=== PATIENT | male | born 1970 ===

== ENCOUNTER 2024-05-03 20:51 | Inpatient (IN) | payer SELFPAY ==
[2024-05-03] VITALS (15 sets, daily range): BP systolic 55–131; BP diastolic 41–73; PULSE 87–141; RESP 10–19; TEMP 34.3–35.3; O2SAT 94–100; BMI 25.4
--- NOTE | 2024-05-03 20:52 | XRR_ITS ---
PROCEDURE INFORMATION: Exam: XR Right Foot Exam date and time: 05/03/2024 9:06 PM Age: 53 years old Clinical indication: Other: Necrotic; Additional info: Wound TECHNIQUE: Imaging protocol: Radiologic exam of the right foot. Views: 3 or more views. COMPARISON: No relevant prior studies available. FINDINGS: Bones/joints: Mild metatarsus adductus. The 5th and 4th toe phalanges appear to be eroded, only the proximal part of the 5th proximal phalanx remains, a small portion of the 4th distal phalanx is visualized, otherwise presumed eroded appearance of the remainder of the 4th middle and distal phalanges. Soft tissues: Extensive soft tissue gas in the plantar and to a lesser extent dorsal aspect of the mid to distal foot and 2nd-5th toes. Diffuse soft swelling. Presumed dressing material overlying the lateral aspect of the 5th toe. Flecks of high density material overlying the 3rd distal phalanx and the webspace between the 2nd and 3rd toes likely due to or other external objects or debris, versus dermal calcifications. XR/XR foot RT min 3V* [id number] IMPRESSION: 1. Soft tissue swelling and extensive soft tissue gas in the forefoot and toes highly suspicious for severe gas producing soft tissue infection. 2. Eroded appearance of the 5th more than 4th toe phalanges as detailed above, consistent with osteomyelitis assuming no prior surgical resection.
--- NOTE | 2024-05-03 20:53 | XRR_ITS ---
PROCEDURE INFORMATION: Exam: XR Chest Exam date and time: 05/03/2024 9:09 PM Age: 53 years old Clinical indication: Other: Sepsis; Additional info: Possible sepsis TECHNIQUE: Imaging protocol: Radiologic exam of the chest. Views: 1 view. COMPARISON: No relevant prior studies available. FINDINGS: Lungs: Mild bandlike retrocardiac opacities likely nonspecific or due to atelectatic change. Otherwise no focal consolidation identified. Pleural spaces: Unremarkable. No pleural effusion. No pneumothorax. Heart/Mediastinum: Unremarkable. No cardiomegaly. Bones/joints: Unremarkable. XR/XR chest 1V portable [id number] IMPRESSION: No clear-cut focal consolidation at this time. Mild peribronchial thickening/atelectatic change in the retrocardiac left lung base.
--- NOTE | 2024-05-03 21:00 | ECG_ITS ---
[facility] Test Date: 2024-05-03 Pat Name: Tereza Keenan Department: Room: Gender: Male Nurse School: : 1970 Requested By: Emerita Crandall Order Number: [id number] Rm MD: Sb Meneses M.D. Measurements Intervals [place] Rate: 148 P: 0 MI: 0 QRS: -50 QRSD: 156 T: 141 QT: 327 QTc: 515 Interpretive Statements ATRIAL FIBRILLATION WITH RAPID VENTRICULAR RESPONSE Intermittent aberrantly conducted beats LEFT AXIS DEVIATION [QRS AXIS < -30] LEFT BUNDLE BRANCH BLOCK [120+ ms QRS DURATION, 80+ ms Q/S IN V1/V2, 85+ ms R IN I/aVL/V5/V6] No previous ECG available for comparison Electronically Signed On 05-04-2024 21:10:47 CDT by Sb Meneses M.D. [id number]
--- NOTE | 2024-05-03 21:12 | XRR_ITS ---
PROCEDURE INFORMATION: Exam: XR Left Tibia and Fibula Exam date and time: 05/03/2024 9:13 PM Age: 53 years old Clinical indication: Patient HX: Circular open wound to medial side of mid left tib/fib. ; Additional info: Injury TECHNIQUE: Imaging protocol: Radiologic exam of the left tibia and fibula. Views: 2 views. COMPARISON: No relevant prior studies available. FINDINGS: Bones/joints: No acute fracture or dislocation. No destructive osseous change. Soft tissues: Superficial soft tissue irregularity along the medial calf. XR/XR tibia fibula LT 2V [id number] IMPRESSION: 1. Superficial soft tissue irregularity along the medial calf, presumably corresponding to reported wound. 2. No acute osseous abnormality.
[2024-05-03] MEDS: norepinephrine 4 MG/250 ML BAG 30 MG IV (21:15)
[2024-05-03 21:24] LABS: Basophils # 0.1 10^3/uL (0.0-0.1); Basophils % 0.4 %; Hematocrit 27.9 % (37-53); Lymphocytes # 0.5 10^3/uL (0.8-4.8); Lymphocytes % 1.5 %; Mean Corpuscular HGB Conc 28.3 g/dL (30-55); Mean Corpuscular Hemoglobin 29.8 pg (27-33); Mean Corpuscular Volume 105.3 fl (82-101); Mean Platelet Volume 10.6 fL (7.4-10.4); Monocytes # 1.2 10^3/uL (0.2-0.9); Monocytes % 4.1 %; Neutrophils # 26.37 10^3/uL (1.8-7.7); Neutrophils % 88.7 %; Nucleated Red Blood Cells % 0 %; Platelet Count 410 10^3/cmm (157-399); Red Blood Count 2.65 10^6/uL (3.85-5.65); White Blood Count 29.77 10^3/uL (3.29-11.43)
[2024-05-03] MEDS: ketamine 100 mg/mL Inj 5 mL IVP (21:29)
[2024-05-03 21:32] LABS: Ketone (Acetest) Serum Positive (Negative)
--- NOTE | 2024-05-03 21:39 | XRR_ITS ---
PROCEDURE INFORMATION: Exam: XR Chest Exam date and time: 05/03/2024 9:54 PM Age: 53 years old Clinical indication: Device placement; Other: Central line; Additional info: Post central line TECHNIQUE: Imaging protocol: Radiologic exam of the chest. Views: 1 view. COMPARISON: CR (CHEST, ) 05/03/2024 9:09 PM FINDINGS: Tubes, catheters and devices: A right-sided IJ line has been placed, the tip projecting over the cavoatrial junction. Lungs: Previous increased retrocardiac left lung base density is less pronounced compared to the study obtained earlier the same day. No focal opacity. Pleural spaces: Unremarkable. No pleural effusion. No pneumothorax. Heart/Mediastinum: Unremarkable. No cardiomegaly. Diaphragm: Mild elevation of the left hemidiaphragm. Bones/joints: Unremarkable. XR/XR chest 1V portable [id number] IMPRESSION: Interval placement of right-sided IJ line.
[2024-05-03 21:40] LABS: Alanine Aminotransferase < 5 U/L (0-41); Albumin Level 2.4 g/dL (3.5-5.2); Alkaline Phosphatase 104 U/L (40-130); Anion Gap 41.5 (5-19); Aspartate Amino Transferase 6 U/L (0-40); Blood Urea Nitrogen 53 mg/dL (6-20); Calcium 8.8 mg/dL (8.5-10.5); Chloride 90 mmol/L (98-107); Globulin 3.6 g/dL (1.3-4.6); Glomerular Filtration Rate 21.8 mL/min (90-130); Magnesium 2.6 mg/dL (1.7-2.3); Potassium 5.5 mmol/L (3.5-5.1); Sodium 129 mmol/L (136-145); Total Bilirubin 0.2 mg/dL (0.15-1.2)
[2024-05-03 21:41] LABS: Lactic Sepsis W/Reflex 3.6 mmol/L (0.5-2.2)
[2024-05-03 21:49] LABS: Osmolality Calculated 331 mOsm/kg (285-295)
[2024-05-03 21:51] LABS: Carbon Dioxide 3 mmol/L (22-29); Glucose 974 mg/dL (65-115); Phosphorus 8.5 mg/dL (2.5-4.5)
[2024-05-03] MEDS: vancomycin 1,000 MG in sodium chloride 0.9% 250 ML 250 MG IV (21:53)
[2024-05-03] MEDS: piperacillin-tazobactam 3.375 GM in sodium chloride 0.9% (plus) 50 ML IV (21:53)
--- NOTE | 2024-05-03 21:57 | ED_ITS ---
HPI - Neuro Symptoms/Deficit 2 General: Chief Complaint: Neuro Symptoms/Deficit Stated Complaint: HIGH BLOOD SUGAR Time Seen by Provider: 05/03/24 20:52 Source: EMS Mode of arrival: EMS Limitations: altered mental status History of Present Illness: 53-year-old male with a history of diabe kathya he had a burn to his right foot last week EMS was called for patient being unresponsive. They state when they arrived he was unresponsive patient's blood pressure was in the 40s I did give him a dose of epinephrine his pressures still in the 60s here patient's unresponsive with cues mild breathing they state that his blood sugar read high patient's unresponsive no history is available from him. Review of Systems 2 General: Reports: ROS unobtainable due to mental status Physical Exam 2 Const: COMMON NORMALS: negative for patient oriented x3 GENERAL APPEARANCE: in distress and ill appearing HENMT: COMMON NORMALS: normocephalic and atraumatic HEAD & SCALP: n ormocephalic and atraumatic Eye: COMMON NORMALS: Equal, round and reactive pupils present and EOMs intact bilaterally PUPIL: Yes Equal, round and reactive pupils present Neck/C-Spine: COMMON NORMALS: full ROM and supple Chest: COMMONS NORMALS: normal inspection of the chest and normal palpation of entire chest wall Resp: COMMON NORMALS: No use of accessory muscles EFFORT & INSPECTION: Yes tachypneic Cardio: COMMON NORMALS: No murmurs present (Cardio) RATE: tachycardic GI: COMMON NORMALS: Normal to inspection, nondistended, normoactive bowel sounds present, Soft to palpation, non-tender and no masses PALPATION: Yes Soft to palpation Extremity: NARRATIVE EXTREMITY EXAM: Necrotic wound noted to right foot with foul-smelling erythema around the foot as well Neuro: COMMON NORMALS: negative for patient oriented x3 Skin: NARRATIVE SKIN EXAM: Necrotic wound noted to right foot Procedures Central Line Placement Right IJ: Time Out Performed: Yes Patient Placed on Monitor/Pulse Ox: Yes MD Prep: mask, gown and gloves Central Line Prep: Chlorhexidine scrub Local Anesthetic: lidocaine 1% Amount of anesthesia used (mL): 3 Ultrasound Used for Placement: Yes Central Line Lumen Inserted: triple Post Procedure: sutured in place, good blood return and all ports aspirated, flushed, capped Post Procedure X-Ray: tip of catheter in good position and no pneumothorax seen Patient Tolerated Procedure: well Complications: none Procedural Sedation Presedation Evaluation: central line ASA Class: III Preparation: chemical plant operator supervisor applied and pulse oximeter Ketamine: IV Ketamine dose (mg): 100 Complications: none Interventions: oxygen applied Course 2 Vital Signs: Vital signs: Vital Signs Temperature 93.7 F L 05/03/24 21:00 Pulse Rate 87 05/03/24 22:00 Respiratory Rate 11 L 05/03/24 22:00 Blood Pressure 131/73 05/03/24 22:00 Pulse Oximetry 100 05/03/24 22:00 Oxygen Delivery Me thod Nasal Cannula 05/03/24 22:00 Oxygen Flow Rate 6 05/03/24 22:00 MDM - Neuro Symptoms/Deficit Medical Decision Making Patient presented here with severe septic shock along with likely DKA as well. He has what appears to be gas gangrene of his right foot did fluid resuscitate him given antibiotics start him on Levophed and placed a central line. Patient had to be sedated for central line placement. Dr. Huerta has been consulted he has seen the patient in the ER is going to take to the operating room for emergent surgery on his right foot patient started on insulin drip and given bicarb as well hospitalist was seen patient in the ER as well. Medical Records I reviewed the patient's medical records. Lab Data I reviewed the patient's lab results. 05/03/24 21:14 05/03/24 21:14 Laboratory Results WBC 29.77 10^3/uL (3.29-11.43) H 05/03/24 21:14 RBC 2.65 10^6/uL (3.85-5.65) L 05/03/24 21:14 Hgb 7.90 g/dL (11.27-16.99) L 05/03/24 21:14 Hct 27.9 % (37-53) L 05/03/24 21:14 MCV 105.3 fl (82-101) H 05/03/24 21:14 MCH 29.8 pg (27-33) 05/03/24 21:14 MCHC 28.3 g/dL (30-55) L 05/03/24 21:14 RDW 13.0 % (12.1-15.1) 05/03/24 21:14 Plt Count 410 10^3/cmm (157-399) H 05/03/24 21:14 MPV 10.6 fL (7.4-10.4) H 05/03/24 21:14 Neut % (Auto) 88.7 % 05/03/24 21:14 Lymph % (Auto) 1.5 % 05/03/24 21:14 Harmon % (Auto) 4.1 % 05/03/24 21:14 Eos % (Auto) 0.0 % 05/03/24 21:14 Baso % (Auto) 0.4 % 05/03/24 21:14 Neut # (Auto) 26.37 10^3/uL (1.8-7.7) H 05/03/24 21:14 Lymph # (Auto) 0.5 10^3/uL (0.8-4.8) L 05/03/24 21:14 Harmon # (Auto) 1.2 10^3/uL (0.2-0.9) H 05/03/24 21:14 Eos # (Auto) 0.0 10^3/uL (0.0-0.8) 05/03/24 21:14 Baso # (Auto) 0.1 10^3/uL (0.0-0.1) 05/03/24 21:14 Nucleated RBC % (auto) 0 % 05/03/24 21:14 Nucleated RBCs # 0.0 /100WBC 05/03/24 21:14 PT 20.60 SECONDS (12.1-14.9) H 05/03/24 21:14 INR 1.70 (0.8-1.2) H 05/03/24 21:14 Sodium 129 mmol/L (136-145) L 05/03/24 21:14 Potassium 5.5 mmol/L (3.5-5.1) H 05/03/24 21:14 Chloride 90 mmol/L (98-107) L 05/03/24 21:14 Carbon Dioxide 3 mmol/L (22-29) L* 05/03/24 21:14 Anion Gap 41.5 (5-19) H 05/03/24 21:14 BUN 53 mg/dL (6-20) H 05/03/24 21:14 Creatinine 3.0 mg/dL (0.7-1.2) H 05/03/24 21:14 GFR Calculation 21.8 mL/min (90-130) L 05/03/24 21:14 Glucose 974 mg/dL (65-115) H* 05/03/24 21:14 Calculated Osmolality 331 mOsm/kg (285-295) H 05/03/24 21:14 Lactic Acid 3.6 mmol/L (0.5-2.2) H 05/03/24 21:14 Calcium 8.8 mg/dL (8.5-10.5) 05/03/24 21:14 Phosphorus 8.5 mg/dL (2.5-4.5) H* 05/03/24 21:14 Magnesium 2.6 mg/dL (1.7-2.3) H 05/03/24 21:14 Total Bilirubin 0.2 mg/dL (0.15-1.2) 05/03/24 21:14 AST 6 U/L (0-40) 05/03/24 21:14 ALT < 5 U/L (0-41) 05/03/24 21:14 Alkaline Phosphatase 104 U/L (40-130) 05/03/24 21:14 Total Protein 6.0 g/dL (6.6-8.7) L 05/03/24 21:14 Albumin 2.4 g/dL (3.5-5.2) L 05/03/24 21:14 Globulin 3.6 g/dL (1.3-4.6) 05/03/24 21:14 Serum Ketones Positive (Negative) H 05/03/24 21:14 All radiology interpretation(s) finalized by discharge Critical Care Time 2 Critical Care Time: Critical Care Time: Yes Total Critical Care Time: 55 Attestation: The high probability of a clinically significant, sudden or life threatening deterioration of the patient's cva system(s) required my full and direct attention, intervention and personal management. The critical care time is as shown. This time is in addition to time spent performing any reported procedures but includes the following: [x] Data and vital sign review and interpretation [x] Patient assessment, examination and intervention [x] Documentation [x] Medication orders and management Discharge Plan Discharge Patient Disposition: Admitted As Inpatient Clinical Impression: Ulcer of foot with necrosis of muscle, Severe sepsis DKA (diabetic ketoacidosis) Qualifiers: Diabetes mellitus type: type 2 Condition: Stable Coding Level of Care Code ED Cable Engineer for Peng Ramsey
--- NOTE | 2024-05-03 21:58 | P.CONIM_ITS ---
Providers/Reason For Consult 2 Consulting Physician/Specialty*: Don Huerta D.P.M., podiatry Reason for Consult*: Necrotizing fasciitis, right History of Present Illness History of Present Illness 53-year-old insulin-dependent diabetic male presents to ED via ambulance with complaints of right foot infection that has worsened with symptoms of malaise, lethargic, decreased appetite, fevers and chills. Medical history obtained by his with in-house clerk stenographer and his son Grey. Patient moved here from [place] 4 years ago, states that he was following with a primary care physician while in [place]. He has not followed with a primary care physician since he has been in [place] for the past 4 years, he requires insulin and is self treating his diabetes. Family denies any known allergies for the patient, denies nicotine use. Review of Systems 2 General: Reports: 10 or more systems reviewed and unremarkable except in HPI and below Const: Denies: fever(s) or chills Eyes: Denies: change in vision Card: Denies: chest pain or palpitations Resp: Denies: dyspnea or productive cough GI: Denies: abdominal pain, nausea or vomiting : Denies: flank pain Musc: Reports: extremity swelling, joint stiffness and deformity Skin/Breast: Reports: erythema, sores, changes in skin color, dry skin, nail changes and change in hair Neuro: Reports: numbness in extremities, sensory changes and difficulty walking Psych: Denies: suicidal ideation Endo: Denies: change in body appearance Huan/Lymph: Denies: tender lymph nodes Medications/Allergies Allergies Allergy/AdvReac Type Severity Reaction Status Date / Time No Known Allergies Allergy Verified 05/03/24 22:13 Current Medications Generic Name Dose Route Start Last Admin Trade Name Freq PRN Reason Stop Dose Admin Norepinephrine Bitartrate 4 mg in 250 mls @ 0 mls/hr 05/03/24 21:00 05/03/24 21:24 Levophed IV 15 mcg/min .Q0M LAITH 56.25 mls/hr Titration Protocol Per Protocol Vitals/I&O/Wt Last Vital Signs Temp 93.7 F L 05/03/24 21:00 Pulse 141 H 05/03/24 20:54 Resp 14 05/03/24 20:54 BP 55/41 05/03/24 20:54 Pulse Ox 94 05/03/24 20:54 O2 Del Method Nasal Cannula 05/03/24 20:54 O2 Flow Rate 2 05/03/24 20:54 05/03/24 05/03/24 05/03/24 06:59 14:59 22:59 Intake Total 2345.75 / 2345.75 Balance 2345.75 / 2345.75 Weight last 48 hrs Weight 170 lb Physical Exam 2 Narrative: Patient is unresponsive. The following is a focused bilateral lower extremity exam. VASCULAR: Dorsalis pedis diminished bilaterally. Posterior tibial arteries diminished. Delayed capillary refill to right great toe, cap refill less than 5 seconds to the left great toe. Pedal hair growth is diminished, there is mild hair growth at the tuft of the great toe bilaterally. NEUROLOGICAL: Protective sensation absent to light touch bilaterally. DERMATOLOGICAL: Full-thickness wound with exposed tendon and bone at the right forefoot more significant dorsally with soft tissue crepitus to palpation to the right forefoot. Erythema streaking to the level of the right midfoot appreciated dorsally. Wound exposed to myofascial layer left mid leg measures 2.8 cm x 2.1 cm x 0.3 cm. MUSCULOSKELETAL: Crepitus with palpation of soft tissue right dorsal forefoot. Data 05/03/24 21:14 05/03/24 21:14 Micro: Microbiology 05/03/24 21:14 Blood Culture - Preliminary Blood SPECIMEN COLLECTED 05/03/24 21:14 Blood Culture - Preliminary Blood SPECIMEN COLLECTED A&P Assessment and plan (1) Severe sepsis: (2) DKA (diabetic ketoacidosis): Qualifiers: Diabetes mellitus type: type 2 (3) Diabetic peripheral neuropathy associated with type 2 diabetes mellitus: (4) Necrotizing fasciitis: (5) Gas gangrene: Plan 53-year-old uncontrolled diabetic male presents with unresponsiveness, DKA, sepsis and necrotizing fasciitis to the right foot. Patient is septic, tachycardic, DKA and hypotensive, likely secondary to necrotizing fasciitis of right foot On-call team notified for amputation right midfoot for infection source control, patient is critical require central line and intubation, planning on remaining intubated after surgery and transfer to ICU. Informed patient's and son that patient is at risk for loss of limb and loss of life, his condition is critical, he is a high risk surgical candidate. His and son express understanding that despite the high risk, the surgical intervention is deemed necessary for controlling the source of infection and improving the patient?s prognosis. The benefits of proceeding with the surgery outweigh the risks associated with the patient?s current health status. Coding Level of Care Code Acute Code for Chg Fwd Diagnoses Severe sepsis A41.9; R65.20 DKA (diabetic ketoacidosis) E11.10 Diabetes mellitus type: type 2 Diabetic peripheral neuropathy associated with type 2 diabetes mellitus E11.42 Necrotizing fasciitis M72.6 Gas gangrene A48.0
--- NOTE | 2024-05-03 22:23 | ECG_ITS ---
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 Measurements Intervals [place] Rate: 110 P: 55 OK: 171 QRS: 45 QRSD: 95 T: 205 QT: 341 QTc: 463 Interpretive Statements SINUS TACHYCARDIA MODERATE T-WAVE ABNORMALITY, CONSIDER LATERAL ISCHEMIA [-0.1+ mV T-WAVE IN I/aVL/V5/V6] Compared to ECG 05/03/2024 21:05:48 T-wave abnormality now present Possible ischemia now present Atrial fibrillation no longer present Left-axis deviation no longer present Left bundle-branch block no longer present Electronically Signed On 05-04-2024 21:00:53 CDT by Sb Meneses M.D. [id number]
[2024-05-03 22:24] LABS: Protein Urine Trace (Negative); Urine Appearance Clear (CLEAR); Urine Color Yellow (Yellow); pH Urine 5 (5-7)
[2024-05-03] MEDS: INSULIN REGULAR IN 0.9 % NACL 100 UNIT/100 ML BAG 7 UNIT IV (22:24)
--- NOTE | 2024-05-03 22:24 | W.SEPSIS ---
Sepsis Event Note Inpt Quick SOFA Score Sepsis Screen No Definite Risk 05/03/24 22:00 Respiratory Rate 11 breaths/min L (12 - 18) 05/03/24 22:00 Blood Pressure 131/73 mmHg 05/03/24 22:00 Michele Coma Scale Score 7 05/03/24 22:00 Quick SOFA Score 0 05/03/24 22:00 Respiratory Rate: 11 Blood Pressure: 55/41 Michele Coma Scale: 7 qSOFA Score: 2 If qSOFA score 2 or greater, continue SOFA Score: Michele Coma Scale Score 7 05/03/24 22:00 Blood Pressure Mean 92 mmHg 05/03/24 22:00 Total Bilirubin 0.2 mg/dL (0.15-1.2) 05/03/24 21:14 Platelet Count 410 10^3/cmm (157-399) H 05/03/24 21:14 Creatinine 3.0 mg/dL (0.7-1.2) H 05/03/24 21:14 Blood Pressure Mean: 92 Norepinephrine Current Rate (?g/kg/min): 15 Bilirubin (mg/dl): 0.2 Platelets (x10?/ml): 410 Creatinine (mg/dl): 3.0 Evaluation Current stage of sepsis: septic shock Initial hypotension: SBP < 90 mmHg and MAP < 65 mmHg Persistent hypotension: SBP < 90 mmHg and MAP < 65 mmHg Sepsis stage criteria used: CMS Sep-1 and Sepsis-3 Crystalloid fluids: 30 mL/kg crystalloid fluids ordered and initiated within 3 hours Blood cultures ordered: Yes Possible source: skin/soft tissue Focused Exam Vital signs: Temp Pulse Resp BP Pulse Ox O2 Del Method O2 Flow Rate 05/03/24 22:00 87 11 L 131/73 100 Nasal Cannula 6 05/03/24 21:00 93.7 F L 05/03/24 20:54 141 H 14 55/41 94 Nasal Cannula 2 Respiratory exam: crackles present Cardiovascular exam: tachycardia and abnormal rhythm (LBBB) Capillary refill: < 3 Seconds Peripheral pulse strength: 1+ Faint Peripheral pulse location: Radial and Pedal Skin exam: other (dehydrated, dry parched skin ) Date exam was performed: 05/03/24 Time exam was performed: 22:27 Problem List (1) Severe sepsis: (2) DKA (diabetic ketoacidosis): (3) Diabetic peripheral neuropathy associated with type 2 diabetes mellitus: (4) Necrotizing fasciitis: (5) Gas gangrene: (6) Septic shock:
[2024-05-03 22:25] LABS: Add Urine Microscopic? YES; Amorphous Sediment Urine 1+ /hpf; Bacteria Urine 2+ /hpf; Bilirubin Urine Neg (Negative); Blood Urine Neg (Negative); Coarse Granular Casts Urine 0-4 /lpf; Glucose Urine UA 4+ (Normal); Hyaline Casts Urine 0-4 /lpf; Ketones Urine 2+ (Negative); Leukocyte Esterase Urine Negative (Negative); Mucus Urine 1+ /hpf; Nitrate Urine Negative (Negative); RBC Urine 0-4 /hpf (0-2); Squamous Epithelial Cell Urine 0-4 /hpf (0-5); Urobilinogen Urine Neg (Negative); WBC Urine 0-4 /hpf (0-5)
[2024-05-03] MEDS: insulin regular-human 100 units/1 mL 20 UNIT IVP (22:25)
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
[2024-05-03] MEDS: sodium bicarbonate 8.4% 1 mEq/mL 50mL Syr 100 MEQ IVP (22:34)
[2024-05-03] MEDS: sodium chloride 0.9% 1,000 ML 125 ML IV (22:39)
[2024-05-03] MEDS: sodium bicarbonate 150 MEQ in dextrose 5% 1,000 ML 100 MEQ IV (22:47)
[2024-05-03 23:07] LABS: Reflex Lactate Order REFLEX LACTIC ORDERD
--- NOTE | 2024-05-03 23:20 | PM.OP ---
Operative Report Date of procedure: May 03, 2024 Pre-op diagnosis: Necrotizing fasciitis right foot Gas gangrene right foot Acute osteomyelitis right forefoot Post-op diagnosis: Necrotizing fasciitis right foot Gas gangrene right foot Acute osteomyelitis right forefoot Post-op findings: Necrotizing fasciitis with tracking plantarly to level the anterior calcaneus Procedure done: Right transmetatarsal amputation. CPT code 33043 Implants: No implants Specimens removed/disposition: Deep soft tissue cultures taken intraoperatively to microbiology for Gram stain, culture and sensitivity both aerobic and anaerobic right foot Pathology: Right forefoot sent to pathology for permanent Surgeon: Don Huerta DPM Stiff Leg Operator: Dave Estimated blood loss: 25 mL 6 minutes IV fluids: See intraoperative documentation Urine output: See intraoperative documentation Complications: No complications Brief History: 53-year-old insulin-dependent diabetic male presents to ED via ambulance with complaints of right foot infection that has worsened with symptoms of malaise, lethargic, decreased appetite, fevers and chills. 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 Patient moved here from [place] 4 years ago, states that he was following with a primary care physician while in [place]. He has not followed with a primary care physician since he has been in [place] for the past 4 years, he requires insulin and is self treating his diabetes. Family denies any known allergies for the patient, denies nicotine use. Patient is septic, tachycardic, DKA and hypotensive, likely secondary to necrotizing fasciitis of right foot On-call team notified for amputation right midfoot for infection source control, patient is critical require central line and intubation, planning on remaining intubated after surgery and transfer to ICU. Informed patient's and son that patient is at risk for loss of limb and loss of life, his condition is critical, he is a high risk surgical candidate. His and son express understanding that despite the high risk, the surgical intervention is deemed necessary for controlling the source of infection and improving the patient?s prognosis. The benefits of proceeding with the surgery outweigh the risks associated with the patient?s current health status. Procedure: Under mild sedation patient was brought to the operating room and remained on the gurney in supine position. A timeout was performed. Anesthesia was then administered by the anesthesia service. Well-padded pneumatic tourniquet applied to the right ankle. Right lower extremity was scrubbed, prepped and draped utilizing normal aseptic technique. Right ankle tourniquet was then inflated to 250 mmHg. Right lower extremity was not exanguinated due to underlying infection. Attention was directed to the right tarsometatarsal joint where a full-thickness guillotine style incision was performed down to bone and sharply disarticulated metatarsals 1, 2, 3, 4, 5 of the right forefoot. The right forefoot was then passed from the operative field and sent to pathology for gross anatomical review. Dorsally soft tissue and deep tissues appeared viable, all bleeders were ligated and cauterized as necessary. Plantarly there was a abscess and flexor tendon tracking of purulence to the level of the anterior calcaneus this was sharply excisionally debrided of all devitalized tissue, did not appreciate any further ascending tracking. The amputation site was irrigated with copious amounts of sterile skin solution and dressed with Surgicel, sterile 4 x 4's, ABD pad, Kerlix and Coban. Tourniquet was deflated. No pulsatile bleeders were appreciated. Patient tolerated procedure well and was transferred to the ICU for continued care will remain intubated, NG tube was placed. Will monitor his response to treatment, he is at risk for higher level of amputation.
[2024-05-03 23:21] LABS: Glucose Point of Care > 600 mg/dL (70-110)
[2024-05-03] MEDS: propofol 1,000 MG/100 ML INJ 2.31 MG IV (23:35)
[2024-05-03] MEDS: fentaNYL 1,000 MCG/100 ML BAG 2.5 MCG IV (23:35)
--- NOTE | 2024-05-03 23:35 | PC.NURSE ---
Insulin drip increased to 15 units/hr per doctor kendra's orders after blood glucose reader said grater than 600.
--- NOTE | 2024-05-03 23:40 | XRR_ITS ---
PROCEDURE INFORMATION: Exam: XR Chest Exam date and time: 05/03/2024 11:28 PM Age: 53 years old Clinical indication: Device placement; Ett placement (vent status); Patient HX: Check S/P et placement; Additional info: Post intubation TECHNIQUE: Imaging protocol: Radiologic exam of the chest. Views: 1 view. COMPARISON: CR (CHEST, ) 05/03/2024 9:54 PM FINDINGS: Tubes, catheters and devices: Endotracheal tube has been placed, the tip proximally 4.5 cm above the chasity. Right-sided IJ line is in stable position. Lungs: No new or significant airspace opacity. Low lung volumes. Pleural spaces: Unremarkable. No pleural effusion. No pneumothorax. Heart/Mediastinum: Unremarkable. No cardiomegaly. Diaphragm: Mild elevation of the left hemidiaphragm. Bones/joints: Unremarkable. XR/XR chest 1V portable [id number] IMPRESSION: Interval endotracheal intubation. No significant interval change otherwise from the study obtained at 9:59 p.m. today.
--- NOTE | 2024-05-03 23:55 | ANE.PACU2 ---
Inpatient post-anesthesia follow up: Airway intact: No Vital signs: Temperature 96.5 F Pulse Rate 110 Respiratory Rate 21 Blood Pressure 84/59 Pulse Oximetry 98 Oxygen Delivery Me thod Mechanical Ventila tion Oxygen Flow Rate 40 Fraction of Inspir ed Oxygen 40 Hydration adequate: No Nausea and vomiting: No Pain level: 1 Mental status: Baseline Additional Comments: intubated and sedated
[2024-05-04] VITALS (99 sets, daily range): BP systolic 73–143; BP diastolic 48–68; PULSE 92–151; RESP 11–36; TEMP 35.4–38; O2SAT 97–100; BMI 25.4
[2024-05-04 00:09] LABS: Troponin(5th) Baseline 27 ng/L (0-15)
[2024-05-04] MEDS: amiodarone 150 MG/100 ML PREMIX 400 MG IV (00:10)
[2024-05-04 00:13] LABS: Lactic Acid level (Lactate) 3.3 mmol/L (0.5-2.2)
[2024-05-04] MEDS: heparin 5,000 unit/mL INJ 1 mL 5000 UNIT SUBCUT ×2 (00:14→14:06)
[2024-05-04 00:20] LABS: Glucose Point of Care > 600 mg/dL (70-110)
[2024-05-04 00:24] LABS: Estmated Average Glucose 476; Hemoglobin A1C 18.2 % (4.0-6.0)
[2024-05-04 00:27] LABS: Alanine Aminotransferase 13 U/L (0-41); Albumin Level 2.4 g/dL (3.5-5.2); Alkaline Phosphatase 156 U/L (40-130); Anion Gap 39.1 (5-19); Aspartate Amino Transferase 45 U/L (0-40); Blood Urea Nitrogen 50 mg/dL (6-20); Calcium 8.6 mg/dL (8.5-10.5); Chloride 97 mmol/L (98-107); Globulin 3.9 g/dL (1.3-4.6); Glomerular Filtration Rate 23.6 mL/min (90-130); Potassium 4.1 mmol/L (3.5-5.1); Sodium 138 mmol/L (136-145); Total Bilirubin 0.2 mg/dL (0.15-1.2); Total Protein 6.3 g/dL (6.6-8.7)
[2024-05-04 00:35] LABS: Osmolality Calculated 343 mOsm/kg (285-295)
[2024-05-04 00:37] LABS: Carbon Dioxide 6 mmol/L (22-29)
[2024-05-04 00:38] LABS: Glucose 885 mg/dL (65-115)
--- NOTE | 2024-05-04 00:47 | PC.NURSE ---
Patients Blood sugar came back at 885. Dr. Lopez was contacted and she ordered for the insulin drip to be increased per protocol. Insulin drip increased by 9 units/hr per protocol. Insulin drip running at 24 units/hr. Additional order received to administer 10 units insulin IVP bolus once.
[2024-05-04] MEDS: insulin regular-human 10 UNIT in SYRINGE 1 EACH IVP (00:58)
--- NOTE | 2024-05-04 00:59 | PC.NURSE ---
Vasopressin While communicating with Dr. Lopez regarding blood sugar and insulin changes (see previous note), blood pressure and high levophed requirements relayed. Order received for titratable vasopressin IV.
[2024-05-04] MEDS: norepinephrine 4 MG/250 ML BAG 67.5 MG IV ×2 (01:19→17:26)
[2024-05-04 01:20] LABS: Glucose Point of Care > 600 mg/dL (70-110)
[2024-05-04 01:38] LABS: Troponin 5 2HR 40.26 ng/L (0-15)
[2024-05-04 01:40] LABS: Alanine Aminotransferase 13 U/L (0-41); Albumin Level 2.5 g/dL (3.5-5.2); Alkaline Phosphatase 166 U/L (40-130); Anion Gap 38.5 (5-19); Aspartate Amino Transferase 40 U/L (0-40); Blood Urea Nitrogen 49 mg/dL (6-20); Calcium 8.4 mg/dL (8.5-10.5); Chloride 95 mmol/L (98-107); Creatinine Clr Calc Pharmacy 27.2072; Globulin 3.7 g/dL (1.3-4.6); Glomerular Filtration Rate 22.7 mL/min (90-130); Potassium 3.5 mmol/L (3.5-5.1); Sodium 136 mmol/L (136-145); Total Bilirubin 0.2 mg/dL (0.15-1.2); Total Protein 6.2 g/dL (6.6-8.7)
[2024-05-04 01:47] LABS: Troponin 5 2HR Delta 13.26 ABS# (0-10)
[2024-05-04 01:48] LABS: Carbon Dioxide 6 mmol/L (22-29)
[2024-05-04 01:49] LABS: Osmolality Calculated 340 mOsm/kg (285-295)
[2024-05-04 01:50] LABS: Glucose 902 mg/dL (65-115)
[2024-05-04] MEDS: insulin regular-human 15 UNIT in SYRINGE 1 EACH IVP (02:08)
--- NOTE | 2024-05-04 02:43 | XRR_ITS ---
PROCEDURE INFORMATION: Exam: XR Chest Exam date and time: 05/04/2024 2:52 AM Age: 53 years old Clinical indication: Device placement; Ng tube; Patient HX: Check S/P ng placement; Additional info: Ng tube placement TECHNIQUE: Imaging protocol: Radiologic exam of the chest. Views: 1 view. COMPARISON: CR (CHEST, ) 05/03/2024 11:28 PM FINDINGS: Tubes, catheters and devices: Nasogastric tube with side hole and tip in the stomach. Endotracheal tube in satisfactory position, unchanged. Right IJ CVC with tip near the superior cavoatrial junction, unchanged. Lungs: No consolidation. Pleural spaces: No large pleural effusion. No pneumothorax. Heart/Mediastinum: No cardiomegaly. Bones/joints: No acute abnormality. XR/XR chest 1V portable [id number] IMPRESSION: Nasogastric tube in satisfactory position.
[2024-05-04] MEDS: INSULIN REGULAR IN 0.9 % NACL 100 UNIT/100 ML BAG 26 UNIT IV (03:10)
[2024-05-04 03:11] LABS: Glucose Point of Care > 600 mg/dL (70-110)
[2024-05-04 03:16] LABS: Basophils % 0.1 %; Eosinophils % 0.1 %; Hematocrit 33.8 % (37-53); Lymphocytes # 0.7 10^3/uL (0.8-4.8); Lymphocytes % 1.8 %; Mean Corpuscular Hemoglobin 29.4 pg (27-33); Mean Corpuscular Volume 101.5 fl (82-101); Mean Platelet Volume 10.1 fL (7.4-10.4); Monocytes # 0.7 10^3/uL (0.2-0.9); Neutrophils # 32.31 10^3/uL (1.8-7.7); Neutrophils % 90.5 %; Nucleated Red Blood Cells % 0 %; Platelet Count 434 10^3/cmm (157-399); Red Blood Count 3.33 10^6/uL (3.85-5.65); Red Cell Distribution Width 12.7 % (12.1-15.1)
[2024-05-04] MEDS: vasopressin 40 UNIT/100 ML PREMIX IV (03:19)
[2024-05-04 03:33] LABS: Alanine Aminotransferase 12 U/L (0-41); Albumin Level 2.5 g/dL (3.5-5.2); Alkaline Phosphatase 162 U/L (40-130); Anion Gap 36.2 (5-19); Aspartate Amino Transferase 31 U/L (0-40); Blood Urea Nitrogen 48 mg/dL (6-20); Calcium 8.4 mg/dL (8.5-10.5); Chloride 97 mmol/L (98-107); Creatinine Clr Calc Pharmacy 28.1788; Globulin 3.6 g/dL (1.3-4.6); Glomerular Filtration Rate 23.6 mL/min (90-130); Potassium 3.2 mmol/L (3.5-5.1); Sodium 138 mmol/L (136-145); Total Bilirubin 0.2 mg/dL (0.15-1.2); Total Protein 6.1 g/dL (6.6-8.7)
[2024-05-04 03:43] LABS: Osmolality Calculated 343 mOsm/kg (285-295)
[2024-05-04 03:46] LABS: Carbon Dioxide 8 mmol/L (22-29); Glucose 900 mg/dL (65-115); Slide Review Slide Review Perform
[2024-05-04] MEDS: lidocaine 1% 5 ML in potassium chloride premix 100 ML 26.25 ML IV ×3 (04:06→22:14)
--- NOTE | 2024-05-04 04:22 | ECG_ITS ---
[facility] Test Date: 2024-05-04 Pat Name: Tereza Keenan Department: Room: ICU10 Gender: Male [employer]: : [id number] Requested By: Coraozn Lopez Order Number: [id number] Reading MD: Sb Meneses M.D. Measurements Intervals [place] Rate: 104 P: 63 MD: 173 QRS: 66 QRSD: 102 T: 31 QT: 384 QTc: 507 Interpretive Statements SINUS TACHYCARDIA NONSPECIFIC ST & T-WAVE ABNORMALITY ABNORMAL RHYTHM ECG Compared to ECG 05/04/2024 00:03:00 Atrial flutter no longer present Possible ischemia no longer present T-wave abnormality still present Electronically Signed On 05-04-2024 21:10:59 CDT by Sb Meneses M.D. [id number]
[2024-05-04] MEDS: insulin regular-human 20 UNIT in SYRINGE 1 EACH IVP ×2 (04:24→06:21)
[2024-05-04] MEDS: insulin regular-human 100 units/1 mL 20 UNIT IVP (04:28)
[2024-05-04] MEDS: sodium bicarbonate 8.4% 1 mEq/mL 50mL Syr 100 MEQ IVP (04:30)
[2024-05-04 04:38] LABS: Glucose Point of Care > 600 mg/dL (70-110)
[2024-05-04] MEDS: norepinephrine 4 MG/250 ML BAG 75 MG IV ×4 (04:41→14:13)
[2024-05-04] MEDS: sodium chloride 0.9% 1,000 ML 125 ML IV ×2 (04:47→12:15)
[2024-05-04] MEDS: piperacillin-tazobactam 3.375 GM in sodium chloride 0.9% (plus) 50 ML IV ×3 (05:14→21:54)
[2024-05-04 05:58] LABS: Glucose Point of Care > 600 mg/dL (70-110)
[2024-05-04 05:58] LABS: Glucose Point of Care > 600 mg/dL (70-110)
[2024-05-04 06:00] LABS: Troponin 5 6HR 59.99 ng/L (0-15)
--- NOTE | 2024-05-04 06:00 | USR_ITS ---
PROCEDURE INFORMATION: Exam: US Duplex Left Lower Extremity Arteries Or Arterial Bypass Grafts Exam date and time: 05/04/2024 7:09 AM Age: 53 years old Clinical indication: Other: Wound lt calf; Additional info: Assess for critical limb ischemia, can be done post or TECHNIQUE: Imaging protocol: Left Real-time duplex scan of the arteries or arterial bypass grafts of the left lower extremity with 2-D fonseca scale, color Doppler flow and spectral waveform analysis. Images documented and saved. COMPARISON: CR XR tibia fibula LT 2V [id number] 05/03/2024 9:13 PM FINDINGS: Left common femoral artery: No occlusion or significant stenosis. Normal waveform. Left superficial femoral artery: No occlusion or significant stenosis. Normal waveform. Left popliteal artery: No occlusion or significant stenosis. Normal waveform. Left calf/foot arteries: No occlusion or significant stenosis in the visualized arteries. Normal waveforms. Dorsalis pedis artery is patent. Other findings: DELORES: 0.7. US/[place] [id number] IMPRESSION: No stenosis or occlusion.
[2024-05-04 06:04] LABS: Troponin 5 6HR Delta 32.99 ng/L (0-12)
--- NOTE | 2024-05-04 06:07 | PC.NURSE ---
Patient's blood sugar was greater than 600. Dr. Lopez was notified and she ordered to increase the insulin drip to 40 units/hr and give a 20 unit bolus of regular insulin.
[2024-05-04] MEDS: INSULIN REGULAR IN 0.9 % NACL 100 UNIT/100 ML BAG 40 UNIT IV ×2 (06:25→07:02)
[2024-05-04 06:56] LABS: Glucose Point of Care > 600 mg/dL (70-110)
--- NOTE | 2024-05-04 07:03 | PC.NURSE ---
Pharmacy, [facility], brought new premix of insulin drip, patient BG not responsive, trying a separate lot from company.
[2024-05-04 07:11] LABS: Alanine Aminotransferase 11 U/L (0-41); Albumin Level 2.4 g/dL (3.5-5.2); Alkaline Phosphatase 218 U/L (40-130); Anion Gap 35.2 (5-19); Aspartate Amino Transferase 26 U/L (0-40); Blood Urea Nitrogen 48 mg/dL (6-20); Calcium 8.1 mg/dL (8.5-10.5); Chloride 95 mmol/L (98-107); Globulin 3.8 g/dL (1.3-4.6); Glomerular Filtration Rate 22.7 mL/min (90-130); Potassium 3.2 mmol/L (3.5-5.1); Sodium 136 mmol/L (136-145); Total Bilirubin 0.2 mg/dL (0.15-1.2); Total Protein 6.2 g/dL (6.6-8.7)
--- NOTE | 2024-05-04 07:20 | PC.NURSE ---
Dr. Lopez ordered to wait until the patient's blood sugar stabilizes before trying to get a head CT.
[2024-05-04 07:22] LABS: Creatinine Clr Calc Pharmacy 27.2072; Osmolality Calculated 336 mOsm/kg (285-295)
--- NOTE | 2024-05-04 07:22 | PC.NURSE ---
Versed: Dr. Lopez ordered to start Versed drip if Propofol drip affects the patient's blood pressure too much.
[2024-05-04 07:24] LABS: Carbon Dioxide 9 mmol/L (22-29); Glucose 847 mg/dL (65-115)
--- NOTE | 2024-05-04 08:00 | P.ANESASSM_ITS ---
Pre-Anesthetic Assessment Height/Weight: Height 1.68 m Weight 71.384 kg Temp Pulse Resp BP Pulse Ox O2 Del Method O2 Flow Rate 96.5 F L 110 H 21 H 84/59 98 Mechanical Ventilation 40 05/04/24 06:15 05/04/24 06:15 05/04/24 07:37 05/04/24 06:15 05/04/24 07:37 05/04/24 06:15 05/03/24 23:10 FiO2 40 05/04/24 07:37 Operation Date: 05/03/24 22:50 Proposed Procedures p Amputation Transmetatarsal(Right) - Don Huerta DPM Familial anesthetic complications: nnone Was Beta Renetta taken within 24 hours: N/A Was Clonidine taken within 24 hours: N/A Last intake: > 8hrs Exam clear to auscultation bilaterally Metabolic Diabetes Mellitus (DKA) sepsis Neuropsych AMS Anesthetic Plan ASA status: 5E Anesthesia: General Risk of > 500 ml blood loss (7ml/kg in children): No Other Pertinent Information Intubated per hospitalist request Medications/Allergies Allergies Allergy/AdvReac Type Severity Reaction Status Date / Time No Known Allergies Allergy Verified 05/03/24 22:13 Current Medications Generic Name Dose Route Start Last Admin Trade Name Freq PRN Reason Stop Dose Admin Heparin Sodium (Porcine) 5,000 unit 05/04/24 01:00 05/04/24 00:14 Heparin 5,000 Unit/Ml Inj 1 Ml SUBCUT 5,000 unit Q12H LAITH Administration Norepinephrine Bitartrate 4 mg in 250 mls @ 0 mls/hr 05/03/24 21:00 05/04/24 07:57 Levophed IV 20 mcg/min .Q0M LAITH 75 mls/hr Administration Protocol Per Protocol Fentanyl 1,000 mcg in 100 mls @ 0 mls/hr 05/03/24 21:30 05/04/24 07:04 Sublimaze IV 75 mcg/hr .Q0M LAITH 7.5 mls/hr Titration Protocol Per Protocol Insulin Human Regular 100 unit in 100 mls @ 0 mls/hr 05/03/24 22:00 05/04/24 07:02 Myxredlin 100 Unit/100 Ml Bag IV 40 unit/hr PROTOCOL LAITH 40 mls/hr Administration Protocol Per Protocol Lidocaine HCl 5 ml/ Potassium 105 mls @ 26.25 mls/hr 05/03/24 21:52 05/04/24 04:06 Chloride IV 26.25 mls/hr PRN PRN Administration hypokalemia Sodium Bicarbonate 150 meq/ 1,150 mls @ 100 mls/hr 05/03/24 22:31 05/04/24 04:39 Dextrose IV 0 mls/hr .[id number] LAITH Infusion Sodium Chloride 1,000 mls @ 100 mls/hr 05/03/24 22:36 05/04/24 04:47 Sodium Chloride 0.9% IV 125 mls/hr .Q10H LAITH Administration Propofol 1,000 mg in 100 mls @ 0 mls/hr 05/03/24 23:30 05/03/24 23:46 Diprivan IV 0 mcg/kg/min .Q0M LAITH 0 mls/hr Titration Protocol Per Protocol Piperacillin Sod/Tazobactam 50 mls @ 12.5 mls/hr 05/04/24 06:00 05/04/24 05:14 Sod 3.375 gm/ Sodium Chloride IV 12.5 mls/hr Q8H LAITH Administration Amiodarone HCl/Dextrose 360 mg in 200 mls @ 0 mls/hr 05/04/24 00:06 05/04/24 06:26 Nexterone IV 0.5 mg/min .Q0M LAITH 16.67 mls/hr Administration Protocol Per Protocol Vasopressin 40 unit in 100 mls @ 0 mls/hr 05/04/24 00:45 05/04/24 07:17 Vasostrict IV 0.05 unit/min .Q0M LAITH 7.5 mls/hr Titration Protocol Per Protocol Sodium Bicarbonate 100 meq/ 1,100 mls @ 100 mls/hr 05/04/24 04:00 05/04/24 04:29 Sodium Chloride IV 100 mls/hr .Q11H LAITH Administration Data Anesthesia 05/04/24 03:08 05/04/24 06:13 Short CBC 05/03/24 05/04/24 Range/Units 21:14 03:08 WBC 29.77 H 35.70 H* (3.29-11.43) 10^3/uL Hgb 7.90 L 9.80 L (11.27-16.99) g/dL Hct 27.9 L 33.8 L (37-53) % MCV 105.3 H 101.5 H (82-101) fl Plt Count 410 H 434 H (157-399) 10^3/cmm Neut % (Auto) 88.7 90.5 % Neut # (Auto) 26.37 H 32.31 H (1.8-7.7) 10^3/uL BMP 05/03/24 05/04/24 05/04/24 21:14 00:00 01:08 Sodium 129 L 138 136 Potassium 5.5 H 4.1 3.5 Chloride 90 L 97 L 95 L Carbon Dioxide 3 L* 6 L* 6 L* BUN 53 H 50 H 49 H Creatinine 3.0 H 2.8 H 2.9 H Glucose 974 H* 885 H* 902 H* Calcium 8.8 8.6 8.4 L 05/04/24 05/04/24 03:08 06:13 Sodium 138 136 Potassium 3.2 L 3.2 L Chloride 97 L 95 L Carbon Dioxide 8 L* 9 L BUN 48 H 48 H Creatinine 2.8 H 2.9 H Glucose 900 H* 847 H* Calcium 8.4 L 8.1 L Cardiac Enzymes 05/03/24 05/04/24 05/04/24 Range/Units 23:35 01:08 05:32 Troponin T Baseline 27 H (0-15) ng/L Troponin T 120 Minute 40.26 H (0-15) ng/L Delta Troponin T 13.26 H* (0-10) ABS# Troponin T Hi Sens 6Hr 59.99 H (0-15) ng/L Troponin T Hi Sens 6Hr Delta 32.99 H* (0-12) ng/L Liver Function 05/03/24 05/04/24 05/04/24 Range/Units 21:14 00:00 01:08 Total Bilirubin 0.2 0.2 0.2 (0.15-1.2) mg/dL AST 6 45 H 40 (0-40) U/L ALT < 5 13 13 (0-41) U/L Alkaline Phosphatase 104 156 H 166 H (40-130) U/L Albumin 2.4 L 2.4 L 2.5 L (3.5-5.2) g/dL 05/04/24 05/04/24 Range/Units 03:08 06:13 Total Bilirubin 0.2 0.2 (0.15-1.2) mg/dL AST 31 26 (0-40) U/L ALT 12 11 (0-41) U/L Alkaline Phosphatase 162 H 218 H (40-130) U/L Albumin 2.5 L 2.4 L (3.5-5.2) g/dL Urine 05/03/24 Range/Units 22:02 Urine Color Yellow (Yellow) Urine Appearance Clear (CLEAR) Urine pH 5 (5-7) Ur Specific [place] 1.010 (1.005-1.030) Urine Protein Trace (Negative) Urine Glucose (UA) 4+ H (Normal) Urine Ketones 2+ H (Negative) Urine Nitrate Negative (Negative) Urine Bilirubin Neg (Negative) Ur Leukocyte Esterase Negative (Negative) Urine RBC 0-4 H (0-2) /hpf Urine WBC 0-4 H (0-5) /hpf Blood Bank 05/03/24 02:28 Blood Type O Positive Rho(D) Type Rh positive Antibody Screen Negative Coags 05/03/24 21:14 PT 20.60 H INR 1.70 H ABG 05/03/24 21:14 Specimen Type Cancelled Sample Site Cancelled O2 Sat Pulse Oximetry Cancelled ABG pH Cancelled ABG pCO2 Cancelled ABG pO2 Cancelled ABG PO2/FiO2 Ratio Cancelled ABG HCO3 Cancelled ABG Base Excess Cancelled O2 Delivery Device Cancelled O2 Liters/Min Cancelled Vent Mode Cancelled Mechanical Rate Cancelled Spontaneous Rate Cancelled FiO2 Cancelled Tidal Volume Cancelled PEEP Cancelled Pressure Support Cancelled Pressure Control Cancelled CPAP Cancelled Mode BiPAP Cancelled Microbiology 05/03/24 21:14 Blood Culture - Preliminary Blood SPECIMEN COLLECTED 05/03/24 21:14 Blood Culture - Preliminary Blood SPECIMEN COLLECTED Cardiac Studies: 2 No Data to Display
[2024-05-04] MEDS: clindamycin 900 MG/50 ML PREMIX 100 MG IV ×3 (08:05→23:28)
--- NOTE | 2024-05-04 08:37 | P.PN_ITS ---
Subjective 2 Subjective: Patient seen bedside this morning, 1 day status post right transmetatarsal amputation secondary to nectars and fasciitis, was guillotine style amputation left open. He also has a wound to the left mid leg more stable appearing. His is bedside. Patient remains intubated. Surgical dressing right foot is clean and dry without strikethrough. Vitals/I&O/Wt Last Vital Signs Temp 96.5 F L 05/04/24 06:15 Pulse 110 H 05/04/24 06:15 Resp 21 H 05/04/24 07:37 BP 84/59 05/04/24 06:15 Pulse Ox 98 05/04/24 07:37 O2 Del Method Mechanical Ventilation 05/04/24 06:15 O2 Flow Rate 40 05/03/24 23:10 FiO2 40 05/04/24 07:37 05/03/24 05/04/24 05/04/24 22:59 06:59 14:59 Intake Total 2395.75 / 2395.75 2848.861 / 5244.611 299.750 / 299.750 Output Total 1125 / 1125 Balance 2395.75 / 2395.75 1723.861 / 4119.611 299.750 / 299.750 Weight last 48 hrs Weight 157 lb 6 oz Weight 157 lb 6 oz Weight 157 lb 6 oz Weight 170 lb Physical Exam 2 Narrative: Patient is unresponsive. The following is a focused bilateral lower extremity exam. VASCULAR: Dorsalis pedis diminished bilaterally. Posterior tibial arteries diminished. Delayed capillary refill to right great toe, cap refill less than 5 seconds to the left great toe. Pedal hair growth is diminished, there is mild hair growth at the tuft of the great toe bilaterally. NEUROLOGICAL: Protective sensation absent to light touch bilaterally. DERMATOLOGICAL: Surgical dressings right foot are clean, dry and intact without strikethrough, no bleeding, no proximal pagetic streaking or cellulitis at the level of the dressing, right lower extremity. Wound exposed to myofascial layer left mid leg measures 2.8 cm x 2.1 cm x 0.3 cm. MUSCULOSKELETAL: Status post right transmetatarsal amputation. Urinary Catheter Management: Holbrook: Cath Placed During This Visit: yes Reason for Continuing Indwelling Catheter: Accurate Measurement of Urinary Output in Critically Ill Patients Urinary Catheter Date of Insertion: 06/29/24 Urinary Catheter Time of Insertion: 21:50 Data 05/04/24 03:08 05/04/24 07:46 Micro: Microbiology 05/03/24 21:14 Blood Culture - Preliminary Blood SPECIMEN COLLECTED 05/03/24 21:14 Blood Culture - Preliminary Blood SPECIMEN COLLECTED A&P Assessment and plan (1) Severe sepsis: (2) DKA (diabetic ketoacidosis): Qualifiers: Diabetes mellitus type: type 2 (3) Diabetic peripheral neuropathy associated with type 2 diabetes mellitus: (4) Necrotizing fasciitis: (5) Gas gangrene: Plan 53-year-old uncontrolled diabetic male presents with unresponsiveness, DKA, sepsis and necrotizing fasciitis to the right foot. Right transmetatarsal amputation performed 05/03/2024, guillotine amputation will require staged surgical approach once patient is more stable for grafting at amputation site versus higher level of amputation. Surgical dressings are left clean, dry and intact, there is no strikethrough, no purulence and no proximal pagetic streaking at the level of the right ankle. Dressing applied to left leg consisting of silver alginate and silicone bordered foam. Podiatry will continue to round daily for wound evaluation. Attestations 2 Medical Necessity Statement*: Necrotizing fasciitis status post right transmetatarsal potation patient remains septic and in critical condition will require continued treatment in ICU, continued empiric antibiotics. Coding Level of Care Code Acute Code for [facility] Fwd Diagnoses Severe sepsis A41.9; R65.20 DKA (diabetic ketoacidosis) E11.10 Diabetes mellitus type: type 2 Diabetic peripheral neuropathy associated with type 2 diabetes mellitus E11.42 Necrotizing fasciitis M72.6 Gas gangrene A48.0
[2024-05-04 08:46] LABS: ABG PCO2 20.4 mmHg (35-45); Alveolar-Arterial Oxygen Gradi 14.5 mmHg (5-10); Arterial Blood Gas Hematocrit 30.3 % (42-52); Base Excess ABG -22.7 mmol/L (-2.0-2.0); Blood Gas Allen Test Pos; Blood Gas Operator Identificat MONRO; Blood Gas Sample Site Radial, left; Blood Gas Sample Type Arterial; Blood Gas Tidal Volume 0.45; Carboxyhemoglobin 1.1 %THgb (0.4-20.1); HCO3 ABG 5.8 mmol/L (22-26); HGB O2 Sat 97.5 % (95-100); Ionized Calcium Level - ABG 1.2 mmol/L (1.1-1.4); Methemoglobin 0.8 % (0.4-1.5); Oxygen Device VENT; Oxygen Saturation ABG 99.4; PO2 FiO2 Ratio Arterial Blood 365; Potassium Level - ABG 3.2 mmol/L (3.5-5.0); Total Hemoglobin 9.9 g/dL (14-18)
[2024-05-04 08:47] LABS: ABG PH Result 7.06 (7.35-7.45)
[2024-05-04 08:52] LABS: Glucose 800 mg/dL (65-115)
[2024-05-04] MEDS: INSULIN REGULAR IN 0.9 % NACL 100 UNIT/100 ML BAG 49 UNIT IV (08:56)
--- NOTE | 2024-05-04 09:29 | PC.NURSE ---
Pharmacy contacted, Blood Glucose 800,per protocol, Insulin bolus given, 3.55 units,from insulin drip pump.
[2024-05-04] MEDS: pantoprazole 40 mg SDV IVP (09:37)
[2024-05-04 10:03] LABS: Glucose Point of Care > 600 mg/dL (70-110)
[2024-05-04 10:06] LABS: Glucose 760 mg/dL (65-115)
--- NOTE | 2024-05-04 10:15 | PC.NURSE ---
Blood glucose 760, See MAR titration and per protocol 3.55 unit bolus given from pump, MILAGRO Lombardo as witness.
[2024-05-04 10:34] LABS: Alanine Aminotransferase 10 U/L (0-41); Albumin Level 2.2 g/dL (3.5-5.2); Alkaline Phosphatase 135 U/L (40-130); Anion Gap 37.1 (5-19); Aspartate Amino Transferase 16 U/L (0-40); Blood Urea Nitrogen 48 mg/dL (6-20); Calcium 8.2 mg/dL (8.5-10.5); Chloride 96 mmol/L (98-107); Globulin 3.5 g/dL (1.3-4.6); Glomerular Filtration Rate 23.6 mL/min (90-130); Osmolality Calculated 330 mOsm/kg (285-295); Potassium 3.1 mmol/L (3.5-5.1); Sodium 136 mmol/L (136-145); Total Bilirubin 0.2 mg/dL (0.15-1.2); Total Protein 5.7 g/dL (6.6-8.7)
[2024-05-04 10:46] LABS: Creatinine Clr Calc Pharmacy 28.1788
[2024-05-04 10:48] LABS: Carbon Dioxide 6 mmol/L (22-29); Glucose 735 mg/dL (65-115)
[2024-05-04] MEDS: INSULIN REGULAR IN 0.9 % NACL 100 UNIT/100 ML BAG 67 UNIT IV ×4 (10:58→15:02)
--- NOTE | 2024-05-04 11:00 | PC.NURSE ---
Blood glucose 736, per protocol increase see MAR, Bolus 3.55 units. Bob Patino as witness.
[2024-05-04 11:31] LABS: Glucose Point of Care > 600 mg/dL (70-110)
[2024-05-04 11:33] LABS: Lactate (Lactic Acid level) 2.4 mmol/L (0.5-2.2)
[2024-05-04] MEDS: dexmedeTOMIDine 0.9 % NaCL 400 MCG/100 ML PREMIX IV (11:35)
[2024-05-04] MEDS: lidocaine 1% 5 ML in potassium chloride premix 100 ML 52.5 ML IV (12:02)
[2024-05-04] MEDS: potassium chloride oral liq 20 mEq/15 mL UDC 40 MEQ OG-TUBE ×3 (12:05→20:36)
[2024-05-04 12:17] LABS: Glucose Point of Care > 600 mg/dL (70-110)
[2024-05-04] MEDS: lactated ringers 1,000 ML 999 ML IV ×2 (13:14→16:36)
[2024-05-04] MEDS: fentaNYL 1,000 MCG/100 ML BAG 10 MCG IV ×2 (13:16→23:12)
[2024-05-04 13:46] LABS: Glucose Point of Care 575 mg/dL (70-110)
[2024-05-04 13:46] LABS: Glucose Point of Care > 600 mg/dL (70-110)
[2024-05-04 13:51] LABS: Alanine Aminotransferase 8 U/L (0-41); Albumin Level 2.2 g/dL (3.5-5.2); Alkaline Phosphatase 130 U/L (40-130); Anion Gap 34.1 (5-19); Aspartate Amino Transferase 13 U/L (0-40); Blood Urea Nitrogen 46 mg/dL (6-20); Calcium 7.8 mg/dL (8.5-10.5); Chloride 99 mmol/L (98-107); Creatinine Clr Calc Pharmacy 27.2072; Globulin 3.3 g/dL (1.3-4.6); Glomerular Filtration Rate 22.7 mL/min (90-130); Osmolality Calculated 327 mOsm/kg (285-295); Potassium 3.1 mmol/L (3.5-5.1); Sodium 138 mmol/L (136-145); Total Bilirubin 0.2 mg/dL (0.15-1.2); Total Protein 5.5 g/dL (6.6-8.7)
[2024-05-04 13:53] LABS: Carbon Dioxide 8 mmol/L (22-29); Glucose 629 mg/dL (65-115)
[2024-05-04] MEDS: sodium chlor 0.9% + KCl 20 mEq 20 MEQ/1,000 ML BAG 200 MEQ IV ×2 (14:15→20:50)
[2024-05-04] MEDS: propofol 1,000 MG/100 ML INJ 18.51 MG IV (14:40)
[2024-05-04 15:05] LABS: Glucose 581 mg/dL (65-115)
[2024-05-04 15:12] LABS: Glucose Point of Care 563 mg/dL (70-110)
[2024-05-04 16:00] LABS: Glucose Point of Care 579 mg/dL (70-110)
[2024-05-04] MEDS: lanolin oint 7 gm 1 APPLIC TOPICAL (16:08)
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
[2024-05-04] MEDS: INSULIN REGULAR IN 0.9 % NACL 100 UNIT/100 ML BAG 74 UNIT IV ×2 (16:25→17:27)
[2024-05-04] MEDS: aspirin 325 mg Tablet PO (17:03)
[2024-05-04 17:06] LABS: Glucose Point of Care 492 mg/dL (70-110)
--- NOTE | 2024-05-04 17:13 | PC.NURSE ---
Blood glucose at 492 per finger stick, Dr. Lipscomb verbal order to hold on increasing titration till next check.
[2024-05-04 17:37] LABS: Alanine Aminotransferase 8 U/L (0-41); Albumin Level 1.8 g/dL (3.5-5.2); Alkaline Phosphatase 105 U/L (40-130); Anion Gap 26.2 (5-19); Aspartate Amino Transferase 10 U/L (0-40); Blood Urea Nitrogen 42 mg/dL (6-20); Calcium 7.5 mg/dL (8.5-10.5); Carbon Dioxide 10 mmol/L (22-29); Chloride 103 mmol/L (98-107); Globulin 3.2 g/dL (1.3-4.6); Glomerular Filtration Rate 23.6 mL/min (90-130); Osmolality Calculated 317 mOsm/kg (285-295); Potassium 3.2 mmol/L (3.5-5.1); Sodium 136 mmol/L (136-145); Total Bilirubin 0.2 mg/dL (0.15-1.2)
[2024-05-04 17:39] LABS: Creatinine Clr Calc Pharmacy 28.1788
[2024-05-04 17:40] LABS: Glucose 537 mg/dL (65-115)
[2024-05-04 18:03] LABS: Glucose Point of Care 472 mg/dL (70-110)
[2024-05-04] MEDS: INSULIN REGULAR IN 0.9 % NACL 100 UNIT/100 ML BAG 76.5 UNIT IV (18:26)
--- NOTE | 2024-05-04 19:01 | PC.NURSE ---
Shift summary: [address] Mercado for status update, report critical labs. Order to titrate levo max of 50 and to leave vaso at 0.05, not to titrate up on vasopressin. 0830 ABG obtained from respiratory and Dr. Mercado notified of results. Lab requested a new CMP order at 1122 and okay given to cancel Glucose since it is included in CMP. Delay in insulin titration due to delay in lab results for blood glucose. Frequent calls to lab. Patient remains critical, see MAR for multiple drip titrations. at bedside through entirety of shift, updated throughout.
[2024-05-04 19:10] LABS: Glucose Point of Care 455 mg/dL (70-110)
[2024-05-04] MEDS: INSULIN REGULAR IN 0.9 % NACL 100 UNIT/100 ML BAG 79 UNIT IV (19:49)
--- NOTE | 2024-05-04 20:10 | PC.NURSE ---
Insulin Insulin drip administering at 79 units/hr, current POC glucose 419; per insulin protocol, drip to be increased to 81 units/hr. Dr. Vaughan contacted and verification received to follow protocol and increase insulin drip to 81 units/hr.
[2024-05-04 20:12] LABS: Glucose Point of Care 419 mg/dL (70-110)
--- NOTE | 2024-05-04 20:20 | PC.NURSE ---
Heparin Drip Telephone order received from Dr. Mercado to not administer initial heparin drip loading bolus.
[2024-05-04] MEDS: lactated ringers 500 ML 999 ML IV (20:40)
--- NOTE | 2024-05-04 21:20 | PC.NURSE ---
Insulin Insulin drip to be increased to 83 units/hr per protocol. Dr. Lopez contacted and verification received to increase drip per protocol. Additional order received to contact physician for further orders when blood glucose <250.
[2024-05-04] MEDS: INSULIN REGULAR IN 0.9 % NACL 100 UNIT/100 ML BAG 83 UNIT IV (21:21)
[2024-05-04] MEDS: norepinephrine 4 MG/250 ML BAG 60 MG IV (21:21)
[2024-05-04] MEDS: propofol 1,000 MG/100 ML INJ 16.19 MG IV (21:29)
[2024-05-04 21:39] LABS: Platelet Count 241 10^3/cmm (157-399)
[2024-05-04] MEDS: heparin drip 25,000 UNIT/500 ML PREMIX 19.99 UNIT IV (21:43)
[2024-05-04 21:51] LABS: Glucose Point of Care 413 mg/dL (70-110)
[2024-05-04 21:55] LABS: Alanine Aminotransferase 7 U/L (0-41); Albumin Level 1.8 g/dL (3.5-5.2); Alkaline Phosphatase 96 U/L (40-130); Blood Urea Nitrogen 41 mg/dL (6-20); Calcium 7.6 mg/dL (8.5-10.5); Carbon Dioxide 14 mmol/L (22-29); Chloride 105 mmol/L (98-107); Creatinine Clr Calc Pharmacy 26.3003; Glomerular Filtration Rate 21.8 mL/min (90-130); Glucose 422 mg/dL (65-115); Magnesium 1.3 mg/dL (1.7-2.3); Osmolality Calculated 310 mOsm/kg (285-295); Sodium 136 mmol/L (136-145); Total Bilirubin 0.2 mg/dL (0.15-1.2); Total Protein 4.8 g/dL (6.6-8.7)
[2024-05-04 21:58] LABS: Anion Gap 21.4 (5-19); Aspartate Amino Transferase 11 U/L (0-40); Potassium 4.4 mmol/L (3.5-5.1)
[2024-05-04 21:59] LABS: Phosphorus 0.6 mg/dL (2.5-4.5)
--- NOTE | 2024-05-04 22:10 | PC.NURSE ---
Phosphorous, potassium level Patient's phosphorous level resulted critical at 0.6 while patient's potassium level 4.4. Dr. Lopez notified; verification received to administer 40 meq KCL IV previously ordered. No additional orders.
[2024-05-04] MEDS: INSULIN REGULAR IN 0.9 % NACL 100 UNIT/100 ML BAG 84.5 UNIT IV (22:13)
[2024-05-04] MEDS: INSULIN REGULAR IN 0.9 % NACL 100 UNIT/100 ML BAG 86 UNIT IV (23:14)
[2024-05-04 23:28] LABS: Glucose Point of Care 359 mg/dL (70-110)
[2024-05-04 23:28] LABS: Glucose Point of Care 384 mg/dL (70-110)
[2024-05-05] VITALS (99 sets, daily range): BP systolic 72–130; BP diastolic 46–65; PULSE 101–126; RESP 17–19; TEMP 37.2–38.1; O2SAT 92–99; BMI 29.2
[2024-05-05 00:12] LABS: Glucose Point of Care 378 mg/dL (70-110)
[2024-05-05] MEDS: INSULIN REGULAR IN 0.9 % NACL 100 UNIT/100 ML BAG 89 UNIT IV (00:25)
[2024-05-05] MEDS: dexmedeTOMIDine 0.9 % NaCL 400 MCG/100 ML PREMIX 12.49 MCG IV ×2 (00:35→16:30)
[2024-05-05 01:15] LABS: Glucose Point of Care 321 mg/dL (70-110)
[2024-05-05] MEDS: INSULIN REGULAR IN 0.9 % NACL 100 UNIT/100 ML BAG 90 UNIT IV (01:25)
[2024-05-05] MEDS: norepinephrine 4 MG/250 ML BAG 60 MG IV (01:40)
[2024-05-05] MEDS: sodium chlor 0.9% + KCl 20 mEq 20 MEQ/1,000 ML BAG 200 MEQ IV (02:19)
[2024-05-05] MEDS: chlorhexidine gluconate 4% Btl 118 mL 1 APPLIC TOPICAL ×2 (02:20→23:47)
[2024-05-05] MEDS: lanolin oint 7 gm 1 APPLIC TOPICAL ×3 (02:20→23:47)
[2024-05-05 02:28] LABS: Glucose Point of Care 313 mg/dL (70-110)
[2024-05-05] MEDS: INSULIN REGULAR IN 0.9 % NACL 100 UNIT/100 ML BAG 91 UNIT IV (02:31)
[2024-05-05 03:21] LABS: Glucose Point of Care 285 mg/dL (70-110)
[2024-05-05] MEDS: INSULIN REGULAR IN 0.9 % NACL 100 UNIT/100 ML BAG 91.5 UNIT IV ×2 (03:38→04:43)
[2024-05-05 04:59] LABS: Basophils % 0.2 %; Eosinophils % 0.2 %; Hematocrit 23.6 % (37-53); Lymphocytes # 0.5 10^3/uL (0.8-4.8); Lymphocytes % 2.7 %; Mean Corpuscular HGB Conc 33.1 g/dL (30-55); Mean Corpuscular Hemoglobin 29.8 pg (27-33); Mean Corpuscular Volume 90.1 fl (82-101); Mean Platelet Volume 10.3 fL (7.4-10.4); Monocytes # 1.3 10^3/uL (0.2-0.9); Monocytes % 6.7 %; Neutrophils % 87.1 %; Nucleated Red Blood Cells % 0.1 %; Platelet Count 203 10^3/cmm (157-399); Red Blood Count 2.62 10^6/uL (3.85-5.65); Red Cell Distribution Width 12.4 % (12.1-15.1); White Blood Count 18.82 10^3/uL (3.29-11.43)
[2024-05-05 05:20] LABS: Alanine Aminotransferase 7 U/L (0-41); Alkaline Phosphatase 99 U/L (40-130); Anion Gap 17.1 (5-19); Aspartate Amino Transferase 10 U/L (0-40); Blood Urea Nitrogen 40 mg/dL (6-20); Calcium 7.3 mg/dL (8.5-10.5); Carbon Dioxide 16 mmol/L (22-29); Chloride 110 mmol/L (98-107); Creatinine Clr Calc Pharmacy 26.3003; Globulin 2.2 g/dL (1.3-4.6); Glomerular Filtration Rate 21.8 mL/min (90-130); Glucose 318 mg/dL (65-115); Magnesium 1.4 mg/dL (1.7-2.3); Osmolality Calculated 308 mOsm/kg (285-295); Potassium 5.1 mmol/L (3.5-5.1); Sodium 138 mmol/L (136-145); Total Bilirubin 0.2 mg/dL (0.15-1.2); Total Protein 4.2 g/dL (6.6-8.7)
[2024-05-05 05:22] LABS: Partial Thromboplastin Time 93.3 SECONDS (23.9-36.7)
[2024-05-05] MEDS: piperacillin-tazobactam 3.375 GM in sodium chloride 0.9% (plus) 50 ML IV ×3 (05:23→22:43)
[2024-05-05 05:30] LABS: Phosphorus 0.3 mg/dL (2.5-4.5)
[2024-05-05 05:42] LABS: Glucose Point of Care 269 mg/dL (70-110)
[2024-05-05] MEDS: INSULIN REGULAR IN 0.9 % NACL 100 UNIT/100 ML BAG 94 UNIT IV (05:49)
[2024-05-05] MEDS: propofol 1,000 MG/100 ML INJ 6.94 MG IV ×2 (05:50→22:41)
--- NOTE | 2024-05-05 05:59 | PC.NURSE ---
Physician Communication Dr. Lopez contacted unit; blood sugar, bicarb, potassium level and phosphorous level discussed. Physician to place orders.
[2024-05-05 06:00] LABS: Glucose Point of Care 312 mg/dL (70-110)
[2024-05-05] MEDS: clindamycin 900 MG/50 ML PREMIX 100 MG IV ×2 (06:18→15:38)
[2024-05-05] MEDS: norepinephrine 4 MG/250 ML BAG 45 MG IV ×2 (06:35→12:13)
[2024-05-05 06:36] LABS: Glucose Point of Care 281 mg/dL (70-110)
[2024-05-05] MEDS: INSULIN REGULAR IN 0.9 % NACL 100 UNIT/100 ML BAG 95 UNIT IV ×2 (06:57→08:08)
[2024-05-05] MEDS: magnesium sulfate premix 1 GM/100 ML PIGGYBACK IV (06:58)
[2024-05-05] MEDS: dextrose 5%-sod chloride 0.9% 1,000 ML 125 ML IV ×3 (07:14→22:32)
[2024-05-05] MEDS: SODIUM PHOSPHATE IV ×2 (07:27→13:34)
[2024-05-05] MEDS: SODIUM CHLORIDE 0.9% IV ×2 (07:27→13:34)
[2024-05-05 07:36] LABS: Glucose Point of Care 223 mg/dL (70-110)
[2024-05-05 08:31] LABS: Glucose Point of Care 278 mg/dL (70-110)
[2024-05-05] MEDS: aspirin 325 mg Tablet PO (08:49)
[2024-05-05] MEDS: pantoprazole 40 mg SDV IVP (08:49)
[2024-05-05] MEDS: dexmedeTOMIDine 0.9 % NaCL 400 MCG/100 ML PREMIX 8.92 MCG IV (08:56)
--- NOTE | 2024-05-05 09:00 | XR_ITS ---
WS: [id number] XR foot RT min 3V* [id number] REASON FOR EXAM: post op FINDINGS: Since the previous examination 05/03/2024, there is been amputation of the right forefoot. No signific ant gas within the soft tissues of the remnant foot or ankle. No acute or subacute bone abnormality. 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 No significant soft tissue, bone, or joint abnormality in the midfoot or hindfo ot.
[2024-05-05] MEDS: INSULIN REGULAR IN 0.9 % NACL 100 UNIT/100 ML BAG 95.5 UNIT IV (09:13)
[2024-05-05 09:30] LABS: Glucose Point of Care 293 mg/dL (70-110)
--- NOTE | 2024-05-05 09:30 | CTR_ITS ---
PROCEDURE INFORMATION: Exam: CT Head Without Contrast Exam date and time: 05/05/2024 10:52 AM Age: 53 years old Clinical indication: Altered mental status/memory loss; Additional info: Evaluate for stroke, not done 05/04, date moved TECHNIQUE: Imaging protocol: Computed tomography of the head without contrast. Radiation optimization: All CT scans at this facility use at least one of these dose optimization techniques: automated exposure control; mA and/or kV adjustment per patient size (includes targeted exams where dose is matched to clinical indication); or iterative reconstruction. COMPARISON: No relevant prior studies available. RADIATION DOSE METRICS: Total DLP (mGy-cm): 1092.95 FINDINGS: Brain: No acute intracranial hemorrhage. Normal differentiation of fonseca-white matter. No midline shift. Cerebral ventricles: Ventricles are normal in caliber. Paranasal sinuses: Moderate mucosal thickening throughout the ethmoid sinuses. Mastoid air cells: Mastoid air cells are clear. Bones: No acute osseous findings. Soft tissues: Questionable mild soft tissue contusion over the high parietal scalp. CT/CT head wo con* [id number] IMPRESSION: 1. Questionable mild soft tissue contusion over the high parietal scalp. 2. Moderate mucosal thickening throughout the ethmoid sinuses. 3. No acute intracranial findings.
[2024-05-05] MEDS: INSULIN REGULAR IN 0.9 % NACL 100 UNIT/100 ML BAG 96.5 UNIT IV ×4 (10:12→13:29)
--- NOTE | 2024-05-05 10:36 | PC.PHAR ---
SPOUSE SHOWED PHOTO OF RX LABEL. PHONED [facility] [phone]. RX LAST FILLED 3 YEARS AGO FOR LISPRO KWIK PEN 10 UNUTS IM THREE TIMES DAILY.
[2024-05-05 10:41] LABS: Glucose Point of Care 309 mg/dL (70-110)
[2024-05-05 10:55] LABS: Anion Gap 14.6 (5-19); Blood Urea Nitrogen 36 mg/dL (6-20); Calcium 7.2 mg/dL (8.5-10.5); Carbon Dioxide 17 mmol/L (22-29); Chloride 110 mmol/L (98-107); Creatinine Clr Calc Pharmacy 28.0138; Glomerular Filtration Rate 21.8 mL/min (90-130); Glucose 278 mg/dL (65-115); Magnesium 1.5 mg/dL (1.7-2.3); Osmolality Calculated 302 mOsm/kg (285-295); Potassium 4.6 mmol/L (3.5-5.1); Sodium 137 mmol/L (136-145)
[2024-05-05 11:42] LABS: Glucose Point of Care 249 mg/dL (70-110)
[2024-05-05 11:47] LABS: Phosphorus 0.6 mg/dL (2.5-4.5)
[2024-05-05 12:15] LABS: Partial Thromboplastin Time 40.4 SECONDS (23.9-36.7)
--- NOTE | 2024-05-05 12:24 | P.PN_ITS ---
Subjective 2 Subjective: Patient seen bedside this morning, 2 days status post right transmetatarsal amputation secondary to nectars and fasciitis, was guillotine style amputation left open. He also has a wound to the left mid leg more stable appearing. His and daughter are bedside. Patient remains intubated. Surgical dressing right foot is clean and dry without strikethrough. Vitals/I&O/Wt Last Vital Signs Temp 100.3 F H 05/05/24 08:00 Pulse 119 H 05/05/24 08:15 Resp 18 05/05/24 10:04 BP 105/53 05/05/24 08:15 Pulse Ox 98 05/05/24 10:04 O2 Del Method Mechanical Ventilation 05/05/24 08:15 O2 Flow Rate 40 05/03/24 23:10 FiO2 35 05/05/24 10:04 05/04/24 05/05/24 05/05/24 22:59 06:59 14:59 Intake Total 5919.629 / 9481.905 3003.042 / 12621.947 2205.020 / 2205.020 Output Total 450 / 450 350 / 800 Balance 5469.629 / 9031.905 2653.042 / 60949.947 2205.020 / 2205.020 Weight last 48 hrs Weight 181 lb 6 oz Weight 157 lb 6 oz Weight 157 lb 6 oz Weight 157 lb 6 oz Weight 170 lb Physical Exam 2 Narrative: Patient is unresponsive. The following is a focused bilateral lower extremity exam. VASCULAR: Dorsalis pedis diminished bilaterally. Posterior tibial arteries diminished. Delayed capillary refill to right great toe, cap refill less than 5 seconds to the left great toe. Pedal hair growth is diminished, there is mild hair growth at the tuft of the great toe bilaterally. NEUROLOGICAL: Protective sensation absent to light touch bilaterally. DERMATOLOGICAL: Surgical dressings right foot are clean, dry and intact without strikethrough, no bleeding, no proximal pagetic streaking or cellulitis at the level of the dressing, right lower extremity. Wound exposed to myofascial layer left mid leg measures 2.8 cm x 2.1 cm x 0.3 cm. MUSCULOSKELETAL: Status post right transmetatarsal amputation. Urinary Catheter Management: Holbrook: Cath Placed During This Visit: yes Reason for Continuing Indwelling Catheter: Accurate Measurement of Urinary Output in Critically Ill Patients Urinary Catheter Date of Insertion: 05/03/24 Urinary Catheter Time of Insertion: 21:50 Data 05/05/24 03:51 05/05/24 10:19 Micro: Microbiology 05/04/24 12:03 Gram Stain - Final Sputum - Endotracheal Wash Sputum Culture - Preliminary Coag positive Staphylococcus 05/03/24 21:14 Blood Culture - Preliminary Blood NEGATIVE TO DATE 05/03/24 21:14 Blood Culture - Preliminary Blood NEGATIVE TO DATE 05/03/24 22:52 Gram Stain - Final Other Source A&P Assessment and plan (1) Severe sepsis: (2) DKA (diabetic ketoacidosis): Qualifiers: Diabetes mellitus type: type 2 (3) Diabetic peripheral neuropathy associated with type 2 diabetes mellitus: (4) Necrotizing fasciitis: (5) Gas gangrene: Plan 53-year-old uncontrolled diabetic male presents with unresponsiveness, DKA, sepsis and necrotizing fasciitis to the right foot. Right transmetatarsal amputation performed 05/03/2024, guillotine amputation will require staged surgical approach once patient is more stable for grafting at amputation site versus higher level of amputation. Surgical dressings are clean, dry and intact, there is no strikethrough, no purulence and no proximal pagetic streaking at the level of the right ankle. Dressing applied to left leg consisting of silver alginate and silicone bordered foam. Podiatry will continue to round daily for wound evaluation. Attestations 2 Medical Necessity Statement*: Necrotizing fasciitis right lower extremity Coding Level of Care Code Acute Code for [facility] Fwd Diagnoses Severe sepsis A41.9; R65.20 DKA (diabetic ketoacidosis) E11.10 Diabetes mellitus type: type 2 Diabetic peripheral neuropathy associated with type 2 diabetes mellitus E11.42 Necrotizing fasciitis M72.6 Gas gangrene A48.0
[2024-05-05] MEDS: magnesium sulfate premix 2 GM/50 ML PIGGYBACK IV ×2 (12:33→21:17)
[2024-05-05 13:34] LABS: Glucose Point of Care 254 mg/dL (70-110)
[2024-05-05] MEDS: fentaNYL 1,000 MCG/100 ML BAG 10 MCG IV (13:44)
[2024-05-05] MEDS: propofol 1,000 MG/100 ML INJ 18.51 MG IV (14:27)
[2024-05-05 14:28] LABS: Glucose Point of Care 238 mg/dL (70-110)
[2024-05-05] MEDS: INSULIN REGULAR IN 0.9 % NACL 100 UNIT/100 ML BAG 97.5 UNIT IV ×2 (14:28→15:46)
[2024-05-05 14:41] LABS: Anion Gap 13.5 (5-19); Blood Urea Nitrogen 35 mg/dL (6-20); Calcium 7.5 mg/dL (8.5-10.5); Carbon Dioxide 17 mmol/L (22-29); Chloride 113 mmol/L (98-107); Creatinine Clr Calc Pharmacy 26.2629; Glomerular Filtration Rate 20.3 mL/min (90-130); Glucose 264 mg/dL (65-115); Osmolality Calculated 305 mOsm/kg (285-295); Potassium 4.5 mmol/L (3.5-5.1); Sodium 139 mmol/L (136-145)
[2024-05-05 15:49] LABS: Glucose Point of Care 231 mg/dL (70-110)
[2024-05-05 16:37] LABS: Glucose Point of Care 246 mg/dL (70-110)
[2024-05-05] MEDS: insulin regular-human 250 UNIT in sodium chloride 0.9% 250 ML 97.5 UNIT IV (16:51)
[2024-05-05 17:36] LABS: Glucose Point of Care 230 mg/dL (70-110)
[2024-05-05] MEDS: phosphorus 250 mg Tablet PO (17:53)
[2024-05-05 18:50] LABS: Glucose Point of Care 254 mg/dL (70-110)
[2024-05-05 19:01] LABS: Partial Thromboplastin Time 104.6 SECONDS (23.9-36.7)
[2024-05-05 19:02] LABS: Anion Gap 14.2 (5-19); Blood Urea Nitrogen 33 mg/dL (6-20); Calcium 7.2 mg/dL (8.5-10.5); Carbon Dioxide 16 mmol/L (22-29); Chloride 114 mmol/L (98-107); Creatinine Clr Calc Pharmacy 25.4671; Glomerular Filtration Rate 19.6 mL/min (90-130); Glucose 238 mg/dL (65-115); Magnesium 1.7 mg/dL (1.7-2.3); Osmolality Calculated 305 mOsm/kg (285-295); Potassium 4.2 mmol/L (3.5-5.1); Sodium 140 mmol/L (136-145)
[2024-05-05] MEDS: insulin regular-human 250 UNIT in sodium chloride 0.9% 250 ML 98.5 UNIT IV ×2 (19:31→22:14)
[2024-05-05] MEDS: norepinephrine 4 MG/250 ML BAG 30 MG IV (19:43)
[2024-05-05 20:16] LABS: Glucose Point of Care 206 mg/dL (70-110)
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
[2024-05-05 20:35] LABS: Glucose Point of Care 240 mg/dL (70-110)
--- NOTE | 2024-05-05 20:41 | USR_ITS ---
PROCEDURE INFORMATION: Exam: US Retroperitoneal; Complete; Kidneys and Bladder Exam date and time: 05/05/2024 9:03 PM Age: 53 years old Clinical indication: Condition or disease; Other: [place] TECHNIQUE: Imaging protocol: Real-time ultrasound of the retroperitoneum with image documentation. Complete exam focused on the kidneys and bladder. COMPARISON: [place] [id number] 05/04/2024 7:09 AM FINDINGS: Right kidney: Normal. No stones. No hydronephrosis. The right kidney measures 11 cm in length and is normal in echotexture. Left kidney: Normal. No stones. No hydronephrosis. The left kidney measures 11.6 cm in length and is normal in echotexture. Urinary bladder: There is a Holbrook catheter within the urinary bladder. Pre voiding bladder volume is 158 cc. Postvoiding bladder volume is 17.7 cc. Ascites is seen within the pelvis adjacent to the bladder. US/US renal BI with PV bladder IMPRESSION: No acute findings.
[2024-05-05] MEDS: albumin 25 G/100 ML BAG 60 G IV (20:56)
[2024-05-05] MEDS: vancomycin 1,000 MG in sodium chloride 0.9% 250 ML 250 MG IV (21:07)
[2024-05-05 21:09] LABS: Creatine Phosphokinase 66 U/L (39-308)
[2024-05-05] MEDS: lactated ringers 500 ML 999 ML IV (21:24)
[2024-05-05 21:39] LABS: Glucose Point of Care 212 mg/dL (70-110)
[2024-05-05 23:18] LABS: Glucose Point of Care 198 mg/dL (70-110)
[2024-05-05 23:59] LABS: Anion Gap 14.8 (5-19); Blood Urea Nitrogen 31 mg/dL (6-20); Calcium 7.2 mg/dL (8.5-10.5); Carbon Dioxide 15 mmol/L (22-29); Chloride 114 mmol/L (98-107); Creatinine Clr Calc Pharmacy 26.2629; Glomerular Filtration Rate 20.3 mL/min (90-130); Glucose 204 mg/dL (65-115); Osmolality Calculated 302 mOsm/kg (285-295); Potassium 3.8 mmol/L (3.5-5.1); Sodium 140 mmol/L (136-145)
[2024-05-06] VITALS (105 sets, daily range): BP systolic 78–120; BP diastolic 49–80; PULSE 91–108; RESP 15–21; TEMP 35.7–37.1; O2SAT 92–100; BMI 31.9
[2024-05-06 00:52] LABS: Glucose Point of Care 201 mg/dL (70-110)
[2024-05-06] MEDS: insulin regular-human 250 UNIT in sodium chloride 0.9% 250 ML 92.5 UNIT IV (01:02)
[2024-05-06 01:43] LABS: Glucose Point of Care 174 mg/dL (70-110)
[2024-05-06 02:19] LABS: Partial Thromboplastin Time 51.9 SECONDS (23.9-36.7)
--- NOTE | 2024-05-06 02:22 | PC.NURSE ---
Heparin on Hold Heparin drip placed on hold. Heparin administration stopped at 0223, unable to show pause time in MAR.
[2024-05-06] MEDS: fentaNYL 1,000 MCG/100 ML BAG 5 MCG IV (02:46)
[2024-05-06 02:57] LABS: Glucose Point of Care 180 mg/dL (70-110)
[2024-05-06] MEDS: dexmedeTOMIDine 0.9 % NaCL 400 MCG/100 ML PREMIX 8.92 MCG IV (03:07)
[2024-05-06 03:45] LABS: Glucose Point of Care 159 mg/dL (70-110)
[2024-05-06] MEDS: insulin regular-human 250 UNIT in sodium chloride 0.9% 250 ML 70.5 UNIT IV (04:12)
[2024-05-06 04:56] LABS: Basophils # 0.1 10^3/uL (0.0-0.1); Basophils % 0.3 %; Eosinophils # 0.2 10^3/uL (0.0-0.8); Lymphocytes # 0.7 10^3/uL (0.8-4.8); Lymphocytes % 4.3 %; Mean Corpuscular HGB Conc 32.4 g/dL (30-55); Mean Corpuscular Hemoglobin 29.6 pg (27-33); Mean Corpuscular Volume 91.3 fl (82-101); Mean Platelet Volume 9.8 fL (7.4-10.4); Monocytes # 0.6 10^3/uL (0.2-0.9); Monocytes % 3.7 %; Neutrophils # 14.94 10^3/uL (1.8-7.7); Neutrophils % 86.4 %; Nucleated Red Blood Cells % 0.2 %; Platelet Count 122 10^3/cmm (157-399); Red Cell Distribution Width 13.2 % (12.1-15.1); White Blood Count 17.29 10^3/uL (3.29-11.43)
[2024-05-06 05:03] LABS: Glucose Point of Care 160 mg/dL (70-110)
[2024-05-06 05:17] LABS: Alanine Aminotransferase 7 U/L (0-41); Albumin Level 1.8 g/dL (3.5-5.2); Alkaline Phosphatase 100 U/L (40-130); Anion Gap 14.7 (5-19); Aspartate Amino Transferase 13 U/L (0-40); Blood Urea Nitrogen 30 mg/dL (6-20); Calcium 7.2 mg/dL (8.5-10.5); Carbon Dioxide 15 mmol/L (22-29); Chloride 117 mmol/L (98-107); Globulin 2.4 g/dL (1.3-4.6); Glomerular Filtration Rate 19.6 mL/min (90-130); Glucose 166 mg/dL (65-115); Magnesium 1.9 mg/dL (1.7-2.3); Osmolality Calculated 306 mOsm/kg (285-295); Potassium 3.7 mmol/L (3.5-5.1); Sodium 143 mmol/L (136-145); Total Bilirubin 0.3 mg/dL (0.15-1.2); Total Protein 4.2 g/dL (6.6-8.7)
[2024-05-06 05:30] LABS: Creatinine Clr Calc Pharmacy 25.4671
[2024-05-06 05:55] LABS: Glucose Point of Care 148 mg/dL (70-110)
--- NOTE | 2024-05-06 06:00 | USCV_ITS ---
Tereza Keenan Age: 53 Gender: M : 1970 Exam Date: 05/06/2024 07:19 Ordering Phys: Ravin Mercado MD Technologist: Exam Location: [facility] [place] Indication: on vent BP: 111 / 62 HR: 82 Rhythm: Sinus Technical Quality: Adequate MEASUREMENTS (Male / Female) Normal Values 2D ECHO LV Diastolic Diameter PLAX 4.1 cm 4.2 - 5.9 / 3.9 - 5.3 cm IVS Diastolic Thickness 0.9 cm 0.6 - 1.0 / 0.6 - 0.9 cm IVS Systolic Thickness 1.5 cm LVPW Diastolic Thickness 1.0 cm 0.6 - 1.0 / 0.6 - 0.9 cm LVPW Systolic Thickness 1.4 cm LVOT Diameter 2.3 cm LV Ejection Fraction 2D Teich 62.4 % LV Ejection Fraction MOD 2C 51.8 % LV Ejection Fraction 2C AL 49.9 % LA Diameter 3.9 cm RA Systolic Volume 4C AL 67.2 ml RA Systolic Volume 4C MOD 61.4 ml Aorta at Sinotubular Diameter 2.7 cm IVC Diameter 2.6 cm M-MODE LA Ao Ratio MM 1.2 AV Cusp Separation MM 2.8 cm DOPPLER AV Peak Velocity 122.0 cm/s LVOT Peak Velocity 103.0 cm/s AV Area Cont Eq vti 4.0 cm squared AV Area Cont Eq pk 3.4 cm squared MV Area PHT 6.2 cm squared Mitral E to A Ratio 2.5 TV Peak Velocity 215.0 cm/s TR Peak Velocity 260.0 cm/s TR Peak Gradient 27.0 mmHg TV Peak E Velocity 72.0 cm/s Right Atrial Pressure 3.0 mmHg Pulmonary Artery Systolic Pressu 30.0 mmHg PV Peak Velocity 95.0 cm/s FINDINGS Left Ventricle Views are limited because of patient's on a ventilator. The ventricle is normal in size. No wall motion disturbances noted. There is lower limit of normal left ventricular function. The ejection fraction is 50 to 55%. Grade 1 diastolic dysfunction Right Ventricle Normal right ventricular size and systolic function. Normal right ventricular systolic pressure. Right Atrium The right atrium is normal in size. Left Atrium The left atrium is normal in size. Mitral Valve Structurally normal mitral valve without significant stenosis or prolapse. There is no mitral regurgitation. Aortic Valve Structurally normal aortic valve without significant sclerosis or stenosis. There is no aortic regurgitation. Tricuspid Valve Structurally normal tricuspid valve. Mild tricuspid valve regurgitation. Pulmonic Valve Pulmonic valve not well visualized. Pericardium Normal pericardium without effusion. Aorta Normal ascending aorta dimension. IVC Inferior vena cava not visualized. CONCLUSIONS Views are limited because of patient's on a ventilator. The ventricle is normal in size. No wall motion disturbances noted. There is lower limit of normal left ventricular function. The ejection fraction is 50 to 55%. Grade 1 diastolic dysfunction. There are no prior echocardiogram studies to compare. Dr. Aakash Crain MD (Electronically Signed) Final Date: 06 May 2024 15:52 S
--- NOTE | 2024-05-06 06:04 | PC.NURSE ---
Insulin Decrease Patient's blood sugar 148 with insulin administering at 64.5 units/hr. Protocol stated to decrease insulin drip to 1 unit/hr. Dr. Harkins contacted and order received to decrease insulin drip to 32 units/hr.
[2024-05-06] MEDS: piperacillin-tazobactam 3.375 GM in sodium chloride 0.9% (plus) 50 ML IV ×2 (06:27→13:21)
[2024-05-06 06:59] LABS: Glucose Point of Care 151 mg/dL (70-110)
[2024-05-06] MEDS: norepinephrine 4 MG/250 ML BAG 15 MG IV (07:18)
--- NOTE | 2024-05-06 07:20 | PC.NURSE ---
HGB Dr. Harkins notified of hgb 6.8.
--- NOTE | 2024-05-06 07:30 | P.PN_ITS ---
Subjective 2 Subjective: Patient seen bedside this morning, 3 days status post right transmetatarsal amputation secondary to nectars and fasciitis, was guillotine style amputation left open. He also has a wound to the left mid leg more stable appearing. His and daughter are bedside. Patient remains intubated. Surgical dressing right foot is clean and dry without strikethrough. Vitals/I&O/Wt Last Vital Signs Temp 97.7 F 05/07/24 07:23 Pulse 99 05/07/24 06:00 Resp 18 05/07/24 04:00 BP 102/59 05/07/24 06:00 Pulse Ox 95 05/07/24 06:00 O2 Del Method Mechanical Ventilation 05/07/24 06:00 O2 Flow Rate 40 05/03/24 23:10 FiO2 35 05/07/24 05:30 05/06/24 05/07/24 05/07/24 22:59 06:59 14:59 Intake Total 599.672 / 230.795 1956.830 / 2417.879 Output Total 450 / 450 225 / 675 Balance 149.672 / 734.187 1887.830 / 1742.879 Weight last 48 hrs Weight 201 lb 7 oz Weight 197 lb 14.4 oz Physical Exam 2 Narrative: Patient is unresponsive. The following is a focused bilateral lower extremity exam. VASCULAR: Dorsalis pedis diminished bilaterally. Posterior tibial arteries diminished. Delayed capillary refill to right great toe, cap refill less than 5 seconds to the left great toe. Pedal hair growth is diminished, there is mild hair growth at the tuft of the great toe bilaterally. NEUROLOGICAL: Protective sensation absent to light touch bilaterally. DERMATOLOGICAL: Surgical dressings right foot are clean, dry and intact without strikethrough, no bleeding, no proximal pagetic streaking or cellulitis at the level of the dressing, right lower extremity. Wound exposed to myofascial layer left mid leg measures 2.8 cm x 2.1 cm x 0.3 cm. MUSCULOSKELETAL: Status post right transmetatarsal amputation. Urinary Catheter Management: Holbrook: Cath Placed During This Visit: yes Reason for Continuing Indwelling Catheter: Accurate Measurement of Urinary Output in Critically Ill Patients Urinary Catheter Date of Insertion: 05/03/24 Urinary Catheter Time of Insertion: 21:50 Data 05/06/24 21:11 05/07/24 06:40 Micro: Microbiology 05/03/24 22:52 Anaerobic Culture - Preliminary Foot - Right 05/04/24 12:03 Gram Stain - Final Sputum - Endotracheal Wash Sputum Culture - Preliminary Staphylococcus aureus Gram Negative Rods A&P Assessment and plan (1) Severe sepsis: (2) DKA (diabetic ketoacidosis): Qualifiers: Diabetes mellitus type: type 2 (3) Diabetic peripheral neuropathy associated with type 2 diabetes mellitus: (4) Necrotizing fasciitis: (5) Gas gangrene: Plan 53-year-old uncontrolled diabetic male presents with unresponsiveness, DKA, sepsis and necrotizing fasciitis to the right foot. Right transmetatarsal amputation performed 05/03/2024, guillotine amputation will require staged surgical approach once patient is more stable for grafting at amputation site versus higher level of amputation. Surgical dressings are clean, dry and intact, there is no strikethrough, no purulence and no proximal pagetic streaking at the level of the right ankle. Dressing applied to left leg consisting of silver alginate and silicone bordered foam. Change dressing right foot saline wet-to-dry. Orders for ICU nursing staff to continue once daily dressing changes. Patient will require staged procedure, skin grafting at amputation site versus higher level of amputation. Will continue to require monitoring his response to antibiotics. I am off call and out-of-town until May 12, 2024. Available via phone and chart review. No immediate surgical plans for patient's right lower extremity at this time, will require him to be more stable for repeat visit to the OR for skin grafting versus application of biological substitute with wound VAC right foot. Could potentially do this early next week pending his overall clinical picture. Attestations 2 Medical Necessity Statement*: Diabetic foot infection requires continued IV antibiotics and states of surgical procedure. Coding Level of Care Code Acute Code for [facility] Fwd Diagnoses Severe sepsis A41.9; R65.20 DKA (diabetic ketoacidosis) E11.10 Diabetes mellitus type: type 2 Diabetic peripheral neuropathy associated with type 2 diabetes mellitus E11.42 Necrotizing fasciitis M72.6 Gas gangrene A48.0
[2024-05-06 07:32] LABS: Glucose Point of Care 132 mg/dL (70-110)
[2024-05-06] MEDS: phosphorus 250 mg Tablet PO ×2 (08:20→17:46)
[2024-05-06] MEDS: aspirin 325 mg Tablet PO (08:20)
[2024-05-06] MEDS: pantoprazole 40 mg SDV IVP (08:20)
[2024-05-06 08:53] LABS: Glucose Point of Care 125 mg/dL (70-110)
[2024-05-06 09:33] LABS: Glucose Point of Care 110 mg/dL (70-110)
[2024-05-06 10:43] LABS: ABG PCO2 31.3 mmHg (35-45); ABG PH Result 7.28 (7.35-7.45); Alveolar-Arterial Oxygen Gradi 13.8 mmHg (5-10); Arterial Blood Gas Hematocrit 21.8 % (42-52); Blood Gas Allen Test Pos; Blood Gas Operator Identificat MONRO; Blood Gas Sample Site Radial, left; Blood Gas Sample Type Arterial; Blood Gas Tidal Volume 0.45; Carboxyhemoglobin 0.9 %THgb (0.4-20.1); HCO3 ABG 14.7 mmol/L (22-26); HGB O2 Sat 97.4 % (95-100); Ionized Calcium Level - ABG 1.2 mmol/L (1.1-1.4); Methemoglobin 0.7 % (0.4-1.5); Oxygen Device VENT; Oxygen Saturation ABG 98.9; PO2 FiO2 Ratio Arterial Blood 291; Potassium Level - ABG 3.4 mmol/L (3.5-5.0); Total Hemoglobin 7.1 g/dL (14-18)
[2024-05-06 10:50] LABS: Anion Gap 16.6 (5-19); Blood Urea Nitrogen 29 mg/dL (6-20); Calcium 7.1 mg/dL (8.5-10.5); Carbon Dioxide 13 mmol/L (22-29); Chloride 116 mmol/L (98-107); Creatinine Clr Calc Pharmacy 25.0232; Glomerular Filtration Rate 18.3 mL/min (90-130); Glucose 142 mg/dL (65-115); Magnesium 1.8 mg/dL (1.7-2.3); Osmolality Calculated 302 mOsm/kg (285-295); Phosphorus 1.3 mg/dL (2.5-4.5); Potassium 3.6 mmol/L (3.5-5.1); Sodium 142 mmol/L (136-145)
[2024-05-06 10:51] LABS: Glucose Point of Care 136 mg/dL (70-110)
[2024-05-06 12:34] LABS: Glucose Point of Care 103 mg/dL (70-110)
[2024-05-06 12:34] LABS: Glucose Point of Care 125 mg/dL (70-110)
[2024-05-06] MEDS: dextrose 5%-sod chloride 0.9% 1,000 ML 125 ML IV ×2 (13:25)
[2024-05-06 13:57] LABS: Glucose Point of Care 111 mg/dL (70-110)
[2024-05-06] MEDS: propofol 1,000 MG/100 ML INJ 6.94 MG IV (15:11)
[2024-05-06 15:12] LABS: Anion Gap 14.7 (5-19); Blood Urea Nitrogen 30 mg/dL (6-20); Calcium 7.4 mg/dL (8.5-10.5); Carbon Dioxide 15 mmol/L (22-29); Chloride 117 mmol/L (98-107); Creatinine Clr Calc Pharmacy 25.0232; Glomerular Filtration Rate 18.3 mL/min (90-130); Glucose 119 mg/dL (65-115); Magnesium 1.8 mg/dL (1.7-2.3); Osmolality Calculated 303 mOsm/kg (285-295); Phosphorus 1.6 mg/dL (2.5-4.5); Potassium 3.7 mmol/L (3.5-5.1); Sodium 143 mmol/L (136-145)
[2024-05-06 15:13] LABS: Lactate (Lactic Acid level) 1.7 mmol/L (0.5-2.2)
[2024-05-06 15:52] LABS: Glucose Point of Care 133 mg/dL (70-110)
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
[2024-05-06] MEDS: magnesium sulfate premix 1 GM/100 ML PIGGYBACK IV (16:32)
[2024-05-06 16:33] LABS: Glucose Point of Care 120 mg/dL (70-110)
[2024-05-06 16:33] LABS: Glucose Point of Care 118 mg/dL (70-110)
[2024-05-06] MEDS: FUROsemide 10 mg/mL SDV 4mL 40 MG IVP (16:33)
[2024-05-06 17:32] LABS: Glucose Point of Care 113 mg/dL (70-110)
[2024-05-06] MEDS: lactated ringers 1,000 ML 100 ML IV (17:44)
[2024-05-06 18:20] LABS: Reticulocyte % 1.3 % (0.5-2.0)
[2024-05-06 18:55] LABS: Hepatitis C Virus Antibody Non-Reactive (Nonreactive)
[2024-05-06 18:59] LABS: Anion Gap 16.1 (5-19); Blood Urea Nitrogen 29 mg/dL (6-20); Calcium 7.1 mg/dL (8.5-10.5); Carbon Dioxide 14 mmol/L (22-29); Chloride 118 mmol/L (98-107); Complement C3 54 mg/dL (90-180); Creatine Phosphokinase 29 U/L (39-308); Creatinine Clr Calc Pharmacy 25.0232; Glomerular Filtration Rate 18.3 mL/min (90-130); Glucose 105 mg/dL (65-115); Lactate Dehydrogenase 128 U/L (135-225); Magnesium 1.9 mg/dL (1.7-2.3); Osmolality Calculated 304 mOsm/kg (285-295); Phosphorus 1.8 mg/dL (2.5-4.5); Potassium 4.1 mmol/L (3.5-5.1); Sodium 144 mmol/L (136-145)
[2024-05-06 19:03] LABS: Potassium, Radom Urine 39 mmol/L; Urine Random Chloride 73 mmol/L; Urine Random Sodium 69 mmol/L
--- NOTE | 2024-05-06 19:09 | PC.NURSE ---
Blood glucose was 89 at 1830 check. Insulin gtt stopped and Dr. Mercado gave new verbal orders. See order list.
[2024-05-06 20:19] LABS: Glucose Point of Care 89 mg/dL (70-110)
[2024-05-06 20:19] LABS: Glucose Point of Care 105 mg/dL (70-110)
[2024-05-06] MEDS: dextrose 5%-lactated ringers 1,000 ML 100 ML IV (20:23)
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
[2024-05-06] MEDS: fentaNYL 1,000 MCG/100 ML BAG 7.5 MCG IV (20:48)
[2024-05-06 21:24] LABS: Reflex FDPQ test REFLEX FDP QUEST TES
[2024-05-06 21:28] LABS: Retic Production Index 0.74; Reticulocyte % 1.4 % (0.5-2.0)
--- NOTE | 2024-05-06 21:32 | PC.PHAR ---
Pharmacy to dose Vancomycin, changed from 1 gm q48h to 1250mg q36h. Will continue to follow. Thank you, Kary Patton h
[2024-05-06 21:55] LABS: INR 1.23 (0.8-1.2)
[2024-05-06 21:56] LABS: Fibrinogen 559 mg/dL (174-498); Partial Thromboplastin Time 40.7 SECONDS (23.9-36.7)
[2024-05-06 22:01] LABS: Lactate Dehydrogenase 130 U/L (135-225)
[2024-05-06 22:06] LABS: D Dimer 6.26 ug/mLFEU (0-0.59)
[2024-05-06] MEDS: norepinephrine 4 MG/250 ML BAG 22.5 MG IV (22:21)
[2024-05-06 22:38] LABS: LAB Peripheral Smear Sent for Review
[2024-05-06 23:44] LABS: Glucose Point of Care 70 mg/dL (70-110)
[2024-05-07] VITALS (105 sets, daily range): BP systolic 80–130; BP diastolic 44–76; PULSE 89–106; RESP 8–19; TEMP 35.9–36.9; O2SAT 92–100; BMI 32.5
[2024-05-07 01:01] LABS: Glucose Point of Care 74 mg/dL (70-110)
[2024-05-07] MEDS: piperacillin-tazobactam 3.375 GM in sodium chloride 0.9% (plus) 50 ML IV ×2 (01:03→06:04)
--- NOTE | 2024-05-07 01:38 | PC.NURSE ---
Days shift nurse reported that Dr. Mercado did not want the insulin lantus to be given until blood sugar came up above 100. Blood sugar has not gotten up 100 even after dextrose containing fluids has been started. Dr. Harkins was contacted and she said to keep holding it until blood sugar comes up above 100.
[2024-05-07] MEDS: sodium chloride 0.9% 100 mL Bag 50 ML IV (02:51)
[2024-05-07] MEDS: chlorhexidine gluconate 4% Btl 118 mL 1 APPLIC TOPICAL (02:55)
--- NOTE | 2024-05-07 03:13 | PC.NURSE ---
Dr. Harkins notified about hospital not having Glucerna 1.5. She said to give Glucerna 1.2 which we have in stock.
[2024-05-07] MEDS: fentaNYL 1,000 MCG/100 ML BAG 12.5 MCG IV (04:26)
[2024-05-07 05:50] LABS: Glucose Point of Care 79 mg/dL (70-110)
[2024-05-07] MEDS: dextrose 5%-lactated ringers 1,000 ML 100 ML IV (06:04)
[2024-05-07 06:54] LABS: Basophils # 0.1 10^3/uL (0.0-0.1); Basophils % 0.3 %; Eosinophils # 0.1 10^3/uL (0.0-0.8); Eosinophils % 0.4 %; Hematocrit 23.9 % (37-53); Lymphocytes # 0.4 10^3/uL (0.8-4.8); Lymphocytes % 1.9 %; Mean Corpuscular HGB Conc 33.9 g/dL (30-55); Mean Corpuscular Volume 88.5 fl (82-101); Mean Platelet Volume 10.8 fL (7.4-10.4); Monocytes # 0.9 10^3/uL (0.2-0.9); Monocytes % 3.9 %; Neutrophils # 20.61 10^3/uL (1.8-7.7); Neutrophils % 87.2 %; Nucleated Red Blood Cells % 0.2 %; Platelet Count 122 10^3/cmm (157-399); Red Cell Distribution Width 13.5 % (12.1-15.1); White Blood Count 23.65 10^3/uL (3.29-11.43)
[2024-05-07 07:14] LABS: Alanine Aminotransferase 9 U/L (0-41); Albumin Level 1.6 g/dL (3.5-5.2); Alkaline Phosphatase 151 U/L (40-130); Anion Gap 16.3 (5-19); Aspartate Amino Transferase 19 U/L (0-40); Blood Urea Nitrogen 30 mg/dL (6-20); Calcium 7.5 mg/dL (8.5-10.5); Carbon Dioxide 14 mmol/L (22-29); Chloride 114 mmol/L (98-107); Creatinine Clr Calc Pharmacy 23.2471; Globulin 2.8 g/dL (1.3-4.6); Glomerular Filtration Rate 16.6 mL/min (90-130); Glucose 78 mg/dL (65-115); Magnesium 1.9 mg/dL (1.7-2.3); Osmolality Calculated 295 mOsm/kg (285-295); Potassium 4.3 mmol/L (3.5-5.1); Sodium 140 mmol/L (136-145); Total Bilirubin 0.9 mg/dL (0.15-1.2); Total Protein 4.4 g/dL (6.6-8.7)
[2024-05-07 07:18] LABS: Calcium 7.3 mg/dL (8.5-10.5); Ferritin 527 ng/mL (30-400); Iron 61 ug/dL (59-158)
[2024-05-07 07:24] LABS: Parathyroid Hormone 172.1 pg/mL (15-65)
--- NOTE | 2024-05-07 07:31 | PC.NURSE ---
Dr. Harkins was made aware that patient's blood sugar was still bellow 80 blood sugar and that the insulin lantus could not be given. She stated that she was okay with that.
[2024-05-07 07:38] LABS: 25 Hydroxy Vitamin D < 6 ng/mL (30-100); Percent Saturation 78.2 % (20-50); Total Iron Binding Capacity 78 mcg/dl; Unsaturated Iron Binding < 17 ug/dL (112-347)
[2024-05-07 07:39] LABS: Slide Review Slide Review Perform
--- NOTE | 2024-05-07 07:43 | P.PN_ITS ---
Subjective 2 Subjective: The patient is intubated sedated. Minimally responsive. He received his second unit of blood this morning. He remains on Levophed. Remains intubated he has an NG tube. He still tachycardic on amiodarone. He has significant edema. Medications: Reviewed: Yes Medication Review Details: Current Medications Acetaminophen (Acetaminophen 325 Mg Tablet) 650 mg NG-TUBE Q6H PRN PRN Reason: MILD PAIN Aspirin (Aspirin 325 Mg Tablet) 325 mg PO DAILY [facility] Last Admin: 05/06/24 08:20 Dose: 325 mg Chlorhexidine Gluconate (Chlorhexidine Gluconate 4% Btl 118 Ml) 1 applic TOPICAL Q24H LAITH Last Admin: 05/07/24 02:55 Dose: 1 applic Glucagon (Glucagon 1 Mg/Ml Kit 1 Ml) 1 mg IM ONCE PRN; Protocol PRN Reason: Adult Acute Hypoglycemia Nursing Prot. Heparin Sodium (Porcine) (Heparin 5,000 Unit/Ml Inj 1 Ml) 0 unit IV PRN PRN; Protocol PRN Reason: Heparin weight-base protocol Norepinephrine Bitartrate (Levophed) 4 mg in 250 mls @ 0 mls/hr IV .Q0M [facility]; Protocol Last Titration: 05/07/24 06:09 Dose: 5 mcg/min, 18.75 mls/hr Fentanyl (Sublimaze) 1,000 mcg in 100 mls @ 0 mls/hr IV .Q0M LAITH; Protocol Last Admin: 05/07/24 04:26 Dose: 125 mcg/hr, 12.5 mls/hr Magnesium Sulfate (Magnesium Sulfate Premix) 2 gm in 50 mls @ 50 mls/hr IV PRN PRN PRN Reason: HYPOMAGNESIUMIA Last Infusion: 05/05/24 13:43 Dose: Infused Lidocaine HCl 5 ml/ Potassium (Chloride) 105 mls @ 26.25 mls/hr IV PRN PRN PRN Reason: hypokalemia Last Infusion: 05/04/24 08:43 Dose: Infused Propofol (Diprivan) 1,000 mg in 100 mls @ 0 mls/hr IV .Q0M LAITH; Protocol Last Titration: 05/07/24 05:51 Dose: 5 mcg/kg/min, 2.31 mls/hr Piperacillin Sod/Tazobactam (Sod 3.375 gm/ Sodium Chloride) 50 mls @ 12.5 mls/hr IV Q8H LAITH Last Admin: 05/07/24 06:04 Dose: 12.5 mls/hr Amiodarone HCl/Dextrose (Nexterone) 360 mg in 200 mls @ 0 mls/hr IV .Q0M LAITH; Protocol Last Admin: 05/07/24 04:21 Dose: 0.5 mg/min, 16.67 mls/hr Vasopressin (Vasostrict) 40 unit in 100 mls @ 0 mls/hr IV .Q0M LAITH; Protocol Last Titration: 05/04/24 15:51 Dose: 0 unit/min, 0 mls/hr Dexmedetomidine/Sodium Chloride (Precedex) 400 mcg in 100 mls @ 0 mls/hr IV .Q0M LAITH; Protocol Last Titration: 05/06/24 09:00 Dose: 0 mcg/kg/hr, 0 mls/hr Heparin Sodium/Sodium Chloride (Heparin Drip) 25,000 unit in 500 mls @ 0 mls/hr IV .Q0M LAITH; Protocol Last Titration: 05/05/24 19:31 Dose: 11.21 unit/kg/hr, 16 mls/hr Insulin Human Regular 250 unit (/ Sodium Chloride) 252.5 mls @ 0 mls/hr IV CONT LAITH; Protocol Last Infusion: 05/06/24 19:00 Dose: 0 mls/hr Dextrose/Lactated Ringer's (Dextrose 5%-Lactated Ringers) 1,000 mls @ 100 mls/hr IV .Q10H LAITH Last Admin: 05/07/24 06:04 Dose: 100 mls/hr Dextrose (D5w) 500 mls @ 0 mls/hr IV ONCE PRN; Protocol PRN Reason: Adult Acute Hypoglycemia Prot Dextrose (D10w) 125 mls @ 750 mls/hr IV PRN PRN; Protocol PRN Reason: Adult Acute Hypoglycemia Nursing Protocol Dextrose (D10w) 250 mls @ 1,000 mls/hr IV PRN PRN; Protocol PRN Reason: Adult Acute Hypoglycemia Nursing Protocol Vancomycin/PEG/NADA/Lysine/Water (Vancocin) 1,250 mg in 250 mls @ 250 mls/hr IV Q36H LAITH Insulin Human Lispro (Insulin Lispro 100 Unit/1 Ml) 0 unit SUBCUT Q6H LAITH; Protocol Last Admin: 05/07/24 01:03 Dose: Not Given Lanolin (Lanolin Oint 7 Gm) 1 applic TOPICAL PRN PRN PRN Reason: DRYNESS Last Admin: 05/05/24 23:47 Dose: 1 applic Ondansetron HCl (Ondansetron 2 Mg/Ml Sdv 2 Ml) 4 mg IVP Q6H PRN PRN Reason: NAUSEA AND VOMITING Pantoprazole Sodium (Pantoprazole 40 Mg Sdv) 40 mg IVP DAILY [facility] Last Admin: 05/06/24 08:20 Dose: 40 mg Potassium Phosphate (Phosphorus 250 Mg Tablet) 250 mg PO BID LAITH Stop: 05/09/24 17:59 Last Admin: 05/06/24 17:46 Dose: 250 mg Sodium Chloride (Sodium Chloride 0.9% 100 Ml Bag) 50 ml IV PRN PRN PRN Reason: Blood transfusion prime and flush Stop: 05/08/24 01:22 Last Admin: 05/07/24 02:51 Dose: 50 ml Vitals/I&O/Wt Last Vital Signs Temp 97.7 F 05/07/24 07:23 Pulse 99 05/07/24 06:00 Resp 18 05/07/24 04:00 BP 102/59 05/07/24 06:00 Pulse Ox 95 05/07/24 06:00 O2 Del Method Mechanical Ventilation 05/07/24 06:00 O2 Flow Rate 40 05/03/24 23:10 FiO2 35 05/07/24 05:30 05/06/24 05/07/24 05/07/24 22:59 06:59 14:59 Intake Total 599.672 / 173.349 4545.830 / 2417.879 Output Total 450 / 450 225 / 675 Balance 149.672 / 553.703 9129.830 / 1742.879 Weight last 48 hrs Weight 91.371 kg Weight 89.766 kg Physical Exam 2 Narrative: The patient was seen with the aid of an A/V device. Examined by nurse. This is a telehealth visit. Patient is intubated sedated on Levophed at 5. His vent settings FiO2 35% PEEP of 5 respiratory rate of 18. HEENT is normocephalic atraumatic neck is supple Lungs have good air movement bilaterally. Heart irregular, tachycardic, positive systolic murmur. Abdomen soft positive bowel sounds. Extremities poor pulses and status post right TMA. He has significant edema in his arms and legs. Neuro responds to pain, and to voice. He is not following commands. Urinary Catheter Management: [place]brook: Cath Placed During This Visit: yes Reason for Continuing Indwelling Catheter: Accurate Measurement of Urinary Output in Critically Ill Patients Urinary Catheter Date of Insertion: 05/03/24 Urinary Catheter Time of Insertion: 21:50 Data 05/07/24 06:40 05/07/24 06:40 Micro: Microbiology 05/03/24 22:52 Anaerobic Culture - Preliminary Foot - Right 05/04/24 12:03 Gram Stain - Final Sputum - Endotracheal Wash Sputum Culture - Preliminary Staphylococcus aureus Gram Negative Rods A&P Assessment and plan (1) JALYN (acute kidney injury): 53-year-old gentleman 1. DKA improvedwith fluids and insulin. 2. Septic foot status post TMA. Check vancomycin level keep trough under 20. Please dose Zosyn for GFR under 20. 3. Renal insufficiency: Please get old labs. Creatinine on admission was 3. I do not know if he is taking any NSAIDs at home. I do not know what medications he was taking at home -Please see if you can get medication list and old labs. Urinalysis on admission had 4+ glucose 2+ ketones. Of note negative blood and only trace protein. This is atypical for diabetic nephropathy. Renal ultrasound right kidney 11 cm left kidney 11.6 cm. Major question is if this is acute versus chronic kidney disease. Renal ultrasound appears normal. -Complements reviewed. C3 is low normal C4. Please send urine for eosinophils. Monitor I's and O's. Serologies are pending. -Daily chemistries no acute need for dialysis. 4. Increased anion gap metabolic acidosis on admission is improving. Will DC IV fluids.. 5. Will give Lasix at this time 6. Diabetic control. 7. Anemia likely multifactorial from severe infection, CKD. He has a high iron saturation. Await serum protein electrophoresis, B12 and folate. Transfuse as needed. 8. Leukocytosis was improving, white cell count wei overnight. 9/replace vitamin D. Elevated PTH can be consistent with CKD. Will repeat in 4 to 6 weeks after replacing vitamin D. Patient was seen and examined with nurse using A/V equipment. Telehealth visit. Case discussed in detail with the patient and the nurse. r Plan See above. Attestations 2 Medical Necessity Statement*: Anemia, TMA, infection. Acute on chronic renal failure. Time Spent in Patient Care: 16 - 35 minutes (>than 50% of time sp ent in counselling and/or direct pt care on unit) . Coding Level of Care Code Acute Code for Chg Fwd Diagnoses JALYN (acute kidney injury) N17.9
[2024-05-07] MEDS: dextrose 10% 125 ML 750 ML IV (07:47)
--- NOTE | 2024-05-07 08:11 | XR_ITS ---
WS: [id number] XR chest 1V portable [id number] REASON FOR EXAM: NG tube placement FINDINGS: Right internal jugular central venous line remains in proper position. Endotracheal tube remains in proper position. Nasogastric tube has been placed. The tip of the tube barely overlies the fundus of the stomach just below the diaphragm and may not be an optimal position, requiring the more distal placement. There is opacification of both lower hemithoraces with obscuration of the hemidiaphragms. Presumably these findings are due to compressive atelectasis of the lower lobes with pleural effusion. These fin dings represent significant interval change compared to the previous examination of 05/04/2024. Cardiac silhouette appears larger than on the previous examination of 05/04/2024. XR/XR chest 1V portable [id number] IMPRESSION: Nasogastric tube position as above. Interval development of atelectasis and pleural effusions bilaterally.
--- NOTE | 2024-05-07 08:11 | PC.NURSE ---
Addendum entered by Angel Steele RN 05/07/24 13:10: NG tube advanced again, followup xray shows correct placement. restarted tube feeds, administered morning PO meds late. Addendum entered by Angel Steele RN 05/07/24 10:23: Xray resulted, radiologist reccomends further advancement on NG tube. NG tube advanced, xray obtained. Original Note: Upon morning assessment, ng tube was found to be misplaced. When instilling air, no gurgling heard in stomach, but gurgling heard from mouth. Nurse stopped tube feeds, advanced NG tube until by until gurgling heard in stomach (approximately 3 more inches). Gurgling is now heard in left upper quadrant when air instilled. Nurse ordered chest x ray per protocol to verify NG tube placement.
[2024-05-07 08:28] LABS: Glucose Point of Care 118 mg/dL (70-110)
[2024-05-07] MEDS: pantoprazole 40 mg SDV IVP (08:46)
[2024-05-07] MEDS: FUROsemide 10 mg/mL SDV 10mL 60 MG IVP (08:47)
[2024-05-07] MEDS: vancomycin 1,250 MG/250 ML PIGGYBACK 250 MG IV (08:47)
--- NOTE | 2024-05-07 09:36 | USCV_ITS ---
Tereza Keenan Age: 53 Gender: M : 1970 Exam Date: 05/07/2024 10:27 Ordering Phys: Ravin Mercado MD Technologist: Exam Location: [facility] Indication: bed stasis PROCEDURES: Venous duplex imaging was performed in bilateral lower extremities. The following venous structures were evaluated: common femoral vein, profunda vein, proximal portion of the greater saphenous vein, superficial femoral vein, and the popliteal vein. In addition, the posterior tibial and peroneal trunk were evaluated. FINDINGS: Normal 2-D Doppler and augmentation and compressibility throughout the lower extremity venous structures. Additional imaging through the proximal calf veins also reveals no thrombus. Limited evaluation of the greater saphenous vein is patent with no thrombus. CONCLUSIONS No evidence of right lower extremity DVT. No evidence of left lower extremity DVT. Neeraj Kumar MD (Electronically Signed) Final Date: 07 May 2024 12:11 S
--- NOTE | 2024-05-07 09:36 | USCV_ITS ---
Tereza Keenan Age: 53 Gender: M : 1970 Exam Date: 05/07/2024 10:41 Ordering Phys: Ravin Mercado MD Technologist: Exam Location: [facility] [place] Indication: bed stasis PROCEDURES: Venous duplex imaging was performed in bilateral upper extremities. The following venous structures were evaluated: internal jugular vein, subclavian vein, axillary vein, and brachial veins. In addition, the basilic vein, cephalic vein, radial vein, and ulnar vein. FINDINGS: no thrombus in the upper extremity veins CONCLUSIONS No evidence of thrombus of the bilateral upper extremity veins. Neeraj Kumar MD (Electronically Signed) Final Date: 07 May 2024 12:08 S
--- NOTE | 2024-05-07 10:13 | XRR_ITS ---
PROCEDURE INFORMATION: Exam: XR Chest Exam date and time: 05/07/2024 10:21 AM Age: 53 years old Clinical indication: Device placement; Ng tube; Additional info: Ng tube advancement TECHNIQUE: Imaging protocol: Radiologic exam of the chest. Views: 1 view. COMPARISON: CR XR chest 1V portable [id number] 05/07/2024 8:28 AM FINDINGS: Tubes, catheters and devices: Central venous catheter terminates in the right atrium. Endotracheal tube terminates 3 cm above the chasity. Gastric tube terminates in the stomach. Lungs: See Pleural spaces finding. Pleural spaces: Bilateral pleural effusions and bilateral pulmonary infiltrates are stable. Heart/Mediastinum: Unremarkable. No cardiomegaly. Bones/joints: Unremarkable. XR/XR chest 1V portable [id number] IMPRESSION: Gastric tube terminates in the stomach.
[2024-05-07 11:03] LABS: Glucose Point of Care 69 mg/dL (70-110)
[2024-05-07 11:03] LABS: Glucose Point of Care 69 mg/dL (70-110)
[2024-05-07 11:13] LABS: Glucose Point of Care 100 mg/dL (70-110)
[2024-05-07] MEDS: phosphorus 250 mg Tablet PO ×2 (12:29→17:31)
[2024-05-07] MEDS: aspirin 325 mg Tablet PO (12:29)
[2024-05-07] MEDS: norepinephrine 4 MG/250 ML BAG 18.75 MG IV (12:35)
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
[2024-05-07 14:40] LABS: Phosphorus 2.7 mg/dL (2.5-4.5)
[2024-05-07 15:02] LABS: Eosinophil Urine No Eosinophils Seen
--- NOTE | 2024-05-07 15:52 | XR_ITS ---
WS: [id number] XR acute abdomen series [id number] REASON FOR EXAM: vomiting, tube feed residuals. FINDINGS: No free air or retroperitoneal air is identified. Mildly dilated gas-filled small bowel loops in the right upper abdomen with minimal colon gas. Patter n is nonspecific but could be early indication of distal small bowel obstruction. There is an overall increased density of the abdomen which may be due to the patient's body habitus h owever free fluid cannot be excluded. The nasogastric tube appears to be somewhat cranial in location, however multiple previous examinatio ns demonstrate the nasogastric tube clearly below the diaphragm and overlying the fundus of the stoma ch. The current configuration may be due to elevation of the left hemidiaphragm secondary to pleural effusion and compressive atelectasis of the left lower lung. XR/XR acute abdomen series [id number] IMPRESSION: Abnormal small bowel gas pattern as noted and discussed above. Possible ascites. Nasogastric position as above.
[2024-05-07 16:01] LABS: Glucose Point of Care 123 mg/dL (70-110)
[2024-05-07] MEDS: dextrose 10% 1,000 ML 30 ML IV (16:16)
--- NOTE | 2024-05-07 17:17 | CTR_ITS ---
PROCEDURE INFORMATION: Exam: CT Abdomen And Pelvis Without Contrast Exam date and time: 05/07/2024 8:48 PM Age: 53 years old Clinical indication: Other: Assess for sbo; Additional info: Assess for poss sbo, og position TECHNIQUE: Imaging protocol: Computed tomography of the abdomen and pelvis without contrast. Radiation optimization: All CT scans at this facility use at least one of these dose optimization techniques: automated exposure control; mA and/or kV adjustment per patient size (includes targeted exams where dose is matched to clinical indication); or iterative reconstruction. COMPARISON: CR XR acute abdomen series [id number] 05/07/2024 4:02 PM RADIATION DOSE METRICS: Total DLP (mGy-cm): 1111.6 FINDINGS: Tubes, catheters and devices: A catheter ends in the right atrium. Nasogastric tube ends in the stomach. Pleural spaces: Moderate pleural effusions layer posteriorly and produce multi segmental compressive atelectasis in the lung bases. Liver: Normal. No mass. Gallbladder and biliary ducts: Normal. No calcified stones. No ductal dilation. Pancreas: Normal. No ductal dilation. Spleen: Normal. No splenomegaly. Adrenal glands: Normal. No mass. Kidneys and ureters: Normal. No hydronephrosis. Stomach and bowel: No bowel obstruction or ileus. There is some mild nonspecific wall thickening in the rectosigmoid colon. No surrounding inflammation. Appendix: No evidence of appendicitis. Intraperitoneal space: Small ascites. Vasculature: Unremarkable. No abdominal aortic aneurysm. Lymph nodes: Unremarkable. No enlarged lymph nodes. Urinary bladder: A Holbrook catheter ends in the urinary bladder. Reproductive: Unremarkable as visualized. Bones/joints: Unremarkable. No acute fracture. Soft tissues: Unremarkable. Other findings: Diffuse 3rd spacing of fluids. CT/CT abdomen pelvis wo con [id number] IMPRESSION: 1. No bowel obstruction or ileus. Mild wall thickening in the rectosigmoid colon 2. Diffuse 3rd spacing of fluids including subcutaneous edema, pleural effusions and ascites.
[2024-05-07] MEDS: bisacodyl 10 mg Supp PR (17:31)
--- NOTE | 2024-05-07 18:39 | PC.NURSE ---
Shift SUmmary: Sedation has been turned off, by end of shift, patient is answering yes/no questions and following commands. fluids changed from D5LR to D10% at 50mL, and now on D10% at 30ml/hr, attempting to balance blood sugar with fluid intake. Still on 6mcg of levophed unable to come down. Tube feds stopped due to suspected small bowel obstruction, CT ordered.
[2024-05-07 18:53] LABS: Vancomycin Trough 27.4 ug/mL (10-15)
[2024-05-07 18:58] LABS: Glucose Point of Care 128 mg/dL (70-110)
--- NOTE | 2024-05-07 19:07 | PC.PHAR ---
Vancomycin level of 27.4 was drawn 9 hours last dose given. The Vancomycin is scheduled 1250mg q36 hours, should be within normal limits in another 27 hours before next dose is due. Thank you and will continue to follow, Kary Patton [facility]
--- NOTE | 2024-05-07 19:10 | PC.NURSE ---
Medical record request sent to [facility], phone: [phone].....
--- NOTE | 2024-05-07 21:18 | PC.NURSE ---
Patient was beginning to get agitated before being taken to CT. Precedex drip was started and patient was still very agitated during the CT scan. After returning to the patient's room, the patient became more relaxed and precedex drip was turned off.
[2024-05-07] MEDS: norepinephrine 4 MG/250 ML BAG 15 MG IV (21:57)
--- NOTE | 2024-05-07 22:59 | PC.NURSE ---
While patient was in CT he started wagging his finger at Respiratory Therapist. Patient then started flipping off Respiratory Therapist while patient was being transferred through the hallway.
--- NOTE | 2024-05-07 23:30 | PC.NURSE ---
Agitation Patient acting agitated with care nurse JAIDEN Silva. Patient care resumed by this nurse. While making introduction to patient, patient raised right middle finger and wagged it while acting agitated. Patient family stated that this was his way of saying he didn't want to be here. Education provided to family regarding patient's orientation status and inability to properly assess orientation at this time due to intubation.
[2024-05-08] VITALS (89 sets, daily range): BP systolic 77–120; BP diastolic 48–73; PULSE 76–97; RESP 6–23; TEMP 36.7–37.1; O2SAT 94–99; BMI 33.5
--- NOTE | 2024-05-08 01:00 | PC.NURSE ---
Addendum entered by Roula Qiuck RN 05/08/24 01:59: *glucose 176, not 179 Original Note: Dextrose/insulin Patient's glucose 179 with dextrose 10% administering at 30 ml/hr. Subq insulin sliding scale dose due. Dr. Harkins contacted and order received to decrease D10 to 15 ml/hr, not administer subq insulin, and recheck blood sugar in one hour.
[2024-05-08 01:05] LABS: Glucose Point of Care 176 mg/dL (70-110)
[2024-05-08 01:49] LABS: Glucose Point of Care 169 mg/dL (70-110)
--- NOTE | 2024-05-08 01:50 | PC.NURSE ---
Q2HR Accuchecks Patient's glucose [address] Harkins notified; orders received to place subq insulin on hold, keep d10 administering at 15 ml/hr, and do accuchecks Q2HR. Additional order received for a goal blood sugar of 140-180 and to notify physician if >180.
[2024-05-08 03:44] LABS: Glucose Point of Care 173 mg/dL (70-110)
[2024-05-08 05:27] LABS: Hematocrit 22.9 % (37-53); Mean Corpuscular HGB Conc 34.5 g/dL (30-55); Mean Corpuscular Hemoglobin 29.7 pg (27-33); Mean Corpuscular Volume 86.1 fl (82-101); Mean Platelet Volume 10.8 fL (7.4-10.4); Platelet Count 131 10^3/cmm (157-399); Red Blood Count 2.66 10^6/uL (3.85-5.65); Red Cell Distribution Width 14.1 % (12.1-15.1); White Blood Count 28.62 10^3/uL (3.29-11.43)
[2024-05-08 05:50] LABS: Phosphorus 4.3 mg/dL (2.5-4.5)
[2024-05-08 05:59] LABS: Alanine Aminotransferase 8 U/L (0-41); Albumin Level 1.7 g/dL (3.5-5.2); Alkaline Phosphatase 344 U/L (40-130); Aspartate Amino Transferase 21 U/L (0-40); Blood Urea Nitrogen 40 mg/dL (6-20); Calcium 7.9 mg/dL (8.5-10.5); Carbon Dioxide 15 mmol/L (22-29); Chloride 110 mmol/L (98-107); Globulin 3.2 g/dL (1.3-4.6); Glomerular Filtration Rate 15.2 mL/min (90-130); Glucose 208 mg/dL (65-115); Osmolality Calculated 304 mOsm/kg (285-295); Sodium 139 mmol/L (136-145); Total Bilirubin 0.4 mg/dL (0.15-1.2); Total Protein 4.9 g/dL (6.6-8.7)
[2024-05-08 06:02] LABS: Creatinine Clr Calc Pharmacy 21.5461
[2024-05-08] MEDS: lanolin oint 7 gm 1 APPLIC TOPICAL (06:26)
[2024-05-08 06:32] LABS: Slide Review Slide Review Perform
[2024-05-08 06:33] LABS: Absolute Neutrophil 26.9 10^3/cmm (1.4-6.5); Absolute Segmented Neutrophil 22.6 10/cmm (1.6-7.1); Band Neutrophils Absolute 4.3 10^3/cmm (0.0-1.2); Eosinophils 0 %; Lymphocytes 2 %; Monocytes Absolute 0.6 10^3/cmm (0.1-0.6); Platelet Estimate Decreased (Normal); Segmented Neutrophils 79 %; Total Cells Counted 100 (0-100)
[2024-05-08 06:52] LABS: Glucose Point of Care 195 mg/dL (70-110)
--- NOTE | 2024-05-08 06:53 | PC.NURSE ---
D10 Paused Patient's blood glucose 195. Dr. Harkins notified; order received to pause D10 and recheck blood glucose in one hour.
[2024-05-08 07:04] LABS: Glucose Point of Care 187 mg/dL (70-110)
[2024-05-08] MEDS: pantoprazole 40 mg SDV IVP (08:16)
[2024-05-08] MEDS: phosphorus 250 mg Tablet PO ×2 (08:17→16:52)
[2024-05-08] MEDS: aspirin 325 mg Tablet PO (08:17)
[2024-05-08 08:29] LABS: Glucose Point of Care 232 mg/dL (70-110)
[2024-05-08] MEDS: insulin lispro 100 unit/1 mL SUBCUT ×3 (08:53→18:17)
[2024-05-08] MEDS: albumin 25 G/100 ML BAG 60 G IV ×2 (09:28→13:11)
[2024-05-08 09:59] LABS: Glucose Point of Care 230 mg/dL (70-110)
[2024-05-08] MEDS: citric acid-sodium citrate 30 mL UDC 60 ML PO (10:35)
[2024-05-08] MEDS: FUROsemide 10 mg/mL SDV 10mL 60 MG IVP (10:36)
--- NOTE | 2024-05-08 11:02 | PC.NURSE ---
lasix given after albumin at this time , monitor urine output at this time
[2024-05-08 12:23] LABS: Glucose Point of Care 167 mg/dL (70-110)
[2024-05-08] MEDS: dexmedeTOMIDine 0.9 % NaCL 400 MCG/100 ML PREMIX IV (13:25)
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
--- NOTE | 2024-05-08 14:10 | PC.NURSE ---
while in room with doctor , explaining to pt about possible extubation pt would nod his head to doctor yes to pull tube the you nod his head no dont pull tube . this nurse at bedside attempt to assist with pt care and pt agitated and waved off or hit out at this nurse. had attempted several time today to raise middle finger and family would tell him no and cover his hand
--- NOTE | 2024-05-08 14:20 | PC.NURSE ---
at bedside attempt to do blood sugar and pt refused shook head no.. several times and pointed his finger at me notified doctor pt refused
[2024-05-08 14:35] LABS: Glucose Point of Care 149 mg/dL (70-110)
--- NOTE | 2024-05-08 15:05 | P.PN_ITS ---
Subjective 2 Subjective: no new c/o Medications: Reviewed: Yes Vitals/I&O/Wt Last Vital Signs Temp 98.1 F 05/08/24 07:21 Pulse 84 05/08/24 14:00 Resp 10 L 05/08/24 14:55 BP 102/61 05/08/24 14:00 Pulse Ox 99 05/08/24 14:55 O2 Del Method Mechanical Ventilation 05/08/24 04:30 O2 Flow Rate 40 05/03/24 23:10 FiO2 35 05/08/24 14:55 05/08/24 05/08/24 05/08/24 06:59 14:59 22:59 Intake Total 676.193 / 4375.020 32.13 / 32.13 Output Total 850 / 1275 0 / 0 Balance -173.807 / 3100.020 32.13 / 32.13 Weight last 48 hrs Weight 94.092 kg Weight 91.371 kg Physical Exam 2 Narrative: The patient was seen with the aid of an A/V device. Examined by nurse. This is a telehealth visit. Patient is intubated sedated on Levophed at 5. His vent settings FiO2 35% PEEP of 5 respiratory rate of 18. HEENT is normocephalic atraumatic neck is supple Lungs have good air movement bilaterally. Heart irregular, tachycardic, positive systolic murmur. Abdomen soft positive bowel sounds. Extremities poor pulses and status post right TMA. He has significant edema in his arms and legs. Neuro responds to pain, and to voice. He is not following commands. Urinary Catheter Management: Holbrook: Cath Placed During This Visit: yes Reason for Continuing Indwelling Catheter: Accurate Measurement of Urinary Output in Critically Ill Patients Urinary Catheter Date of Insertion: 05/03/24 Urinary Catheter Time of Insertion: 21:50 Data 05/08/24 04:56 05/08/24 04:56 Micro: Microbiology 05/04/24 12:03 Gram Stain - Final Sputum - Endotracheal Wash Sputum Culture - Preliminary Staphylococcus aureus Pseudomonas aeruginosa Zuleika albicans 05/03/24 22:52 Gram Stain - Final Other Source Wound Culture - Preliminary Group g streptococcus 05/03/24 22:52 Anaerobic Culture - Preliminary Foot - Right Prevotella bivia A&P Assessment and plan (1) JALYN (acute kidney injury): 53-year-old gentleman 1. DKA improvedwith fluids and insulin. 2. Septic foot status post TMA. Check vancomycin level keep trough under 20. Please dose Zosyn for GFR under 20. 3. Renal insufficiency: . Creatinine on admission was 3. Urinalysis on admission had 4+ glucose 2+ ketones. Of note negative blood and only trace protein. This is atypical for diabetic nephropathy. Renal ultrasound right kidney 11 cm left kidney 11.6 cm. Major question is if this is acute versus chronic kidney disease. Renal ultrasound appears normal. -Complements reviewed. C3 is low normal C4. Please send urine for eosinophils. Monitor I's and O's. Serologies are pending. -Daily chemistries no acute need for dialysis. - renal fxn worsening , if continues to get worse - will need temporary HD 4. Increased anion gap metabolic acidosis on admission, worsening. 5. Anemia likely multifactorial from severe infection, CKD. He has a high iron saturation. Await serum protein electrophoresis, B12 and folate. Transfuse as needed. Patient was seen and examined with nurse using A/V equipment. Telehealth visit. Case discussed in detail with the patient and the nurse. r Plan See above. Attestations 2 Medical Necessity Statement*: PER EVA Coding Level of Care Code Acute Code for [facility] Fwd Diagnoses JALYN (acute kidney injury) N17.9
[2024-05-08 15:40] LABS: Ammonia 20 umol/L (16-60)
[2024-05-08 16:02] LABS: Glucose Point of Care 156 mg/dL (70-110)
[2024-05-08] MEDS: norepinephrine 4 MG/250 ML BAG 15 MG IV (16:10)
[2024-05-08 16:38] LABS: Vancomycin Random 29.5 ug/mL (20.0-40.0)
[2024-05-08] MEDS: piperacillin-tazobactam 3.375 GM in sodium chloride 0.9% (plus) 50 ML IV (17:00)
[2024-05-08 18:18] LABS: Glucose Point of Care 173 mg/dL (70-110)
--- NOTE | 2024-05-08 19:11 | PC.NURSE ---
Addendum entered by Edith Lomeli RN 05/08/24 19:20: Levophed running @1mcg/min on arrival to shift, MAR edited to reflect this. Original Note: Blood Transfusion: Infused per BJ in shift report on prev shift, no blood products in pt room on arrival to shift.
[2024-05-08 20:07] LABS: Glucose Point of Care 173 mg/dL (70-110)
[2024-05-08] MEDS: vancomycin 1,250 MG/250 ML PIGGYBACK 250 MG IV (20:53)
[2024-05-08 22:00] LABS: Glucose Point of Care 173 mg/dL (70-110)
[2024-05-09] VITALS (101 sets, daily range): BP systolic 70–132; BP diastolic 44–73; PULSE 62–87; RESP 10–23; TEMP 36.3–36.9; O2SAT 90–100
[2024-05-09 00:09] LABS: Glucose Point of Care 189 mg/dL (70-110)
[2024-05-09 02:02] LABS: Glucose Point of Care 176 mg/dL (70-110)
[2024-05-09] MEDS: insulin lispro 100 unit/1 mL SUBCUT ×3 (02:04→13:22)
[2024-05-09 03:50] LABS: Basophils % 0.2 %; Eosinophils # 0.1 10^3/uL (0.0-0.8); Eosinophils % 0.3 %; Hematocrit 21.9 % (37-53); Lymphocytes # 0.5 10^3/uL (0.8-4.8); Lymphocytes % 2.8 %; Mean Corpuscular HGB Conc 34.2 g/dL (30-55); Mean Corpuscular Volume 84.6 fl (82-101); Mean Platelet Volume 11.1 fL (7.4-10.4); Monocytes # 1.1 10^3/uL (0.2-0.9); Monocytes % 6.6 %; Neutrophils # 15.24 10^3/uL (1.8-7.7); Neutrophils % 88.4 %; Nucleated Red Blood Cells % 0 %; Platelet Count 132 10^3/cmm (157-399); Red Blood Count 2.59 10^6/uL (3.85-5.65); Red Cell Distribution Width 14.2 % (12.1-15.1); White Blood Count 17.26 10^3/uL (3.29-11.43)
[2024-05-09 04:03] LABS: Glucose Point of Care 162 mg/dL (70-110)
[2024-05-09 04:14] LABS: Alanine Aminotransferase 6 U/L (0-41); Alkaline Phosphatase 252 U/L (40-130); Anion Gap 19.1 (5-19); Aspartate Amino Transferase 13 U/L (0-40); Blood Urea Nitrogen 50 mg/dL (6-20); Carbon Dioxide 15 mmol/L (22-29); Chloride 111 mmol/L (98-107); Creatinine Clr Calc Pharmacy 19.4835; Globulin 2.8 g/dL (1.3-4.6); Glomerular Filtration Rate 13.3 mL/min (90-130); Glucose 184 mg/dL (65-115); Osmolality Calculated 310 mOsm/kg (285-295); Potassium 4.1 mmol/L (3.5-5.1); Sodium 141 mmol/L (136-145); Total Bilirubin 0.2 mg/dL (0.15-1.2); Total Protein 4.8 g/dL (6.6-8.7)
[2024-05-09] MEDS: dexmedeTOMIDine 0.9 % NaCL 400 MCG/100 ML PREMIX 7.14 MCG IV (04:43)
[2024-05-09] MEDS: lanolin oint 7 gm 1 APPLIC TOPICAL (04:45)
[2024-05-09] MEDS: piperacillin-tazobactam 3.375 GM in sodium chloride 0.9% (plus) 50 ML IV ×2 (05:19→19:01)
--- NOTE | 2024-05-09 05:32 | PC.NURSE ---
Edgar-Care: Refusing edgar-care (shook head no and hit arm against bedrail), family at bedside thinks he will let do edgar-care in the morning.
[2024-05-09 06:04] LABS: Glucose Point of Care 176 mg/dL (70-110)
--- NOTE | 2024-05-09 07:00 | PM.PN ---
Subjective Subjective: no new c/o Medications: Reviewed: Yes Vitals/I&O/Wt Last Vital Signs Temp 98.5 F 05/09/24 04:15 Pulse 64 05/09/24 06:30 Resp 20 H 05/09/24 06:30 BP 92/55 05/09/24 06:30 Pulse Ox 100 05/09/24 06:30 O2 Del Method Mechanical Ventilation 05/09/24 06:30 O2 Flow Rate 40 05/03/24 23:10 FiO2 35 05/09/24 04:15 05/08/24 05/09/24 05/09/24 22:59 06:59 14:59 Intake Total 1285.426 / 1317.556 492.455 / 1810.011 Output Total 1100 / 1100 1500 / 2600 Balance 185.426 / 217.556 -1007.545 / -789.989 Weight last 48 hrs Weight 93.984 kg Weight 94.092 kg Physical Exam Narrative: The patient was seen with the aid of an A/V device. Examined by nurse. This is a telehealth visit. Patient is intubated sedated on Levophed at 5. His vent settings FiO2 35% PEEP of 5 respiratory rate of 18. HEENT is normocephalic atraumatic neck is supple Lungs have good air movement bilaterally. Heart irregular, tachycardic, positive systolic murmur. Abdomen soft positive bowel sounds. Extremities poor pulses and status post right TMA. He has significant edema in his arms and legs. Neuro responds to pain, and to voice. He is not following commands. Urinary Catheter Management: Holbrook: Cath Placed During This Visit: yes Reason for Continuing Indwelling Catheter: Accurate Measurement of Urinary Output in Critically Ill Patients Urinary Catheter Date of Insertion: 05/03/24 Urinary Catheter Time of Insertion: 21:50 Data 05/09/24 03:21 05/09/24 03:21 Micro: Microbiology 05/03/24 21:14 Blood Culture - Final Blood NO GROWTH AFTER 5 DAYS 05/03/24 21:14 Blood Culture - Final Blood NO GROWTH AFTER 5 DAYS 05/03/24 22:52 Anaerobic Culture - Preliminary Foot - Right Prevotella bivia 05/04/24 12:03 Gram Stain - Final Sputum - Endotracheal Wash Sputum Culture - Preliminary Staphylococcus aureus Pseudomonas aeruginosa Zuleika albicans A&P Assessment and plan (1) JALYN (acute kidney injury): 53-year-old gentleman 1. DKA improvedwith fluids and insulin. 2. Septic foot status post TMA. Check vancomycin level keep trough under 20. Please dose Zosyn for GFR under 20. 3. Renal insufficiency: . Creatinine on admission was 3. Urinalysis on admission had 4+ glucose 2+ ketones. Of note negative blood and only trace protein. This is atypical for diabetic nephropathy. Renal ultrasound right kidney 11 cm left kidney 11.6 cm. Major question is if this is acute versus chronic kidney disease. Renal ultrasound appears normal. -Complements reviewed. C3 is low normal C4. Please send urine for eosinophils. Monitor I's and O's. Serologies are pending - renal fxn worsening ,will request HD catheter placement if continues to get worse. 4. Increased anion gap metabolic acidosis on admission, worsening. 5. Anemia likely multifactorial from severe infection, CKD. He has a high iron saturation. Await serum protein electrophoresis, B12 and folate. Transfuse as needed. Patient was seen and examined with nurse using A/V equipment. Telehealth visit. Case discussed in detail with the patient and the nurse. r Plan See above. Attestations Medical Necessity Statement*: per shara Coding Level of Care Code Acute Code for [facility] Diagnoses JALYN (acute kidney injury) N17.9
[2024-05-09 08:09] LABS: Glucose Point of Care 209 mg/dL (70-110)
[2024-05-09] MEDS: aspirin 325 mg Tablet PO (08:26)
[2024-05-09] MEDS: phosphorus 250 mg Tablet PO (08:26)
[2024-05-09] MEDS: pantoprazole 40 mg SDV IVP (08:27)
--- NOTE | 2024-05-09 09:14 | PC.NUTR ---
Currently Pt receiving Glucerna 1.5 @ 20 mls/hr. D/T worsening renal function, recommend consideration of Nepro 1.8 @ 20mls/hr with FWF 100mls Q4H or per MD discretion. Details in RD assessment.
[2024-05-09 09:28] LABS: PROTEIN, TOTAL 3.4 g/dL (6.1-8.1)
[2024-05-09] MEDS: insulin glargine 100 units/1 mL 3 UNIT SUBCUT (10:00)
[2024-05-09 10:14] LABS: Glucose Point of Care 177 mg/dL (70-110)
[2024-05-09 12:05] LABS: Glucose Point of Care 221 mg/dL (70-110)
[2024-05-09 12:44] LABS: KAPPA/LAMBDA LIGHT CHAINS FREE 1.29 (0.26-1.65); LAMBDA LIGHT CHAIN, FREE, SERU 81.4 mg/L (5.7-26.3)
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
--- NOTE | 2024-05-09 13:05 | PC.OT ---
OT evaluation attempted twice with nursing stating to hold patient; will attempt again at later time.
--- NOTE | 2024-05-09 13:11 | PC.NURSE ---
patient extubated @1240. tolerated well. 2 L nc.
[2024-05-09] MEDS: ondansetron 2 mg/ML SDV 2 mL 4 MG IVP (14:02)
[2024-05-09 14:18] LABS: Glucose Point of Care 208 mg/dL (70-110)
[2024-05-09 15:03] LABS: ALPHA 1 GLOBULIN 0.4 g/dL (0.2-0.3); ALPHA 2 GLOBULIN 0.5 g/dL (0.5-0.9); BETA 1 GLOBULIN 0.2 g/dL (0.4-0.6); BETA 2 GLOBULIN 0.4 g/dL (0.2-0.5); GAMMA GLOBULIN 0.6 g/dL (0.8-1.7)
[2024-05-09 15:56] LABS: Glucose Point of Care 155 mg/dL (70-110)
--- NOTE | 2024-05-09 17:30 | ECG_ITS ---
[facility] Test Date: 2024-05-09 Pat Name: Tereza Keenan Department: Room: ICU10 Gender: Male Room Service Clerk: : 1970 Requested By: Ravin Mercado Order Number: [id number] Reading MD: Brandyn Forbes M.D. Measurements Intervals [place] Rate: 85 P: 19 CA: 172 QRS: -5 QRSD: 90 T: 11 QT: 378 QTc: 450 Interpretive Statements SINUS RHYTHM NONSPECIFIC T-WAVE ABNORMALITY Compared to ECG 05/04/2024 04:14:09 Sinus tachycardia no longer present T-wave abnormality still present Electronically Signed On 05-09-2024 18:47:25 CDT by Brandyn Forbes M.D. [id number]
--- NOTE | 2024-05-09 17:38 | PC.NURSE ---
Patient did not pass bedside swallow study.
[2024-05-09 17:46] LABS: Glucose Point of Care 146 mg/dL (70-110)
[2024-05-09] MEDS: dextrose 10% 1,000 ML 15 ML IV (17:47)
[2024-05-09 23:08] LABS: Glucose Point of Care 121 mg/dL (70-110)
[2024-05-10] VITALS (77 sets, daily range): BP systolic 75–114; BP diastolic 45–63; PULSE 70–85; RESP 7–22; TEMP 36.9–37; O2SAT 92–97
[2024-05-10 00:21] LABS: Glucose Point of Care 149 mg/dL (70-110)
[2024-05-10 02:04] LABS: Glucose Point of Care 141 mg/dL (70-110)
[2024-05-10 04:51] LABS: Basophils % 0.2 %; Eosinophils # 0.1 10^3/uL (0.0-0.8); Eosinophils % 0.9 %; Hematocrit 22.9 % (37-53); Lymphocytes # 0.6 10^3/uL (0.8-4.8); Lymphocytes % 5.3 %; Mean Corpuscular HGB Conc 35.4 g/dL (30-55); Mean Corpuscular Hemoglobin 29.1 pg (27-33); Mean Corpuscular Volume 82.4 fl (82-101); Mean Platelet Volume 10.8 fL (7.4-10.4); Monocytes # 1.2 10^3/uL (0.2-0.9); Monocytes % 11.1 %; Neutrophils # 8.42 10^3/uL (1.8-7.7); Neutrophils % 81.1 %; Nucleated Red Blood Cells % 0 %; Platelet Count 149 10^3/cmm (157-399); Red Blood Count 2.78 10^6/uL (3.85-5.65); Red Cell Distribution Width 14.3 % (12.1-15.1); White Blood Count 10.38 10^3/uL (3.29-11.43)
[2024-05-10 05:15] LABS: Alanine Aminotransferase 6 U/L (0-41); Albumin Level 1.8 g/dL (3.5-5.2); Alkaline Phosphatase 159 U/L (40-130); Anion Gap 17.5 (5-19); Aspartate Amino Transferase 8 U/L (0-40); Blood Urea Nitrogen 61 mg/dL (6-20); Calcium 7.5 mg/dL (8.5-10.5); Carbon Dioxide 16 mmol/L (22-29); Chloride 109 mmol/L (98-107); Creatinine Clr Calc Pharmacy 17.9146; Globulin 2.7 g/dL (1.3-4.6); Glomerular Filtration Rate 12.1 mL/min (90-130); Glucose 132 mg/dL (65-115); Osmolality Calculated 307 mOsm/kg (285-295); Potassium 3.5 mmol/L (3.5-5.1); Sodium 139 mmol/L (136-145); Total Bilirubin 0.2 mg/dL (0.15-1.2); Total Protein 4.5 g/dL (6.6-8.7)
[2024-05-10] MEDS: piperacillin-tazobactam 3.375 GM in sodium chloride 0.9% (plus) 50 ML IV ×2 (05:38→17:51)
[2024-05-10 06:01] LABS: Glucose Point of Care 138 mg/dL (70-110)
[2024-05-10] MEDS: pantoprazole 40 mg SDV IVP (09:12)
--- NOTE | 2024-05-10 09:27 | PM.PN ---
Subjective Subjective: extubated , on 2 L O2 byNC Medications: Reviewed: Yes Vitals/I&O/Wt Last Vital Signs Temp 98.5 F 05/10/24 05:44 Pulse 76 05/10/24 08:15 Resp 13 05/10/24 08:15 BP 99/58 05/10/24 08:15 Pulse Ox 95 05/10/24 08:15 O2 Del Method Nasal Cannula 05/10/24 06:00 O2 Flow Rate 2 05/10/24 02:00 FiO2 30 05/09/24 12:23 05/09/24 05/10/24 05/10/24 22:59 06:59 14:59 Intake Total 114.188 / 376.641 222.035 / 598.676 1.071 / 1.071 Output Total 1350 / 2240 Balance 114.188 / -513.359 -1127.965 / -1641.324 1.071 / 1.071 Weight last 48 hrs Weight 88.496 kg Weight 93.984 kg Physical Exam Narrative: The patient was seen with the aid of an A/V device. Examined by nurse. This is a telehealth visit. Patient is intubated sedated on Levophed at 5. His vent settings FiO2 35% PEEP of 5 respiratory rate of 18. HEENT is normocephalic atraumatic neck is supple Lungs have good air movement bilaterally. Heart irregular, tachycardic, positive systolic murmur. Abdomen soft positive bowel sounds. Extremities poor pulses and status post right TMA. He has significant edema in his arms and legs. Neuro responds to pain, and to voice. He is not following commands. Urinary Catheter Management: Holbrook: Cath Placed During This Visit: yes Reason for Continuing Indwelling Catheter: Accurate Measurement of Urinary Output in Critically Ill Patients Urinary Catheter Date of Insertion: 05/03/24 Urinary Catheter Time of Insertion: 21:50 Data 05/10/24 04:24 05/10/24 04:24 Micro: Microbiology 05/09/24 21:30 Occult Blood (FIT) - Final Stool Routine Collection 05/03/24 22:52 Anaerobic Culture - Preliminary Foot - Right Prevotella bivia A&P Assessment and plan (1) JALYN (acute kidney injury): 53-year-old gentleman 1. DKA improvedwith fluids and insulin. 2. Septic foot status post TMA. Check vancomycin level keep trough under 20. Please dose Zosyn for GFR under 20. 3. Renal insufficiency: . Creatinine on admission was 3. Urinalysis on admission had 4+ glucose 2+ ketones. Of note negative blood and only trace protein. This is atypical for diabetic nephropathy. Renal ultrasound right kidney 11 cm left kidney 11.6 cm. Major question is if this is acute versus chronic kidney disease. Renal ultrasound appears normal. -Complements reviewed. C3 is low normal C4. Please send urine for eosinophils. Monitor I's and O's. Serologies are pending - renal fxn slightly worse , but good UOP , Lytes stable , on 2l NC - may need temporary HD if needed for volume removal , monitor closely 4. Increased anion gap metabolic acidosis on admission, ordered bicitra today 5. Anemia likely multifactorial from severe infection, CKD. He has a high iron saturation. Await serum protein electrophoresis, B12 and folate. Transfuse as needed. 6. Rest failure - extubated 05/09 Patient was seen and examined with nurse using A/V equipment. Telehealth visit. Case discussed in detail with the patient and the nurse. r Plan See above. Attestations Medical Necessity Statement*: per medicine Coding Level of Care Code Acute Code for [facility] Diagnoses JALYN (acute kidney injury) N17.9
[2024-05-10] MEDS: aspirin 325 mg Tablet PO ×2 (09:28→10:05)
[2024-05-10] MEDS: citric acid-sodium citrate 30 mL UDC 60 ML PO ×3 (09:28→10:23)
[2024-05-10 09:41] LABS: Glucose Point of Care 144 mg/dL (70-110)
--- NOTE | 2024-05-10 10:34 | PC.NURSE ---
speech eval done am breakfast served , family brought food in from home for pt explained on soft diet attempt to sit pt up in chair at this time very weak sat on side of bed and pt worked with pt .. several loose bms noted
[2024-05-10 11:06] LABS: Glucose Point of Care 189 mg/dL (70-110)
--- NOTE | 2024-05-10 11:34 | PC.NURSE ---
daughter at desk stating the pill given to pt prior stuck in throat , pt eating solid food no chocking ect , no stridor doctor aware checked with scope downgrade to liquid diet
[2024-05-10 12:00] LABS: Glucose Point of Care 195 mg/dL (70-110)
--- NOTE | 2024-05-10 14:00 | XRR_ITS ---
PROCEDURE INFORMATION: Exam: XR Soft Tissue Neck Exam date and time: 05/10/2024 2:17 PM Age: 53 years old Clinical indication: Other: Aspiration, looking for pill TECHNIQUE: Imaging protocol: Radiologic exam of the soft tissues of the neck. COMPARISON: CR XR chest 1V portable [id number] 05/07/2024 10:21 AM FINDINGS: Airway: Normal. No abnormal narrowing. Soft tissues: Normal. Normal epiglottis. Bones/joints: Unremarkable. XR/XR soft tissue neck [id number] IMPRESSION: No acute findings. No radiopaque foreign body.
[2024-05-10 14:06] LABS: Glucose Point of Care 252 mg/dL (70-110)
[2024-05-10] MEDS: insulin glargine 100 units/1 mL 3 UNIT SUBCUT (14:12)
[2024-05-10] MEDS: insulin lispro 100 unit/1 mL SUBCUT ×2 (14:36→17:52)
[2024-05-10] MEDS: midodrine 5 mg TABLET PO ×2 (14:37→20:54)
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
[2024-05-10 18:15] LABS: Glucose Point of Care 260 mg/dL (70-110)
[2024-05-10] MEDS: norepinephrine 4 MG/250 ML BAG 7.5 MG IV (20:44)
[2024-05-10 21:24] LABS: Glucose Point of Care 223 mg/dL (70-110)
[2024-05-10 22:41] LABS: Glucose Point of Care 237 mg/dL (70-110)
[2024-05-11] VITALS (67 sets, daily range): BP systolic 73–111; BP diastolic 41–65; PULSE 66–86; RESP 7–23; TEMP 36.5–37; O2SAT 89–95; BMI 32.5
[2024-05-11 00:18] LABS: Glucose Point of Care 243 mg/dL (70-110)
[2024-05-11] MEDS: insulin lispro 100 unit/1 mL SUBCUT ×3 (00:19→18:48)
[2024-05-11 02:55] LABS: Glucose Point of Care 239 mg/dL (70-110)
[2024-05-11 04:07] LABS: Glucose Point of Care 200 mg/dL (70-110)
[2024-05-11 04:18] LABS: Basophils % 0.2 %; Eosinophils # 0.1 10^3/uL (0.0-0.8); Hematocrit 23.6 % (37-53); Lymphocytes # 0.6 10^3/uL (0.8-4.8); Lymphocytes % 6.1 %; Mean Corpuscular HGB Conc 35.6 g/dL (30-55); Mean Corpuscular Hemoglobin 29.7 pg (27-33); Mean Corpuscular Volume 83.4 fl (82-101); Mean Platelet Volume 10.7 fL (7.4-10.4); Monocytes % 10.3 %; Neutrophils # 7.64 10^3/uL (1.8-7.7); Neutrophils % 80.2 %; Nucleated Red Blood Cells % 0 %; Platelet Count 189 10^3/cmm (157-399); Red Blood Count 2.83 10^6/uL (3.85-5.65); Red Cell Distribution Width 14.5 % (12.1-15.1); White Blood Count 9.53 10^3/uL (3.29-11.43)
[2024-05-11 04:49] LABS: Alanine Aminotransferase 6 U/L (0-41); Alkaline Phosphatase 158 U/L (40-130); Anion Gap 19.5 (5-19); Aspartate Amino Transferase 6 U/L (0-40); Blood Urea Nitrogen 66 mg/dL (6-20); Calcium 7.2 mg/dL (8.5-10.5); Carbon Dioxide 15 mmol/L (22-29); Chloride 110 mmol/L (98-107); Creatinine Clr Calc Pharmacy 15.8148; Globulin 2.2 g/dL (1.3-4.6); Glomerular Filtration Rate 10.8 mL/min (90-130); Glucose 201 mg/dL (65-115); Osmolality Calculated 317 mOsm/kg (285-295); Potassium 3.5 mmol/L (3.5-5.1); Sodium 141 mmol/L (136-145); Total Bilirubin 0.2 mg/dL (0.15-1.2); Total Protein 4.2 g/dL (6.6-8.7); Vancomycin Random 24.8 ug/mL (20.0-40.0)
[2024-05-11] MEDS: piperacillin-tazobactam 3.375 GM in sodium chloride 0.9% (plus) 50 ML IV ×2 (05:47→17:38)
[2024-05-11 08:28] LABS: Glucose Point of Care 201 mg/dL (70-110)
[2024-05-11] MEDS: insulin glargine 100 units/1 mL 3 UNIT SUBCUT (08:31)
[2024-05-11] MEDS: aspirin 325 mg Tablet PO (08:32)
[2024-05-11] MEDS: pantoprazole 40 mg SDV IVP ×2 (08:32→09:25)
[2024-05-11] MEDS: midodrine 5 mg TABLET PO (08:32)
--- NOTE | 2024-05-11 09:02 | P.PN_ITS ---
Subjective 2 Subjective: Patient was seen and examined. Patient is extubated comfortable. Poor urine output very swollen. The patient has a poor appetite. Patient has abdominal distention. He has some itching. Medications: Reviewed: Yes Medication Review Details: Current Medications Acetaminophen (Acetaminophen 325 Mg Tablet) 650 mg NG-TUBE Q6H PRN PRN Reason: MILD PAIN Aspirin (Aspirin 325 Mg Tablet) 325 mg PO DAILY [facility] Last Admin: 05/11/24 08:32 Dose: 325 mg Ergocalciferol (Ergocalciferol (Vitamin D2) 50,000 Unit Capsule) 50,000 unit PO Q7D [facility] Last Admin: 05/07/24 12:29 Dose: Not Given Glucagon (Glucagon 1 Mg/Ml Kit 1 Ml) 1 mg IM ONCE PRN; Protocol PRN Reason: Adult Acute Hypoglycemia Nursing Prot. Heparin Sodium (Porcine) (Heparin 5,000 Unit/Ml Inj 1 Ml) 0 unit IV PRN PRN; Protocol PRN Reason: Heparin weight-base protocol Norepinephrine Bitartrate (Levophed) 4 mg in 250 mls @ 0 mls/hr IV .Q0M LAITH; Protocol Last Titration: 05/11/24 04:16 Dose: 2 mcg/min, 7.5 mls/hr Magnesium Sulfate (Magnesium Sulfate Premix) 2 gm in 50 mls @ 50 mls/hr IV PRN PRN PRN Reason: HYPOMAGNESIUMIA Last Infusion: 05/05/24 13:43 Dose: Infused Lidocaine HCl 5 ml/ Potassium (Chloride) 105 mls @ 26.25 mls/hr IV PRN PRN PRN Reason: hypokalemia Last Infusion: 05/04/24 08:43 Dose: Infused Amiodarone HCl/Dextrose (Nexterone) 360 mg in 200 mls @ 0 mls/hr IV .Q0M LAITH; Protocol Last Titration: 05/09/24 19:00 Dose: Infused Heparin Sodium/Sodium Chloride (Heparin Drip) 25,000 unit in 500 mls @ 0 mls/hr IV .Q0M LAITH; Protocol Last Titration: 05/08/24 19:00 Dose: Infused Dextrose (D5w) 500 mls @ 0 mls/hr IV ONCE PRN; Protocol PRN Reason: Adult Acute Hypoglycemia Prot Dextrose (D10w) 125 mls @ 750 mls/hr IV PRN PRN; Protocol PRN Reason: Adult Acute Hypoglycemia Nursing Protocol Last Infusion: 05/07/24 08:21 Dose: Infused Dextrose (D10w) 250 mls @ 1,000 mls/hr IV PRN PRN; Protocol PRN Reason: Adult Acute Hypoglycemia Nursing Protocol Vancomycin/PEG/NADA/Lysine/Water (Vancocin) 1,250 mg in 250 mls @ 250 mls/hr IV Q36H [facility] Last Infusion: 05/08/24 21:55 Dose: Infused Piperacillin Sod/Tazobactam (Sod 3.375 gm/ Sodium Chloride) 50 mls @ 12.5 mls/hr IV Q12H [facility] Last Admin: 05/11/24 05:47 Dose: 12.5 mls/hr Insulin Glargine (Insulin Glargine 100 Units/1 Ml) 3 unit SUBCUT DAILY [facility] Last Admin: 05/11/24 08:31 Dose: 3 unit Insulin Human Lispro (Insulin Lispro 100 Unit/1 Ml) 0 unit SUBCUT Q6H [facility]; Protocol Last Admin: 05/11/24 08:31 Dose: 2 unit Lanolin (Lanolin Oint 7 Gm) 1 applic TOPICAL PRN PRN PRN Reason: DRYNESS Last Admin: 05/09/24 04:45 Dose: 1 applic Midodrine (Midodrine 5 Mg Tablet) 5 mg PO TID [facility] Last Admin: 05/11/24 08:32 Dose: 5 mg Ondansetron HCl (Ondansetron 2 Mg/Ml Sdv 2 Ml) 4 mg IVP Q6H PRN PRN Reason: NAUSEA AND VOMITING Last Admin: 05/09/24 14:02 Dose: 4 mg Pantoprazole Sodium (Pantoprazole 40 Mg Sdv) 40 mg IVP DAILY [facility] Last Admin: 05/11/24 08:32 Dose: 40 mg Vitals/I&O/Wt Last Vital Signs Temp 98.6 F 05/11/24 00:05 Pulse 83 05/11/24 08:30 Resp 10 L 05/11/24 08:30 BP 95/51 05/11/24 08:30 Pulse Ox 90 05/11/24 08:30 O2 Del Method Room Air 05/11/24 06:00 O2 Flow Rate 2 05/10/24 02:00 FiO2 30 05/09/24 12:23 05/10/24 05/11/24 05/11/24 22:59 06:59 14:59 Intake Total 785.965 / 987.036 32.750 / 1019.786 Output Total 425 / 425 450 / 875 Balance 360.965 / 562.036 -417.250 / 144.786 Weight last 48 hrs Weight 88.496 kg Physical Exam 2 Narrative: The patient was seen with the aid of an A/V device. Examined by nurse. This is a telehealth visit. He remains on Levophed at 1. HEENT is normocephalic atraumatic neck is supple Lungs have good air movement bilaterally. Heart sinus rhythm, positive systolic murmur. Abdomen soft positive bowel sounds. Extremities poor pulses and status post right TMA. He has significant edema in his arms and legs. Neuro = awake, alert oriented follows commands. Is weak.. Urinary Catheter Management: [place]brook: Cath Placed During This Visit: yes Reason for Continuing Indwelling Catheter: Accurate Measurement of Urinary Output in Critically Ill Patients Urinary Catheter Date of Insertion: 05/03/24 Urinary Catheter Time of Insertion: 21:50 Data 05/11/24 04:05 05/11/24 04:05 Micro: Microbiology 05/03/24 22:52 Anaerobic Culture - Final Foot - Right Prevotella bivia 05/04/24 12:03 Gram Stain - Final Sputum - Endotracheal Wash Sputum Culture - Final Staphylococcus aureus Pseudomonas aeruginosa Zuleika albicans A&P Assessment and plan (1) JALYN (acute kidney injury): 53-year-old gentleman 1. DKA improvedwith fluids and insulin. 2. Septic foot status post TMA. Check vancomycin level keep trough under 20. Please dose Zosyn for GFR under 20. 3. Renal insufficiency: . Creatinine on admission was 3. Urinalysis on admission had 4+ glucose 2+ ketones. Of note negative blood and only trace protein. This is atypical for diabetic nephropathy. Renal ultrasound right kidney 11 cm left kidney 11.6 cm. Major question is if this is acute versus chronic kidney disease. Renal ultrasound appears normal. -Complements reviewed. C3 is low normal C4. Negative urine for eosinophils. Monitor I's and O's. Serologies are pending, those that have returned are negative I had a long discussion with the patient and his family unfortunately he is extremely anasarcic and rising creatinine and pressor dependent I will try to give him albumin and Lasix if his creatinine continues to rise and would consider starting dialysis soon the patient and his family agree. 4. Increased anion gap metabolic acidosis on admission, ordered bicitra today 5. Anemia likely multifactorial from severe infection, CKD. He has a high iron saturation. neg serum protein electrophoresis Transfuse as needed. 6. Renal dose medications. Patient was seen and examined with nurse using A/V equipment. Telehealth visit. Case discussed in detail with the patient, his family, and the nurse. Plan See above. Attestations 2 Medical Necessity Statement*: Acute kidney injury anasarca metabolic acidosis Time Spent in Patient Care: 16 - 35 minutes (>than 50% of time sp ent in counselling and/or direct pt care on unit) . Coding Level of Care Code Acute Code for [facility] Fwd Diagnoses JALYN (acute kidney injury) N17.9
[2024-05-11] MEDS: albumin 25 G/100 ML BAG 60 G IV ×2 (09:30→16:19)
--- NOTE | 2024-05-11 09:38 | PC.NURSE ---
visitors in room albumin started at this time
[2024-05-11 10:14] LABS: Glucose Point of Care 207 mg/dL (70-110)
[2024-05-11] MEDS: FUROsemide 10 mg/mL SDV 4mL 40 MG IVP ×2 (11:35→17:38)
--- NOTE | 2024-05-11 12:00 | PC.NURSE ---
doctor here dressing change to right foot family at bedside explained all , not leave room during care when on bedpan and dressing care ect done
[2024-05-11 12:07] LABS: Glucose Point of Care 172 mg/dL (70-110)
[2024-05-11 12:25] LABS: Vit D 1,25 (Oh)2, Total <8 pg/mL (18-72); Vit D2 1,25 (Oh)2 <8 pg/mL; Vit D3 1,25 (Oh)2 <8 pg/mL
--- NOTE | 2024-05-11 12:30 | PC.NURSE ---
family closed curtain, explained in order to facilitate weaning levophed need to be able to monitor blood pressure and pt status
--- NOTE | 2024-05-11 13:03 | CTR_ITS ---
PROCEDURE INFORMATION: Exam: CT Lumbar Spine Without Contrast Exam date and time: 05/11/2024 3:10 PM Age: 53 years old Clinical indication: Other: Loss of sensation below knees TECHNIQUE: Imaging protocol: Computed tomography of the lumbar spine without contrast. Radiation optimization: All CT scans at this facility use at least one of these dose optimization techniques: automated exposure control; mA and/or kV adjustment per patient size (includes targeted exams where dose is matched to clinical indication); or iterative reconstruction. COMPARISON: CT abdomen pelvis wo con [id number] 05/07/2024 8:48 PM RADIATION DOSE METRICS: Total DLP (mGy-cm): 1023.84 FINDINGS: Bones/joints: Mild degenerative of bilateral sacroiliac joints. Mild degenerative at L5-S1 with disc space narrowing and posterior disc bulge with central to left paracentral disc protrusion causing mild anterior thecal sac compression. Intraperitoneal space: Mild ascites. Vasculature: Vascular calcifications. Soft tissues: Unremarkable. CT/CT lumbar spine wo con* [id number] IMPRESSION: L5-S1 disc disease with posterior disc bulge causing mild thecal sac compression.
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
--- NOTE | 2024-05-11 14:19 | PC.NURSE ---
talked with doctor about care , will keep on liquid diet and increase mididrine to wean off levophed, accuchecks to q4hr
[2024-05-11] MEDS: midodrine 5 mg TABLET 10 MG PO ×2 (15:26→20:12)
[2024-05-11] MEDS: heparin 5,000 unit/mL INJ 1 mL 5000 UNIT SUBCUT (15:26)
[2024-05-11 15:54] LABS: Folate Level 11.3 ng/mL (4.5-32.2)
--- NOTE | 2024-05-11 15:54 | PC.NURSE ---
taken to ct .due to daughter request yesterday that he is accompanied by family any time left room offered to go down [facility] but could not go into ct scan pt and stated no they were both good with her staying in room ... to ct and back no event
[2024-05-11 16:02] LABS: Vitamin B12 > 2000 pg/mL (232-1245)
--- NOTE | 2024-05-11 16:48 | PC.NURSE ---
complete bath and linen change with assist of nurse marci and in room .edgar care done liquid green bm lotion applied to bottom no breakdown noted sons asked to step out of room while care done
[2024-05-11 17:50] LABS: Glucose Point of Care 221 mg/dL (70-110)
[2024-05-11 22:17] LABS: Glucose Point of Care 168 mg/dL (70-110)
[2024-05-12] VITALS (60 sets, daily range): BP systolic 79–114; BP diastolic 47–63; PULSE 64–87; RESP 6–23; TEMP 35.6–36.7; O2SAT 90–95
--- NOTE | 2024-05-12 01:16 | PC.NURSE ---
Two family members (son and ) have remained at bedside thus far in shift. Have been cooperative with requests of this nurse, son has left room during personal cares, has been attentive to patient. Patient has declined turning off of right side thus far when offered. Has denied any pain, has ongoing complaints of numbness below the knees, but able to lift both legs on command, moves toes on left foot, and able to flex at ankle on right foot.
[2024-05-12 02:10] LABS: Glucose Point of Care 183 mg/dL (70-110)
[2024-05-12] MEDS: insulin lispro 100 unit/1 mL SUBCUT ×3 (02:24→20:52)
[2024-05-12] MEDS: heparin 5,000 unit/mL INJ 1 mL 5000 UNIT SUBCUT ×2 (02:24→14:11)
[2024-05-12 04:34] LABS: Basophils % 0.1 %; Eosinophils # 0.2 10^3/uL (0.0-0.8); Lymphocytes # 0.6 10^3/uL (0.8-4.8); Lymphocytes % 9.5 %; Mean Corpuscular HGB Conc 34.5 g/dL (30-55); Mean Platelet Volume 11.1 fL (7.4-10.4); Monocytes # 0.7 10^3/uL (0.2-0.9); Monocytes % 10.3 %; Neutrophils # 5.03 10^3/uL (1.8-7.7); Neutrophils % 74.3 %; Nucleated Red Blood Cells % 0 %; Platelet Count 210 10^3/cmm (157-399); Red Blood Count 2.38 10^6/uL (3.85-5.65); White Blood Count 6.77 10^3/uL (3.29-11.43)
[2024-05-12 04:52] LABS: Vancomycin Random 27.1 ug/mL (20.0-40.0)
[2024-05-12 05:08] LABS: Alanine Aminotransferase < 5 U/L (0-41); Albumin Level 2.2 g/dL (3.5-5.2); Alkaline Phosphatase 116 U/L (40-130); Anion Gap 18.2 (5-19); Aspartate Amino Transferase 5 U/L (0-40); Blood Urea Nitrogen 64 mg/dL (6-20); Calcium 7.2 mg/dL (8.5-10.5); Carbon Dioxide 16 mmol/L (22-29); Chloride 108 mmol/L (98-107); Globulin 1.9 g/dL (1.3-4.6); Glomerular Filtration Rate 10.6 mL/min (90-130); Glucose 150 mg/dL (65-115); Magnesium 1.9 mg/dL (1.7-2.3); Osmolality Calculated 309 mOsm/kg (285-295); Phosphorus 6.2 mg/dL (2.5-4.5); Potassium 3.2 mmol/L (3.5-5.1); Sodium 139 mmol/L (136-145); Total Bilirubin 0.2 mg/dL (0.15-1.2); Total Protein 4.1 g/dL (6.6-8.7)
[2024-05-12] MEDS: piperacillin-tazobactam 3.375 GM in sodium chloride 0.9% (plus) 50 ML IV ×2 (05:42→18:31)
[2024-05-12 06:11] LABS: Glucose Point of Care 137 mg/dL (70-110)
--- NOTE | 2024-05-12 06:57 | PM.PN ---
Subjective Subjective: more awake and alert. denies nausea, itching or SOB Medications: Reviewed: Yes Medication Review Details: Current Medications Acetaminophen (Acetaminophen 325 Mg Tablet) 650 mg NG-TUBE Q6H PRN PRN Reason: MILD PAIN Aspirin (Aspirin 325 Mg Tablet) 325 mg PO DAILY [facility] Last Admin: 05/11/24 08:32 Dose: 325 mg Ergocalciferol (Ergocalciferol (Vitamin D2) 50,000 Unit Capsule) 50,000 unit PO Q7D [facility] Last Admin: 05/07/24 12:29 Dose: Not Given Furosemide (Furosemide 10 Mg/Ml Sdv 4ml) 40 mg IVP 0800,1600 [facility] Last Admin: 05/11/24 17:38 Dose: 40 mg Glucagon (Glucagon 1 Mg/Ml Kit 1 Ml) 1 mg IM ONCE PRN; Protocol PRN Reason: Adult Acute Hypoglycemia Nursing Prot. Heparin Sodium (Porcine) (Heparin 5,000 Unit/Ml Inj 1 Ml) 0 unit IV PRN PRN; Protocol PRN Reason: Heparin weight-base protocol Heparin Sodium (Porcine) (Heparin 5,000 Unit/Ml Inj 1 Ml) 5,000 unit SUBCUT Q12H [facility] Last Admin: 05/12/24 02:24 Dose: 5,000 unit Norepinephrine Bitartrate (Levophed) 4 mg in 250 mls @ 0 mls/hr IV .Q0M LAITH; Protocol Last Titration: 05/12/24 02:26 Dose: 0 mcg/min, 0 mls/hr Magnesium Sulfate (Magnesium Sulfate Premix) 2 gm in 50 mls @ 50 mls/hr IV PRN PRN PRN Reason: HYPOMAGNESIUMIA Last Infusion: 05/05/24 13:43 Dose: Infused Lidocaine HCl 5 ml/ Potassium (Chloride) 105 mls @ 26.25 mls/hr IV PRN PRN PRN Reason: hypokalemia Last Infusion: 05/04/24 08:43 Dose: Infused Heparin Sodium/Sodium Chloride (Heparin Drip) 25,000 unit in 500 mls @ 0 mls/hr IV .Q0M [facility]; Protocol Last Titration: 05/08/24 19:00 Dose: Infused Dextrose (D5w) 500 mls @ 0 mls/hr IV ONCE PRN; Protocol PRN Reason: Adult Acute Hypoglycemia Prot Dextrose (D10w) 125 mls @ 750 mls/hr IV PRN PRN; Protocol PRN Reason: Adult Acute Hypoglycemia Nursing Protocol Last Infusion: 05/07/24 08:21 Dose: Infused Dextrose (D10w) 250 mls @ 1,000 mls/hr IV PRN PRN; Protocol PRN Reason: Adult Acute Hypoglycemia Nursing Protocol Vancomycin/PEG/NADA/Lysine/Water (Vancocin) 1,250 mg in 250 mls @ 250 mls/hr IV Q36H LAITH Last Infusion: 05/08/24 21:55 Dose: Infused Piperacillin Sod/Tazobactam (Sod 3.375 gm/ Sodium Chloride) 50 mls @ 12.5 mls/hr IV Q12H [facility] Last Admin: 05/12/24 05:42 Dose: 12.5 mls/hr Albumin Human (Albumin) 25 g in 100 mls @ 60 mls/hr IV BID@08,16 [facility] Last Infusion: 05/11/24 23:00 Dose: Infused Insulin Glargine (Insulin Glargine 100 Units/1 Ml) 3 unit SUBCUT DAILY [facility] Last Admin: 05/11/24 08:31 Dose: 3 unit Insulin Human Lispro (Insulin Lispro 100 Unit/1 Ml) 0 unit SUBCUT Q6H [facility]; Protocol Last Admin: 05/12/24 06:16 Dose: Not Given Lanolin (Lanolin Oint 7 Gm) 1 applic TOPICAL PRN PRN PRN Reason: DRYNESS Last Admin: 05/09/24 04:45 Dose: 1 applic Midodrine (Midodrine 5 Mg Tablet) 10 mg PO TID [facility] Last Admin: 05/11/24 20:12 Dose: 10 mg Ondansetron HCl (Ondansetron 2 Mg/Ml Sdv 2 Ml) 4 mg IVP Q6H PRN PRN Reason: NAUSEA AND VOMITING Last Admin: 05/09/24 14:02 Dose: 4 mg Pantoprazole Sodium (Pantoprazole 40 Mg Sdv) 40 mg IVP DAILY [facility] Last Admin: 05/11/24 09:25 Dose: 40 mg Sodium Chloride (Sodium Chloride 0.9% 100 Ml Bag) 50 ml IV PRN PRN PRN Reason: Blood transfusion prime and flush Stop: 05/13/24 05:13 Vitals/I&O/Wt Last Vital Signs Temp 98.0 F 05/12/24 06:00 Pulse 74 05/12/24 06:00 Resp 16 05/12/24 06:00 BP 97/52 05/12/24 06:00 Pulse Ox 91 05/12/24 06:00 O2 Del Method Room Air 05/11/24 06:00 O2 Flow Rate 2 05/10/24 02:00 FiO2 30 05/09/24 12:23 05/11/24 05/11/24 05/12/24 14:59 22:59 06:59 Intake Total 750 / 750 209.875 / 959.875 276.312 / 1236.187 Output Total 1400 / 1400 1400 / 2800 Balance 750 / 750 -1190.125 / -440.125 -1123.688 / -1563.813 Weight last 48 hrs Weight 87.997 kg Weight 91.314 kg Physical Exam Narrative: The patient was seen with the aid of an A/V device. Examined by nurse. This is a telehealth visit. He was on Levophed at 1- during the night. he is off of pressors. HEENT is normocephalic atraumatic neck is supple Lungs have good air movement bilaterally. Heart sinus rhythm, positive systolic murmur. Abdomen soft positive bowel sounds. Extremities poor pulses and status post right TMA. 2+ edema in his arms and legs -improving. Neuro = awake, alert oriented follows commands. moves, but is weak. Urinary Catheter Management: Holbrook: Cath Placed During This Visit: yes Reason for Continuing Indwelling Catheter: Accurate Measurement of Urinary Output in Critically Ill Patients Urinary Catheter Date of Insertion: 05/03/24 Urinary Catheter Time of Insertion: 21:50 Data 05/12/24 04:10 05/12/24 04:10 Micro: Microbiology 05/03/24 22:52 Anaerobic Culture - Final Foot - Right Prevotella bivia 05/04/24 12:03 Gram Stain - Final Sputum - Endotracheal Wash Sputum Culture - Final Staphylococcus aureus Pseudomonas aeruginosa Zuleika albicans A&P Assessment and plan (1) JALYN (acute kidney injury): 53-year-old gentleman 1. DKA improved with fluids and insulin. 2. Septic foot status post TMA. Check vancomycin level keep trough under 20. Please dose Zosyn for GFR under 20. 3. Renal insufficiency: . Creatinine on admission was 3. Urinalysis on admission had 4+ glucose 2+ ketones. Of note negative blood and only trace protein. This is atypical for diabetic nephropathy. Renal ultrasound right kidney 11 cm left kidney 11.6 cm. Major question is if this is acute versus chronic kidney disease. Renal ultrasound appears normal. -Complements reviewed. C3 is low normal C4. Negative urine for eosinophils. Monitor I's and O's. Serologies are pending, those that have returned are negative Patient had good urine output overnight. No emergent need for dialysis. Agree with giving blood and will use a diuretic with it. The patient and his family did consent to dialysis yesterday if needed. 4. Increased anion gap metabolic acidosis on admission. Can use bicarbonate. 5. Anemia likely multifactorial from severe infection, CKD. He has a high iron saturation. neg serum protein electrophoresis Transfuse blood today and consider imaging. Look for rectal bleed. 6. Renal dose medications. Patient was seen and examined with nurse using A/V equipment. Telehealth visit. Case discussed in detail with the patient and the nurse. Plan See above. Attestations Medical Necessity Statement*: Anemia, status post TMA for gangrenous foot. Acute kidney injury. Edema Time Spent in Patient Care: 16 - 35 minutes (>than 50% of time spent in counselling and/or direct pt care on unit). Coding Level of Care Code Acute Code for [facility] Diagnoses JALYN (acute kidney injury) N17.9
[2024-05-12] MEDS: potassium chloride ER 20 mEq Tablet 40 MEQ PO (08:33)
[2024-05-12] MEDS: sodium bicarbonate 650 mg Tablet PO ×3 (08:34→21:10)
[2024-05-12] MEDS: FUROsemide 10 mg/mL SDV 4mL 40 MG IVP (08:34)
[2024-05-12] MEDS: midodrine 5 mg TABLET 10 MG PO ×3 (08:34→21:05)
[2024-05-12] MEDS: insulin glargine 100 units/1 mL 3 UNIT SUBCUT (10:35)
[2024-05-12 10:39] LABS: Glucose Point of Care 173 mg/dL (70-110)
--- NOTE | 2024-05-12 11:55 | P.PN_ITS ---
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 He also has a wound to the left mid leg more stable appearing. His daughter and son are bedside. Patient is conversive and alert. Surgical dressing right foot is clean and dry without strikethrough. Vitals/I&O/Wt Last Vital Signs Temp 97.2 F L 05/12/24 08:29 Pulse 73 05/12/24 10:45 Resp 11 L 05/12/24 10:45 BP 88/48 05/12/24 10:45 Pulse Ox 92 05/12/24 10:45 O2 Del Method Room Air 05/11/24 06:00 O2 Flow Rate 2 05/10/24 02:00 FiO2 30 05/09/24 12:23 05/11/24 05/12/24 05/12/24 22:59 06:59 14:59 Intake Total 209.875 / 959.875 276.312 / 1236.187 400 / 400 Output Total 1400 / 1400 1400 / 2800 Balance -1190.125 / -440.125 -1123.688 / -1563.813 400 / 400 Weight last 48 hrs Weight 194 lb Weight 201 lb 5 oz Physical Exam 2 Narrative: Patient is unresponsive. The following is a focused bilateral lower extremity exam. VASCULAR: Dorsalis pedis diminished bilaterally. Posterior tibial arteries diminished. Delayed capillary refill to right great toe, cap refill less than 5 seconds to the left great toe. Pedal hair growth is diminished, there is mild hair growth at the tuft of the great toe bilaterally. NEUROLOGICAL: Protective sensation absent to light touch bilaterally. DERMATOLOGICAL: Amputation site at the right has dusky margin adjacent to medial cuneiform medially. Surgical dressings right foot are clean, dry and intact without strikethrough, no bleeding, no proximal pagetic streaking or cellulitis at the level of the dressing, right lower extremity. Wound exposed to myofascial layer left mid leg measures 2.8 cm x 2.1 cm x 0.3 cm. MUSCULOSKELETAL: Status post right transmetatarsal amputation. Urinary Catheter Management: Holbrook: Cath Placed During This Visit: yes Reason for Continuing Indwelling Catheter: Accurate Measurement of Urinary Output in Critically Ill Patients Urinary Catheter Date of Insertion: 05/03/24 Urinary Catheter Time of Insertion: 21:50 Data 05/13/24 04:39 05/13/24 04:39 Micro: Microbiology 05/03/24 22:52 Anaerobic Culture - Final Foot - Right Prevotella bivia A&P Assessment and plan (1) Severe sepsis: (2) DKA (diabetic ketoacidosis): Qualifiers: Diabetes mellitus type: type 2 (3) Diabetic peripheral neuropathy associated with type 2 diabetes mellitus: (4) Necrotizing fasciitis: (5) Gas gangrene: Plan 53-year-old uncontrolled diabetic male presents with unresponsiveness, DKA, sepsis and necrotizing fasciitis to the right foot. Discussed with patient, his daughter, his and his son at length options regarding his right lower extremity consisting of below-knee amputation versus debridement of midfoot amputation and application of biologic graft with wound VAC. Expressed specific concerns regarding limb salvage of the remaining foot putting him at risk for physically deconditioning, pneumonia, UTI, DVT, reinfection, nonhealing due to comorbidities and at risk for BKA down the road versus BKA now in a more predictable recovery and likely more functional amputation level with quicker return to activity. Patient initially was considering BKA and then after further thought it expresses his desire to proceed with limb salvage, I informed the patient that should this go on to heal down the road that he would still require tendon balancing procedures with split tibialis anterior versus posterior tibial tendon to replace the everters of the foot but are now lost with removal of fifth metatarsal base and attachment of peroneal brevis. Patient states he is applying for insurance and that he is hopeful that he will be able to get assistive devices and treatment for recovery with limb salvage. Expresses understanding of the above risks. Discussed preoperative risk assessment with hospitalist, planning on debridement and application of biologic graft with wound VAC likely Sunday or , will need to acquire biologic graft will be the limiting factor would likely be . Attestations 2 Medical Necessity Statement*: Requires further antibiotic therapies, medical treatment and surgical debridement for diabetic foot infection Coding Level of Care Code Acute Code for [facility] Diagnoses Severe sepsis A41.9; R65.20 DKA (diabetic ketoacidosis) E11.10 Diabetes mellitus type: type 2 Diabetic peripheral neuropathy associated with type 2 diabetes mellitus E11.42 Necrotizing fasciitis M72.6 Gas gangrene A48.0
--- NOTE | 2024-05-12 12:18 | XRR_ITS ---
PROCEDURE INFORMATION: Exam: XR Chest Exam date and time: 05/12/2024 12:42 PM Age: 53 years old Clinical indication: Shortness of breath; Additional info: SOB TECHNIQUE: Imaging protocol: Radiologic exam of the chest. Views: 1 view. COMPARISON: CR XR chest 1V portable [id number] 05/07/2024 10:21 AM FINDINGS: Tubes, catheters and devices: Central line in place with its tip just entering the right atrium. Postextubation. NG tube removed. Lungs: Mild pulmonary edema, slightly improved. Pleural spaces: Small bilateral pleural effusions, slightly improved on the left. Heart/Mediastinum: Unremarkable. No cardiomegaly. Bones/joints: Unremarkable. XR/XR chest 1V portable [id number] IMPRESSION: 1. Small bilateral pleural effusions, slightly improved on the left. 2. Mild pulmonary edema, slightly improved.
[2024-05-12 13:17] LABS: Procalcitonin 2.86 ng/mL (0-0.5); Thyroid Stimulating Hormone 4.27 uIU/mL (0.27-4.20)
[2024-05-12 13:18] LABS: HIV 1 & 2 Antibody Non-Reactive (Non-Reactiv); HIV 1 & 2 Antigen Non-Reactive (Non-Reactiv)
--- NOTE | 2024-05-12 13:18 | FL_ITS ---
WS: [id number] Modified barium swallow, 05/12/2024 Clinical Data: Oropharyngeal dysphagia Comparison: None. Fluoroscopy time: 3min [id number] # of spot films: 1 Findings: The patient exhibited minimal premature spillage. There is difficult oral preparation. There was mini mal penetration with thin liquids but no aspiration. There is minimal pharyngeal residue. The patient swallowed the barium tablet but needed water swallow to come completely past the tablet into the sto mach. FL/FL barium swallow modifd [id number] Impression: 1. Minimal premature spillage with difficult oral preparation. 2. Minimal penetration with thin liquids but no aspiration. 3. Minimal pharyngeal residue. 4. Movement of barium tablet in the stomach with water assist.
[2024-05-12 13:26] LABS: Estmated Average Glucose 456; Hemoglobin A1C 17.5 % (4.0-6.0)
[2024-05-12 13:28] LABS: Iron 46 ug/dL (59-158); Percent Saturation 67.6 % (20-50); Total Iron Binding Capacity 68 mcg/dl; Unsaturated Iron Binding 22 ug/dL (112-347)
[2024-05-12 13:49] LABS: Vitamin B12 > 2000 pg/mL (232-1245)
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
[2024-05-12] MEDS: albumin 25 G/100 ML BAG 60 G IV (18:31)
[2024-05-12] MEDS: gabapentin 100 mg Capsule PO (18:32)
[2024-05-12] MEDS: pantoprazole 40 mg SDV IVP (18:32)
[2024-05-12 18:50] LABS: Glucose Point of Care 271 mg/dL (70-110)
[2024-05-12 20:48] LABS: Glucose Point of Care 248 mg/dL (70-110)
[2024-05-12] MEDS: sucralfate 1 gm/10 mL Oral Liq UDC PO (21:05)
[2024-05-13] VITALS (39 sets, daily range): BP systolic 79–118; BP diastolic 44–78; PULSE 64–83; RESP 5–21; TEMP 36.4–36.9; O2SAT 81–97
[2024-05-13] MEDS: albumin 25 G/100 ML BAG 60 G IV ×3 (02:39→17:05)
[2024-05-13] MEDS: heparin 5,000 unit/mL INJ 1 mL 5000 UNIT SUBCUT (02:40)
[2024-05-13 05:12] LABS: Basophils % 0.2 %; Eosinophils # 0.1 10^3/uL (0.0-0.8); Eosinophils % 1.9 %; Hematocrit 24.7 % (37-53); Lymphocytes # 0.5 10^3/uL (0.8-4.8); Mean Corpuscular HGB Conc 35.2 g/dL (30-55); Mean Corpuscular Hemoglobin 30.1 pg (27-33); Mean Corpuscular Volume 85.5 fl (82-101); Mean Platelet Volume 10.8 fL (7.4-10.4); Monocytes # 0.5 10^3/uL (0.2-0.9); Monocytes % 8.2 %; Neutrophils # 5.02 10^3/uL (1.8-7.7); Nucleated Red Blood Cells % 0 %; Platelet Count 214 10^3/cmm (157-399); Red Blood Count 2.89 10^6/uL (3.85-5.65); Red Cell Distribution Width 15.1 % (12.1-15.1); White Blood Count 6.35 10^3/uL (3.29-11.43)
[2024-05-13 05:36] LABS: Alanine Aminotransferase < 5 U/L (0-41); Albumin Level 2.7 g/dL (3.5-5.2); Alkaline Phosphatase 95 U/L (40-130); Anion Gap 23.3 (5-19); Aspartate Amino Transferase 7 U/L (0-40); Blood Urea Nitrogen 66 mg/dL (6-20); Calcium 7.8 mg/dL (8.5-10.5); Carbon Dioxide 14 mmol/L (22-29); Chloride 108 mmol/L (98-107); Cholesterol 85 mg/dL (0-200); Globulin 2.5 g/dL (1.3-4.6); Glomerular Filtration Rate 11.3 mL/min (90-130); Glucose 150 mg/dL (65-115); HDL Cholesterol 25 mg/dL (60-100); LDL Cholesterol Calculated 38 mg/dL (50-129); Magnesium 1.9 mg/dL (1.7-2.3); Osmolality Calculated 316 mOsm/kg (285-295); Phosphorus 6.2 mg/dL (2.5-4.5); Potassium 3.3 mmol/L (3.5-5.1); Sodium 142 mmol/L (136-145); Total Bilirubin 0.4 mg/dL (0.15-1.2); Total Protein 5.2 g/dL (6.6-8.7); Triglycerides 109 mg/dL (0-150); VLDL Cholestrol Calculation 22 mg/dL (0-30)
[2024-05-13 05:41] LABS: Creatinine Clr Calc Pharmacy 16.3671
[2024-05-13] MEDS: sucralfate 1 gm/10 mL Oral Liq UDC PO ×4 (05:59→21:44)
[2024-05-13] MEDS: piperacillin-tazobactam 3.375 GM in sodium chloride 0.9% (plus) 50 ML 5 GM IV (05:59)
[2024-05-13 07:36] LABS: Glucose Point of Care 172 mg/dL (70-110)
[2024-05-13] MEDS: midodrine 5 mg TABLET 10 MG PO ×3 (09:28→21:44)
[2024-05-13] MEDS: pantoprazole 40 mg SDV IVP ×2 (09:29→17:06)
[2024-05-13] MEDS: gabapentin 100 mg Capsule PO ×2 (09:29→17:06)
[2024-05-13] MEDS: sodium bicarbonate 650 mg Tablet PO ×3 (09:29→21:44)
[2024-05-13] MEDS: insulin lispro 100 unit/1 mL SUBCUT ×4 (09:29→21:44)
[2024-05-13] MEDS: aspirin 325 mg Tablet 81 MG PO (09:29)
[2024-05-13] MEDS: insulin glargine 100 units/1 mL 3 UNIT SUBCUT (09:30)
--- NOTE | 2024-05-13 10:09 | PM.PN ---
Subjective Subjective: The patient is more awake and alert. He states he is feeling well he is tolerating room air. He has decreased edema. He denies diarrhea no shortness of breath no chest pain. He is able to eat liquid diet. No other changes in review of systems. Medications: Reviewed: Yes Medication Review Details: Current Medications Acetaminophen (Acetaminophen 325 Mg Tablet) 650 mg PO Q6H PRN PRN Reason: MILD PAIN Aspirin (Aspirin 325 Mg Tablet) 81 mg PO DAILY [facility] Last Admin: 05/13/24 09:29 Dose: 81 mg Calcium Acetate (Calcium Acetate 667 Mg Capsule) 1,334 mg PO TIDWM [facility] Ergocalciferol (Ergocalciferol (Vitamin D2) 50,000 Unit Capsule) 50,000 unit PO Q7D [facility] Last Admin: 05/07/24 12:29 Dose: Not Given Furosemide (Furosemide 10 Mg/Ml Sdv 4ml) 40 mg IVP 0800,1600 [facility] Last Admin: 05/12/24 08:34 Dose: 40 mg Gabapentin (Gabapentin 100 Mg Capsule) 100 mg PO BID [facility] Last Admin: 05/13/24 09:29 Dose: 100 mg Glucagon (Glucagon 1 Mg/Ml Kit 1 Ml) 1 mg IM ONCE PRN; Protocol PRN Reason: Adult Acute Hypoglycemia Nursing Prot. Heparin Sodium (Porcine) (Heparin 5,000 Unit/Ml Inj 1 Ml) 5,000 unit SUBCUT Q12H [facility] Last Admin: 05/13/24 02:40 Dose: 5,000 unit Dextrose (D5w) 500 mls @ 0 mls/hr IV ONCE PRN; Protocol PRN Reason: Adult Acute Hypoglycemia Prot Dextrose (D10w) 125 mls @ 750 mls/hr IV PRN PRN; Protocol PRN Reason: Adult Acute Hypoglycemia Nursing Protocol Last Infusion: 05/07/24 08:21 Dose: Infused Dextrose (D10w) 250 mls @ 1,000 mls/hr IV PRN PRN; Protocol PRN Reason: Adult Acute Hypoglycemia Nursing Protocol Vancomycin/PEG/NADA/Lysine/Water (Vancocin) 1,250 mg in 250 mls @ 250 mls/hr IV Q36H [facility] Last Infusion: 05/08/24 21:55 Dose: Infused Piperacillin Sod/Tazobactam (Sod 3.375 gm/ Sodium Chloride) 50 mls @ 12.5 mls/hr IV Q12H [facility] Stop: 05/18/24 17:59 Last Admin: 05/13/24 05:59 Dose: 5 mls/hr Albumin Human (Albumin) 25 g in 100 mls @ 60 mls/hr IV Q8H [facility] Last Admin: 05/13/24 09:28 Dose: 60 mls/hr Insulin Glargine (Insulin Glargine 100 Units/1 Ml) 3 unit SUBCUT DAILY [facility] Last Admin: 05/13/24 09:30 Dose: 3 unit Insulin Human Lispro (Insulin Lispro 100 Unit/1 Ml) 0 unit SUBCUT WM&BEDTIME [facility]; Protocol Last Admin: 05/13/24 09:29 Dose: 1 unit Lanolin (Lanolin Oint 7 Gm) 1 applic TOPICAL PRN PRN PRN Reason: DRYNESS Last Admin: 05/09/24 04:45 Dose: 1 applic Midodrine (Midodrine 5 Mg Tablet) 10 mg PO TID [facility] Last Admin: 05/13/24 09:28 Dose: 10 mg Ondansetron HCl (Ondansetron 2 Mg/Ml Sdv 2 Ml) 4 mg IVP Q6H PRN PRN Reason: NAUSEA AND VOMITING Last Admin: 05/09/24 14:02 Dose: 4 mg Pantoprazole Sodium (Pantoprazole 40 Mg Sdv) 40 mg IVP BIDWM [facility] Last Admin: 05/13/24 09:29 Dose: 40 mg Sodium Bicarbonate (Sodium Bicarbonate 650 Mg Tablet) 650 mg PO TID [facility] Last Admin: 05/13/24 09:29 Dose: 650 mg Sodium Chloride (Sodium Chloride 0.9% 100 Ml Bag) 50 ml IV PRN PRN PRN Reason: Blood transfusion prime and flush Stop: 05/13/24 12:17 Sucralfate (Sucralfate 1 Gm/10 Ml Oral Liq Udc) 1 gm PO AC&BEDTIME [facility] Last Admin: 05/13/24 05:59 Dose: 1 gm Vitals/I&O/Wt Last Vital Signs Temp 97.7 F 05/13/24 08:00 Pulse 73 05/13/24 07:21 Resp 10 L 05/13/24 07:21 BP 107/56 05/13/24 07:21 Pulse Ox 93 05/13/24 07:21 O2 Del Method Room Air 05/12/24 16:32 O2 Flow Rate 2 05/10/24 02:00 FiO2 30 05/09/24 12:23 05/12/24 05/13/24 05/13/24 22:59 06:59 14:59 Intake Total 1470 / 1870.008 150 / 2020.008 Output Total 1300 / 1300 1600 / 2900 Balance 170 / 570.008 -1450 / -879.992 Weight last 48 hrs Weight 86.591 kg Weight 87.997 kg Physical Exam Narrative: The patient was seen with the aid of an A/V device. Examined by nurse. This is a telehealth visit. He is off of pressors. Vital signs noted and stable. HEENT is normocephalic atraumatic neck is supple Lungs have good air movement bilaterally. Heart sinus rhythm, positive systolic murmur. Abdomen soft positive bowel sounds. Extremities poor pulses and status post right TMA. 2+ edema in his arms and legs -improving. Neuro = awake, alert oriented follows commands. moves, but is weak. Urinary Catheter Management: [place]: Cath Placed During This Visit: yes Reason for Continuing Indwelling Catheter: Accurate Measurement of Urinary Output in Critically Ill Patients Urinary Catheter Date of Insertion: 05/03/24 Urinary Catheter Time of Insertion: 21:50 Data 05/13/24 04:39 05/13/24 04:39 A&P Assessment and plan (1) JALYN (acute kidney injury): 53-year-old gentleman 1. DKA improved with fluids and insulin. 2. Septic foot status post TMA. Check vancomycin level keep trough under 20. Please dose Zosyn for GFR under 20. 3. Renal insufficiency: . Creatinine on admission was 3. Urinalysis on admission had 4+ glucose 2+ ketones. Of note negative blood and only trace protein. This is atypical for diabetic nephropathy. Renal ultrasound right kidney 11 cm left kidney 11.6 cm. Major question is if this is acute versus chronic kidney disease. Renal ultrasound appears normal. -Complements reviewed. C3 is low normal C4. Negative urine for eosinophils. Monitor I's and O's. Serologies are pending, those that have returned are negative Patient had good urine output overnight. No emergent need for dialysis. Agree with giving blood and will use a diuretic with it. The patient and his family did consent to dialysis yesterday if needed. Can decrease diuretics and replace potassium. he is on a phosphorus binder 4. Increased anion gap metabolic acidosis on admission. Can use bicarbonate. 5. Anemia likely multifactorial from severe infection, CKD. He has a high iron saturation. neg serum protein electrophoresis The patient is status post 2 units of blood transfusion. Hemoglobin wei appropriately. 6. Renal dose medications. 7. Status post TMA for possible necrotizing fasciitis of right foot. Will need further surgery. 8. A-fib now in normal sinus rhythm. Patient has history of left bundle branch block. 9. PTH of 172 repeat in 4 weeks Patient was seen and examined with nurse using A/V equipment. Telehealth visit. Case discussed in detail with the patient and the nurse. Plan See above. Attestations Medical Necessity Statement*: jalyn, tma, dm Time Spent in Patient Care: 16 - 35 minutes (>than 50% of time spent in counselling and/or direct pt care on unit). Coding Level of Care Code Acute Code for [facility] Diagnoses JALYN (acute kidney injury) N17.9
[2024-05-13] MEDS: potassium chloride ER 20 mEq Tablet 80 MEQ PO (11:05)
[2024-05-13] MEDS: calcium acetate 667 mg Capsule 1334 MG PO ×2 (11:05→17:06)
[2024-05-13 11:06] LABS: Glucose Point of Care 243 mg/dL (70-110)
--- NOTE | 2024-05-13 12:20 | PC.NURSE ---
Dr Huerta in to see patient. Discussed potential for BKA pro and cons. Patient elected to keep foot at this time. performed dressing change. Site looks good without foul odor.
[2024-05-13 13:25] LABS: Immunofixation Serum Normal pattern.
[2024-05-13 15:18] LABS: Vancomycin Random 22.3 ug/mL (20.0-40.0)
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
--- NOTE | 2024-05-13 16:49 | PM.PN ---
Subjective Subjective: Patient seen bedside this afternoon, status post right transmetatarsal amputation secondary to nectars and fasciitis, was guillotine style amputation left open. He also has a wound to the left mid leg more stable appearing. His , daughter and son are bedside. Patient is conversive and alert. Surgical dressing right foot is clean and dry without strikethrough. Vitals/I&O/Wt Last Vital Signs Temp 97.5 F L 05/13/24 12:00 Pulse 72 05/13/24 16:00 Resp 13 05/13/24 16:00 BP 91/78 05/13/24 16:00 Pulse Ox 97 05/13/24 16:00 O2 Del Method Room Air 05/12/24 16:32 O2 Flow Rate 2 05/10/24 02:00 FiO2 30 05/09/24 12:23 05/13/24 05/13/24 05/13/24 06:59 14:59 22:59 Intake Total 150 / 2020.008 410 / 410 Output Total 1600 / 2900 Balance -1450 / -879.992 410 / 410 Weight last 48 hrs Weight 190 lb 14.4 oz Weight 194 lb Physical Exam Narrative: Patient is unresponsive. The following is a focused bilateral lower extremity exam. VASCULAR: Dorsalis pedis diminished bilaterally. Posterior tibial arteries diminished. Delayed capillary refill to right great toe, cap refill less than 5 seconds to the left great toe. Pedal hair growth is diminished, there is mild hair growth at the tuft of the great toe bilaterally. NEUROLOGICAL: Protective sensation absent to light touch bilaterally. DERMATOLOGICAL: Amputation site at the right has dusky margin adjacent to medial cuneiform medially. Surgical dressings right foot are clean, dry and intact without strikethrough, no bleeding, no proximal pagetic streaking or cellulitis at the level of the dressing, right lower extremity. Wound exposed to myofascial layer left mid leg measures 2.8 cm x 2.1 cm x 0.3 cm. MUSCULOSKELETAL: Status post right transmetatarsal amputation. Urinary Catheter Management: [place]: Cath Placed During This Visit: yes Reason for Continuing Indwelling Catheter: Accurate Measurement of Urinary Output in Critically Ill Patients Urinary Catheter Date of Insertion: 05/03/24 Urinary Catheter Time of Insertion: 21:50 Data 05/13/24 04:39 05/13/24 04:39 A&P Assessment and plan (1) Severe sepsis: (2) DKA (diabetic ketoacidosis): Qualifiers: Diabetes mellitus type: type 2 (3) Diabetic peripheral neuropathy associated with type 2 diabetes mellitus: (4) Necrotizing fasciitis: (5) Gas gangrene: Plan 53-year-old uncontrolled diabetic male presents with unresponsiveness, DKA, sepsis and necrotizing fasciitis to the right foot. Patient states that he is set on limb salvage, he is against below-knee amputation at this time. Discussed with patient, his daughter, his and his son at length options regarding his right lower extremity consisting of below-knee amputation versus debridement of midfoot amputation and application of biologic graft with wound VAC. Expressed specific concerns regarding limb salvage of the remaining foot putting him at risk for physically deconditioning, pneumonia, UTI, DVT, reinfection, nonhealing due to comorbidities and at risk for BKA down the road versus BKA now in a more predictable recovery and likely more functional amputation level with quicker return to activity. Patient initially was considering BKA and then after further thought it expresses his desire to proceed with limb salvage, I informed the patient that should this go on to heal down the road that he would still require tendon balancing procedures with split tibialis anterior versus posterior tibial tendon to replace the everters of the foot but are now lost with removal of fifth metatarsal base and attachment of peroneal brevis. Patient states he is applying for insurance and that he is hopeful that he will be able to get assistive devices and treatment for recovery with limb salvage. Expresses understanding of the above risks. Discussed preoperative risk assessment with hospitalist, planning on debridement and application of biologic graft with wound VAC likely Sunday or , will need to acquire biologic graft will be the limiting factor would likely be . Attestations Medical Necessity Statement*: Requires further hospitalization for IV antibiotics and surgical debridement right foot as well as left leg Coding Level of Care Code Acute Code for [facility] Diagnoses Severe sepsis A41.9; R65.20 DKA (diabetic ketoacidosis) E11.10 Diabetes mellitus type: type 2 Diabetic peripheral neuropathy associated with type 2 diabetes mellitus E11.42 Necrotizing fasciitis M72.6 Gas gangrene A48.0
[2024-05-13 16:50] LABS: Glucose Point of Care 237 mg/dL (70-110)
[2024-05-13 17:04] LABS: C.Diff PCR (Lab) NEGATIVE (Negative)
[2024-05-13] MEDS: piperacillin-tazobactam 3.375 GM in sodium chloride 0.9% (plus) 50 ML IV (17:05)
--- NOTE | 2024-05-13 17:41 | PC.NURSE ---
Patient transferred to [facility]. Report given to JAIDEN Rasmussen. Explained move to patient and family. All verbalized complete understanding.
[2024-05-13 20:27] LABS: Glucose Point of Care 196 mg/dL (70-110)
[2024-05-13 20:31] LABS: Hematocrit 24.3 % (37-53)
[2024-05-14] VITALS (10 sets, daily range): BP systolic 99–125; BP diastolic 53–68; PULSE 69–86; RESP 14–18; TEMP 36.4–37.1; O2SAT 89–94
[2024-05-14] MEDS: albumin 25 G/100 ML BAG 60 G IV ×3 (01:51→18:07)
[2024-05-14 05:15] LABS: Basophils % 0.5 %; Eosinophils # 0.2 10^3/uL (0.0-0.8); Eosinophils % 2.7 %; Hematocrit 25.5 % (37-53); Lymphocytes # 0.5 10^3/uL (0.8-4.8); Lymphocytes % 8.5 %; Mean Corpuscular HGB Conc 32.5 g/dL (30-55); Mean Corpuscular Hemoglobin 28.8 pg (27-33); Mean Corpuscular Volume 88.5 fl (82-101); Mean Platelet Volume 10.6 fL (7.4-10.4); Monocytes # 0.4 10^3/uL (0.2-0.9); Neutrophils # 4.72 10^3/uL (1.8-7.7); Nucleated Red Blood Cells % 0 %; Platelet Count 237 10^3/cmm (157-399); Red Blood Count 2.88 10^6/uL (3.85-5.65); Red Cell Distribution Width 15.9 % (12.1-15.1); White Blood Count 5.98 10^3/uL (3.29-11.43)
[2024-05-14 05:43] LABS: Alanine Aminotransferase < 5 U/L (0-41); Albumin Level 3.1 g/dL (3.5-5.2); Alkaline Phosphatase 80 U/L (40-130); Blood Urea Nitrogen 64 mg/dL (6-20); Calcium 7.9 mg/dL (8.5-10.5); Carbon Dioxide 11 mmol/L (22-29); Chloride 107 mmol/L (98-107); Creatinine Clr Calc Pharmacy 15.7096; Globulin 1.8 g/dL (1.3-4.6); Glomerular Filtration Rate 10.8 mL/min (90-130); Glucose 272 mg/dL (65-115); Magnesium 1.9 mg/dL (1.7-2.3); Osmolality Calculated 314 mOsm/kg (285-295); Phosphorus 5.8 mg/dL (2.5-4.5); Sodium 138 mmol/L (136-145); Total Bilirubin 0.4 mg/dL (0.15-1.2); Total Protein 4.9 g/dL (6.6-8.7)
[2024-05-14 05:46] LABS: Anion Gap 23.8 (5-19); Potassium 3.8 mmol/L (3.5-5.1)
[2024-05-14 05:47] LABS: Aspartate Amino Transferase 8 U/L (0-40); Vancomycin Trough 19.4 ug/mL (10-15)
[2024-05-14] MEDS: sucralfate 1 gm/10 mL Oral Liq UDC PO ×3 (06:25→20:54)
[2024-05-14] MEDS: FUROsemide 10 mg/mL SDV 4mL 40 MG IVP (06:25)
[2024-05-14] MEDS: piperacillin-tazobactam 3.375 GM in sodium chloride 0.9% (plus) 50 ML IV ×2 (06:25→18:07)
[2024-05-14 06:40] LABS: Glucose Point of Care 300 mg/dL (70-110)
--- NOTE | 2024-05-14 06:50 | XRR_ITS ---
PROCEDURE INFORMATION: Exam: XR Right Foot Exam date and time: 05/14/2024 7:05 AM Age: 53 years old Clinical indication: Pain; Right; Prior surgery; Surgery date: 6+ months; Surgery type: RT foot; Additional info: Pre op planning TECHNIQUE: Imaging protocol: Radiologic exam of the right foot. Views: 3 or more views. COMPARISON: CR XR foot RT min 3V* [id number] 05/05/2024 9:00 AM FINDINGS: Bones/joints: Prior amputation at the level of the metatarsals. Normal appearing soft tissues.. Soft tissues: Normal. XR/XR foot RT min 3V* [id number] IMPRESSION: No acute findings.
[2024-05-14 07:14] LABS: ABG PCO2 27.1 mmHg (35-45); ABG PH Result 7.27 (7.35-7.45); Alveolar-Arterial Oxygen Gradi 6.7 mmHg (5-10); Arterial Blood Gas Hematocrit 27.1 % (42-52); Base Excess ABG -13.1 mmol/L (-2.0-2.0); Blood Gas Allen Test Pos; Blood Gas Operator Identificat MONRO; Blood Gas Sample Site Radial, left; Blood Gas Sample Type Arterial; Carboxyhemoglobin 1.2 %THgb (0.4-20.1); HCO3 ABG 12.5 mmol/L (22-26); Ionized Calcium Level - ABG 1.2 mmol/L (1.1-1.4); Methemoglobin 0.6 % (0.4-1.5); Oxygen Device ROOM AIR; Oxygen Saturation ABG 91.7; PO2 ABG 63.5 mmHg (80.0-100.0); PO2 FiO2 Ratio Arterial Blood 302; Potassium Level - ABG 3.4 mmol/L (3.5-5.0); Total Hemoglobin 8.8 g/dL (14-18)
--- NOTE | 2024-05-14 08:29 | P.PN_ITS ---
Subjective 2 Subjective: states that he feels well. he denies nausea, SOB, CP, itching. states he is eating and sleeping well Medications: Reviewed: Yes Medication Review Details: Current Medications Acetaminophen (Acetaminophen 325 Mg Tablet) 650 mg PO Q6H PRN PRN Reason: MILD PAIN Aspirin (Aspirin 81 Mg Ec Tablet) 81 mg PO DAILY [facility] Calcium Acetate (Calcium Acetate 667 Mg Capsule) 1,334 mg PO TIDWM [facility] Last Admin: 05/13/24 17:06 Dose: 1,334 mg Collagenase (Collagenase Oint 30 Gm) 1 applic TOPICAL DAILY [facility] Ergocalciferol (Ergocalciferol (Vitamin D2) 50,000 Unit Capsule) 50,000 unit PO Q7D [facility] Last Admin: 05/07/24 12:29 Dose: Not Given Furosemide (Furosemide 10 Mg/Ml Sdv 4ml) 40 mg IVP DAILY [facility] Last Admin: 05/14/24 06:25 Dose: 40 mg Gabapentin (Gabapentin 100 Mg Capsule) 100 mg PO BID [facility] Last Admin: 05/13/24 17:06 Dose: 100 mg Glucagon (Glucagon 1 Mg/Ml Kit 1 Ml) 1 mg IM ONCE PRN; Protocol PRN Reason: Adult Acute Hypoglycemia Nursing Prot. Heparin Sodium (Porcine) (Heparin 5,000 Unit/Ml Inj 1 Ml) 5,000 unit SUBCUT Q12H [facility] Last Admin: 05/13/24 02:40 Dose: 5,000 unit Dextrose (D5w) 500 mls @ 0 mls/hr IV ONCE PRN; Protocol PRN Reason: Adult Acute Hypoglycemia Prot Dextrose (D10w) 125 mls @ 750 mls/hr IV PRN PRN; Protocol PRN Reason: Adult Acute Hypoglycemia Nursing Protocol Last Infusion: 05/07/24 08:21 Dose: Infused Dextrose (D10w) 250 mls @ 1,000 mls/hr IV PRN PRN; Protocol PRN Reason: Adult Acute Hypoglycemia Nursing Protocol Piperacillin Sod/Tazobactam (Sod 3.375 gm/ Sodium Chloride) 50 mls @ 12.5 mls/hr IV Q12H [facility] Stop: 05/18/24 17:59 Last Admin: 05/14/24 06:25 Dose: 12.5 mls/hr Albumin Human (Albumin) 25 g in 100 mls @ 60 mls/hr IV Q8H [facility] Last Infusion: 05/14/24 03:32 Dose: Infused Vancomycin HCl 1,000 mg/ (Sodium Chloride) 250 mls @ 250 mls/hr IV Q72H [facility] Insulin Glargine (Insulin Glargine 100 Units/1 Ml) 3 unit SUBCUT DAILY [facility] Last Admin: 05/13/24 09:30 Dose: 3 unit Insulin Human Lispro (Insulin Lispro 100 Unit/1 Ml) 0 unit SUBCUT WM&BEDTIME [facility]; Protocol Last Admin: 05/13/24 21:44 Dose: 2 unit Lanolin (Lanolin Oint 7 Gm) 1 applic TOPICAL PRN PRN PRN Reason: DRYNESS Last Admin: 05/09/24 04:45 Dose: 1 applic Loperamide HCl (Loperamide 2 Mg Capsule) 2 mg PO QID PRN PRN Reason: DIARRHEA Midodrine (Midodrine 5 Mg Tablet) 10 mg PO TID [facility] Last Admin: 05/13/24 21:44 Dose: 10 mg Ondansetron HCl (Ondansetron 2 Mg/Ml Sdv 2 Ml) 4 mg IVP Q6H PRN PRN Reason: NAUSEA AND VOMITING Last Admin: 05/09/24 14:02 Dose: 4 mg Pantoprazole Sodium (Pantoprazole 40 Mg Sdv) 40 mg IVP BIDWM [facility] Last Admin: 05/13/24 17:06 Dose: 40 mg Sodium Bicarbonate (Sodium Bicarbonate 650 Mg Tablet) 650 mg PO TID [facility] Last Admin: 05/13/24 21:44 Dose: 650 mg Sucralfate (Sucralfate 1 Gm/10 Ml Oral Liq Udc) 1 gm PO AC&BEDTIME [facility] Last Admin: 05/14/24 06:25 Dose: 1 gm Vitals/I&O/Wt Last Vital Signs Temp 98.2 F 05/14/24 08:00 Pulse 85 05/14/24 08:00 Resp 16 05/14/24 08:00 BP 118/63 05/14/24 08:00 Pulse Ox 91 05/14/24 08:00 O2 Del Method Room Air 05/14/24 08:00 O2 Flow Rate 2 05/10/24 02:00 FiO2 30 05/09/24 12:23 05/13/24 05/14/24 05/14/24 22:59 06:59 14:59 Intake Total 1170 / 1580 340 / 1920 Output Total 750 / 750 250 / 1000 Balance 420 / 830 90 / 920 Weight last 48 hrs Weight 87.271 kg Weight 86.591 kg Physical Exam 2 Narrative: The patient was seen with the aid of an A/V device. Examined by nurse. This is a telehealth visit. He is off of pressors. Vital signs noted and stable. HEENT is normocephalic atraumatic neck is supple Lungs have good air movement bilaterally. Heart sinus rhythm, positive systolic murmur. Abdomen soft positive bowel sounds. Extremities poor pulses and status post right TMA. 2+ edema in his arms and legs -improving . Neuro = awake, alert oriented follows commands. moves, but is weak. Urinary Catheter Management: [place]brook: Cath Placed During This Visit: yes Reason for Continuing Indwelling Catheter: Accurate Measurement of Urinary Output in Critically Ill Patients Urinary Catheter Date of Insertion: 05/03/24 Urinary Catheter Time of Insertion: 21:50 Data 05/14/24 05:00 05/14/24 05:00 A&P Assessment and plan (1) JALYN (acute kidney injury): 53-year-old gentleman 1. DKA improved with fluids and insulin. 2. Septic foot status post TMA. Check vancomycin level keep trough under 20. Please dose Zosyn for GFR under 20. 3. Renal insufficiency: . Creatinine on admission was 3. Urinalysis on admission had 4+ glucose 2+ ketones. Of note negative blood and only trace protein. This is atypical for diabetic nephropathy. Renal ultrasound right kidney 11 cm left kidney 11.6 cm. Major question is if this is acute versus chronic kidney disease. Renal ultrasound appears normal. -Complements reviewed. C3 is low normal C4. Negative urine for eosinophils. Monitor I's and O's. Serologies are pending, those that have returned are negative Patient has significant metabolic acidosis w/ good compensation. i am concerned that he has CKD. he will need further surgical interventions. given cr 5, dm, and acidosis- i feel that he will benefit from initiation of dialysis. - we discussed risks and benefits of dialysis with pt and family. they are considering and will tell the hospitalist their decision. if family consents, please place a permacath For now we will stop Lasix drip and give a bicarbonate drip. I also did explain to the family that even if we start dialysis there is a chance that his kidney function may improve as we treat his infection and his body is stable he is on a phosphorus binder 4. Anemia likely multifactorial from severe infection, CKD. He has a high iron saturation. neg serum protein electrophoresis The patient is status post 2 units of blood transfusion. Hemoglobin wei appropriately. -epo 5. Renal dose medications. 6. Status post TMA for possible necrotizing fasciitis of right foot. Will need further surgery. 7. A-fib now in normal sinus rhythm. Patient has history of left bundle branch block. 8. PTH of 172 repeat in 4 weeks Patient was seen and examined with nurse using A/V equipment. Telehealth visit. Case discussed in detail with the patient, his family, Dr Hnesley and the nurse. Plan See above. Attestations 2 Medical Necessity Statement*: jalyn on ckd, met acidosi and TMA- leg infection Time Spent in Patient Care: 16 - 35 minutes (>than 50% of time sp ent in counselling and/or direct pt care on unit) . Coding Level of Care Code Acute Code for [facility] Diagnoses JALYN (acute kidney injury) N17.9
[2024-05-14] MEDS: sodium bicarbonate 150 MEQ in dextrose 5% 1,000 ML 100 MEQ IV ×2 (09:50→20:44)
[2024-05-14] MEDS: pantoprazole 40 mg SDV IVP ×2 (09:51→18:06)
[2024-05-14] MEDS: vancomycin 1,000 MG in sodium chloride 0.9% 250 ML 250 MG IV (09:51)
[2024-05-14] MEDS: gabapentin 100 mg Capsule PO ×2 (09:52→18:06)
[2024-05-14] MEDS: calcium acetate 667 mg Capsule 1334 MG PO ×2 (09:52→18:06)
[2024-05-14] MEDS: aspirin 81 mg EC Tablet PO (09:52)
[2024-05-14] MEDS: midodrine 5 mg TABLET 10 MG PO ×2 (09:52→20:54)
[2024-05-14] MEDS: ergocalciferol (vitamin D2) 50,000 Unit Capsule 50000 UNIT PO (09:52)
[2024-05-14] MEDS: loperamide 2 mg Capsule PO (09:53)
[2024-05-14] MEDS: insulin lispro 100 unit/1 mL SUBCUT ×4 (09:53→20:54)
[2024-05-14] MEDS: collagenase oint 30 gm 1 APPLIC TOPICAL (09:53)
[2024-05-14] MEDS: insulin glargine 100 units/1 mL 3 UNIT SUBCUT (09:53)
[2024-05-14 10:12] LABS: Hepatitis B Surface AB < 3.5 (11.5-1000); Hepatitis B Surface Antigen Non-Reactive (Nonreactive); Hepatitis C Virus Antibody Non-Reactive (Nonreactive)
[2024-05-14 11:34] LABS: Glucose Point of Care 330 mg/dL (70-110)
--- NOTE | 2024-05-14 12:38 | P.PN_ITS ---
Subjective 2 Subjective: Patient seen today with nurse, family at bedside with rabble furnace tender line. [employer] #[id number]. No acute events overnight. Patient has remained hemodynamically stable and afebrile. Today morning seen sitting up in the recliner. Blood pressure is better controlled. Remains on room air. Had a long discussion with the patient regarding goals of care, further treatment plan and possibility of dialysis. Vitals/I&O/Wt Last Vital Signs Temp 97.8 F 05/14/24 11:42 Pulse 79 05/14/24 11:42 Resp 14 05/14/24 11:42 BP 117/62 05/14/24 11:42 Pulse Ox 94 05/14/24 11:42 O2 Del Method Room Air 05/14/24 11:42 O2 Flow Rate 2 05/10/24 02:00 FiO2 30 05/09/24 12:23 05/13/24 05/14/24 05/14/24 22:59 06:59 14:59 Intake Total 1170 / 1580 340 / 1920 640 / 640 Output Total 750 / 750 250 / 1000 Balance 420 / 830 90 / 920 640 / 640 Weight last 48 hrs Weight 87.271 kg Weight 86.591 kg Physical Exam 2 Narrative: Accompanied by his sons at bedside. Const: COMMON NORMALS: negative for alert GENERAL APPEARANCE: patient mechanically ventilated; not cooperative ORIENTATION/CONSCIOUSNESS: Yes awake OTHER: Awake, alert minimally slowed responses, does not answer every question, sometimes requiring confirmation, but answers sound appropriate. HENMT: COMMON NORMALS: normocephalic, EAC's normal, Normal external nose present and moist oral mucous membranes HEAD & SCALP: normocephalic NOSE: Normal external nose present EXTERNAL AUDITORY CANAL: EAC's normal Chest: CHEST: Yes Symmetrical chest wall rise Resp: COMMON NORMALS: clear to auscultation bilaterally AUSCULTATION: clear to auscultation bilaterally Cardio: COMMON NORMALS: regular rate, regular rhythm and No murmurs present (Cardio) RATE: regular rate RHYTHM: regular rhythm GI: COMMON NORMALS: Normal to inspection, nondistended, normoactive bowel sounds present, Soft to palpation and non-tender PALPATION: Yes Soft to palpation Extremity: COMMON NORMALS: no pedal edema NARRATIVE EXTREMITY EXAM: Distal RLE status post TMA, Wound appears dry, clean, granulation tissue. Without any large areas of necrosis. No purulent discharge. No proximal erythema, edema, cyanosis or mottling, legs appropriately warm bilaterally. GENERAL: Yes edema (upper 2+ arms and legs) OTHER: Ulceration on medial L calf mid-LE with eschar base, no drainage, no surrounding erythema. Neuro: COMMON NORMALS: moves all extremities SENSORIUM/ORIENTATION: No alert Skin: COMMON NORMALS: no wounds RASHES: no rashes Urinary Catheter Management: [place]brook: Cath Placed During This Visit: yes Reason for Continuing Indwelling Catheter: Accurate Measurement of Urinary Output in Critically Ill Patients Urinary Catheter Date of Insertion: 05/03/24 Urinary Catheter Time of Insertion: 21:50 Data 05/14/24 05:00 05/14/24 05:00 A&P Assessment and plan (1) JALYN (acute kidney injury): Acute renal failure most likely in setting of septic shock on admission along with possibility of baseline diabetic nephropathy. Cannot rule out chronic kidney disease. Will try to get documents from patient's primary care provider possibly in [place]. Appreciate nephrology recommendations. Monitor urine output. Patient continues to have worsening of metabolic acidosis. pH on ABG today showed 7.27. Started on bicarb drip as per nephrology recommendations. Patient blood pressures have been stable. SPEP normal. Given persistent metabolic acidosis, persistent creatinine over 4 had a long detailed discussion with patient, patient's son at bedside with rabble furnace tender line. We discussed unfortunately even after maximum management with oral bicarb even though patient's urine output is appropriate he continues to remain metabolic acidotic which can cause him to have poor healing of his wounds, can cause worsening or multiorgan dysfunction. We discussed patient most likely requires dialysis going further but for now we cannot be sure of long-term versus short-term as he do not have patient's baseline creatinine but is possible that he has underlying nephropathy. After detailed discussion patient is agreeable for temporary dialysis for now. He would like to see if his renal functions stabilize after a few sessions of dialysis before going for permanent dialysis. Discussed in detail with nephrology team. Will consult surgery for temporary dialysis catheter placement. (2) Uncontrolled type 2 diabetes mellitus: Continue Lantus, sliding scale insulin. Consistent carbohydrate diet. Increase dose of sliding scale or Lantus as per daily insulin requirements. A1c found to be more than 18 on admission. Though patient has not required high doses of insulin since DKA resolved. Cannot rule out in setting of hemoglobinopathy with concerns for liver dysfunction and anemia as above. Repeat A1c of 17. (3) Septic shock: Present on admission. Resolved Keep mean artery pressure 65. Most likely in setting of hypoalbuminemia currently. Midodrine 10 mg oral 3 times daily. C/w IV albumin every 8 hourly. Sputum culture growing Pseudomonas, Staphylococcus and Zuleika. Wound culture growing Prevotella. Blood cultures so far negative. Leukocytosis has resolved. Patient is post TMA for possible necrotizing fasciitis of right foot. Dressing as per podiatry team. Continue with IV antibiotics for overall 10-day course from date of amputation. Monitor Vanco trough levels. Currently vancomycin on hold. Appreciate Vanco trough levels. Restart vancomycin accordingly. (4) Status post amputation: (5) High anion gap metabolic acidosis: (6) Gas gangrene: S/p TMA. Appreciate podiatry recommendations. Patient had an extensive discussion with podiatry team about BKA versus skin grafting. Patient wants to go ahead with skin grafting and has declined BKA. Possible plan for skin grafting within next 24 to 48 hours depending on availability of the OR materials. PT/OT/speech evaluation. Antibiotics as above. Wound care dressings as per surgical team. (7) Acute hypoxic respiratory failure: Resolved. Extubated on 05/10. Currently on room air. Aggressive pulmonary toilet with incentive spirometry and flutter valve. Keep oxygen saturation over 90%. (8) Anemia: Hemoglobin stable after 2 units of blood transfusion. Appreciate iron panel. If continues to trend down will consult surgery for possible EGD. Patient did have positive stool for occult blood. Continue with Protonix twice daily and Carafate ACHS. (9) Atrial fibrillation with RVR: Atrial fibrillation with RVR earlier in hospitalization. Has been on amiodarone. Currently in sinus rhythm. Suspect A-fib was related to acute illness. Hold amiodarone for now. Monitor on telemetry. (10) Abnormal iron saturation: Elevated iron saturation, 78.2 raising concern for hemochromatosis, will need additional workup follow-up, genetic testing for HFE. Question of possible underlying liver disease. 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 Discussed with him and his daughter again and with the help of the medical claims assistant. (11) Dilated bowel: He is tolerating oral diet currently without issues. Bowel movements charted on 05/10. Reviewed CT abdomen pelvis, without evidence of obstruction found prior to extubation with difficulty initiating tube feeds. Some mild thickening of rectosigmoid colon. So far without any further vomiting. Trial of oral diet. (12) DKA (diabetic ketoacidosis): DKA resolved. Qualifiers: Diabetes mellitus type: type 2 (13) LBBB (left bundle branch block): Denies any chest pain. Does not have any EKG in the past to compare. Patient would benefit from further ACS workup as an outpatient once hemoglobin stable. Echocardiogram done during hospitalization showed EF of 50 to 55% with grade 1 diastolic dysfunction without regional wall motion abnormality. Appreciate A1c lipid panel results. Continue with baby aspirin for now. (14) Metabolic encephalopathy: Resolved. (15) Dysphagia: Postextubation. Most likely in setting of prolonged intubation. Resolved Apprecioate Speech evaluation and modified barium swallow. (16) Loss of sensation: Could be in setting of diabetic neuropathy. Appreciate lumbar CT, arterial and venous duplex of lower limbs. Start on gabapentin 100 mg twice daily. Appreciate vitamin B12 for the results. (17) Lactic acidosis: From DKA and sepsis (18) CKD (chronic kidney disease): (19) Goals of care, counseling/discussion: (20) Ulcer of foot with necrosis of muscle: Plan DVT prophylaxis: SCD, on aspirin Full code Protonix for PUD prophylaxis Regular carb consistent diet. Discharge planning: PT and OT evaluation pending. Patient will need PCP as an outpatient and possibly to follow-up with nephrology and endocrinology. Depending on the PT evaluation will plan for home with home health versus SNF placement. Case management alerted. Attestations 2 Medical Necessity Statement*: Requires further hospitalization for management of persistent metabolic acidosis in setting of acute renal failure in setting of uncontrolled type 2 diabetes mellitus, possible CKD and the patient was originally admitted for septic shock in setting of necrotizing fasciitis post amputation while patient undergoes temporary dialysis catheter placement, skin grafting Diagnoses JALYN (acute kidney injury) N17.9 Uncontrolled type 2 diabetes mellitus Septic shock A41.9; R65.21 Status post amputation Z89.9 High anion gap metabolic acidosis E87.29 Gas gangrene A48.0 Acute hypoxic respiratory failure J96.01 Anemia D64.9 Atrial fibrillation with RVR I48.91 Abnormal iron saturation R79.0 Dilated bowel DKA (diabetic ketoacidosis) E11.10 Diabetes mellitus type: type 2 LBBB (left bundle branch block) I44.7 Metabolic encephalopathy G93.41 Dysphagia R13.10 Loss of sensation R20.0 Lactic acidosis E87.20 CKD (chronic kidney disease) N18.9 Goals of care, counseling/discussion Z71.89 Ulcer of foot with necrosis of muscle L97.503
--- NOTE | 2024-05-14 13:20 | P.CONIM_ITS ---
Providers/Reason For Consult 2 Consulting Physician/Specialty*: General surgery Reason for Consult*: Need for temporary dialysis Attending Physician: Daniel Vaughan MD History of Present Illness History of Present Illness Tereza Keenan is a 53 year old male who was admitted with necrotizing soft tissue infection of the right lower extremity, and who was noted to have acute kidney injury with a creatinine of 5 and acidosis during admission, he is making good urine output but creatinine has remained stable at 5 so therefore the decision for proceeding with hemodialysis was made. I was asked to provide with the temporary dialysis catheter. Review of Systems 2 General: Reports: 10 or more systems reviewed and unremarkable except in HPI and below Medications/Allergies Home Medications Medication Instructions Recorded Confirmed Last Taken Type insulin lispro 100 unit/mL 10 unit SUBCUT TID 05/05/24 05/05/24 Unknown History subcutaneous pen Allergies Allergy/AdvReac Type Severity Reaction Status Date / Time No Known Allergies Allergy Verified 05/03/24 22:13 Current Medications Generic Name Dose Route Start Last Admin Trade Name Freq PRN Reason Stop Dose Admin Aspirin 81 mg 05/14/24 09:00 05/14/24 09:52 Aspirin 81 Mg Ec Tablet PO 81 mg DAILY LAITH Administration Calcium Acetate 1,334 mg 05/13/24 12:00 05/14/24 11:32 Calcium Acetate 667 Mg Capsule PO Not Given TIDWM LAITH Collagenase 1 applic 05/14/24 09:00 05/14/24 09:53 Collagenase Oint 30 Gm TOPICAL 1 applic DAILY [facility] Administration Ergocalciferol 50,000 unit 05/07/24 08:00 05/14/24 09:52 Ergocalciferol (Vitamin D2) 50,000 Unit Capsule PO 50,000 unit Q7D LAITH Administration Gabapentin 100 mg 05/12/24 18:00 05/14/24 09:52 Gabapentin 100 Mg Capsule PO 100 mg BID LAITH Administration Heparin Sodium (Porcine) 5,000 unit 05/11/24 14:30 05/13/24 02:40 Heparin 5,000 Unit/Ml Inj 1 Ml SUBCUT 5,000 unit Q12H [facility] Administration Dextrose 125 mls @ 750 mls/hr 05/06/24 19:04 05/07/24 08:21 D10w IV Infused PRN PRN Infusion Adult Acute Hypoglycemia Nursing Protocol Protocol Piperacillin Sod/Tazobactam 50 mls @ 12.5 mls/hr 05/08/24 18:00 05/14/24 10:36 Sod 3.375 gm/ Sodium Chloride IV 05/18/24 17:59 Infused Q12H [facility] Infusion Albumin Human 25 g in 100 mls @ 60 mls/hr 05/12/24 17:30 05/14/24 11:33 Albumin IV Infused Q8H [facility] Infusion Vancomycin HCl 1,000 mg/ 250 mls @ 250 mls/hr 05/14/24 09:00 05/14/24 11:34 Sodium Chloride IV Infused Q72H [facility] Infusion Sodium Bicarbonate 150 meq/ 1,150 mls @ 100 mls/hr 05/14/24 08:45 05/14/24 09:50 Dextrose IV 100 mls/hr .[id number] [facility] Administration Insulin Glargine 3 unit 05/09/24 09:30 05/14/24 09:53 Insulin Glargine 100 Units/1 Ml SUBCUT 3 unit DAILY [facility] Administration Insulin Human Lispro 0 unit 05/12/24 18:00 05/14/24 12:10 Insulin Lispro 100 Unit/1 Ml SUBCUT 5 unit WM&BEDTIME [facility] Administration Protocol Lanolin 1 applic 05/04/24 13:21 05/09/24 04:45 Lanolin Oint 7 Gm TOPICAL 1 applic PRN PRN Administration DRYNESS Loperamide HCl 2 mg 05/13/24 17:19 05/14/24 09:53 Loperamide 2 Mg Capsule PO 2 mg QID PRN Administration DIARRHEA Midodrine 10 mg 05/11/24 15:00 05/14/24 09:52 Midodrine 5 Mg Tablet PO 10 mg TID LAITH Administration Ondansetron HCl 4 mg 05/03/24 22:36 05/09/24 14:02 Ondansetron 2 Mg/Ml Sdv 2 Ml IVP 4 mg Q6H PRN Administration NAUSEA AND VOMITING Pantoprazole Sodium 40 mg 05/12/24 18:00 05/14/24 09:51 Pantoprazole 40 Mg Sdv IVP 40 mg BIDWM [facility] Administration Sodium Bicarbonate 650 mg 05/12/24 09:00 05/13/24 21:44 Sodium Bicarbonate 650 Mg Tablet PO 650 mg TID LA[facility] Administration Sucralfate 1 gm 05/12/24 21:00 05/14/24 11:32 Sucralfate 1 Gm/10 Ml Oral Liq Udc PO Not Given AC&BEDTIME [facility] PFSH Acute 2 PFSH: Medical History (Updated 05/14/24 @ 13:04 by Daniel Vaughan MD) CKD (chronic kidney disease) Uncontrolled type 2 diabetes mellitus Surgical History (Updated 05/14/24 @ 12:44 by Daniel Vaughan MD) Status post amputation Vitals/I&O/Wt Last Vital Signs Temp 97.8 F 05/14/24 11:42 Pulse 79 05/14/24 11:42 Resp 14 05/14/24 11:42 BP 117/62 05/14/24 11:42 Pulse Ox 94 05/14/24 11:42 O2 Del Method Room Air 05/14/24 11:42 O2 Flow Rate 2 05/10/24 02:00 FiO2 30 05/09/24 12:23 05/13/24 05/14/24 05/14/24 22:59 06:59 14:59 Intake Total 1170 / 1580 340 / 1920 640 / 640 Output Total 750 / 750 250 / 1000 Balance 420 / 830 90 / 920 640 / 640 Weight last 48 hrs Weight 192 lb 6.4 oz Weight 190 lb 14.4 oz Physical Exam 2 Narrative: General : Patient is well developed , no acute distress, oriented x3 Head : Normal cephalic, a-traumatic. Nose : Mucous membranes are without erythema. Lungs : Equal chest rise bilaterally, no use of accessory muscles, trachea is midline. CV : Rate and rhythm are normal. Abdomen : Soft, ND, NT, no g/r/m Extremities : Bilateral lower extremity edema right foot is wrapped in the left lower extremity at the level of the calf there is a small area of ulceration. Back : non-tender to palpation, no CVA tenderness. Urinary Catheter Management: [place]brook: Cath Placed During This Visit: yes Reason for Continuing Indwelling Catheter: Accurate Measurement of Urinary Output in Critically Ill Patients Urinary Catheter Date of Insertion: 05/03/24 Urinary Catheter Time of Insertion: 21:50 Data 05/14/24 05:00 05/14/24 05:00 A&P Assessment and plan (1) JALYN (acute kidney injury): (2) CKD (chronic kidney disease): (3) Lactic acidosis: Plan After complete history physical examination and review of all available clinical data the following is my assessment. Patient will benefit from proceeding with dialysis catheter placement for acute kidney injury that has failed response to medical therapy. I discussed all recent benefits of the procedure including the risks of bleeding, infection, need for additional interventions, need for catheter removal, injury to the surrounding structures, cannulation of the femoral artery, nerve injury, hollow viscus perforation. After discussion of all risk and benefits patient has decided to proceed. Coding Level of Care Code 36364 Diagnoses JALYN (acute kidney injury) N17.9 CKD (chronic kidney disease) N18.9 Lactic acidosis E87.20
--- NOTE | 2024-05-14 13:23 | P.PCN_ITS ---
Procedure/Consent Time out: Time Out Performed: Yes Consent: Consent for Procedure: Consent obtained from patient Additional Consent Information: Consent obtained in Sinhala as this is the patient primary language, no microbiology professor was used as Sinhala is my [place] language Procedure Narrative: Patient was Supine Position, Bilateral Groins Were Prepped and Draped in Usual Sterile Fashion. Timeout Was Conducted. I Proceeded to Identify the Left Common Femoral Artery, after Local Anesthesia Was Administered I Proceeded Cannulating the Left Femoral Artery, Immediate Return of Blood Was Noted and a Wire Was Advanced the Wire Was Able to Be Advanced into the Vein but after That It Made Significant Resistance, 2 Additional Attempts of Cannulation of These Artery Were Made and Each Time the Result Was the Same, I Would Cannulate the Artery without Issues but Once the Wire Was Advanced and It Was about One Third in I Will Met Resistance Therefore I Decided to Remove the Needle and the Wire Provide Compression Evaluate the Right Groin Port Placement of Catheter. On the Right Groin I Was Able to Gently Fire the Femoral Artery and Vein, I Placed Loca l Anesthesia under the Skin, I Then Cannulated the Right Femoral Vein under Direct Ultrasound Visualization, Immediate Return of Blood Was Noted, a Wire Was Advanced with No Resistance at All, the Needle Was Removed the Wire Position Was Verified with Ultrasound. I Then Proceeded to Dilate the Tract with Cellular Barrel Sizes of Dilators. The Catheter was then advanced over the wire and the wire removed. Very good flow was noted from both the venous and arterial port. The catheter was flushed. It was fixed to the skin with 2-0 silk. A sterile dressing and Biopatch were applied. At the end of the procedure patient tolerated well and remained in the floor in a stable condition. Acute Procedures Epistaxis Control: Time out performed: Yes
[2024-05-14 16:15] LABS: Glucose Point of Care 235 mg/dL (70-110)
--- NOTE | 2024-05-14 19:22 | P.PN_ITS ---
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 He also has a wound to the left mid leg more stable appearing. His , daughter and son are bedside. Patient is conversive and alert. Surgical dressing right foot is clean and dry without strikethrough. Vitals/I&O/Wt Last Vital Signs Temp 98.6 F 05/14/24 18:51 Pulse 74 05/14/24 18:51 Resp 16 05/14/24 18:51 BP 125/68 05/14/24 18:51 Pulse Ox 92 05/14/24 16:19 O2 Del Method Room Air 05/14/24 16:19 O2 Flow Rate 2 05/10/24 02:00 FiO2 30 05/09/24 12:23 05/14/24 05/14/24 05/14/24 06:59 14:59 22:59 Intake Total 340 / 1920 640 / 640 500 / 1140 Output Total 250 / 1000 1300 / 1300 1500 / 2800 Balance 90 / 920 -660 / -660 -1000 / -1660 Weight last 48 hrs Weight 199 lb 8.293 oz Weight 192 lb 6.4 oz Weight 190 lb 14.4 oz Physical Exam 2 Narrative: Patient is unresponsive. The following is a focused bilateral lower extremity exam. VASCULAR: Dorsalis pedis diminished bilaterally. Posterior tibial arteries diminished. Delayed capillary refill to right great toe, cap refill less than 5 seconds to the left great toe. Pedal hair growth is diminished, there is mild hair growth at the tuft of the great toe bilaterally. NEUROLOGICAL: Protective sensation absent to light touch bilaterally. DERMATOLOGICAL: Amputation site at the right has dusky margin adjacent to medial cuneiform medially. Surgical dressings right foot are clean, dry and intact without strikethrough, no bleeding, no proximal pagetic streaking or cellulitis at the level of the dressing, right lower extremity. Wound exposed to myofascial layer left mid leg measures 2.8 cm x 2.1 cm x 0.3 cm. MUSCULOSKELETAL: Status post right transmetatarsal amputation. Urinary Catheter Management: Holbrook: Cath Placed During This Visit: yes Reason for Continuing Indwelling Catheter: Other Urinary Catheter Date of Insertion: 05/03/24 Urinary Catheter Time of Insertion: 21:50 Data 05/14/24 05:00 07/10/24 05:00 A&P Assessment and plan (1) Severe sepsis: (2) DKA (diabetic ketoacidosis): Qualifiers: Diabetes mellitus type: type 2 (3) Diabetic peripheral neuropathy associated with type 2 diabetes mellitus: (4) Necrotizing fasciitis: (5) Gas gangrene: Plan 53-year-old uncontrolled diabetic male presents with unresponsiveness, DKA, sepsis and necrotizing fasciitis to the right foot. Patient states that he is set on limb salvage, he is against below-knee amputation at this time. Discussed with patient, his daughter, his and his son at length options regarding his right lower extremity consisting of below-knee amputation versus debridement of midfoot amputation and application of biologic graft with wound VAC. Expressed specific concerns regarding limb salvage of the remaining foot putting him at risk for physically deconditioning, pneumonia, UTI, DVT, reinfection, nonhealing due to comorbidities and at risk for BKA down the road versus BKA now in a more predictable recovery and likely more functional amputation level with quicker return to activity. Patient initially was considering BKA and then after further thought it expresses his desire to proceed with limb salvage, I informed the patient that should this go on to heal down the road that he would still require tendon balancing procedures with split tibialis anterior versus posterior tibial tendon to replace the everters of the foot but are now lost with removal of fifth metatarsal base and attachment of peroneal brevis. Patient states he is applying for insurance and that he is hopeful that he will be able to get assistive devices and treatment for recovery with limb salvage. Expresses understanding of the above risks. Discussed preoperative risk assessment with hospitalist, planning on debridement and application of biologic graft with wound VAC, scheduled for Sunday05/16/2024. Will be n.p.o. at midnight 05/15/2024. Attestations 2 Medical Necessity Statement*: Requires continued hospitalization for limb salvage efforts, requires continued antibiotic therapy and planned surgical debridement of amputation stump right foot this Sunday. Coding Level of Care Code Acute Code for [facility] Diagnoses Severe sepsis A41.9; R65.20 DKA (diabetic ketoacidosis) E11.10 Diabetes mellitus type: type 2 Diabetic peripheral neuropathy associated with type 2 diabetes mellitus E11.42 Necrotizing fasciitis M72.6 Gas gangrene A48.0
[2024-05-14 20:50] LABS: Glucose Point of Care 281 mg/dL (70-110)
[2024-05-15] VITALS (10 sets, daily range): BP systolic 111–131; BP diastolic 52–67; PULSE 69–85; RESP 14–18; TEMP 36.6–37.3; O2SAT 90–93
[2024-05-15] MEDS: albumin 25 G/100 ML BAG 60 G IV ×2 (01:15→17:15)
[2024-05-15] MEDS: piperacillin-tazobactam 3.375 GM in sodium chloride 0.9% (plus) 50 ML IV ×2 (05:13→19:05)
[2024-05-15] MEDS: sucralfate 1 gm/10 mL Oral Liq UDC PO ×4 (05:13→20:34)
[2024-05-15 05:41] LABS: Basophils % 0.3 %; Eosinophils # 0.1 10^3/uL (0.0-0.8); Eosinophils % 1.4 %; Hematocrit 22.9 % (37-53); Lymphocytes # 0.5 10^3/uL (0.8-4.8); Lymphocytes % 7.6 %; Mean Corpuscular HGB Conc 34.5 g/dL (30-55); Mean Corpuscular Hemoglobin 29.9 pg (27-33); Mean Corpuscular Volume 86.7 fl (82-101); Mean Platelet Volume 11.1 fL (7.4-10.4); Monocytes # 0.4 10^3/uL (0.2-0.9); Monocytes % 7.1 %; Neutrophils # 4.83 10^3/uL (1.8-7.7); Neutrophils % 81.9 %; Nucleated Red Blood Cells % 0 %; Platelet Count 278 10^3/cmm (157-399); Red Blood Count 2.64 10^6/uL (3.85-5.65); Red Cell Distribution Width 15.4 % (12.1-15.1)
[2024-05-15 06:01] LABS: Vancomycin Random 24.2 ug/mL (20.0-40.0)
--- NOTE | 2024-05-15 06:05 | P.PN_ITS ---
Subjective 2 Subjective: Postprocedure day 1 after insertion of a right femoral temporary dialysis catheter. Patient doing well, no significant issues catheter was able to be used. Vitals/I&O/Wt Last Vital Signs Temp 99.1 F 05/15/24 04:00 Pulse 85 05/15/24 04:00 Resp 18 05/15/24 04:00 BP 124/61 05/15/24 04:00 Pulse Ox 90 05/15/24 04:00 O2 Del Method Room Air 05/14/24 16:19 O2 Flow Rate 2 05/10/24 02:00 FiO2 30 05/09/24 12:23 05/14/24 05/14/24 05/15/24 14:59 22:59 06:59 Intake Total 640 / 640 1840 / 2480 600 / 3080 Output Total 1300 / 1300 2200 / 3500 300 / 3800 Balance -660 / -660 -360 / -1020 300 / -720 Weight last 48 hrs Weight 202 lb 11.2 oz Weight 199 lb 8.293 oz Weight 192 lb 6.4 oz Physical Exam 2 Extremity: NARRATIVE EXTREMITY EXAM: Bilateral groins were examined, left groin no evidence of hematoma, right groin catheter in place and patent. Urinary Catheter Management: [place]brook: Cath Placed During This Visit: yes Reason for Continuing Indwelling Catheter: Other Urinary Catheter Date of Insertion: 05/03/24 Urinary Catheter Time of Insertion: 21:50 Data 05/15/24 04:54 05/14/24 05:00 A&P Assessment and plan (1) JALYN (acute kidney injury): Plan Good progression after placement of temporary dialysis catheter. Per my discussion with the medical team the cuff is that the patient will only require temporary dialysis access does not have a history of previous kidney disease. General surgery will sign off at this time, please reconsult as needed if clinical status changes and patient requires long-term dialysis. Attestations 2 Medical Necessity Statement*: Per medical team Coding Level of Care Code Acute Code for [facility] Diagnoses JALYN (acute kidney injury) N17.9
[2024-05-15 06:31] LABS: Glucose Point of Care 377 mg/dL (70-110)
[2024-05-15 07:25] LABS: Alanine Aminotransferase < 5 U/L (0-41); Albumin Level 3.1 g/dL (3.5-5.2); Alkaline Phosphatase 73 U/L (40-130); Blood Urea Nitrogen 44 mg/dL (6-20); Carbon Dioxide 21 mmol/L (22-29); Chloride 99 mmol/L (98-107); Creatinine Clr Calc Pharmacy 22.7203; Globulin 2.4 g/dL (1.3-4.6); Glomerular Filtration Rate 16.1 mL/min (90-130); Glucose 391 mg/dL (65-115); Magnesium 1.6 mg/dL (1.7-2.3); Osmolality Calculated 311 mOsm/kg (285-295); Phosphorus 3.7 mg/dL (2.5-4.5); Sodium 137 mmol/L (136-145); Total Bilirubin 0.6 mg/dL (0.15-1.2); Total Protein 5.5 g/dL (6.6-8.7)
[2024-05-15 07:39] LABS: Anion Gap 20.3 (5-19); Aspartate Amino Transferase 8 U/L (0-40); Potassium 3.3 mmol/L (3.5-5.1)
--- NOTE | 2024-05-15 07:52 | P.PN_ITS ---
Subjective 2 Subjective: on RA UOP low Medications: Reviewed: Yes Vitals/I&O/Wt Last Vital Signs Temp 99.1 F 05/15/24 04:00 Pulse 84 05/15/24 06:00 Resp 18 05/15/24 04:00 BP 124/61 05/15/24 04:00 Pulse Ox 90 05/15/24 04:00 O2 Del Method Room Air 05/14/24 16:19 O2 Flow Rate 2 05/10/24 02:00 FiO2 30 05/09/24 12:23 05/14/24 05/15/24 05/15/24 22:59 06:59 14:59 Intake Total 1840 / 2480 600 / 3080 Output Total 2200 / 3500 300 / 3800 Balance -360 / -1020 300 / -720 Weight last 48 hrs Weight 91.943 kg Weight 90.5 kg Weight 87.271 kg Physical Exam 2 Narrative: The patient was seen with the aid of an A/V device. Examined by nurse. This is a telehealth visit. He is off of pressors. Vital signs noted and stable. HEENT is normocephalic atraumatic neck is supple Lungs have good air movement bilaterally. Heart sinus rhythm, positive systolic murmur. Abdomen soft positive bowel sounds. Extremities poor pulses and status post right TMA. 2+ edema in his arms and legs -improving . Neuro = awake, alert oriented follows commands. moves, but is weak. Urinary Catheter Management: Holbrook: Cath Placed During This Visit: yes Reason for Continuing Indwelling Catheter: Other Urinary Catheter Date of Insertion: 05/03/24 Urinary Catheter Time of Insertion: 21:50 Data 05/15/24 04:54 05/15/24 06:51 A&P Assessment and plan (1) JALYN (acute kidney injury): 53-year-old gentleman 1. DKA improved with fluids and insulin. 2. Septic foot status post TMA. Check vancomycin level keep trough under 20. Please dose Zosyn for GFR under 20. 3. Renal insufficiency: . Creatinine on admission was 2.8 Urinalysis on admission had 4+ glucose 2+ ketones. Of note negative blood and only trace protein. This is atypical for diabetic nephropathy. Renal ultrasound right kidney 11 cm left kidney 11.6 cm. Major question is if this is acute versus chronic kidney disease. Renal ultrasound appears normal. -Complements reviewed. C3 is low normal C4. Negative urine for eosinophils. Monitor I's and O's. Serologies are pending, those that have returned are negative - Suspect pt has underlying CKD --> Now started HD via temp HD catheter ,HD #2 today -Renal dose medications. 4. Anemia likely multifactorial from severe infection, CKD. He has a high iron saturation. neg serum protein electrophoresis The patient is status post 2 units of blood transfusion. -epo 6. Status post TMA for possible necrotizing fasciitis of right foot. Will need further surgery. 7. A-fib now in normal sinus rhythm. Patient has history of left bundle branch block. 8. PTH of 172 repeat in 4 weeks Patient was seen and examined with nurse using A/V equipment. Telehealth visit. Case discussed in detail with the patient, his family, Dr Hensley and the nurse. Plan See above. Attestations 2 Medical Necessity Statement*: per shara Coding Level of Care Code Acute Code for [facility] Diagnoses JALYN (acute kidney injury) N17.9
[2024-05-15] MEDS: sodium bicarbonate 150 MEQ in dextrose 5% 1,000 ML 100 MEQ IV (08:11)
[2024-05-15] MEDS: insulin lispro 100 unit/1 mL SUBCUT ×4 (08:16→20:36)
[2024-05-15] MEDS: midodrine 5 mg TABLET 10 MG PO ×3 (08:16→20:36)
[2024-05-15] MEDS: calcium acetate 667 mg Capsule 1334 MG PO ×2 (08:16→11:39)
[2024-05-15] MEDS: gabapentin 100 mg Capsule PO ×2 (08:16→19:06)
[2024-05-15] MEDS: pantoprazole 40 mg SDV IVP ×2 (08:16→19:07)
[2024-05-15] MEDS: aspirin 81 mg EC Tablet PO (08:16)
[2024-05-15] MEDS: albumin 25 G/100 ML BAG 6 G IV (08:17)
[2024-05-15] MEDS: collagenase oint 30 gm 1 APPLIC TOPICAL (08:17)
[2024-05-15] MEDS: insulin glargine 100 units/1 mL 3 UNIT SUBCUT (08:21)
--- NOTE | 2024-05-15 10:09 | P.PN_ITS ---
Subjective 2 Subjective: Patient seen today morning with family and nursing at bedside. Conversation through language interpreter number [id number]. Seen comfortably sitting in the recliner. Has remained hemodynamically stable and afebrile. Tolerated new dialysis well yesterday. States he is feeling better. Discussed in detail with the patient for need of early ambulation. Until now patient has been transferring on from bed to recliner and back. Encourage patient to stand up and take few steps with physical therapy for constant physical rehabilitation, improvement and stability over the feet. Vitals/I&O/Wt Last Vital Signs Temp 98.3 F 05/15/24 08:00 Pulse 76 05/15/24 08:00 Resp 16 05/15/24 08:00 BP 115/63 05/15/24 08:00 Pulse Ox 92 05/15/24 08:00 O2 Del Method Room Air 05/15/24 08:00 O2 Flow Rate 2 05/10/24 02:00 FiO2 30 05/09/24 12:23 05/14/24 05/15/24 05/15/24 22:59 06:59 14:59 Intake Total 1840 / 2480 600 / 3080 1265 / 1265 Output Total 2200 / 3500 300 / 3800 Balance -360 / -1020 300 / -720 1265 / 1265 Weight last 48 hrs Weight 91.943 kg Weight 90.5 kg Weight 87.271 kg Physical Exam 2 Narrative: Accompanied by his and daughter sons at bedside. Const: COMMON NORMALS: negative for alert GENERAL APPEARANCE: patient mechanically ventilated; not cooperative ORIENTATION/CONSCIOUSNESS: Yes awake OTHER: Awake, alert minimally slowed responses, does not answer every question, sometimes requiring confirmation, but answers sound appropriate. HENMT: COMMON NORMALS: normocephalic, EAC's normal, Normal external nose present and moist oral mucous membranes HEAD & SCALP: normocephalic NOSE: Normal external nose present EXTERNAL AUDITORY CANAL: EAC's normal Chest: CHEST: Yes Symmetrical chest wall rise Resp: COMMON NORMALS: clear to auscultation bilaterally AUSCULTATION: clear to auscultation bilaterally Cardio: COMMON NORMALS: regular rate, regular rhythm and No murmurs present (Cardio) RATE: regular rate RHYTHM: regular rhythm GI: COMMON NORMALS: Normal to inspection, nondistended, normoactive bowel sounds present, Soft to palpation and non-tender PALPATION: Yes Soft to palpation Extremity: COMMON NORMALS: no pedal edema NARRATIVE EXTREMITY EXAM: Distal RLE status post TMA, Wound appears dry, clean, granulation tissue. Without any large areas of necrosis. No purulent discharge. No proximal erythema, edema, cyanosis or mottling, legs appropriately warm bilaterally. GENERAL: Yes edema (upper 2+ arms and legs) OTHER: Ulceration on medial L calf mid-LE with eschar base, no drainage, no surrounding erythema. Neuro: COMMON NORMALS: moves all extremities SENSORIUM/ORIENTATION: No alert Skin: COMMON NORMALS: no wounds RASHES: no rashes Urinary Catheter Management: Holbrook: Cath Placed During This Visit: yes Reason for Continuing Indwelling Catheter: Other Urinary Catheter Date of Insertion: 05/03/24 Urinary Catheter Time of Insertion: 21:50 Data 05/15/24 04:54 05/15/24 06:51 A&P Assessment and plan (1) JALYN (acute kidney injury): Acute renal failure most likely in setting of septic shock on admission along with possibility of baseline diabetic nephropathy. Cannot rule out chronic kidney disease. Will try to get documents from patient's primary care provider possibly in [place]. Appreciate nephrology recommendations. Monitor urine output. Patient continues to have worsening of metabolic acidosis. pH on ABG today showed 7.27. Started on bicarb drip as per nephrology recommendations. Patient blood pressures have been stable. SPEP normal. Given persistent metabolic acidosis, persistent creatinine over 4 had a long detailed discussion with patient, patient's son at bedside with language interpreter line. We discussed unfortunately even after maximum management with oral bicarb even though patient's urine output is appropriate he continues to remain metabolic acidotic which can cause him to have poor healing of his wounds, can cause worsening or multiorgan dysfunction. We discussed patient most likely requires dialysis going further but for now we cannot be sure of long-term versus short-term as he do not have patient's baseline creatinine but is possible that he has underlying nephropathy. After detailed discussion patient is agreeable for temporary dialysis for now. He would like to see if his renal functions stabilize after a few sessions of dialysis before going for permanent dialysis. Discussed in detail with nephrology team. Temporal dialysis catheter placed on 05/14. Dialysis as per nephrology team. Metabolic acidosis seems to be resolving. Urine output continues to improve. Stop IV sodium bicarb infusion. Restart oral sodium bicarb supplementation. Most likely plan will be to continue dialysis for next few sessions and then monitor renal functions of dialysis over the weekend and then plan accordingly. (2) Uncontrolled type 2 diabetes mellitus: Continue Lantus, sliding scale insulin. Insulin requirements increasing. Increase Lantus to 8 units daily. Consistent carbohydrate diet. Increase dose of sliding scale or Lantus further as per daily insulin requirements. A1c found to be more than 18 on admission. Though patient has not required high doses of insulin since DKA resolved. Cannot rule out in setting of hemoglobinopathy with concerns for liver dysfunction and anemia as above. Repeat A1c of 17. (3) Septic shock: Present on admission. Resolved Keep mean artery pressure 65. Most likely in setting of hypoalbuminemia currently. Midodrine 10 mg oral 3 times daily. C/w IV albumin every 8 hourly. Sputum culture growing Pseudomonas, Staphylococcus and Zuleika. Wound culture growing Prevotella. Blood cultures so far negative. Leukocytosis has resolved. Patient is post TMA for possible necrotizing fasciitis of right foot. Dressing as per podiatry team. Continue with IV antibiotics for overall 10-day course from date of amputation. Monitor Vanco trough levels. Currently vancomycin on hold. Appreciate Vanco trough levels. Restart vancomycin accordingly. (4) Status post amputation: (5) High anion gap metabolic acidosis: (6) Gas gangrene: S/p TMA. Appreciate podiatry recommendations. Patient had an extensive discussion with podiatry team about BKA versus skin grafting. Patient wants to go ahead with skin grafting and has declined BKA. Possible plan for skin grafting within next 24 to 48 hours depending on availability of the OR materials. PT/OT/speech evaluation. Antibiotics as above. Wound care dressings as per surgical team. (7) Acute hypoxic respiratory failure: Resolved. Extubated on 05/10. Currently on room air. Aggressive pulmonary toilet with incentive spirometry and flutter valve. Keep oxygen saturation over 90%. (8) Anemia: Hemoglobin stable after 2 units of blood transfusion. Appreciate iron panel. If continues to trend down will consult surgery for possible EGD. Patient did have positive stool for occult blood. Continue with Protonix twice daily and Carafate ACHS. (9) Atrial fibrillation with RVR: Atrial fibrillation with RVR earlier in hospitalization. Has been on amiodarone. Currently in sinus rhythm. Suspect A-fib was related to acute illness. Hold amiodarone for now. Monitor on telemetry. (10) Abnormal iron saturation: Elevated iron saturation, 78.2 raising concern for hemochromatosis, will need additional workup follow-up, genetic testing for HFE. Question of possible underlying liver disease. 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 Discussed with him and his daughter again and with the help of the biomedical equipment support specialist. (11) Dilated bowel: He is tolerating oral diet currently without issues. Bowel movements charted on 05/10. Reviewed CT abdomen pelvis, without evidence of obstruction found prior to extubation with difficulty initiating tube feeds. Some mild thickening of rectosigmoid colon. So far without any further vomiting. Trial of oral diet. (12) DKA (diabetic ketoacidosis): DKA resolved. Qualifiers: Diabetes mellitus type: type 2 (13) LBBB (left bundle branch block): Denies any chest pain. Does not have any EKG in the past to compare. Patient would benefit from further ACS workup as an outpatient once hemoglobin stable. Echocardiogram done during hospitalization showed EF of 50 to 55% with grade 1 diastolic dysfunction without regional wall motion abnormality. Appreciate A1c lipid panel results. Continue with baby aspirin for now. (14) Metabolic encephalopathy: Resolved. (15) Dysphagia: Postextubation. Most likely in setting of prolonged intubation. Resolved Apprecioate Speech evaluation and modified barium swallow. (16) Loss of sensation: Could be in setting of diabetic neuropathy. Appreciate lumbar CT, arterial and venous duplex of lower limbs. Start on gabapentin 100 mg twice daily. Appreciate vitamin B12 for the results. (17) Lactic acidosis: From DKA and sepsis (18) CKD (chronic kidney disease): (19) Goals of care, counseling/discussion: (20) Ulcer of foot with necrosis of muscle: Plan DVT prophylaxis: SCD, on aspirin Full code Protonix for PUD prophylaxis Regular carb consistent diet. Encouraged patient to ambulate or stand up with physical therapy help at the earliest to prevent decub ulcer, thromboembolism, pneumonia. Discussed it would also help in general healing of his wounds. Discussed while working with physical therapy during hospitalization he can have further education about safety awareness as he would not be able to put any weight on his right leg going forward for at least next few weeks to a month while the wound heals. Educated and counseled in detail with family at bedside. Patient verbalized understanding and does not want to try with physical therapy later in the day. Discharge planning: PT and OT evaluation pending. Patient will need PCP as an outpatient and possibly to follow-up with nephrology and endocrinology. Depending on the PT evaluation will plan for home with home health versus SNF placement. Case management alerted. Attestations 2 Medical Necessity Statement*: Requires further hospitalization for management of acute renal failure requiring hemodialysis, post amputation for necrotizing fasciitis while safe discharge planning is sought in a patient with severe type 2 diabetes mellitus. Diagnoses JALYN (acute kidney injury) N17.9 Uncontrolled type 2 diabetes mellitus Septic shock A41.9; R65.21 Status post amputation Z89.9 High anion gap metabolic acidosis E87.29 Gas gangrene A48.0 Acute hypoxic respiratory failure J96.01 Anemia D64.9 Atrial fibrillation with RVR I48.91 Abnormal iron saturation R79.0 Dilated bowel DKA (diabetic ketoacidosis) E11.10 Diabetes mellitus type: type 2 LBBB (left bundle branch block) I44.7 Metabolic encephalopathy G93.41 Dysphagia R13.10 Loss of sensation R20.0 Lactic acidosis E87.20 CKD (chronic kidney disease) N18.9 Goals of care, counseling/discussion Z71.89 Ulcer of foot with necrosis of muscle L97.503
[2024-05-15 11:36] LABS: Glucose Point of Care 386 mg/dL (70-110)
[2024-05-15] MEDS: heparin, porcine 1,000 unit/mL INJ 10 mL 1000 UNIT IV (11:39)
[2024-05-15] MEDS: heparin, porcine 1,000 unit/mL INJ 10 mL 10000 UNIT INTRACATH (11:39)
[2024-05-15 12:00] LABS: Glucose Point of Care 346 mg/dL (70-110)
[2024-05-15] MEDS: sodium bicarbonate 650 mg Tablet PO ×2 (14:07→20:36)
--- NOTE | 2024-05-15 16:00 | P.PN_ITS ---
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 He also has a wound to the left mid leg more stable appearing. His , daughter and son are bedside. Patient is conversive and alert. Surgical dressing right foot is clean and dry without strikethrough. Utilized approved translator/interpreter for the entire encounter. Vitals/I&O/Wt Last Vital Signs Temp 98.3 F 05/16/24 04:00 Pulse 79 05/16/24 04:00 Resp 17 05/16/24 04:00 BP 124/65 05/16/24 04:00 Pulse Ox 92 05/16/24 04:00 O2 Del Method Room Air 05/15/24 16:00 O2 Flow Rate 2 05/10/24 02:00 FiO2 30 05/09/24 12:23 05/15/24 05/15/24 05/16/24 14:59 22:59 06:59 Intake Total 1415 / 1415 1000 / 2415 200 / 2615 Output Total 3205 / 3205 150 / 3355 Balance 1415 / 1415 -2205 / -790 50 / -740 Weight last 48 hrs Weight 194 lb Weight 416 lb 0.196 oz Weight 202 lb 11.2 oz Weight 199 lb 8.293 oz Physical Exam 2 Narrative: Patient is unresponsive. The following is a focused bilateral lower extremity exam. VASCULAR: Dorsalis pedis diminished bilaterally. Posterior tibial arteries diminished. Delayed capillary refill to right great toe, cap refill less than 5 seconds to the left great toe. Pedal hair growth is diminished, there is mild hair growth at the tuft of the great toe bilaterally. NEUROLOGICAL: Protective sensation absent to light touch bilaterally. DERMATOLOGICAL: Amputation site at the right has dusky margin adjacent to medial cuneiform medially. Surgical dressings right foot are clean, dry and intact without strikethrough, no bleeding, no proximal pagetic streaking or cellulitis at the level of the dressing, right lower extremity. Wound exposed to myofascial layer left mid leg measures 2.8 cm x 2.1 cm x 0.3 cm. MUSCULOSKELETAL: Status post right transmetatarsal amputation. Urinary Catheter Management: Holbrook: Cath Placed During This Visit: yes Reason for Continuing Indwelling Catheter: Accurate Measurement of Urinary Output in Critically Ill Patients Urinary Catheter Date of Insertion: 05/03/24 Urinary Catheter Time of Insertion: 21:50 Data 05/16/24 05:04 05/16/24 05:04 A&P Assessment and plan (1) Severe sepsis: (2) DKA (diabetic ketoacidosis): Qualifiers: Diabetes mellitus type: type 2 (3) Diabetic peripheral neuropathy associated with type 2 diabetes mellitus: (4) Necrotizing fasciitis: (5) Gas gangrene: Plan 53-year-old uncontrolled diabetic male presents with unresponsiveness, DKA, sepsis and necrotizing fasciitis to the right foot. Patient states that he is set on limb salvage, he is against below-knee amputation at this time. Discussed with patient, his daughter, his and his son at length options regarding his right lower extremity consisting of below-knee amputation versus debridement of midfoot amputation and application of biologic graft with wound VAC. Expressed specific concerns regarding limb salvage of the remaining foot putting him at risk for physically deconditioning, pneumonia, UTI, DVT, reinfection, nonhealing due to comorbidities and at risk for BKA down the road versus BKA now in a more predictable recovery and likely more functional amputation level with quicker return to activity. Patient initially was considering BKA and then after further thought it expresses his desire to proceed with limb salvage, I informed the patient that should this go on to heal down the road that he would still require tendon balancing procedures with split tibialis anterior versus posterior tibial tendon to replace the everters of the foot but are now lost with removal of fifth metatarsal base and attachment of peroneal brevis. Patient states he is applying for insurance and that he is hopeful that he will be able to get assistive devices and treatment for recovery with limb salvage. Expresses understanding of the above risks. Utilized official translator/interpreter for the entire encounter. Discussed preoperative risk assessment with hospitalist, planning on debridement and application of biologic graft with wound VAC, scheduled for Sunday morning 05/16/2024. Will be n.p.o. at midnight 05/15/2024. Finalized planned surgical procedure which will be Choparts amputation with tendon balancing to the talus to help prevent plantarflexion and stump breakdown. Risks include pain, bleeding, numbness, infection, surgical site dehiscence, need for further surgical debridement, wound care, antibiotics, hospitalization, pneumonia, DVT, UTI, need for higher level of amputation such as below-knee amputation, stressed the risk for physical deconditioning as result of being nonweightbearing for long period time to the right lower extremity. Patient expresses understanding and wishes to proceed. Attestations 2 Medical Necessity Statement*: Requires continued antibiotics and further surgical debridement of right foot as well as graft application and wound VAC Coding Level of Care Code Acute Code for Chg Fwd Diagnoses Severe sepsis A41.9; R65.20 DKA (diabetic ketoacidosis) E11.10 Diabetes mellitus type: type 2 Diabetic peripheral neuropathy associated with type 2 diabetes mellitus E11.42 Necrotizing fasciitis M72.6 Gas gangrene A48.0
--- NOTE | 2024-05-15 16:07 | P.PN_ITS ---
Subjective 2 Subjective: denies any complaints Vitals/I&O/Wt Last Vital Signs Temp 97.9 F 05/15/24 11:35 Pulse 75 05/15/24 14:00 Resp 16 05/15/24 11:35 BP 111/61 05/15/24 11:35 Pulse Ox 92 05/15/24 11:35 O2 Del Method Room Air 05/15/24 11:35 O2 Flow Rate 2 05/10/24 02:00 FiO2 30 05/09/24 12:23 05/15/24 05/15/24 05/15/24 06:59 14:59 22:59 Intake Total 600 / 3080 1415 / 1415 Output Total 300 / 3800 Balance 300 / -720 1415 / 1415 Weight last 48 hrs Weight 91.943 kg Weight 90.5 kg Weight 87.271 kg Physical Exam 2 Urinary Catheter Management: Holbrook: Cath Placed During This Visit: yes Reason for Continuing Indwelling Catheter: Other Urinary Catheter Date of Insertion: 05/03/24 Urinary Catheter Time of Insertion: 21:50 Data 05/15/24 04:54 05/15/24 06:51 Coding Level of Care Code Acute Code for Chg Fwgerald
[2024-05-15 16:41] LABS: Glucose Point of Care 211 mg/dL (70-110)
[2024-05-15 20:27] LABS: Glucose Point of Care 167 mg/dL (70-110)
[2024-05-16] VITALS (27 sets, daily range): BP systolic 104–131; BP diastolic 49–73; PULSE 68–79; RESP 9–24; TEMP 36.6–37.5; O2SAT 90–98
[2024-05-16] MEDS: albumin 25 G/100 ML BAG 60 G IV ×3 (01:13→22:26)
[2024-05-16 05:23] LABS: Basophils % 0.6 %; Eosinophils # 0.1 10^3/uL (0.0-0.8); Hematocrit 22.8 % (37-53); Lymphocytes # 0.5 10^3/uL (0.8-4.8); Lymphocytes % 8.8 %; Mean Corpuscular HGB Conc 33.3 g/dL (30-55); Mean Platelet Volume 10.1 fL (7.4-10.4); Monocytes # 0.4 10^3/uL (0.2-0.9); Monocytes % 7.1 %; Neutrophils # 5.01 10^3/uL (1.8-7.7); Neutrophils % 81.2 %; Nucleated Red Blood Cells % 0 %; Platelet Count 219 10^3/cmm (157-399); Red Blood Count 2.62 10^6/uL (3.85-5.65); Red Cell Distribution Width 15.3 % (12.1-15.1); White Blood Count 6.17 10^3/uL (3.29-11.43)
[2024-05-16 05:38] LABS: Vancomycin Random 18.4 ug/mL (20.0-40.0)
[2024-05-16] MEDS: piperacillin-tazobactam 3.375 GM in sodium chloride 0.9% (plus) 50 ML IV ×2 (05:39→17:30)
[2024-05-16] MEDS: sucralfate 1 gm/10 mL Oral Liq UDC PO ×3 (05:39→20:33)
[2024-05-16 05:45] LABS: Alanine Aminotransferase < 5 U/L (0-41); Albumin Level 3.4 g/dL (3.5-5.2); Alkaline Phosphatase 64 U/L (40-130); Anion Gap 18.2 (5-19); Aspartate Amino Transferase 10 U/L (0-40); Blood Urea Nitrogen 28 mg/dL (6-20); Calcium 8.1 mg/dL (8.5-10.5); Carbon Dioxide 22 mmol/L (22-29); Chloride 101 mmol/L (98-107); Creatinine Clr Calc Pharmacy 44.7667; Globulin 1.9 g/dL (1.3-4.6); Glomerular Filtration Rate 21.8 mL/min (90-130); Glucose 186 mg/dL (65-115); Magnesium 1.6 mg/dL (1.7-2.3); Osmolality Calculated 296 mOsm/kg (285-295); Phosphorus 2.9 mg/dL (2.5-4.5); Potassium 3.2 mmol/L (3.5-5.1); Sodium 138 mmol/L (136-145); Total Bilirubin 0.7 mg/dL (0.15-1.2); Total Protein 5.3 g/dL (6.6-8.7)
[2024-05-16 06:27] LABS: Glucose Point of Care 204 mg/dL (70-110)
--- NOTE | 2024-05-16 09:34 | PC.OT ---
OT tx attempted at 0830. Pt declined services at this time indicating he was going to surgery later today. OTR to reassess pt after surgical procedure.
[2024-05-16] MEDS: sodium chloride 0.9% 1,000 ML 30 ML IV (09:57)
[2024-05-16 10:04] LABS: Glucose Point of Care 214 mg/dL (70-110)
--- NOTE | 2024-05-16 10:07 | ANES.PREANE2 ---
Pre-Anesthetic Assessment Height/Weight: Height 1.68 m Weight 87.997 kg Temp Pulse Resp BP Pulse Ox O2 Del Method O2 Flow Rate 98.5 F 78 17 124/67 94 Nasal Cannula 2 05/16/24 09:44 05/16/24 09:44 05/16/24 09:44 05/16/24 09:44 05/16/24 09:44 05/16/24 09:44 05/16/24 09:44 FiO2 30 05/09/24 12:23 Preop Diagnosis: Necrotizing fasciitis and osteomyelitis right foot Operation Date: 05/03/24 22:50 Proposed Procedures p Amputation Transmetatarsal(Right) - Don Huerta DPM Operation Date: 05/16/24 10:35 Proposed Procedures p Incision And Debridement vs Choparts amputation right foot with wound VAC(Right) - Don Huerta DPM Last intake: Intake Last Liquid Date 05/15/24 Last Liquid Time 20:00 Last Solid Date 05/15/24 Last Solid Time 22:00 Social No tobacco Exam alert, oriented x 3, clear to auscultation bilaterally and regular rate & rhythm Airway Submandibular: within normal limits Cervical ROM: within normal limits Mallampati: Class I Pulmonary None reported CV/HEM Atrial Fibrillation and Congestive Heart Failure echo with LVEF 50% Chronic Renal Failure Hepatic None reported Metabolic Diabetes Mellitus Neuropsych None reported Anesthetic Plan ASA status: 4 Anesthesia: MAC Risk of > 500 ml blood loss (7ml/kg in children): No Medications/Allergies Home Medications Medication Instructions Recorded Confirmed Last Taken Type insulin lispro 100 unit/mL 10 unit SUBCUT TID 05/05/24 05/05/24 Unknown History subcutaneous pen Allergies Allergy/AdvReac Type Severity Reaction Status Date / Time No Known Allergies Allergy Verified 05/03/24 22:13 Current Medications Generic Name Dose Route Start Last Admin Trade Name Lyleq PRN Reason Stop Dose Admin Aspirin 81 mg 05/14/24 09:00 05/15/24 08:16 Aspirin 81 Mg Ec Tablet PO 81 mg DAILY LAITH Administration Collagenase 1 applic 05/14/24 09:00 05/15/24 08:17 Collagenase Oint 30 Gm TOPICAL 1 applic DAILY LAITH Administration Ergocalciferol 50,000 unit 05/07/24 08:00 05/14/24 09:52 Ergocalciferol (Vitamin D2) 50,000 Unit Capsule PO 50,000 unit Q7D LAITH Administration Gabapentin 100 mg 05/12/24 18:00 05/15/24 19:06 Gabapentin 100 Mg Capsule PO 100 mg BID LAITH Administration Heparin Sodium (Porcine) 5,000 unit 05/11/24 14:30 05/13/24 02:40 Heparin 5,000 Unit/Ml Inj 1 Ml SUBCUT 5,000 unit Q12H LAITH Administration Dextrose 125 mls @ 750 mls/hr 05/06/24 19:04 05/07/24 08:21 D10w IV Infused PRN PRN Infusion Adult Acute Hypoglycemia Nursing Protocol Protocol Piperacillin Sod/Tazobactam 50 mls @ 12.5 mls/hr 05/08/24 18:00 05/16/24 05:39 Sod 3.375 gm/ Sodium Chloride IV 05/18/24 17:59 12.5 mls/hr Q12H LAITH Administration Albumin Human 25 g in 100 mls @ 60 mls/hr 05/12/24 17:30 05/16/24 03:14 Albumin IV Infused Q8H LAITH Infusion Sodium Chloride 1,000 mls @ 30 mls/hr 05/16/24 09:45 05/16/24 09:57 Sodium Chloride 0.9% IV 05/17/24 09:44 30 mls/hr .Q24H LAITH Administration Insulin Human Lispro 0 unit 05/12/24 18:00 05/15/24 20:36 Insulin Lispro 100 Unit/1 Ml SUBCUT 1 unit WM&BEDTIME LAITH Administration Protocol Lanolin 1 applic 05/04/24 13:21 05/09/24 04:45 Lanolin Oint 7 Gm TOPICAL 1 applic PRN PRN Administration DRYNESS Loperamide HCl 2 mg 05/13/24 17:19 05/14/24 09:53 Loperamide 2 Mg Capsule PO 2 mg QID PRN Administration DIARRHEA Midodrine 10 mg 05/11/24 15:00 05/15/24 20:36 Midodrine 5 Mg Tablet PO 10 mg TID LAITH Administration Ondansetron HCl 4 mg 05/03/24 22:36 05/09/24 14:02 Ondansetron 2 Mg/Ml Sdv 2 Ml IVP 4 mg Q6H PRN Administration NAUSEA AND VOMITING Pantoprazole Sodium 40 mg 05/12/24 18:00 07/11/24 19:07 Pantoprazole 40 Mg Sdv IVP 40 mg BIDWM [facility] Administration Sodium Bicarbonate 650 mg 05/12/24 09:00 05/15/24 20:36 Sodium Bicarbonate 650 Mg Tablet PO 650 mg TID [facility] [place] Administration Sucralfate 1 gm 05/12/24 21:00 05/16/24 05:39 Sucralfate 1 Gm/10 Ml Oral Liq Udc PO 1 gm AC&BEDTIME LAITH Administration Additional Medication Information Current Medications Acetaminophen (Acetaminophen 325 Mg Tablet) 650 mg PO Q6H PRN PRN Reason: MILD PAIN Aspirin (Aspirin 81 Mg Ec Tablet) 81 mg PO DAILY [facility] [place] Calcium Acetate (Calcium Acetate 667 Mg Capsule) 1,334 mg PO TIDWM [facility] [place] Last Admin: 05/13/24 17:06 Dose: 1,334 mg Collagenase (Collagenase Oint 30 Gm) 1 applic TOPICAL DAILY [facility] [place] Ergocalciferol (Ergocalciferol (Vitamin D2) 50,000 Unit Capsule) 50,000 unit PO Q7D [facility] [place] Last Admin: 05/07/24 12:29 Dose: Not Given Furosemide (Furosemide 10 Mg/Ml Sdv 4ml) 40 mg IVP DAILY [facility] [place] Last Admin: 05/14/24 06:25 Dose: 40 mg Gabapentin (Gabapentin 100 Mg Capsule) 100 mg PO BID [facility] [place] Last Admin: 05/13/24 17:06 Dose: 100 mg Glucagon (Glucagon 1 Mg/Ml Kit 1 Ml) 1 mg IM ONCE PRN; Protocol PRN Reason: Adult Acute Hypoglycemia Nursing Prot. Heparin Sodium (Porcine) (Heparin 5,000 Unit/Ml Inj 1 Ml) 5,000 unit SUBCUT Q12H [facility] [place] Last Admin: 05/13/24 02:40 Dose: 5,000 unit Dextrose (D5w) 500 mls @ 0 mls/hr IV ONCE PRN; Protocol PRN Reason: Adult Acute Hypoglycemia Prot Dextrose (D10w) 125 mls @ 750 mls/hr IV PRN PRN; Protocol PRN Reason: Adult Acute Hypoglycemia Nursing Protocol Last Infusion: 05/07/24 08:21 Dose: Infused Dextrose (D10w) 250 mls @ 1,000 mls/hr IV PRN PRN; Protocol PRN Reason: Adult Acute Hypoglycemia Nursing Protocol Piperacillin Sod/Tazobactam (Sod 3.375 gm/ Sodium Chloride) 50 mls @ 12.5 mls/hr IV Q12H [facility] [place] Stop: 05/18/24 17:59 Last Admin: 05/14/24 06:25 Dose: 12.5 mls/hr Albumin Human (Albumin) 25 g in 100 mls @ 60 mls/hr IV Q8H [facility] [place] Last Infusion: 05/14/24 03:32 Dose: Infused Vancomycin HCl 1,000 mg/ (Sodium Chloride) 250 mls @ 250 mls/hr IV Q72H LAITH Insulin Glargine (Insulin Glargine 100 Units/1 Ml) 3 unit SUBCUT DAILY [facility] [place] Last Admin: 05/13/24 09:30 Dose: 3 unit Insulin Human Lispro (Insulin Lispro 100 Unit/1 Ml) 0 unit SUBCUT WM&BEDTIME LAITH; Protocol Last Admin: 05/13/24 21:44 Dose: 2 unit Lanolin (Lanolin Oint 7 Gm) 1 applic TOPICAL PRN PRN PRN Reason: DRYNESS Last Admin: 05/09/24 04:45 Dose: 1 applic Loperamide HCl (Loperamide 2 Mg Capsule) 2 mg PO QID PRN PRN Reason: DIARRHEA Midodrine (Midodrine 5 Mg Tablet) 10 mg PO TID [facility] [place] Last Admin: 05/13/24 21:44 Dose: 10 mg Ondansetron HCl (Ondansetron 2 Mg/Ml Sdv 2 Ml) 4 mg IVP Q6H PRN PRN Reason: NAUSEA AND VOMITING Last Admin: 05/09/24 14:02 Dose: 4 mg Pantoprazole Sodium (Pantoprazole 40 Mg Sdv) 40 mg IVP BIDWM [facility] [place] Last Admin: 05/13/24 17:06 Dose: 40 mg Sodium Bicarbonate (Sodium Bicarbonate 650 Mg Tablet) 650 mg PO TID [facility] [place] Last Admin: 05/13/24 21:44 Dose: 650 mg Sucralfate (Sucralfate 1 Gm/10 Ml Oral Liq Udc) 1 gm PO AC&BEDTIME LAITH Last Admin: 05/14/24 06:25 Dose: 1 gm PFSH Anesthesia Medical History (Updated 05/14/24 @ 13:04 by Daniel Vaughan MD) CKD (chronic kidney disease) Uncontrolled type 2 diabetes mellitus Surgical History (Updated 05/14/24 @ 12:44 by Daniel Vaughan MD) Status post amputation Data Anesthesia 05/16/24 05:04 05/16/24 05:04 Short CBC 05/15/24 05/16/24 Range/Units 04:54 05:04 WBC 5.90 6.17 (3.29-11.43) 10^3/uL Hgb 7.90 L 7.60 L (11.27-16.99) g/dL Hct 22.9 L 22.8 L (37-53) % MCV 86.7 87.0 (82-101) fl Plt Count 278 219 (157-399) 10^3/cmm Neut % (Auto) 81.9 81.2 % Neut # (Auto) 4.83 5.01 (1.8-7.7) 10^3/uL BMP 05/15/24 05/15/24 05/16/24 04:54 06:51 05:04 Sodium Cancelled 137 138 Potassium Cancelled 3.3 L 3.2 L Chloride Cancelled 99 101 Carbon Dioxide Cancelled 21 L 22 BUN Cancelled 44 H 28 H Creatinine Cancelled 3.9 H 3.0 H Glucose Cancelled 391 H 186 H Calcium Cancelled 8.0 L 8.1 L Liver Function 05/15/24 05/15/24 05/16/24 Range/Units 04:54 06:51 05:04 Total Bilirubin Cancelled 0.6 0.7 AST Cancelled 8 10 ALT Cancelled < 5 < 5 Alkaline Phosphatase Cancelled 73 64 Albumin Cancelled 3.1 L 3.4 L Cardiac Studies: Echocardiogram 05/06/24
--- NOTE | 2024-05-16 10:59 | P.HPUD_ITS ---
Surgery/Procedure H&P Update DATE OF PROCEDURE: May 16, 2024 DATE H&P PERFORMED: 05/14/24 H&P UPDATE INFORMATION: I have reviewed H&P completed within last 30 days, I have examined patient prior to procedure, No changes to prior documentation and H&P is in [facility] EMR on date indicated CHANGES TO PREVIOUS DOCUMENTATION: No changes PREOP DIAGNOSIS: Necrotizing fasciitis and osteomyelitis right foot PLANNED PROCEDURE: Operation Date: 05/03/24 22:50 Proposed Procedures p Amputation Transmetatarsal(Right) - Don Huerta DPM Operation Date: 05/16/24 10:35 Proposed Procedures p Incision And Debridement vs Choparts amputation right foot with wound VAC(Right) - Don Huerta DPM
[2024-05-16] MEDS: lidocaine 2% INJ 20 mL 15 ML INJECTION (11:10)
[2024-05-16] MEDS: BUPivacaine 0.5% INJ 30 mL 15 ML INJECTION (11:10)
--- NOTE | 2024-05-16 12:08 | P.BOP_ITS ---
Date of Procedure: 01/18/24 Surgeon: Don Huerta DPM Groundskeeping Maintenance(s): RAJAT Procedure(s) performed: Right Choparts amputation and deep tendon transfer with application of biologic graft and wound VAC. Findings of the procedure(s): None Estimated blood loss: 250 mL Specimen(s) removed: None Post-operative diagnosis: Necrotizing fasciitis and osteomyelitis right foot Local MAC, 26-minute tourniquet time, no complications with anesthesia or surgery
--- NOTE | 2024-05-16 12:09 | P.OP_ITS ---
Operative Report Date of procedure: May 16, 2024 Pre-op diagnosis: Necrotizing fasciitis right foot Gas gangrene right foot Acute osteomyelitis right forefoot Uncontrolled diabetes mellitus with peripheral polyneuropathy Post-op diagnosis: Same Post-op findings: Viable margins at Choparts amputation Procedure done: Modified Choparts amputation right foot. CPT code 77668 Deep tendon transfer right foot with transfer of tibialis anterior tendon to talus. CPT code 22196 Deep tendon transfer right foot with transfer of extensor hallucis longus tendon to talus. CPT code 06670 Implants: #2 FiberWire Skin stable Biologic graft see intraoperative documentation for lot number Specimens removed/disposition: None Pathology: None Surgeon: Don Huerta DPM Dolly Operator: RAJAT Estimated blood loss: 250ml 26 IV fluids: see intraoperative documentation Urine output: None Complications: None Brief History: 53-year-old uncontrolled diabetic male presents with unresponsiveness, DKA, sepsis and necrotizing fasciitis to the right foot. Patient states that he is set on limb salvage, he is against below-knee amputation at this time. Discussed with patient, his daughter, his and his son at length options regarding his right lower extremity consisting of below-knee amputation versus debridement of midfoot amputation and application of biologic graft with wound VAC. Expressed specific concerns regarding limb salvage of the remaining foot putting him at risk for physically deconditioning, pneumonia, UTI, DVT, reinfection, nonhealing due to comorbidities and at risk for BKA down the road versus BKA now in a more predictable recovery and likely more functional amputation level with quicker return to activity. Patient initially was considering BKA and then after further thought it expresses his desire to procee d with limb salvage, I informed the patient that should this go on to heal down the road that he would still require tendon balancing procedures with split tibialis anterior versus posterior tibial tendon to replace the everters of the foot but are now lost with removal of fifth metatarsal base and attachment of peroneal brevis. Patient states he is applying for insurance and that he is hopeful that he will be able to get assistive devices and treatment for recovery with limb salvage. Expresses understanding of the above risks. Utilized official vision rehabilitation therapist for the entire encounter. Discussed preoperative risk assessment with hospitalist, planning on debridement and application of biologic graft with wound VAC, scheduled for Sunday05/16/2024. Will be n.p.o. at midnight 05/15/2024. Finalized planned surgical procedure which will be Choparts amputation with tendon balancing to the talus to help prevent plantarflexion and stump breakdown. Risks include pain, bleeding, numbness, infection, surgical site dehiscence, need for further surgical debridement, wound care, antibiotics, hospitalization, pneumonia, DVT, UTI, need for higher level of amputation such as below-knee amputation, stressed the risk for physical deconditioning as result of being nonweightbearing for long period time to the right lower extremity. Patient expresses understanding and wishes to proceed. Official vision rehabilitation therapist utilized for this entire encounter, all patient's questions were answered to his satisfaction and expressed understanding and wants to proceed. vision rehabilitation therapist #[id number] Procedure: Under mild sedation patient was brought to the operating room and remained on the gurney in supine position. A timeout was performed. Anesthesia was then administered by the anesthesia service. Local anesthesia injected by myself consisting of 20 cc of 2% lidocaine plain and a right ankle block fashion 5 point block was performed. Well-padded pneumatic tourniquet applied to the right ankle. Right lower extremity was scrubbed, prepped and draped utilizing normal aseptic technique. Right ankle tourniquet inflated to 250 mmHg. Attention was directed to the right forefoot amputation which was at the Lisfranc joint and cuneiforms were dusky and dark and appeared to be nonviable especially medial cuneiform. This necessitated a higher level of amputation for more viable margin. As agreed preoperatively with patient and informed consent obtained a Choparts amputation was performed through the talar navicular and travis caneocuboid joint this was performed sharply with a #10 blade and navicular, cuneiforms and cuboid were passed from the operative field to the back table. Skin and deep tissue were debrided of all devitalized tissue sharply with pickups and a #10 blade down to healthy margin. No remaining devitalized tissue was appreciated. The incision was irrigated with copious amounts of sterile skin solution. Attention was directed to the extensor hallucis longus tendon And tibialis anterior tendon which were passed through a 5 mm drill hole through the talar neck from dorsal to plantar and secured with #2 FiberWire with excellent apposition and resting tension and excellent plus strength appreciated intraoperatively. The incision was irrigated with copious amounts of sterile skin solution. Application of a biologic graft provided by [employer], see Lot number with intraoperative documentation, this was secured at the margin with skin abraham and then dressed with Adaptic and a wound VAC dressing with excellent seal set at 125 mm of negative pressure continuous. Tourniquet was deflated and a prompt hyperemic response is noted to the distal amputation site. Patient tolerated the procedure and anesthesia well. Additional dressing consisting of 4 x 4 gauze, Kerlix and Bautista wrap was applied outside of the wound VAC dressing. Patient was transferred to the PACU with vital signs stable and vascular status intact. I was called to the PACU due to strikethrough bleeding at the dressing this was reinforced., No pulsatile bleeding appreciated.
--- NOTE | 2024-05-16 13:38 | ANE.PACU2 ---
Inpatient post-anesthesia follow up: Airway intact: Yes Vital signs: Temperature 98.4 F Pulse Rate 71 Respiratory Rate 12 Blood Pressure 119/62 Pulse Oximetry 97 Oxygen Delivery Me thod Nasal Cannula Oxygen Flow Rate 4 Fraction of Inspir ed Oxygen 30 Hydration adequate: Yes Nausea and vomiting: No Pain level: controlled Mental status: Baseline Additional Comments: no apparent anesthetic complications noted
[2024-05-16 13:40] LABS: CENTROMERE B ANTIBODY <1.0 NEG AI (<1.0 NEG); JO-1 ANTIBODY <1.0 NEG AI (<1.0 NEG); RNP ANTIBODY <1.0 NEG AI (<1.0 NEG); SCL-70 ANTIBODY <1.0 NEG AI (<1.0 NEG); SJOGREN'S ANTIBODY (SS-A) <1.0 NEG AI (<1.0 NEG); SM ANTIBODY <1.0 NEG AI (<1.0 NEG); SS-B <1.0 NEG AI (<1.0 NEG)
[2024-05-16 14:17] LABS: Basophils % 0.7 %; Eosinophils # 0.1 10^3/uL (0.0-0.8); Eosinophils % 1.4 %; Lymphocytes # 0.4 10^3/uL (0.8-4.8); Lymphocytes % 9.3 %; Mean Corpuscular HGB Conc 32.6 g/dL (30-55); Mean Corpuscular Hemoglobin 29.2 pg (27-33); Mean Corpuscular Volume 89.4 fl (82-101); Mean Platelet Volume 10.3 fL (7.4-10.4); Monocytes # 0.3 10^3/uL (0.2-0.9); Monocytes % 7.2 %; Neutrophils # 3.45 10^3/uL (1.8-7.7); Neutrophils % 80.2 %; Nucleated Red Blood Cells % 0 %; Platelet Count 200 10^3/cmm (157-399); Red Blood Count 2.16 10^6/uL (3.85-5.65); Red Cell Distribution Width 15.9 % (12.1-15.1)
[2024-05-16 14:29] LABS: Hematocrit 19.3 % (37-53)
[2024-05-16 14:50] LABS: COMPLEMENT, TOTAL (CH50) >60 U/mL (31-60)
[2024-05-16] MEDS: insulin glargine 100 units/1 mL 8 UNIT SUBCUT (15:02)
[2024-05-16] MEDS: sodium bicarbonate 650 mg Tablet PO ×2 (15:03→20:33)
[2024-05-16] MEDS: midodrine 5 mg TABLET 10 MG PO ×2 (15:03→20:32)
[2024-05-16 15:09] LABS: ANA SCREEN, IFA NEGATIVE (NEGATIVE)
--- NOTE | 2024-05-16 15:25 | PM.PN ---
Subjective Subjective: Patient seen today morning with family and nursing at bedside. Conversation through elevator operator number [id number]. Patient seen today morning postoperatively. Patient tolerated the procedure well. Had estimated blood loss of 250 cc. Bandage again at bedside soaked. Patient is awake and alert. Denies any nausea, vomiting, headache. Vitals/I&O/Wt Last Vital Signs Temp 98.4 F 05/16/24 12:36 Pulse 71 05/16/24 12:41 Resp 12 05/16/24 12:41 BP 119/62 05/16/24 12:41 Pulse Ox 97 05/16/24 12:41 O2 Del Method Nasal Cannula 05/16/24 12:41 O2 Flow Rate 4 05/16/24 12:41 FiO2 30 05/09/24 12:23 05/16/24 05/16/24 05/16/24 06:59 14:59 22:59 Intake Total 200 / 2615 50 / 50 209.5 / 259.5 Output Total 150 / 3355 550 / 550 Balance 50 / -740 -500 / -500 209.5 / -290.5 Weight last 48 hrs Weight 87.997 kg Weight 188.7 kg Weight 91.943 kg Weight 90.5 kg Physical Exam Narrative: Accompanied by his and daughter sons at bedside. Const: COMMON NORMALS: negative for alert GENERAL APPEARANCE: patient mechanically ventilated; not cooperative ORIENTATION/CONSCIOUSNESS: Yes awake OTHER: Awake, alert minimally slowed responses, does not answer every question, sometimes requiring confirmation, but answers sound appropriate. HENMT: COMMON NORMALS: normocephalic, EAC's normal, Normal external nose present and moist oral mucous membranes HEAD & SCALP: normocephalic NOSE: Normal external nose present EXTERNAL AUDITORY CANAL: EAC's normal Chest: CHEST: Yes Symmetrical chest wall rise Resp: COMMON NORMALS: clear to auscultation bilaterally AUSCULTATION: clear to auscultation bilaterally Cardio: COMMON NORMALS: regular rate, regular rhythm and No murmurs present (Cardio) RATE: regular rate RHYTHM: regular rhythm GI: COMMON NORMALS: Normal to inspection, nondistended, normoactive bowel sounds present, Soft to palpation and non-tender PALPATION: Yes Soft to palpation Extremity: COMMON NORMALS: no pedal edema NARRATIVE EXTREMITY EXAM: Distal RLE status post TMA, Wound appears dry, clean, granulation tissue. Without any large areas of necrosis. No purulent discharge. No proximal erythema, edema, cyanosis or mottling, legs appropriately warm bilaterally. GENERAL: Yes edema (upper 2+ arms and legs) OTHER: Ulceration on medial L calf mid-LE with eschar base, no drainage, no surrounding erythema. Neuro: COMMON NORMALS: moves all extremities SENSORIUM/ORIENTATION: No alert Skin: COMMON NORMALS: no wounds RASHES: no rashes Urinary Catheter Management: Holbrook: Cath Placed During This Visit: yes Reason for Continuing Indwelling Catheter: Accurate Measurement of Urinary Output in Critically Ill Patients Urinary Catheter Date of Insertion: 05/03/24 Urinary Catheter Time of Insertion: 21:50 Data 05/16/24 14:06 05/16/24 05:04 A&P Assessment and plan (1) JALYN (acute kidney injury): Acute renal failure most likely in setting of septic shock on admission along with possibility of baseline diabetic nephropathy. Cannot rule out chronic kidney disease. Will try to get documents from patient's primary care provider possibly in [place]. Appreciate nephrology recommendations. Monitor urine output. Patient continues to have worsening of metabolic acidosis. pH on ABG today showed 7.27. Started on bicarb drip as per nephrology recommendations. Patient blood pressures have been stable. SPEP normal. Given persistent metabolic acidosis, persistent creatinine over 4 had a long detailed discussion with patient, patient's son at bedside with dry room operator line. We discussed unfortunately even after maximum management with oral bicarb even though patient's urine output is appropriate he continues to remain metabolic acidotic which can cause him to have poor healing of his wounds, can cause worsening or multiorgan dysfunction. We discussed patient most likely requires dialysis going further but for now we cannot be sure of long-term versus short-term as he do not have patient's baseline creatinine but is possible that he has underlying nephropathy. After detailed discussion patient is agreeable for temporary dialysis for now. He would like to see if his renal functions stabilize after a few sessions of dialysis before going for permanent dialysis. Discussed in detail with nephrology team. Temporal dialysis catheter placed on 05/14. Dialysis as per nephrology team. Metabolic acidosis seems to be resolving. Urine output continues to improve. Stop IV sodium bicarb infusion. Restart oral sodium bicarb supplementation. Most likely plan will be to continue dialysis for next few sessions and then monitor renal functions of dialysis over the weekend and then plan accordingly. (2) Uncontrolled type 2 diabetes mellitus: Continue Lantus, sliding scale insulin. Insulin requirements increasing. Increase Lantus to 8 units daily. Consistent carbohydrate diet. Increase dose of sliding scale or Lantus further as per daily insulin requirements. A1c found to be more than 18 on admission. Though patient has not required high doses of insulin since DKA resolved. Cannot rule out in setting of hemoglobinopathy with concerns for liver dysfunction and anemia as above. Repeat A1c of 17. (3) Septic shock: Present on admission. Resolved Keep mean artery pressure 65. Most likely in setting of hypoalbuminemia currently. Midodrine 10 mg oral 3 times daily. C/w IV albumin every 8 hourly. Sputum culture growing Pseudomonas, Staphylococcus and Zuleika. Wound culture growing Prevotella. Blood cultures so far negative. Leukocytosis has resolved. Patient is post TMA for possible necrotizing fasciitis of right foot. Dressing as per podiatry team. Continue with IV antibiotics for overall 10-day course from date of amputation. Monitor Vanco trough levels. Currently vancomycin on hold. Appreciate Vanco trough levels. Restart vancomycin accordingly. (4) Status post amputation: (5) High anion gap metabolic acidosis: (6) Gas gangrene: S/p TMA. Appreciate podiatry recommendations. Patient had an extensive discussion with podiatry team about BKA versus skin grafting. Patient wants to go ahead with skin grafting and has declined BKA. Possible plan for skin grafting within next 24 to 48 hours depending on availability of the OR materials. PT/OT/speech evaluation. Antibiotics as above. Wound care dressings as per surgical team. (7) Acute hypoxic respiratory failure: Resolved. Extubated on 05/10. Currently on room air. Aggressive pulmonary toilet with incentive spirometry and flutter valve. Keep oxygen saturation over 90%. (8) Anemia: Hemoglobin stable after 2 units of blood transfusion. Appreciate iron panel. If continues to trend down will consult surgery for possible EGD. Patient did have positive stool for occult blood. Continue with Protonix twice daily and Carafate ACHS. (9) Atrial fibrillation with RVR: Atrial fibrillation with RVR earlier in hospitalization. Has been on amiodarone. Currently in sinus rhythm. Suspect A-fib was related to acute illness. Hold amiodarone for now. Monitor on telemetry. (10) Abnormal iron saturation: Elevated iron saturation, 78.2 raising concern for hemochromatosis, will need additional workup follow-up, genetic testing for HFE. Question of possible underlying liver disease. 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 Discussed with him and his daughter again and with the help of the resident medical officer. (11) Dilated bowel: He is tolerating oral diet currently without issues. Bowel movements charted on 05/10. Reviewed CT abdomen pelvis, without evidence of obstruction found prior to extubation with difficulty initiating tube feeds. Some mild thickening of rectosigmoid colon. So far without any further vomiting. Trial of oral diet. (12) DKA (diabetic ketoacidosis): DKA resolved. Qualifiers: Diabetes mellitus type: type 2 (13) LBBB (left bundle branch block): Denies any chest pain. Does not have any EKG in the past to compare. Patient would benefit from further ACS workup as an outpatient once hemoglobin stable. Echocardiogram done during hospitalization showed EF of 50 to 55% with grade 1 diastolic dysfunction without regional wall motion abnormality. Appreciate A1c lipid panel results. Continue with baby aspirin for now. (14) Metabolic encephalopathy: Resolved. (15) Dysphagia: Postextubation. Most likely in setting of prolonged intubation. Resolved Apprecioate Speech evaluation and modified barium swallow. (16) Loss of sensation: Could be in setting of diabetic neuropathy. Appreciate lumbar CT, arterial and venous duplex of lower limbs. Appreciate vitamin B12 for the results. (17) Lactic acidosis: From DKA and sepsis (18) CKD (chronic kidney disease): (19) Goals of care, counseling/discussion: (20) Ulcer of foot with necrosis of muscle: Plan DVT prophylaxis: SCD, on aspirin Full code Protonix for PUD prophylaxis Regular carb consistent diet. Plan for the day: Underwent skin grafting and tendon balancing surgery today. Wound VAC in place. Patient had significant blood loss. Repeat CBC. 2 units of PRBC if hemoglobin below 7. IV Lasix 40 mg between 2 units. Hold heparin. Hold off on dialysis as per nephrology recommendations today. Most likely plan will be to monitor for metabolic acidosis over the weekend and plan for repeat dialysis accordingly. Replace 1 mg of IV magnesium, 40 mg of oral potassium. Continue with current insulin sliding scale and Lantus. Depending on the blood sugars and insulin requirement in next 24 hours will go higher on the Lantus within next 24 hours. Albumin level 3.4. Continue with IV albumin for 1 more day. Continue with PT and OT. Continue with wound care as per podiatry team. Continue with IV antibiotics till 05/18. Patient probably did not get vancomycin postdialysis yesterday. Will confirm with pharmacy and give a dose today. Continue to monitor Vanco random levels every morning. Discharge planning: PT and OT evaluation pending. Patient will need PCP as an outpatient and possibly to follow-up with nephrology and endocrinology. Depending on the PT evaluation will plan for home with home health versus SNF placement. Case management alerted. Attestations Medical Necessity Statement*: Requires hospitalization for postoperative care for skin graft in a patient who underwent amputation for necrotizing fasciitis, JALYN on CKD on new hemodialysis, uncontrolled type 2 diabetes mellitus, anemia requiring blood transfusion Diagnoses JALYN (acute kidney injury) N17.9 Uncontrolled type 2 diabetes mellitus Septic shock A41.9; R65.21 Status post amputation Z89.9 High anion gap metabolic acidosis E87.29 Gas gangrene A48.0 Acute hypoxic respiratory failure J96.01 Anemia D64.9 Atrial fibrillation with RVR I48.91 Abnormal iron saturation R79.0 Dilated bowel DKA (diabetic ketoacidosis) E11.10 Diabetes mellitus type: type 2 LBBB (left bundle branch block) I44.7 Metabolic encephalopathy G93.41 Dysphagia R13.10 Loss of sensation R20.0 Lactic acidosis E87.20 CKD (chronic kidney disease) N18.9 Goals of care, counseling/discussion Z71.89 Ulcer of foot with necrosis of muscle L97.503
[2024-05-16 15:44] LABS: COMPLEMENT COMPONENT C3C 86 mg/dL (82-185); COMPLEMENT COMPONENT C4C 21 mg/dL (15-53)
[2024-05-16] MEDS: collagenase oint 30 gm 1 APPLIC TOPICAL (16:13)
[2024-05-16 16:43] LABS: Glucose Point of Care 324 mg/dL (70-110)
[2024-05-16] MEDS: magnesium sulfate premix 1 GM/100 ML PIGGYBACK IV (17:31)
[2024-05-16] MEDS: vancomycin 1,000 MG in sodium chloride 0.9% 250 ML 250 MG IV (17:31)
[2024-05-16] MEDS: pantoprazole 40 mg SDV IVP (17:31)
[2024-05-16] MEDS: insulin lispro 100 unit/1 mL SUBCUT ×2 (17:37→22:21)
[2024-05-16] MEDS: potassium chloride ER 20 mEq Tablet 40 MEQ PO (17:39)
--- NOTE | 2024-05-16 18:51 | P.PN_ITS ---
Subjective 2 Subjective: no new complaints Medications: Reviewed: Yes Vitals/I&O/Wt Last Vital Signs Temp 98.9 F 05/16/24 17:37 Pulse 73 05/16/24 17:37 Resp 18 05/16/24 17:37 BP 127/73 05/16/24 17:37 Pulse Ox 96 05/16/24 17:37 O2 Del Method Nasal Cannula 05/16/24 12:41 O2 Flow Rate 2 05/16/24 13:33 FiO2 30 05/09/24 12:23 05/16/24 05/16/24 05/16/24 06:59 14:59 22:59 Intake Total 200 / 2615 50 / 50 309.5 / 359.5 Output Total 150 / 3355 550 / 550 Balance 50 / -740 -500 / -500 309.5 / -190.5 Weight last 48 hrs Weight 87.997 kg Weight 188.7 kg Weight 91.943 kg Physical Exam 2 Narrative: The patient was seen with the aid of an A/V device. Examined by nurse. This is a telehealth visit. He is off of pressors. Vital signs noted and stable. HEENT is normocephalic atraumatic neck is supple Lungs have good air movement bilaterally. Heart sinus rhythm, positive systolic murmur. Abdomen soft positive bowel sounds. Extremities poor pulses and status post right TMA. 2+ edema in his arms and legs -improving . Neuro = awake, alert oriented follows commands. moves, but is weak. Urinary Catheter Management: Holbrook: Cath Placed During This Visit: yes Reason for Continuing Indwelling Catheter: Accurate Measurement of Urinary Output in Critically Ill Patients Urinary Catheter Date of Insertion: 05/03/24 Urinary Catheter Time of Insertion: 21:50 Data 05/16/24 14:06 05/16/24 05:04 A&P Assessment and plan (1) JALYN (acute kidney injury): 53-year-old gentleman 1. DKA improved with fluids and insulin. 2. Septic foot status post TMA. Check vancomycin level keep trough under 20. Please dose Zosyn for GFR under 20. 3. Renal insufficiency: . Creatinine on admission was 2.8 Urinalysis on admission had 4+ glucose 2+ ketones. Of note negative blood and only trace protein. This is atypical for diabetic nephropathy. Renal ultrasound right kidney 11 cm left kidney 11.6 cm. Major question is if this is acute versus chronic kidney disease. Renal ultrasound appears normal. -Complements reviewed. C3 is low normal C4. Negative urine for eosinophils. Monitor I's and O's. Serologies are pending, those that have returned are negative - Suspect pt has underlying CKD --> Now started HD via temp HD catheter, s/p 2 sessions , -hold off HD over weekend and watch fpr possible recovery -Renal dose medications. 4. Anemia likely multifactorial from severe infection, CKD. He has a high iron saturation. neg serum protein electrophoresis - s/p transfusions and s/p Epo 6. Status post TMA for possible necrotizing fasciitis of right foot. 7. A-fib now in normal sinus rhythm. Patient has history of left bundle branch block. 8. PTH of 172 repeat in 4 weeks Patient was seen and examined with nurse using A/V equipment. Telehealth visit. Case discussed in detail with the patient, his family, Dr Hensley and the nurse. Plan See above. Attestations 2 Medical Necessity Statement*: per medicine Coding Level of Care Code Acute Code for [facility] Fwd Diagnoses JALYN (acute kidney injury) N17.9
[2024-05-16] MEDS: FUROsemide 10 mg/mL SDV 4mL 40 MG IVP (19:32)
[2024-05-16 20:45] LABS: Glucose Point of Care 192 mg/dL (70-110)
[2024-05-16 23:45] LABS: Basophils % 0.4 %; Eosinophils % 0.4 %; Hematocrit 22.4 % (37-53); Lymphocytes # 0.5 10^3/uL (0.8-4.8); Lymphocytes % 5.5 %; Mean Corpuscular HGB Conc 33.5 g/dL (30-55); Mean Corpuscular Hemoglobin 29.3 pg (27-33); Mean Corpuscular Volume 87.5 fl (82-101); Mean Platelet Volume 10.2 fL (7.4-10.4); Monocytes # 0.5 10^3/uL (0.2-0.9); Monocytes % 5.3 %; Neutrophils # 7.95 10^3/uL (1.8-7.7); Neutrophils % 87.5 %; Nucleated Red Blood Cells % 0 %; Platelet Count 170 10^3/cmm (157-399); Red Blood Count 2.56 10^6/uL (3.85-5.65); Red Cell Distribution Width 14.9 % (12.1-15.1); White Blood Count 9.09 10^3/uL (3.29-11.43)
[2024-05-17] VITALS (10 sets, daily range): BP systolic 98–124; BP diastolic 38–68; PULSE 72–86; RESP 13–16; TEMP 36.9–38; O2SAT 91–94
[2024-05-17 06:07] LABS: Basophils % 0.3 %; Eosinophils % 0.4 %; Hematocrit 22.5 % (37-53); Lymphocytes # 0.6 10^3/uL (0.8-4.8); Lymphocytes % 6.6 %; Mean Corpuscular HGB Conc 34.2 g/dL (30-55); Mean Corpuscular Hemoglobin 29.7 pg (27-33); Mean Corpuscular Volume 86.9 fl (82-101); Mean Platelet Volume 10.1 fL (7.4-10.4); Monocytes # 0.5 10^3/uL (0.2-0.9); Monocytes % 6.1 %; Neutrophils # 7.66 10^3/uL (1.8-7.7); Neutrophils % 85.9 %; Nucleated Red Blood Cells % 0 %; Platelet Count 167 10^3/cmm (157-399); Red Blood Count 2.59 10^6/uL (3.85-5.65); Red Cell Distribution Width 14.9 % (12.1-15.1); White Blood Count 8.92 10^3/uL (3.29-11.43)
[2024-05-17] MEDS: sucralfate 1 gm/10 mL Oral Liq UDC PO ×4 (06:09→20:19)
[2024-05-17] MEDS: piperacillin-tazobactam 3.375 GM in sodium chloride 0.9% (plus) 50 ML IV ×2 (06:09→17:21)
[2024-05-17] MEDS: albumin 25 G/100 ML BAG 60 G IV ×3 (06:10→21:55)
[2024-05-17 06:26] LABS: Vancomycin Random 21.9 ug/mL (20.0-40.0)
[2024-05-17 06:29] LABS: Alanine Aminotransferase < 5 U/L (0-41); Albumin Level 3.3 g/dL (3.5-5.2); Alkaline Phosphatase 51 U/L (40-130); Anion Gap 14.3 (5-19); Aspartate Amino Transferase 9 U/L (0-40); Blood Urea Nitrogen 28 mg/dL (6-20); Calcium 8.1 mg/dL (8.5-10.5); Carbon Dioxide 23 mmol/L (22-29); Chloride 104 mmol/L (98-107); Creatinine Clr Calc Pharmacy 25.5135; Globulin 1.7 g/dL (1.3-4.6); Glomerular Filtration Rate 18.9 mL/min (90-130); Glucose 122 mg/dL (65-115); Osmolality Calculated 293 mOsm/kg (285-295); Potassium 3.3 mmol/L (3.5-5.1); Sodium 138 mmol/L (136-145); Total Bilirubin 0.6 mg/dL (0.15-1.2)
--- NOTE | 2024-05-17 07:49 | PM.PN ---
Subjective Subjective: no new complaints Medications: Reviewed: Yes Vitals/I&O/Wt Last Vital Signs Temp 99.7 F H 05/17/24 04:50 Pulse 73 05/17/24 05:31 Resp 15 05/17/24 03:59 BP 124/62 05/17/24 03:59 Pulse Ox 92 05/17/24 03:59 O2 Del Method Nasal Cannula 05/17/24 03:59 O2 Flow Rate 2 05/16/24 19:48 FiO2 30 05/09/24 12:23 05/16/24 05/17/24 05/17/24 22:59 06:59 14:59 Intake Total 1299.5 / 1349.5 100 / 1449.5 Output Total 200 / 750 1450 / 2200 Balance 1099.5 / 599.5 -1350 / -750.5 Weight last 48 hrs Weight 87.997 kg Weight 188.7 kg Physical Exam Narrative: The patient was seen with the aid of an A/V device. Examined by nurse. This is a telehealth visit. He is off of pressors. Vital signs noted and stable. HEENT is normocephalic atraumatic neck is supple Lungs have good air movement bilaterally. Heart sinus rhythm, positive systolic murmur. Abdomen soft positive bowel sounds. Extremities poor pulses and status post right TMA. 2+ edema in his arms and legs -improving. Neuro = awake, alert oriented follows commands. moves, but is weak. Urinary Catheter Management: Holbrook: Cath Placed During This Visit: yes Reason for Continuing Indwelling Catheter: Required Immobilization for Trauma or Surgery or Anesthesia Urinary Catheter Date of Insertion: 05/03/24 Urinary Catheter Time of Insertion: 21:50 Data 05/17/24 15:17 05/17/24 05:54 A&P Assessment and plan (1) JALYN (acute kidney injury): 53-year-old gentleman 1. DKA improved with fluids and insulin. 2. Septic foot status post TMA. Check vancomycin level keep trough under 20. Please dose Zosyn for GFR under 20. 3. Renal insufficiency: . Creatinine on admission was 2.8 Urinalysis on admission had 4+ glucose 2+ ketones. Of note negative blood and only trace protein. This is atypical for diabetic nephropathy. Renal ultrasound right kidney 11 cm left kidney 11.6 cm. Major question is if this is acute versus chronic kidney disease. Renal ultrasound appears normal. -Complements reviewed. C3 is low normal C4. Negative urine for eosinophils. Monitor I's and O's. Serologies are pending, those that have returned are negative - Suspect pt has underlying CKD --> Now started HD via temp HD catheter, s/p 2 sessions , -hold off HD over weekend and watch fpr possible recovery -Renal dose medications. 4. Anemia likely multifactorial from severe infection, CKD. He has a high iron saturation. neg serum protein electrophoresis - s/p transfusions and s/p Epo 6. Status post TMA for possible necrotizing fasciitis of right foot. 7. A-fib now in normal sinus rhythm. Patient has history of left bundle branch block. 8. PTH of 172 repeat in 4 weeks Patient was seen and examined with nurse using A/V equipment. Telehealth visit. Case discussed in detail with the patient, his family, Dr Hensley and the nurse. Plan See above. Attestations Medical Necessity Statement*: per shara Coding Level of Care Code Acute Code for [facility] Fwd Diagnoses JALYN (acute kidney injury) N17.9
[2024-05-17 08:00] LABS: Glucose Point of Care 118 mg/dL (70-110)
--- NOTE | 2024-05-17 09:17 | PM.PN ---
Subjective Subjective: Patient seen bedside this morning, is present. Daughter went back to [place]. He denies any acute events overnight. Denies any pain to the right or left leg. Patient denies any subjective nausea, vomiting, fever, chills, shortness of breath or chest pain. Vitals/I&O/Wt Last Vital Signs Temp 98.6 F 05/17/24 07:50 Pulse 86 05/17/24 07:50 Resp 16 05/17/24 07:50 BP 122/68 05/17/24 07:50 Pulse Ox 94 05/17/24 07:50 O2 Del Method Nasal Cannula 05/17/24 03:59 O2 Flow Rate 2 05/16/24 19:48 FiO2 30 05/09/24 12:23 05/16/24 05/17/24 05/17/24 22:59 06:59 14:59 Intake Total 1299.5 / 1349.5 100 / 1449.5 100 / 100 Output Total 200 / 750 1450 / 2200 Balance 1099.5 / 599.5 -1350 / -750.5 100 / 100 Weight last 48 hrs Weight 194 lb Weight 416 lb 0.196 oz Physical Exam Narrative: Patient is unresponsive. The following is a focused bilateral lower extremity exam. VASCULAR: Dorsalis pedis diminished bilaterally. Posterior tibial arteries diminished. Delayed capillary refill to right great toe, cap refill less than 5 seconds to the left great toe. Pedal hair growth is diminished, there is mild hair growth at the tuft of the great toe bilaterally. NEUROLOGICAL: Protective sensation absent to light touch bilaterally. DERMATOLOGICAL: Choparts amputation site left for secondary healing measures 2.8 cm x 2.1 cm x 0.3 cm. Biologic substitute remains intact, no KELIN wound erythema, warmth or purulent drainage, no active bleeding. Left leg wound is clinically stable without purulence or erythema. MUSCULOSKELETAL: Status post right modified Choparts amputation. Urinary Catheter Management: Holbrook: Cath Placed During This Visit: yes Reason for Continuing Indwelling Catheter: Required Immobilization for Trauma or Surgery or Anesthesia Urinary Catheter Date of Insertion: 05/03/24 Urinary Catheter Time of Insertion: 21:50 Data 05/17/24 05:54 05/17/24 05:54 A&P Assessment and plan (1) Severe sepsis: (2) DKA (diabetic ketoacidosis): Qualifiers: Diabetes mellitus type: type 2 (3) Diabetic peripheral neuropathy associated with type 2 diabetes mellitus: (4) Necrotizing fasciitis: (5) Gas gangrene: Plan 53-year-old uncontrolled diabetic male presents with unresponsiveness, DKA, sepsis and necrotizing fasciitis to the right foot. Status post modified Choparts amputation to the right foot with biologic graft and wound VAC performed 05/16/2024 Perform dressing change this a.m. graft is intact, no active bleeding at amputation site this morning Strict nonweightbearing right foot and elevate while resting Continue antibiotics per hospitalist, polymicrobial infection see micro report. Right foot wound grew Proteus and strep G species, endotracheal culture significant for Staph aureus, Pseudomonas and Zuleika albicans Will continue once daily dressing change of the right foot, will resume wound VAC tomorrow. Primary dressing to left leg wound with Santyl once daily No further plans for podiatric surgical intervention during this hospitalization. Not likely able to continue wound VAC therapy outpatient due to financial constraint, patient is uninsured, application process is pending. Will be following up in podiatry clinic weekly after this hospitalization, down the road should he have a pair source would be applying for wound VAC at that time. Attestations Medical Necessity Statement*: Requires continued neurovascular monitoring, holding anticoagulants, continued antibiotics and limb salvage treatment. Coding Level of Care Code Acute Code for [facility] Fwd Diagnoses Severe sepsis A41.9; R65.20 DKA (diabetic ketoacidosis) E11.10 Diabetes mellitus type: type 2 Diabetic peripheral neuropathy associated with type 2 diabetes mellitus E11.42 Necrotizing fasciitis M72.6 Gas gangrene A48.0
[2024-05-17] MEDS: loperamide 2 mg Capsule PO (10:21)
[2024-05-17] MEDS: collagenase oint 30 gm 1 APPLIC TOPICAL (10:22)
[2024-05-17] MEDS: sodium bicarbonate 650 mg Tablet PO ×3 (10:22→20:19)
[2024-05-17] MEDS: aspirin 81 mg EC Tablet PO (10:22)
[2024-05-17] MEDS: insulin glargine 100 units/1 mL 8 UNIT SUBCUT (10:24)
[2024-05-17] MEDS: pantoprazole 40 mg SDV IVP ×2 (10:24→17:21)
[2024-05-17 11:04] LABS: Glucose Point of Care 199 mg/dL (70-110)
[2024-05-17] MEDS: insulin lispro 100 unit/1 mL SUBCUT ×2 (11:22→17:33)
--- NOTE | 2024-05-17 14:59 | PM.PN ---
Subjective Subjective: No acute events overnight. Today morning seen with at bedside. Interview done with nocturnist physician over the phone. Patient denies any nausea, vomiting, headache. Has remained hemodynamically stable and afebrile. Received 2 units of blood transfusion overnight. Appreciate urine output. Vitals/I&O/Wt Last Vital Signs Temp 98.6 F 05/17/24 12:00 Pulse 77 05/17/24 12:00 Resp 16 05/17/24 12:00 BP 112/54 05/17/24 12:00 Pulse Ox 91 05/17/24 12:00 O2 Del Method Nasal Cannula 05/17/24 03:59 O2 Flow Rate 2 05/16/24 19:48 FiO2 30 05/09/24 12:23 05/16/24 05/17/24 05/17/24 22:59 06:59 14:59 Intake Total 1299.5 / 1349.5 100 / 1449.5 1780 / 1780 Output Total 200 / 750 1450 / 2200 Balance 1099.5 / 599.5 -1350 / -750.5 1780 / 1780 Weight last 48 hrs Weight 87.997 kg Weight 188.7 kg Physical Exam Narrative: Accompanied by his and daughter sons at bedside. Const: COMMON NORMALS: negative for alert GENERAL APPEARANCE: patient mechanically ventilated; not cooperative ORIENTATION/CONSCIOUSNESS: Yes awake OTHER: Awake, alert minimally slowed responses, does not answer every question, sometimes requiring confirmation, but answers sound appropriate. HENMT: COMMON NORMALS: normocephalic, EAC's normal, Normal external nose present and moist oral mucous membranes HEAD & SCALP: normocephalic NOSE: Normal external nose present EXTERNAL AUDITORY CANAL: EAC's normal Chest: CHEST: Yes Symmetrical chest wall rise Resp: COMMON NORMALS: clear to auscultation bilaterally AUSCULTATION: clear to auscultation bilaterally Cardio: COMMON NORMALS: regular rate, regular rhythm and No murmurs present (Cardio) RATE: regular rate RHYTHM: regular rhythm GI: COMMON NORMALS: Normal to inspection, nondistended, normoactive bowel sounds present, Soft to palpation and non-tender PALPATION: Yes Soft to palpation Extremity: COMMON NORMALS: no pedal edema NARRATIVE EXTREMITY EXAM: Distal RLE status post TMA, Wound appears dry, clean, granulation tissue. Without any large areas of necrosis. No purulent discharge. No proximal erythema, edema, cyanosis or mottling, legs appropriately warm bilaterally. GENERAL: Yes edema (upper 2+ arms and legs) OTHER: Ulceration on medial L calf mid-LE with eschar base, no drainage, no surrounding erythema. Neuro: COMMON NORMALS: moves all extremities SENSORIUM/ORIENTATION: No alert Skin: COMMON NORMALS: no wounds RASHES: no rashes Urinary Catheter Management: Holbrook: Cath Placed During This Visit: yes Reason for Continuing Indwelling Catheter: Required Immobilization for Trauma or Surgery or Anesthesia Urinary Catheter Date of Insertion: 05/03/24 Urinary Catheter Time of Insertion: 21:50 Data 05/17/24 05:54 05/17/24 05:54 A&P Assessment and plan (1) JALYN (acute kidney injury): Acute renal failure most likely in setting of septic shock on admission along with possibility of baseline diabetic nephropathy. Cannot rule out chronic kidney disease. Will try to get documents from patient's primary care provider possibly in [place]. Appreciate nephrology recommendations. Monitor urine output. Patient continues to have worsening of metabolic acidosis. pH on ABG today showed 7.27. Started on bicarb drip as per nephrology recommendations. Patient blood pressures have been stable. SPEP normal. Given persistent metabolic acidosis, persistent creatinine over 4 had a long detailed discussion with patient, patient's son at bedside with experimental mechanic spacecraft line. We discussed unfortunately even after maximum management with oral bicarb even though patient's urine output is appropriate he continues to remain metabolic acidotic which can cause him to have poor healing of his wounds, can cause worsening or multiorgan dysfunction. We discussed patient most likely requires dialysis going further but for now we cannot be sure of long-term versus short-term as he do not have patient's baseline creatinine but is possible that he has underlying nephropathy. After detailed discussion patient is agreeable for temporary dialysis for now. He would like to see if his renal functions stabilize after a few sessions of dialysis before going for permanent dialysis. Discussed in detail with nephrology team. Temporal dialysis catheter placed on 05/14. Underwent 2 sessions of dialysis overall with last session on . Plan to monitor renal functions worsening creatinine or worsening metabolic acidosis over the weekend and then decide about further dialysis. Dialysis as per nephrology team. Continue with oral sodium bicarbonate supplementation. Monitor renal functions daily. (2) Uncontrolled type 2 diabetes mellitus: Continue Lantus, sliding scale insulin. Blood sugars elevated. Increase Lantus to 10 units daily, sliding scale moderate dose protocol. Patient would benefit with diabetes education in [place]. A1c found to be more than 18 on admission. Though patient has not required high doses of insulin since DKA resolved. Cannot rule out in setting of hemoglobinopathy with concerns for liver dysfunction and anemia as above. Repeat A1c of 17. (3) Septic shock: Present on admission. Resolved Keep mean artery pressure 65. Most likely in setting of hypoalbuminemia currently. Midodrine 10 mg oral 3 times daily. C/w IV albumin every 8 hourly. Sputum culture growing Pseudomonas, Staphylococcus and Zuleika. Wound culture growing Prevotella. Blood cultures so far negative. Leukocytosis has resolved. Patient is post TMA for possible necrotizing fasciitis of right foot. Dressing as per podiatry team. Continue with IV antibiotics for overall 10-day course from date of amputation. Monitor Vanco trough levels. Currently vancomycin on hold. Appreciate Vanco trough levels. Restart vancomycin accordingly. (4) Status post amputation: Post TMA on admission for necrotizing fasciitis. Further management plan including amputation below the knee versus graft discussed in detail with the patient with podiatry team. Patient underwent skin grafting with tendon balancing surgery on 05/16. Significant blood loss of 250 cc during OR. Required 2 unit of blood transfusion. Wound VAC and wound care as per surgical team. As per patient's family they are planning to have wound VAC arranged for outpatient for at least 1 month on discharge. There will be self-pay. Hold off on heparin for now. (5) High anion gap metabolic acidosis: Resolved post 2 session of hemodialysis. Continue to monitor daily for now. (6) Gas gangrene: S/p TMA. Appreciate podiatry recommendations. (7) Acute hypoxic respiratory failure: Resolved. Extubated on 05/10. Currently on room air. Aggressive pulmonary toilet with incentive spirometry and flutter valve. Keep oxygen saturation over 90%. (8) Anemia: Received 2 additional blood transfusion on 05/16. Overall 4 units of blood transfusion during admission. Current blood loss anemia in setting of postoperative status. Continue to hold off on heparin subcu for now. Repeat hemoglobin hematocrit later in the evening. Blood transfusion keeping goal hemoglobin level over 7 while patient remains hemodynamically stable. Appreciate iron panel. If continues to trend down will consult surgery for possible EGD. Patient did have positive stool for occult blood. Continue with Protonix twice daily and Carafate ACHS. (9) Atrial fibrillation with RVR: Atrial fibrillation with RVR earlier in hospitalization. Has been on amiodarone. Currently in sinus rhythm. Suspect A-fib was related to acute illness. Hold amiodarone for now. Monitor on telemetry. (10) Abnormal iron saturation: Elevated iron saturation, 78.2 raising concern for hemochromatosis, will need additional workup follow-up, genetic testing for HFE. Question of possible underlying liver disease. 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 Discussed with him and his daughter again and with the help of the medical billing coder. (11) Dilated bowel: He is tolerating oral diet currently without issues. Bowel movements charted on 05/10. Reviewed CT abdomen pelvis, without evidence of obstruction found prior to extubation with difficulty initiating tube feeds. Some mild thickening of rectosigmoid colon. So far without any further vomiting. Trial of oral diet. (12) DKA (diabetic ketoacidosis): DKA resolved. Qualifiers: Diabetes mellitus type: type 2 (13) LBBB (left bundle branch block): Denies any chest pain. Does not have any EKG in the past to compare. Patient would benefit from further ACS workup as an outpatient once hemoglobin stable. Echocardiogram done during hospitalization showed EF of 50 to 55% with grade 1 diastolic dysfunction without regional wall motion abnormality. Appreciate A1c lipid panel results. Continue with baby aspirin for now. (14) Metabolic encephalopathy: Resolved. (15) Dysphagia: Postextubation. Most likely in setting of prolonged intubation. Resolved Apprecioate Speech evaluation and modified barium swallow. (16) Loss of sensation: Could be in setting of diabetic neuropathy. Appreciate lumbar CT, arterial and venous duplex of lower limbs. Appreciate vitamin B12 for the results. (17) Lactic acidosis: From DKA and sepsis (18) CKD (chronic kidney disease): (19) Goals of care, counseling/discussion: (20) Ulcer of foot with necrosis of muscle: Plan DVT prophylaxis: SCD, on aspirin Full code Protonix for PUD prophylaxis Regular carb consistent diet. Discharge planning: Plan to discharge home with caregiver. Patient on discharge will need a new PCP, podiatry, endocrine follow-up. Patient will need extensive wound care on discharge given post graft status. As per the patient's family they are planning to have wound VAC arranged for at least 1 month postdischarge. Case management aware. Attestations Medical Necessity Statement*: Requires further hospitalization for post grafting status in a patient admitted with necrotizing fasciitis post TMA, uncontrolled type 2 diabetes mellitus, resolved DKA, blood loss anemia, JALYN on CKD requiring new hemodialysis Diagnoses JALYN (acute kidney injury) N17.9 Uncontrolled type 2 diabetes mellitus Septic shock A41.9; R65.21 Status post amputation Z89.9 High anion gap metabolic acidosis E87.29 Gas gangrene A48.0 Acute hypoxic respiratory failure J96.01 Anemia D64.9 Atrial fibrillation with RVR I48.91 Abnormal iron saturation R79.0 Dilated bowel DKA (diabetic ketoacidosis) E11.10 Diabetes mellitus type: type 2 LBBB (left bundle branch block) I44.7 Metabolic encephalopathy G93.41 Dysphagia R13.10 Loss of sensation R20.0 Lactic acidosis E87.20 CKD (chronic kidney disease) N18.9 Goals of care, counseling/discussion Z71.89 Ulcer of foot with necrosis of muscle L97.503
[2024-05-17 15:25] LABS: Hematocrit 21.9 % (37-53)
[2024-05-17 16:57] LABS: Glucose Point of Care 211 mg/dL (70-110)
[2024-05-17] MEDS: midodrine 5 mg TABLET 10 MG PO (19:44)
[2024-05-17 21:05] LABS: Glucose Point of Care 110 mg/dL (70-110)
[2024-05-18] VITALS (8 sets, daily range): BP systolic 108–119; BP diastolic 50–69; PULSE 72–79; RESP 12–18; TEMP 36.6–38.2; O2SAT 90–92
[2024-05-18 05:46] LABS: Basophils % 0.4 %; Eosinophils # 0.1 10^3/uL (0.0-0.8); Eosinophils % 1.1 %; Hematocrit 21.1 % (37-53); Lymphocytes # 0.7 10^3/uL (0.8-4.8); Lymphocytes % 8.5 %; Mean Corpuscular HGB Conc 33.6 g/dL (30-55); Mean Corpuscular Volume 86.1 fl (82-101); Mean Platelet Volume 10.5 fL (7.4-10.4); Monocytes # 0.5 10^3/uL (0.2-0.9); Monocytes % 6.1 %; Neutrophils # 6.71 10^3/uL (1.8-7.7); Neutrophils % 83.4 %; Nucleated Red Blood Cells % 0 %; Platelet Count 169 10^3/cmm (157-399); Red Blood Count 2.45 10^6/uL (3.85-5.65); Red Cell Distribution Width 15.3 % (12.1-15.1); White Blood Count 8.04 10^3/uL (3.29-11.43)
[2024-05-18] MEDS: piperacillin-tazobactam 3.375 GM in sodium chloride 0.9% (plus) 50 ML IV (06:02)
[2024-05-18] MEDS: sucralfate 1 gm/10 mL Oral Liq UDC PO ×4 (06:03→20:53)
[2024-05-18 06:13] LABS: Alanine Aminotransferase < 5 U/L (0-41); Albumin Level 3.3 g/dL (3.5-5.2); Alkaline Phosphatase 50 U/L (40-130); Aspartate Amino Transferase 7 U/L (0-40); Blood Urea Nitrogen 27 mg/dL (6-20); Carbon Dioxide 21 mmol/L (22-29); Chloride 101 mmol/L (98-107); Creatinine Clr Calc Pharmacy 26.9097; Glomerular Filtration Rate 19.6 mL/min (90-130); Glucose 152 mg/dL (65-115); Osmolality Calculated 292 mOsm/kg (285-295); Sodium 137 mmol/L (136-145); Total Bilirubin 0.7 mg/dL (0.15-1.2); Total Protein 5.3 g/dL (6.6-8.7)
--- NOTE | 2024-05-18 06:51 | P.PN_ITS ---
Subjective 2 Subjective: feels better. denies any complaints. no n/v/f/c/cp/holman/d Medications: Reviewed: Yes Medication Review Details: Current Medications Acetaminophen (Acetaminophen 325 Mg Tablet) 650 mg PO Q6H PRN PRN Reason: MILD PAIN Aspirin (Aspirin 81 Mg Ec Tablet) 81 mg PO DAILY [facility] Last Admin: 05/17/24 10:22 Dose: 81 mg Collagenase (Collagenase Oint 30 Gm) 1 applic TOPICAL DAILY [facility] Last Admin: 05/17/24 10:22 Dose: 1 applic Collagenase (Collagenase Oint 30 Gm) 1 applic TOPICAL DAILY [facility] Ergocalciferol (Ergocalciferol (Vitamin D2) 50,000 Unit Capsule) 50,000 unit PO Q7D [facility] Last Admin: 05/14/24 09:52 Dose: 50,000 unit Glucagon (Glucagon 1 Mg/Ml Kit 1 Ml) 1 mg IM ONCE PRN; Protocol PRN Reason: Adult Acute Hypoglycemia Nursing Prot. Heparin Sodium (Porcine) (Heparin 5,000 Unit/Ml Inj 1 Ml) 5,000 unit SUBCUT Q12H [facility] Last Admin: 05/13/24 02:40 Dose: 5,000 unit Dextrose (D5w) 500 mls @ 0 mls/hr IV ONCE PRN; Protocol PRN Reason: Adult Acute Hypoglycemia Prot Dextrose (D10w) 125 mls @ 750 mls/hr IV PRN PRN; Protocol PRN Reason: Adult Acute Hypoglycemia Nursing Protocol Last Infusion: 05/07/24 08:21 Dose: Infused Dextrose (D10w) 250 mls @ 1,000 mls/hr IV PRN PRN; Protocol PRN Reason: Adult Acute Hypoglycemia Nursing Protocol Piperacillin Sod/Tazobactam (Sod 3.375 gm/ Sodium Chloride) 50 mls @ 12.5 mls/hr IV Q12H [facility] Stop: 05/18/24 17:59 Last Admin: 05/18/24 06:02 Dose: 12.5 mls/hr Sodium Chloride (Sodium Chloride 0.9%) 1,000 mls @ 0 mls/hr IV .Q0M PRN PRN Reason: hypotension or symptomatic Albumin Human (Albumin) 12.5 gm in 50 mls @ 60 mls/hr IV PRN PRN PRN Reason: Hypotension and/or symptomatic Vancomycin HCl 1,000 mg/ (Sodium Chloride) 250 mls @ 250 mls/hr IV POST DIALYSIS [facility] Last Infusion: 05/16/24 19:14 Dose: Infused Insulin Glargine (Insulin Glargine 100 Units/1 Ml) 10 unit SUBCUT DAILY [facility] Insulin Human Lispro (Insulin Lispro 100 Unit/1 Ml) 0 unit SUBCUT WM&BEDTIME [facility]; Protocol Last Admin: 05/17/24 21:06 Dose: Not Given Lanolin (Lanolin Oint 7 Gm) 1 applic TOPICAL PRN PRN PRN Reason: DRYNESS Last Admin: 05/09/24 04:45 Dose: 1 applic Loperamide HCl (Loperamide 2 Mg Capsule) 2 mg PO QID PRN PRN Reason: DIARRHEA Last Admin: 05/17/24 10:21 Dose: 2 mg Midodrine (Midodrine 5 Mg Tablet) 10 mg PO TID [facility] Last Admin: 05/17/24 19:44 Dose: 10 mg Ondansetron HCl (Ondansetron 2 Mg/Ml Sdv 2 Ml) 4 mg IVP Q6H PRN PRN Reason: NAUSEA AND VOMITING Last Admin: 05/09/24 14:02 Dose: 4 mg Pantoprazole Sodium (Pantoprazole 40 Mg Sdv) 40 mg IVP BIDWM [facility] Last Admin: 05/17/24 17:21 Dose: 40 mg Sodium Bicarbonate (Sodium Bicarbonate 650 Mg Tablet) 650 mg PO TID [facility] Last Admin: 05/17/24 20:19 Dose: 650 mg Sucralfate (Sucralfate 1 Gm/10 Ml Oral Liq Udc) 1 gm PO AC&BEDTIME [facility] Last Admin: 05/18/24 06:03 Dose: 1 gm Vitals/I&O/Wt Last Vital Signs Temp 99.3 F 05/18/24 04:00 Pulse 73 05/18/24 05:41 Resp 12 05/18/24 04:00 BP 119/66 05/18/24 04:00 Pulse Ox 91 05/18/24 04:00 O2 Del Method Nasal Cannula 05/18/24 04:00 O2 Flow Rate 2 05/17/24 19:54 FiO2 30 05/09/24 12:23 05/17/24 05/17/24 05/18/24 14:59 22:59 06:59 Intake Total 1780 / 1780 150 / 1930 100 / 2030 Output Total 950 / 950 Balance 1780 / 1780 150 / 1930 -850 / 1080 Weight last 48 hrs Weight 92.351 kg Physical Exam 2 Narrative: The patient was seen with the aid of an A/V device. Examined by nurse. This is a telehealth visit. He is comfortable in bed. Vital signs noted and stable. HEENT is normocephalic atraumatic neck is supple Lungs have good air movement bilaterally. Heart sinus rhythm, positive systolic murmur. Abdomen soft positive bowel sounds. Extremities poor pulses and status post right TMA. + femoral dialysis catheter 1+ edema in his arms and legs -improving . Neuro = awake, alert oriented follows commands. moves all extremities Urinary Catheter Management: [place]: Cath Placed During This Visit: yes Reason for Continuing Indwelling Catheter: Assist Healing of Perineal & Sacral Wounds- Incontinent Patients Urinary Catheter Date of Insertion: 05/03/24 Urinary Catheter Time of Insertion: 21:50 Data 05/18/24 05:29 05/18/24 05:29 A&P Assessment and plan (1) JALYN (acute kidney injury): 53-year-old gentleman 1. DKA improved with fluids and insulin. 2. Septic foot status post TMA. Check vancomycin level keep trough under 20. Please dose Zosyn for GFR under 20. 3. Renal insufficiency: . Creatinine on admission was 2.8 Urinalysis on admission had 4+ glucose 2+ ketones. Of note negative blood and only trace protein. This is atypical for diabetic nephropathy. Renal ultrasound right kidney 11 cm left kidney 11.6 cm. Major question is if this is acute versus chronic kidney disease. Renal ultrasound appears normal. -Complements reviewed. C3 is low normal C4. Negative urine for eosinophils. Monitor I's and O's. Serologies are pending, those that have returned are negative -likely CKD and JALYN. he had 2 dialysis sessions. we are holding dialysis and monitorijng for renal recovery or if he will need a permacath -Renal dose medications. -replace k 4. Anemia likely multifactorial from severe infection, CKD. He has a high iron saturation. neg serum protein electrophoresis - s/p transfusions and s/p Epo hgb 7.1- would give 1 u porbc tx 6. Status post TMA of right foot. 7. A-fib now in normal sinus rhythm. Patient has history of left bundle branch block. 8. PTH of 172 repeat in 4 weeks Patient was seen and examined with nurse using A/V equipment. Telehealth visit. Case discussed in detail with the patient and the nurse. Plan See above. Attestations 2 Medical Necessity Statement*: jalyn- monitor for renal recovery Time Spent in Patient Care: 16 - 35 minutes (>than 50% of time sp ent in counselling and/or direct pt care on unit) . Coding Level of Care Code Acute Code for [facility] Diagnoses JALYN (acute kidney injury) N17.9
[2024-05-18 08:13] LABS: Glucose Point of Care 160 mg/dL (70-110)
[2024-05-18] MEDS: aspirin 81 mg EC Tablet PO (09:42)
[2024-05-18] MEDS: potassium chloride ER 20 mEq Tablet 40 MEQ PO (09:42)
[2024-05-18] MEDS: midodrine 5 mg TABLET 10 MG PO ×3 (09:42→20:53)
[2024-05-18] MEDS: sodium bicarbonate 650 mg Tablet PO ×2 (09:42→18:15)
[2024-05-18] MEDS: insulin lispro 100 unit/1 mL SUBCUT ×3 (09:43→21:59)
[2024-05-18] MEDS: collagenase oint 30 gm 1 APPLIC TOPICAL (09:43)
[2024-05-18] MEDS: pantoprazole 40 mg SDV IVP ×2 (09:43→18:15)
[2024-05-18] MEDS: insulin glargine 100 units/1 mL 10 UNIT SUBCUT (09:58)
[2024-05-18 10:37] LABS: Glucose Point of Care 210 mg/dL (70-110)
--- NOTE | 2024-05-18 12:19 | XRR_ITS ---
PROCEDURE INFORMATION: Exam: XR Chest Exam date and time: 05/18/2024 1:57 PM Age: 53 years old Clinical indication: Condition or disease; Patient HX: Hypoxia; Hyperglycemia TECHNIQUE: Imaging protocol: Radiologic exam of the chest. Views: 1 view. COMPARISON: CR XR chest 1V portable [id number] 05/12/2024 12:42 PM FINDINGS: Tubes, catheters and devices: There is a right IJ catheter whose tip is in the right atrium. Lungs: The lung volumes are low. There is worsening patchy opacification especially in the mid and inferior right lung and more mildly in the left lung base. Pleural spaces: There are bilateral pleural effusions, right greater than left. No pneumothorax. Heart/Mediastinum: There is cardiomegaly. Bones/joints: Unremarkable. XR/XR chest 1V portable [id number] IMPRESSION: Bilateral pleural effusions persist. Bilateral lung disease has worsened suggestive of worsening pulmonary edema.
--- NOTE | 2024-05-18 12:31 | PC.OT ---
Patient is unavailable for ot services. is eating in supine lying and was recommended to sit upright for choking.Patient refused., spouse is with him. ot treatment not provided at this time.
[2024-05-18 16:54] LABS: Glucose Point of Care 103 mg/dL (70-110)
--- NOTE | 2024-05-18 17:02 | P.PN_ITS ---
Subjective 2 Subjective: No acute events overnight. Patient has remained hemodynamically stable. Tmax last 24 hours 100.4 Fahrenheit. Patient has been spiking few episodes of fever since 05/16. at bedside. Patient having his meals. Wound VAC placed by podiatry today. Has remained hemodynamically stable. Vitals/I&O/Wt Last Vital Signs Temp 100.7 F H 05/18/24 15:27 Pulse 79 05/18/24 15:27 Resp 18 05/18/24 15:27 BP 108/59 05/18/24 15:27 Pulse Ox 92 05/18/24 15:27 O2 Del Method Nasal Cannula 05/18/24 15:27 O2 Flow Rate 2 05/17/24 19:54 FiO2 30 05/09/24 12:23 05/18/24 05/18/24 05/18/24 06:59 14:59 22:59 Intake Total 100 / 2030 410 / 410 Output Total 950 / 950 Balance -850 / 1080 410 / 410 Weight last 48 hrs Weight 92.351 kg Physical Exam 2 Narrative: Accompanied by his and daughter sons at bedside. Const: COMMON NORMALS: negative for alert GENERAL APPEARANCE: patient mechanically ventilated; not cooperative ORIENTATION/CONSCIOUSNESS: Yes awake OTHER: Awake, alert minimally slowed responses, does not answer every question, sometimes requiring confirmation, but answers sound appropriate. HENMT: COMMON NORMALS: normocephalic, EAC's normal, Normal external nose present and moist oral mucous membranes HEAD & SCALP: normocephalic NOSE: Normal external nose present EXTERNAL AUDITORY CANAL: EAC's normal Chest: CHEST: Yes Symmetrical chest wall rise Resp: COMMON NORMALS: clear to auscultation bilaterally AUSCULTATION: clear to auscultation bilaterally Cardio: COMMON NORMALS: regular rate, regular rhythm and No murmurs present (Cardio) RATE: regular rate RHYTHM: regular rhythm GI: COMMON NORMALS: Normal to inspection, nondistended, normoactive bowel sounds present, Soft to palpation and non-tender PALPATION: Yes Soft to palpation Extremity: COMMON NORMALS: no pedal edema NARRATIVE EXTREMITY EXAM: Distal RLE status post TMA, Wound appears dry, clean, granulation tissue. Without any large areas of necrosis. No purulent discharge. No proximal erythema, edema, cyanosis or mottling, legs appropriately warm bilaterally. GENERAL: Yes edema (upper 2+ arms and legs) OTHER: Ulceration on medial L calf mid-LE with eschar base, no drainage, no surrounding erythema. Neuro: COMMON NORMALS: moves all extremities SENSORIUM/ORIENTATION: No alert Skin: COMMON NORMALS: no wounds RASHES: no rashes Urinary Catheter Management: Holbrook: Cath Placed During This Visit: yes Reason for Continuing Indwelling Catheter: Assist Healing of Perineal & Sacral Wounds- Incontinent Patients Urinary Catheter Date of Insertion: 05/03/24 Urinary Catheter Time of Insertion: 21:50 Data 05/18/24 05:29 05/18/24 05:29 A&P Assessment and plan (1) JALYN (acute kidney injury): Acute renal failure most likely in setting of septic shock on admission along with possibility of baseline diabetic nephropathy. Cannot rule out chronic kidney disease. Will try to get documents from patient's primary care provider possibly in [place]. Appreciate nephrology recommendations. Monitor urine output. Patient continues to have worsening of metabolic acidosis. pH on ABG today showed 7.27. Started on bicarb drip as per nephrology recommendations. Patient blood pressures have been stable. SPEP normal. Given persistent metabolic acidosis, persistent creatinine over 4 had a long detailed discussion with patient, patient's son at bedside with transportation maintenance specialist line. We discussed unfortunately even after maximum management with oral bicarb even though patient's urine output is appropriate he continues to remain metabolic acidotic which can cause him to have poor healing of his wounds, can cause worsening or multiorgan dysfunction. We discussed patient most likely requires dialysis going further but for now we cannot be sure of long-term versus short-term as he do not have patient's baseline creatinine but is possible that he has underlying nephropathy. After detailed discussion patient is agreeable for temporary dialysis for now. He would like to see if his renal functions stabilize after a few sessions of dialysis before going for permanent dialysis. Discussed in detail with nephrology team. Temporal dialysis catheter placed on 05/14. Underwent 2 sessions of dialysis overall with last session on . Plan to monitor renal functions worsening creatinine or worsening metabolic acidosis over the weekend and then decide about further dialysis. Dialysis as per nephrology team. Continue with oral sodium bicarbonate supplementation. Monitor renal functions daily. Potassium replaced by nephrology. Placating Lasix today. Repeat BMP later in the day today. (2) Uncontrolled type 2 diabetes mellitus: Continue Lantus, sliding scale insulin. Blood sugars better controlled now. Continue with Lantus to 10 units daily, sliding scale moderate dose protocol. Patient would benefit with diabetes education in [place]. A1c found to be more than 18 on admission. Though patient has not required high doses of insulin since DKA resolved. Cannot rule out in setting of hemoglobinopathy with concerns for liver dysfunction and anemia as above. Repeat A1c of 17. (3) Fever: Patient having acute renal failure episodes since 05/17, postoperative from skin graft. Could be in setting of inflammatory response postoperatively. Cannot rule out in setting of atelectasis. Given critically in patient during hospitalization for now will rule out other infectious sources. Check respiratory viral panel, blood culture, urinalysis, chest x-ray. From Zosyn to meropenem for now. (4) Septic shock: Present on admission. Resolved Keep mean artery pressure 65. Most likely in setting of hypoalbuminemia currently. Midodrine 10 mg oral 3 times daily. Albumin discontinued. Sputum culture growing Pseudomonas, Staphylococcus and Zuleika. Wound culture growing Prevotella. Blood cultures so far negative. Leukocytosis has resolved. Patient is post TMA for possible necrotizing fasciitis of right foot. Dressing as per podiatry team. Continue with IV antibiotics for overall 10-day course from date of amputation. Monitor Vanco trough levels. Vancomycin postdialysis. Monitor vancomycin random levels. (5) Status post amputation: Post TMA on admission for necrotizing fasciitis. Further management plan including amputation below the knee versus graft discussed in detail with the patient with podiatry team. Patient underwent skin grafting with tendon balancing surgery on 05/16. Significant blood loss of 250 cc during OR. Required 2 unit of blood transfusion. Wound VAC and wound care as per surgical team. As per patient's family they are planning to have wound VAC arranged for outpatient for at least 1 month on discharge. There will be self-pay. Hold off on heparin for now. (6) High anion gap metabolic acidosis: Resolved post 2 session of hemodialysis. Continue to monitor daily for now. (7) Gas gangrene: S/p TMA. Appreciate podiatry recommendations. (8) Acute hypoxic respiratory failure: Resolved. Extubated on 05/10. Currently on room air. Aggressive pulmonary toilet with incentive spirometry and flutter valve. Keep oxygen saturation over 90%. (9) Anemia: Received 2 additional blood transfusion on 05/16. Overall 4 units of blood transfusion during admission. Current blood loss anemia in setting of postoperative status. Continue to hold off on heparin subcu for now. Hemoglobin down to 7.1 today. Bleeding from the OR site seem to have slowed down. Transfuse monitor PRBC. Repeat hemoglobin hematocrit later in the evening. Blood transfusion keeping goal hemoglobin level over 7 while patient remains hemodynamically stable. Appreciate iron panel. If continues to trend down will consult surgery for possible EGD. Patient did have positive stool for occult blood. Continue with Protonix twice daily and Carafate ACHS. (10) Atrial fibrillation with RVR: Atrial fibrillation with RVR earlier in hospitalization. Has been on amiodarone. Currently in sinus rhythm. Suspect A-fib was related to acute illness. Hold amiodarone for now. Monitor on telemetry. (11) Abnormal iron saturation: Elevated iron saturation, 78.2 raising concern for hemochromatosis, will need additional workup follow-up, genetic testing for HFE. Question of possible underlying liver disease. 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 Discussed with him and his daughter again and with the help of the medical associate. (12) Dilated bowel: He is tolerating oral diet currently without issues. Bowel movements charted on 05/10. Reviewed CT abdomen pelvis, without evidence of obstruction found prior to extubation with difficulty initiating tube feeds. Some mild thickening of rectosigmoid colon. So far without any further vomiting. Trial of oral diet. (13) DKA (diabetic ketoacidosis): DKA resolved. Qualifiers: Diabetes mellitus type: type 2 (14) LBBB (left bundle branch block): Denies any chest pain. Does not have any EKG in the past to compare. Patient would benefit from further ACS workup as an outpatient once hemoglobin stable. Echocardiogram done during hospitalization showed EF of 50 to 55% with grade 1 diastolic dysfunction without regional wall motion abnormality. Appreciate A1c lipid panel results. Continue with baby aspirin for now. (15) Metabolic encephalopathy: Resolved. (16) Dysphagia: Postextubation. Most likely in setting of prolonged intubation. Resolved Apprecioate Speech evaluation and modified barium swallow. (17) Loss of sensation: Could be in setting of diabetic neuropathy. Appreciate lumbar CT, arterial and venous duplex of lower limbs. Appreciate vitamin B12 for the results. (18) Lactic acidosis: From DKA and sepsis (19) CKD (chronic kidney disease): (20) Goals of care, counseling/discussion: (21) Ulcer of foot with necrosis of muscle: Plan DVT prophylaxis: SCD, on aspirin Full code Protonix for PUD prophylaxis Regular carb consistent diet. Discharge planning: Plan to discharge home with caregiver. Patient on discharge will need a new PCP, podiatry, endocrine follow-up. Patient will need extensive wound care on discharge given post graft status. As per the patient's family they are planning to have wound VAC arranged for at least 1 month postdischarge. Case management aware. Attestations 2 Medical Necessity Statement*: Requires further hospitalization for management of necrotizing fasciitis post amputation post graft after wound, uncontrolled type 2 diabetes mellitus, JALYN requiring temporary hemodialysis for persistent metabolic acidosis, postoperative blood loss anemia Diagnoses JALYN (acute kidney injury) N17.9 Uncontrolled type 2 diabetes mellitus Fever R50.9 Septic shock A41.9; R65.21 Status post amputation Z89.9 High anion gap metabolic acidosis E87.29 Gas gangrene A48.0 Acute hypoxic respiratory failure J96.01 Anemia D64.9 Atrial fibrillation with RVR I48.91 Abnormal iron saturation R79.0 Dilated bowel DKA (diabetic ketoacidosis) E11.10 Diabetes mellitus type: type 2 LBBB (left bundle branch block) I44.7 Metabolic encephalopathy G93.41 Dysphagia R13.10 Loss of sensation R20.0 Lactic acidosis E87.20 CKD (chronic kidney disease) N18.9 Goals of care, counseling/discussion Z71.89 Ulcer of foot with necrosis of muscle L97.503
[2024-05-18 17:59] LABS: Hematocrit 22.2 % (37-53)
[2024-05-18] MEDS: FUROsemide 10 mg/mL SDV 4mL 40 MG IVP (18:15)
[2024-05-18 18:19] LABS: Anion Gap 14.3 (5-19); Blood Urea Nitrogen 31 mg/dL (6-20); Calcium 8.3 mg/dL (8.5-10.5); Carbon Dioxide 23 mmol/L (22-29); Chloride 103 mmol/L (98-107); Glomerular Filtration Rate 18.3 mL/min (90-130); Glucose 119 mg/dL (65-115); Osmolality Calculated 292 mOsm/kg (285-295); Potassium 3.3 mmol/L (3.5-5.1); Sodium 137 mmol/L (136-145)
--- NOTE | 2024-05-18 19:16 | P.PN_ITS ---
Subjective 2 Subjective: Patient seen bedside this morning. Patient denies any acute events overnight. Denies any pain to the right or left leg. Patient denies any subjective nausea, vomiting, fever, chills, shortness of breath or chest pain. Vitals/I&O/Wt Last Vital Signs Temp 100.7 F H 05/18/24 15:27 Pulse 79 05/18/24 15:27 Resp 18 05/18/24 15:27 BP 108/59 05/18/24 15:27 Pulse Ox 92 05/18/24 15:27 O2 Del Method Nasal Cannula 05/18/24 15:27 O2 Flow Rate 2 05/17/24 19:54 FiO2 30 05/09/24 12:23 05/18/24 05/18/24 05/18/24 06:59 14:59 22:59 Intake Total 100 / 2030 410 / 410 Output Total 950 / 950 450 / 450 Balance -850 / 1080 410 / 410 -450 / -40 Weight last 48 hrs Weight 203 lb 9.6 oz Physical Exam 2 Narrative: Patient is unresponsive. The following is a focused bilateral lower extremity exam. VASCULAR: Dorsalis pedis diminished bilaterally. Posterior tibial arteries diminished. Delayed capillary refill to right great toe, cap refill less than 5 seconds to the left great toe. Pedal hair growth is diminished, there is mild hair growth at the tuft of the great toe bilaterally. NEUROLOGICAL: Protective sensation absent to light touch bilaterally. DERMATOLOGICAL: Choparts amputation site left for secondary healing measures 2.8 cm x 2.1 cm x 0.3 cm. Biologic substitute remains intact, no KELIN wound erythema, warmth or purulent drainage, no active bleeding. Left leg wound is clinically stable without purulence or erythema. MUSCULOSKELETAL: Status post right modified Choparts amputation. Urinary Catheter Management: Holbrook: Cath Placed During This Visit: yes Reason for Continuing Indwelling Catheter: Assist Healing of Perineal & Sacral Wounds- Incontinent Patients Urinary Catheter Date of Insertion: 05/03/24 Urinary Catheter Time of Insertion: 21:50 Data 05/18/24 17:52 05/18/24 17:52 A&P Assessment and plan (1) Severe sepsis: (2) DKA (diabetic ketoacidosis): Qualifiers: Diabetes mellitus type: type 2 (3) Diabetic peripheral neuropathy associated with type 2 diabetes mellitus: (4) Necrotizing fasciitis: (5) Gas gangrene: Plan 53-year-old uncontrolled diabetic male presents with unresponsiveness, DKA, sepsis and necrotizing fasciitis to the right foot. 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 Strict nonweightbearing right foot and elevate while resting Continue antibiotics per hospitalist, polymicrobial infection see micro report. Right foot wound grew Proteus and strep G species, endotracheal culture significant for Staph aureus, Pseudomonas and Zuleika albicans Primary dressing to left leg wound with Santyl followed by saline moistened gauze, Kerlix and Bautista wrap. No further plans for podiatric surgical intervention during this hospitalization. Not likely able to continue wound VAC therapy outpatient due to financial constraint, patient is uninsured, application process is pending. Will be following up in podiatry clinic weekly after this hospitalization, down the road should he have a pair source would be applying for wound VAC at that time. Attestations 2 Medical Necessity Statement*: Requires continued antibiotic and wound care therapy. Coding Level of Care Code Acute Code for g Fwd Diagnoses Severe sepsis A41.9; R65.20 DKA (diabetic ketoacidosis) E11.10 Diabetes mellitus type: type 2 Diabetic peripheral neuropathy associated with type 2 diabetes mellitus E11.42 Necrotizing fasciitis M72.6 Gas gangrene A48.0
[2024-05-18 20:44] LABS: Glucose Point of Care 200 mg/dL (70-110)
[2024-05-18 21:15] LABS: Add Urine Microscopic? YES; Bacteria Urine 1+ /hpf; Bilirubin Urine Neg (Negative); Blood Urine 2+ (Negative); Glucose Urine UA 1+ (Normal); Ketones Urine 1+ (Negative); Leukocyte Esterase Urine Negative (Negative); Mucus Urine TRACE /hpf; Nitrate Urine Negative (Negative); Protein Urine Trace (Negative); Squamous Epithelial Cell Urine 0-4 /hpf (0-5); Urine Appearance Clear (CLEAR); Urine Color Yellow (Yellow); Urobilinogen Urine Neg (Negative); WBC Urine 0-4 /hpf (0-5); pH Urine 5 (5-7)
[2024-05-18 21:16] LABS: Amorphous Sediment Urine TRACE /hpf; Fine Granular Casts Urine 0-4 /lpf
[2024-05-18 22:46] LABS: Adenovirus Not Detected (NOT DETECT); Chlamydia Pneumoniae Not Detected (NOT DETECT); Coronavirus 229E,HKU1,NL63,OC4 Not Detected (NOT DETECT); Human Metapneumovirus Not Detected (NOT DETECT); Human Rhinovirus/Enterovirus Not Detected (NOT DETECT); Influenza A Not Detected (NOT DETECT); Influenza A H1 Not Detected (NOT DETECT); Influenza A H1-2009 Not Detected (NOT DETECT); Influenza A H3 Not Detected (NOT DETECT); Influenza B Not Detected (NOT DETECT); Mycoplasma Pneumoniae Not Detected (NOT DETECT); Parainfluenza Virus Type 1 Not Detected (NOT DETECT); Parainfluenza Virus Type 2 Not Detected (NOT DETECT); Parainfluenza Virus Type 3 Not Detected (NOT DETECT); Parainfluenza Virus Type 4 Not Detected (NOT DETECT); Respiratory Syncytial Virus A Not Detected (NOT DETECT); Respiratory Syncytial Virus B Not Detected (NOT DETECT); SARS-COV-2 Not Detected (NOT DETECT)
[2024-05-19] VITALS (10 sets, daily range): BP systolic 105–121; BP diastolic 45–64; PULSE 72–83; RESP 15–18; TEMP 36.6–37.3; O2SAT 90–92
[2024-05-19] MEDS: sucralfate 1 gm/10 mL Oral Liq UDC PO ×4 (06:06→21:52)
[2024-05-19 07:49] LABS: Basophils % 0.2 %; Eosinophils # 0.1 10^3/uL (0.0-0.8); Eosinophils % 1.2 %; Hematocrit 22.6 % (37-53); Lymphocytes # 0.6 10^3/uL (0.8-4.8); Lymphocytes % 6.3 %; Mean Corpuscular HGB Conc 33.2 g/dL (30-55); Mean Corpuscular Hemoglobin 28.8 pg (27-33); Mean Corpuscular Volume 86.9 fl (82-101); Mean Platelet Volume 10.2 fL (7.4-10.4); Monocytes # 0.6 10^3/uL (0.2-0.9); Monocytes % 6.3 %; Neutrophils # 8.13 10^3/uL (1.8-7.7); Neutrophils % 85.6 %; Nucleated Red Blood Cells % 0 %; Platelet Count 197 10^3/cmm (157-399); Red Cell Distribution Width 15.4 % (12.1-15.1)
[2024-05-19 08:39] LABS: THYROID PEROXIDASE ANTIBODIES <1 IU/mL (<9)
--- NOTE | 2024-05-19 09:37 | P.PN_ITS ---
Subjective 2 Subjective: seen and examined. no n/v/f/c/holman/d/sob/ itching. feels well Medications: Reviewed: Yes Medication Review Details: Current Medications Acetaminophen (Acetaminophen 325 Mg Tablet) 650 mg PO Q6H PRN PRN Reason: MILD PAIN Aspirin (Aspirin 81 Mg Ec Tablet) 81 mg PO DAILY [facility] Last Admin: 05/18/24 09:42 Dose: 81 mg Collagenase (Collagenase Oint 30 Gm) 1 applic TOPICAL DAILY [facility] Last Admin: 05/18/24 09:43 Dose: 1 applic Collagenase (Collagenase Oint 30 Gm) 1 applic TOPICAL DAILY [facility] Last Admin: 05/18/24 09:43 Dose: Not Given Ergocalciferol (Ergocalciferol (Vitamin D2) 50,000 Unit Capsule) 50,000 unit PO Q7D [facility] Last Admin: 05/14/24 09:52 Dose: 50,000 unit Glucagon (Glucagon 1 Mg/Ml Kit 1 Ml) 1 mg IM ONCE PRN; Protocol PRN Reason: Adult Acute Hypoglycemia Nursing Prot. Heparin Sodium (Porcine) (Heparin 5,000 Unit/Ml Inj 1 Ml) 5,000 unit SUBCUT Q12H [facility] Last Admin: 05/13/24 02:40 Dose: 5,000 unit Dextrose (D5w) 500 mls @ 0 mls/hr IV ONCE PRN; Protocol PRN Reason: Adult Acute Hypoglycemia Prot Dextrose (D10w) 125 mls @ 750 mls/hr IV PRN PRN; Protocol PRN Reason: Adult Acute Hypoglycemia Nursing Protocol Last Infusion: 05/07/24 08:21 Dose: Infused Dextrose (D10w) 250 mls @ 1,000 mls/hr IV PRN PRN; Protocol PRN Reason: Adult Acute Hypoglycemia Nursing Protocol Sodium Chloride (Sodium Chloride 0.9%) 1,000 mls @ 0 mls/hr IV .Q0M PRN PRN Reason: hypotension or symptomatic Albumin Human (Albumin) 12.5 gm in 50 mls @ 60 mls/hr IV PRN PRN PRN Reason: Hypotension and/or symptomatic Vancomycin HCl 1,000 mg/ (Sodium Chloride) 250 mls @ 250 mls/hr IV POST DIALYSIS [facility] Last Infusion: 05/16/24 19:14 Dose: Infused Insulin Glargine (Insulin Glargine 100 Units/1 Ml) 10 unit SUBCUT DAILY [facility] Last Admin: 05/18/24 09:58 Dose: 10 unit Insulin Human Lispro (Insulin Lispro 100 Unit/1 Ml) 0 unit SUBCUT WM&BEDTIME LAITH; Protocol Last Admin: 05/18/24 21:59 Dose: 6 unit Lanolin (Lanolin Oint 7 Gm) 1 applic TOPICAL PRN PRN PRN Reason: DRYNESS Last Admin: 05/09/24 04:45 Dose: 1 applic Loperamide HCl (Loperamide 2 Mg Capsule) 2 mg PO QID PRN PRN Reason: DIARRHEA Last Admin: 05/17/24 10:21 Dose: 2 mg Midodrine (Midodrine 5 Mg Tablet) 10 mg PO TID LAITH Last Admin: 05/18/24 20:53 Dose: 10 mg Ondansetron HCl (Ondansetron 2 Mg/Ml Sdv 2 Ml) 4 mg IVP Q6H PRN PRN Reason: NAUSEA AND VOMITING Last Admin: 05/09/24 14:02 Dose: 4 mg Pantoprazole Sodium (Pantoprazole 40 Mg Sdv) 40 mg IVP BIDWM [facility] Last Admin: 05/18/24 18:15 Dose: 40 mg Sodium Bicarbonate (Sodium Bicarbonate 650 Mg Tablet) 650 mg PO BID [facility] Last Admin: 05/18/24 18:15 Dose: 650 mg Sucralfate (Sucralfate 1 Gm/10 Ml Oral Liq Udc) 1 gm PO AC&BEDTIME [facility]ITH Last Admin: 05/19/24 06:06 Dose: 1 gm Vitals/I&O/Wt Last Vital Signs Temp 98.6 F 05/19/24 07:34 Pulse 75 05/19/24 07:34 Resp 16 05/19/24 07:34 BP 121/58 05/19/24 07:34 Pulse Ox 90 05/19/24 07:34 O2 Del Method Nasal Cannula 05/19/24 07:34 O2 Flow Rate 3 05/19/24 07:34 FiO2 30 05/09/24 12:23 05/18/24 05/19/24 05/19/24 22:59 06:59 14:59 Output Total 450 / 450 1450 / 1900 Balance -450 / -40 -1450 / -1490 Weight last 48 hrs Weight 94.71 kg Weight 92.351 kg Physical Exam 2 Narrative: The patient was seen with the aid of an A/V device. Examined by nurse. This is a telehealth visit. He is comfortable in bed. Vital signs noted and stable. HEENT is normocephalic atraumatic neck is supple Lungs have good air movement bilaterally. Heart sinus rhythm, positive systolic murmur. Abdomen soft positive bowel sounds. Extremities poor pulses and status post right TMA. has a vac dressing + femoral dialysis catheter 1+ edema in his arms and legs -improved. Neuro = awake, alert oriented follows commands. moves all extremities Urinary Catheter Management: Holbrook: Cath Placed During This Visit: yes Reason for Continuing Indwelling Catheter: Required Immobilization for Trauma or Surgery or Anesthesia Urinary Catheter Date of Insertion: 05/03/24 Urinary Catheter Time of Insertion: 21:50 Data 05/19/24 07:27 05/18/24 17:52 Micro: Microbiology 05/18/24 20:11 Blood Culture - Preliminary Blood SPECIMEN COLLECTED A&P Assessment and plan (1) JALYN (acute kidney injury): 53-year-old gentleman 1. DKA improved with fluids and insulin. 2. Septic foot status post TMA. Check vancomycin level keep trough under 20. Please dose Zosyn for GFR under 20. 3. Renal insufficiency: . Creatinine on admission was 2.8 Urinalysis on admission had 4+ glucose 2+ ketones. Of note negative blood and only trace protein. This is atypical for diabetic nephropathy. Renal ultrasound right kidney 11 cm left kidney 11.6 cm. Major question is if this is acute versus chronic kidney disease. Renal ultrasound appears normal. -Complements reviewed. C3 is low normal C4. Negative urine for eosinophils. Monitor I's and O's. Serologies are pending, those that have returned are negative -likely CKD and JALYN. he had 2 dialysis sessions. we are holding dialysis and monitoring for renal recovery or if he will need a permacath -Renal dose medications. -replace k bicarb stable not uremic todays blood test is pending 4. Anemia likely multifactorial from severe infection, CKD. He has a high iron saturation. neg serum protein electrophoresis - s/p transfusions and s/p Epo hgb 7.5 6. Status post TMA of right foot. wound vac. appreciate podiatry 7. A-fib now in normal sinus rhythm. Patient has history of left bundle branch block. 8. PTH of 172 repeat in 3-4 weeks 9. pt denies SOB Patient was seen and examined with nurse using A/V equipment. Telehealth visit. Case discussed in detail with the patient and the nurse. Plan See above. Attestations 2 Medical Necessity Statement*: jalyn, anemia, tma Time Spent in Patient Care: 16 - 35 minutes (>than 50% of time sp ent in counselling and/or direct pt care on unit) . Coding Level of Care Code Acute Code for [facility] Fwd Diagnoses JALYN (acute kidney injury) N17.9
[2024-05-19] MEDS: pantoprazole 40 mg SDV IVP ×2 (09:51→18:39)
[2024-05-19] MEDS: sodium bicarbonate 650 mg Tablet PO ×2 (09:51→18:39)
[2024-05-19] MEDS: aspirin 81 mg EC Tablet PO (09:51)
[2024-05-19] MEDS: midodrine 5 mg TABLET 10 MG PO ×3 (09:52→21:52)
[2024-05-19] MEDS: insulin glargine 100 units/1 mL 10 UNIT SUBCUT (09:56)
[2024-05-19] MEDS: insulin lispro 100 unit/1 mL SUBCUT ×3 (09:56→21:53)
[2024-05-19 09:59] LABS: Alanine Aminotransferase < 5 U/L (0-41); Albumin Level 3.1 g/dL (3.5-5.2); Alkaline Phosphatase 59 U/L (40-130); Anion Gap 18.1 (5-19); Aspartate Amino Transferase 7 U/L (0-40); Blood Urea Nitrogen 30 mg/dL (6-20); Carbon Dioxide 20 mmol/L (22-29); Chloride 101 mmol/L (98-107); Creatinine Clr Calc Pharmacy 26.4458; Globulin 2.4 g/dL (1.3-4.6); Glomerular Filtration Rate 18.9 mL/min (90-130); Glucose 150 mg/dL (65-115); Magnesium 1.5 mg/dL (1.7-2.3); Osmolality Calculated 291 mOsm/kg (285-295); Phosphorus 2.6 mg/dL (2.5-4.5); Potassium 3.1 mmol/L (3.5-5.1); Sodium 136 mmol/L (136-145); Total Bilirubin 0.6 mg/dL (0.15-1.2); Total Protein 5.5 g/dL (6.6-8.7)
[2024-05-19 10:11] LABS: Vancomycin Random 13.7 ug/mL (20.0-40.0)
[2024-05-19 10:29] LABS: Glomerular Bsmt Membrane IGG <1.0 AI
[2024-05-19] MEDS: magnesium sulfate premix 2 GM/50 ML PIGGYBACK IV (11:16)
[2024-05-19] MEDS: potassium chloride ER 20 mEq Tablet 40 MEQ PO (11:17)
[2024-05-19] MEDS: collagenase oint 30 gm 1 APPLIC TOPICAL (11:19)
[2024-05-19 11:52] LABS: Glucose Point of Care 222 mg/dL (70-110)
--- NOTE | 2024-05-19 12:39 | P.PN_ITS ---
Subjective 2 Subjective: Patient seen bedside this morning. Patient denies any acute events overnight. Denies any pain to the right or left leg. Patient denies any subjective nausea, vomiting, fever, chills, shortness of breath or chest pain. Vitals/I&O/Wt Last Vital Signs Temp 98.3 F 05/19/24 11:07 Pulse 72 05/19/24 11:07 Resp 16 05/19/24 11:07 BP 112/53 05/19/24 11:07 Pulse Ox 91 05/19/24 11:07 O2 Del Method Room Air 05/19/24 11:07 O2 Flow Rate 3 05/19/24 07:34 FiO2 30 05/09/24 12:23 05/18/24 05/19/24 05/19/24 22:59 06:59 14:59 Intake Total 50 / 50 Output Total 450 / 450 1450 / 1900 Balance -450 / -40 -1450 / -1490 50 / 50 Weight last 48 hrs Weight 208 lb 12.8 oz Weight 203 lb 9.6 oz Physical Exam 2 Narrative: Patient is unresponsive. The following is a focused bilateral lower extremity exam. VASCULAR: Dorsalis pedis diminished bilaterally. Posterior tibial arteries diminished. Delayed capillary refill to right great toe, cap refill less than 5 seconds to the left great toe. Pedal hair growth is diminished, there is mild hair growth at the tuft of the great toe bilaterally. NEUROLOGICAL: Protective sensation absent to light touch bilaterally. DERMATOLOGICAL: Wound VAC intact with excellent seal no leaks less than 5 mL of serosanguineous drainage in canister right foot. Left leg wound is clinically stable without purulence or erythema. MUSCULOSKELETAL: Status post right modified Choparts amputation. Urinary Catheter Management: Holbrook: Cath Placed During This Visit: yes Reason for Continuing Indwelling Catheter: Required Immobilization for Trauma or Surgery or Anesthesia Urinary Catheter Date of Insertion: 05/03/24 Urinary Catheter Time of Insertion: 21:50 Data 05/19/24 07:27 05/19/24 07:27 Micro: Microbiology 05/18/24 20:11 Blood Culture - Preliminary Blood SPECIMEN COLLECTED A&P Assessment and plan (1) Severe sepsis: (2) DKA (diabetic ketoacidosis): Qualifiers: Diabetes mellitus type: type 2 (3) Diabetic peripheral neuropathy associated with type 2 diabetes mellitus: (4) Necrotizing fasciitis: (5) Gas gangrene: Plan 53-year-old uncontrolled diabetic male presents with unresponsiveness, DKA, sepsis and necrotizing fasciitis to the right foot. 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 Strict nonweightbearing right foot and elevate while resting Continue antibiotics per hospitalist, polymicrobial infection see micro report. Right foot wound grew Proteus and strep G species, endotracheal culture significant for Staph aureus, Pseudomonas and Zuleika albicans Primary dressing to left leg wound with Santyl followed by saline moistened gauze, Kerlix and Bautista wrap. Will change wound VAC tomorrow. No further plans for podiatric surgical intervention during this hospitalization. Not likely able to continue wound VAC therapy outpatient due to financial constraint, patient is uninsured, application process is pending. Will be following up in podiatry clinic weekly after this hospitalization, down the road should he have a pair source would be applying for wound VAC at that time. Attestations 2 Medical Necessity Statement*: Requires continued antibiotic and wound care therapy. Coding Level of Care Code Acute Code for [facility] Fwd Diagnoses Severe sepsis A41.9; R65.20 DKA (diabetic ketoacidosis) E11.10 Diabetes mellitus type: type 2 Diabetic peripheral neuropathy associated with type 2 diabetes mellitus E11.42 Necrotizing fasciitis M72.6 Gas gangrene A48.0
[2024-05-19 17:11] LABS: Glucose Point of Care 126 mg/dL (70-110)
[2024-05-19 20:19] LABS: Glucose Point of Care 148 mg/dL (70-110)
[2024-05-19 20:45] LABS: Glucose Point of Care 182 mg/dL (70-110)
--- NOTE | 2024-05-19 21:06 | PM.PN ---
Subjective Subjective: He reports he is doing well, not bothered by pain or discomfort. Would like to follow-up with endocrinology after discharge. Discussed with him and his via spanish interpreter/translator regarding his condition and plans. Vitals/I&O/Wt Last Vital Signs Temp 99.2 F 05/19/24 19:48 Pulse 82 05/19/24 19:48 Resp 16 05/19/24 19:48 BP 105/49 05/19/24 19:48 Pulse Ox 92 05/19/24 19:48 O2 Del Method Room Air 05/19/24 18:41 O2 Flow Rate 2 05/19/24 20:00 FiO2 30 05/09/24 12:23 05/19/24 05/19/24 05/19/24 06:59 14:59 22:59 Intake Total 168 / 168 200 / 368 Output Total 1450 / 1900 Balance -1450 / -1490 168 / 168 200 / 368 Weight last 48 hrs Weight 94.71 kg Weight 92.351 kg Physical Exam Narrative: Accompanied by his . Const: COMMON NORMALS: negative for alert GENERAL APPEARANCE: patient mechanically ventilated; not cooperative ORIENTATION/CONSCIOUSNESS: Yes awake OTHER: Awake, alert minimally slowed responses, does not answer every question, sometimes requiring confirmation, but answers sound appropriate. HENMT: COMMON NORMALS: normocephalic, EAC's normal, Normal external nose present and moist oral mucous membranes HEAD & SCALP: normocephalic NOSE: Normal external nose present EXTERNAL AUDITORY CANAL: EAC's normal Chest: CHEST: Yes Symmetrical chest wall rise Resp: COMMON NORMALS: clear to auscultation bilaterally AUSCULTATION: clear to auscultation bilaterally Cardio: COMMON NORMALS: regular rate, regular rhythm and No murmurs present (Cardio) RATE: regular rate RHYTHM: regular rhythm GI: COMMON NORMALS: Normal to inspection, nondistended, normoactive bowel sounds present, Soft to palpation and non-tender PALPATION: Yes Soft to palpation Extremity: COMMON NORMALS: no pedal edema NARRATIVE EXTREMITY EXAM: Right lower extremity dressing in place. Clean without breakthrough. GENERAL: Yes edema (upper 2+ arms and legs) OTHER: Ulceration on medial L calf mid-LE with eschar base, small amount of sanguinous drainage from under eschar, no surrounding erythema. Neuro: COMMON NORMALS: moves all extremities SENSORIUM/ORIENTATION: No alert Skin: COMMON NORMALS: no wounds RASHES: no rashes Urinary Catheter Management: Holbrook: Cath Placed During This Visit: yes Reason for Continuing Indwelling Catheter: Other Urinary Catheter Date of Insertion: 05/03/24 Urinary Catheter Time of Insertion: 21:50 Data 05/19/24 07:27 05/19/24 07:27 Micro: Microbiology 05/18/24 20:11 Blood Culture - Preliminary Blood NEGATIVE TO DATE A&P Assessment and plan (1) JALYN (acute kidney injury): Reviewed vitals, intake and output, chemistry, BUN, creatinine, potassium. Reviewed nephrology note. Replace hypokalemia. Nephrology reassessing kidney function without dialysis. Discussed with director case management. Appreciate nephrology recommendations. SPEP normal. Given persistent metabolic acidosis, persistent creatinine over 4 had a long detailed discussion with patient, patient's son at bedside with spanish interpreter/translator line. We discussed unfortunately even after maximum management with oral bicarb even though patient's urine output is appropriate he continues to remain metabolic acidotic which can cause him to have poor healing of his wounds, can cause worsening or multiorgan dysfunction. We discussed patient most likely requires dialysis going further but for now we cannot be sure of long-term versus short-term as he do not have patient's baseline creatinine but is possible that he has underlying nephropathy. After detailed discussion patient is agreeable for temporary dialysis for now. He would like to see if his renal functions stabilize after a few sessions of dialysis before going for permanent dialysis. Discussed in detail with nephrology team. Temporal dialysis catheter placed on 05/14. Underwent 2 sessions of dialysis overall with last session on . Plan to monitor renal functions worsening creatinine or worsening metabolic acidosis over the weekend and then decide about further dialysis. Dialysis as per nephrology team. Continue with oral sodium bicarbonate supplementation. Monitor renal functions daily. Potassium replaced by nephrology. Placating Lasix today. Repeat BMP later in the day today. (2) Uncontrolled type 2 diabetes mellitus: He would like to follow-up with endocrinology. Placing referral. Reviewed glucose. Without further hypoglycemia. Remaining mostly below 200. Continue Lantus 10 units, sliding scale insulin. Renal diabetic diet. Continue Lantus, sliding scale insulin. Blood sugars better controlled now. Continue with Lantus to 10 units daily, sliding scale moderate dose protocol. Patient would benefit with diabetes education in Slovenian. A1c found to be more than 18 on admission. Though patient has not required high doses of insulin since DKA resolved. Cannot rule out in setting of hemoglobinopathy with concerns for liver dysfunction and anemia as above. Repeat A1c of 17. (3) Fever: Discussed with him and his . Reviewed vitals. Fever last night, so far no additional fever today. He states that he is feeling well. Denies any respiratory or GI symptoms. No signs of cellulitis extending proximally from the wound. Left calf wound with mild sanguinous discharge being treated with Santyl without surrounding cellulitis. Continue with dressing changes. He does report having some diarrhea. 2 episodes today. Requesting C. difficile. Could be in setting of inflammatory response postoperatively. Cannot rule out in setting of atelectasis. Given critically in patient during hospitalization for now will rule out other infectious sources. Check respiratory viral panel, blood culture, urinalysis, chest x-ray. From Zosyn to meropenem for now. (4) Septic shock: Continues on midodrine 10 mg 3 times daily for now. Blood pressure soft. No longer hypotensive. Keep mean artery pressure 65. Most likely in setting of hypoalbuminemia currently. Midodrine 10 mg oral 3 times daily. Albumin discontinued. Sputum culture growing Pseudomonas, Staphylococcus and Zuleika. Wound culture growing Prevotella. Blood cultures so far negative. Leukocytosis has resolved. Patient is post TMA for possible necrotizing fasciitis of right foot. Dressing as per podiatry team. Continue with IV antibiotics for overall 10-day course from date of amputation. Monitor Vanco trough levels. Vancomycin postdialysis. Monitor vancomycin random levels. (5) Status post amputation: Post TMA on admission for necrotizing fasciitis. Further management plan including amputation below the knee versus graft discussed in detail with the patient with podiatry team. Discussed with director case management, attempts underway to arrange for wound VAC which she will need. Patient underwent skin grafting with tendon balancing surgery on 05/16. Significant blood loss of 250 cc during OR. Required 2 unit of blood transfusion. Wound VAC and wound care as per surgical team. As per patient's family they are planning to have wound VAC arranged for outpatient for at least 1 month on discharge. There will be self-pay. Hold off on heparin for now. (6) High anion gap metabolic acidosis: Resolved post 2 session of hemodialysis. Continue to monitor daily for now. (7) Gas gangrene: S/p TMA. Appreciate podiatry recommendations. (8) Acute hypoxic respiratory failure: Resolved. Extubated on 05/10. Currently on room air. Aggressive pulmonary toilet with incentive spirometry and flutter valve. Keep oxygen saturation over 90%. (9) Anemia: Discussed with him and his also about anemia, hemoglobin down to 7.5. No obvious outward bleeding. Small amount of sanguinous discharge from the left calf wound, minimal. Reassess blood counts. Discussed with him following up with PCP to further reassess and discuss referral for endoscopy to rule out any concerning causes. Received 2 additional blood transfusion on 05/16. Overall 4 units of blood transfusion during admission. Current blood loss anemia in setting of postoperative status. Continue to hold off on heparin subcu for now. Hemoglobin down to 7.1 today. Bleeding from the OR site seem to have slowed down. Transfuse monitor PRBC. Repeat hemoglobin hematocrit later in the evening. Blood transfusion keeping goal hemoglobin level over 7 while patient remains hemodynamically stable. Appreciate iron panel. If continues to trend down will consult surgery for possible EGD. Patient did have positive stool for occult blood. Continue with Protonix twice daily and Carafate ACHS. (10) Atrial fibrillation with RVR: Atrial fibrillation with RVR earlier in hospitalization. Has been on amiodarone. Currently in sinus rhythm. Suspect A-fib was related to acute illness. Hold amiodarone for now. Monitor on telemetry. (11) Abnormal iron saturation: Elevated iron saturation, 78.2 raising concern for hemochromatosis, will need additional workup follow-up, genetic testing for HFE. Question of possible underlying liver disease. 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 (12) Dilated bowel: Tolerating oral intake. He is tolerating oral diet currently without issues. Bowel movements charted on 05/10. Reviewed CT abdomen pelvis, without evidence of obstruction found prior to extubation with difficulty initiating tube feeds. Some mild thickening of rectosigmoid colon. So far without any further vomiting. Trial of oral diet. (13) DKA (diabetic ketoacidosis): DKA resolved. Qualifiers: Diabetes mellitus type: type 2 (14) LBBB (left bundle branch block): Denies any chest pain. Does not have any EKG in the past to compare. Patient would benefit from further ACS workup as an outpatient once hemoglobin stable. Echocardiogram done during hospitalization showed EF of 50 to 55% with grade 1 diastolic dysfunction without regional wall motion abnormality. Appreciate A1c lipid panel results. Continue with baby aspirin for now. (15) Metabolic encephalopathy: Resolved. (16) Dysphagia: Postextubation. Most likely in setting of prolonged intubation. Resolved Apprecioate Speech evaluation and modified barium swallow. (17) Loss of sensation: Could be in setting of diabetic neuropathy. Appreciate lumbar CT, arterial and venous duplex of lower limbs. Appreciate vitamin B12 for the results. (18) Lactic acidosis: From DKA and sepsis (19) CKD (chronic kidney disease): (20) Goals of care, counseling/discussion: (21) Ulcer of foot with necrosis of muscle: Plan Hypomagnesemia: Replace. Recheck magnesium. DVT prophylaxis: SCD, on aspirin Full code Protonix for PUD prophylaxis Regular carb consistent diet. Discharge planning: Plan to discharge home with caregiver. Patient on discharge will need a new PCP, podiatry, endocrine follow-up. Patient will need extensive wound care on discharge given post graft status. As per the patient's family they are planning to have wound VAC arranged for at least 1 month postdischarge. Case management aware. Attestations Medical Necessity Statement*: Continue admission for reassessment after acute renal failure, arrangements for wound care after right TMA amputation, wound VAC arrangements, reassessment of anemia after sepsis and acute blood loss. Post discharge planning and arrangements. and High MDM includes amount and/or complexity of data reviewed/ordered [ resulted lab(s)/test(s), ordered lab(s)/test(s) and other healthcare professional discussion] as documented Diagnoses JALYN (acute kidney injury) N17.9 Uncontrolled type 2 diabetes mellitus Fever R50.9 Septic shock A41.9; R65.21 Status post amputation Z89.9 High anion gap metabolic acidosis E87.29 Gas gangrene A48.0 Acute hypoxic respiratory failure J96.01 Anemia D64.9 Atrial fibrillation with RVR I48.91 Abnormal iron saturation R79.0 Dilated bowel DKA (diabetic ketoacidosis) E11.10 Diabetes mellitus type: type 2 LBBB (left bundle branch block) I44.7 Metabolic encephalopathy G93.41 Dysphagia R13.10 Loss of sensation R20.0 Lactic acidosis E87.20 CKD (chronic kidney disease) N18.9 Goals of care, counseling/discussion Z71.89 Ulcer of foot with necrosis of muscle L97.503
[2024-05-20] VITALS (9 sets, daily range): BP systolic 99–121; BP diastolic 48–67; PULSE 65–80; RESP 15–16; TEMP 36.7–37.3; O2SAT 91–95
[2024-05-20 00:14] LABS: ANCA Screen NEGATIVE (NEGATIVE)
[2024-05-20 05:59] LABS: Basophils % 0.6 %; Eosinophils # 0.2 10^3/uL (0.0-0.8); Eosinophils % 2.3 %; Hematocrit 21.9 % (37-53); Lymphocytes # 0.6 10^3/uL (0.8-4.8); Lymphocytes % 9.1 %; Mean Corpuscular HGB Conc 32.9 g/dL (30-55); Mean Corpuscular Hemoglobin 28.9 pg (27-33); Mean Platelet Volume 10.2 fL (7.4-10.4); Monocytes # 0.5 10^3/uL (0.2-0.9); Monocytes % 7.6 %; Neutrophils # 5.46 10^3/uL (1.8-7.7); Neutrophils % 79.8 %; Nucleated Red Blood Cells % 0 %; Platelet Count 200 10^3/cmm (157-399); Red Blood Count 2.49 10^6/uL (3.85-5.65); Red Cell Distribution Width 15.4 % (12.1-15.1); White Blood Count 6.84 10^3/uL (3.29-11.43)
[2024-05-20] MEDS: epoetin alfa 10,000 unit/mL INJ 10000 UNIT SUBCUT (06:03)
[2024-05-20] MEDS: sucralfate 1 gm/10 mL Oral Liq UDC PO ×4 (06:03→20:01)
[2024-05-20 06:18] LABS: Vancomycin Random 10.4 ug/mL (20.0-40.0)
[2024-05-20 06:20] LABS: Glucose Point of Care 133 mg/dL (70-110)
[2024-05-20 06:21] LABS: Alanine Aminotransferase < 5 U/L (0-41); Albumin Level 3.1 g/dL (3.5-5.2); Alkaline Phosphatase 61 U/L (40-130); Anion Gap 16.6 (5-19); Aspartate Amino Transferase 7 U/L (0-40); Blood Urea Nitrogen 30 mg/dL (6-20); Carbon Dioxide 21 mmol/L (22-29); Chloride 104 mmol/L (98-107); Creatinine Clr Calc Pharmacy 25.9012; Globulin 2.1 g/dL (1.3-4.6); Glomerular Filtration Rate 19.6 mL/min (90-130); Glucose 114 mg/dL (65-115); Magnesium 1.9 mg/dL (1.7-2.3); Osmolality Calculated 293 mOsm/kg (285-295); Phosphorus 2.5 mg/dL (2.5-4.5); Potassium 3.6 mmol/L (3.5-5.1); Sodium 138 mmol/L (136-145); Total Bilirubin 0.6 mg/dL (0.15-1.2); Total Protein 5.2 g/dL (6.6-8.7)
--- NOTE | 2024-05-20 07:49 | P.PN_ITS ---
Subjective 2 Subjective: feels well. no n/v/f/c/holman/d/+ leg wound vac. denies fevers Medications: Reviewed: Yes Medication Review Details: Current Medications Acetaminophen (Acetaminophen 325 Mg Tablet) 650 mg PO Q6H PRN PRN Reason: MILD PAIN Aspirin (Aspirin 81 Mg Ec Tablet) 81 mg PO DAILY [facility] Last Admin: 05/19/24 09:51 Dose: 81 mg Collagenase (Collagenase Oint 30 Gm) 1 applic TOPICAL DAILY [facility] Last Admin: 05/19/24 11:19 Dose: 1 applic Collagenase (Collagenase Oint 30 Gm) 1 applic TOPICAL DAILY [facility] Last Admin: 05/19/24 11:19 Dose: Not Given Ergocalciferol (Ergocalciferol (Vitamin D2) 50,000 Unit Capsule) 50,000 unit PO Q7D [facility] Last Admin: 05/14/24 09:52 Dose: 50,000 unit Glucagon (Glucagon 1 Mg/Ml Kit 1 Ml) 1 mg IM ONCE PRN; Protocol PRN Reason: Adult Acute Hypoglycemia Nursing Prot. Heparin Sodium (Porcine) (Heparin 5,000 Unit/Ml Inj 1 Ml) 5,000 unit SUBCUT Q12H [facility] Last Admin: 05/13/24 02:40 Dose: 5,000 unit Dextrose (D5w) 500 mls @ 0 mls/hr IV ONCE PRN; Protocol PRN Reason: Adult Acute Hypoglycemia Prot Dextrose (D10w) 125 mls @ 750 mls/hr IV PRN PRN; Protocol PRN Reason: Adult Acute Hypoglycemia Nursing Protocol Last Infusion: 05/07/24 08:21 Dose: Infused Dextrose (D10w) 250 mls @ 1,000 mls/hr IV PRN PRN; Protocol PRN Reason: Adult Acute Hypoglycemia Nursing Protocol Sodium Chloride (Sodium Chloride 0.9%) 1,000 mls @ 0 mls/hr IV .Q0M PRN PRN Reason: hypotension or symptomatic Albumin Human (Albumin) 12.5 gm in 50 mls @ 60 mls/hr IV PRN PRN PRN Reason: Hypotension and/or symptomatic Vancomycin HCl 1,000 mg/ (Sodium Chloride) 250 mls @ 250 mls/hr IV POST DIALYSIS [facility] Last Infusion: 05/16/24 19:14 Dose: Infused Insulin Glargine (Insulin Glargine 100 Units/1 Ml) 10 unit SUBCUT DAILY [facility] Last Admin: 05/19/24 09:56 Dose: 10 unit Insulin Human Lispro (Insulin Lispro 100 Unit/1 Ml) 0 unit SUBCUT WM&BEDTIME [facility]; Protocol Last Admin: 05/20/24 07:30 Dose: Not Given Lanolin (Lanolin Oint 7 Gm) 1 applic TOPICAL PRN PRN PRN Reason: DRYNESS Last Admin: 05/09/24 04:45 Dose: 1 applic Loperamide HCl (Loperamide 2 Mg Capsule) 2 mg PO QID PRN PRN Reason: DIARRHEA Last Admin: 05/17/24 10:21 Dose: 2 mg Midodrine (Midodrine 5 Mg Tablet) 10 mg PO TID [facility] Last Admin: 05/19/24 21:52 Dose: 10 mg Ondansetron HCl (Ondansetron 2 Mg/Ml Sdv 2 Ml) 4 mg IVP Q6H PRN PRN Reason: NAUSEA AND VOMITING Last Admin: 05/09/24 14:02 Dose: 4 mg Pantoprazole Sodium (Pantoprazole 40 Mg Sdv) 40 mg IVP BIDWM [facility] Last Admin: 05/19/24 18:39 Dose: 40 mg Sodium Bicarbonate (Sodium Bicarbonate 650 Mg Tablet) 650 mg PO BID [facility] Last Admin: 05/19/24 18:39 Dose: 650 mg Sucralfate (Sucralfate 1 Gm/10 Ml Oral Liq Udc) 1 gm PO AC&BEDTIME [facility] Last Admin: 05/20/24 06:03 Dose: 1 gm Vitals/I&O/Wt Last Vital Signs Temp 98.3 F 05/20/24 04:26 Pulse 70 05/20/24 06:00 Resp 16 05/20/24 04:26 BP 117/61 05/20/24 04:26 Pulse Ox 94 05/20/24 04:26 O2 Del Method Nasal Cannula 05/20/24 04:26 O2 Flow Rate 2 05/19/24 20:00 FiO2 30 05/09/24 12:23 05/19/24 05/20/24 05/20/24 22:59 06:59 14:59 Intake Total 400 / 568 200 / 768 Output Total 800 / 800 Balance 400 / 568 -600 / -32 Weight last 48 hrs Weight 85.304 kg Weight 94.71 kg Physical Exam 2 Narrative: The patient was seen with the aid of an A/V device. Examined by nurse. This is a telehealth visit. He is comfortable in bed. Vital signs noted and stable. HEENT is normocephalic atraumatic neck is supple Lungs have good air movement bilaterally. Heart sinus rhythm, positive systolic murmur. Abdomen soft positive bowel sounds. Extremities poor pulses and status post right TMA. has a vac dressing + femoral dialysis catheter 1+ edema in his arms and legs -improved. Neuro = awake, alert oriented follows commands. moves all extremities Urinary Catheter Management: Holbrook: Cath Placed During This Visit: yes Reason for Continuing Indwelling Catheter: Acute Urinary Retention or Obstruction Urinary Catheter Date of Insertion: 05/03/24 Urinary Catheter Time of Insertion: 21:50 Data 05/20/24 05:28 05/20/24 05:28 Micro: Microbiology 05/18/24 20:11 Blood Culture - Preliminary Blood NEGATIVE TO DATE A&P Assessment and plan (1) JALYN (acute kidney injury): 53-year-old gentleman 1. DKA improved with fluids and insulin. 2. Septic foot status post TMA. Check vancomycin level keep trough under 20. Please dose Zosyn for GFR under 20. 3. Renal insufficiency: . Creatinine on admission was 2.8 likely has ckd stage 4 from dm -he is doing well w/o HD. he had 2 dialysis sessions last week as cr and k and bicarb sttable- please d/c dialysis catheter monitor renal fxn- in future, pt will likely need chronic dialysis 4. Anemia likely multifactorial from severe infection, CKD. He has a high iron saturation. neg serum protein electrophoresis - s/p transfusions and s/p Epo hgb 7.2- consider giving 1 unit prbc tx 6. Status post TMA of right foot. wound vac. appreciate podiatry -abx per medicine and podiatry 7. A-fib now in normal sinus rhythm. Patient has history of left bundle branch block. 8. PTH of 172 repeat in 3-4 weeks 9. pt denies SOB Patient was seen and examined with nurse using A/V equipment. Telehealth visit. Case discussed in detail with the patient and the nurse. Plan See above. Attestations 2 Medical Necessity Statement*: TMA in for leg infection in uncontrolled dm Time Spent in Patient Care: 16 - 35 minutes (>than 50% of time sp ent in counselling and/or direct pt care on unit) . Coding Level of Care Code Acute Code for [facility] Fwd Diagnoses JALYN (acute kidney injury) N17.9
[2024-05-20] MEDS: midodrine 5 mg TABLET 10 MG PO ×3 (08:37→20:01)
[2024-05-20] MEDS: sodium bicarbonate 650 mg Tablet PO ×3 (08:37→20:01)
[2024-05-20] MEDS: aspirin 81 mg EC Tablet PO (08:37)
[2024-05-20] MEDS: pantoprazole 40 mg SDV IVP ×2 (08:37→18:30)
[2024-05-20] MEDS: insulin glargine 100 units/1 mL 10 UNIT SUBCUT (08:38)
[2024-05-20] MEDS: collagenase oint 30 gm 1 APPLIC TOPICAL (08:40)
--- NOTE | 2024-05-20 10:14 | P.PN_ITS ---
Subjective 2 Subjective: Patient seen bedside this afternoon, his is present. He is in good spirits, denies any pain to the right foot or left leg. Patient denies any subjective nausea, vomiting, fever, chills, shortness of breath or chest pain. Vitals/I&O/Wt Last Vital Signs Temp 98.3 F 05/20/24 07:18 Pulse 74 05/20/24 07:18 Resp 15 05/20/24 07:18 BP 121/65 05/20/24 07:18 Pulse Ox 95 05/20/24 07:18 O2 Del Method Nasal Cannula 05/20/24 07:18 O2 Flow Rate 3 05/20/24 07:18 FiO2 30 05/09/24 12:23 05/19/24 05/20/24 05/20/24 22:59 06:59 14:59 Intake Total 400 / 568 200 / 768 120 / 120 Output Total 800 / 800 Balance 400 / 568 -600 / -32 120 / 120 Weight last 48 hrs Weight 188 lb 1 oz Weight 208 lb 12.8 oz Physical Exam 2 Narrative: Patient is unresponsive. The following is a focused bilateral lower extremity exam. VASCULAR: Dorsalis pedis diminished bilaterally. Posterior tibial arteries diminished. Delayed capillary refill to right great toe, cap refill less than 5 seconds to the left great toe. Pedal hair growth is diminished, there is mild hair growth at the tuft of the great toe bilaterally. NEUROLOGICAL: Protective sensation absent to light touch bilaterally. DERMATOLOGICAL: Wound VAC intact with excellent seal no leaks less than 5 mL of serosanguineous drainage in canister right foot. Left leg wound is clinically stable without purulence or erythema. MUSCULOSKELETAL: Status post right modified Choparts amputation. Urinary Catheter Management: [place]brook: Cath Placed During This Visit: yes Reason for Continuing Indwelling Catheter: Acute Urinary Retention or Obstruction Urinary Catheter Date of Insertion: 05/03/24 Urinary Catheter Time of Insertion: 21:50 Data 05/20/24 05:28 05/21/24 04:17 Micro: Microbiology 05/18/24 20:11 Blood Culture - Preliminary Blood NEGATIVE TO DATE A&P Assessment and plan (1) Severe sepsis: (2) DKA (diabetic ketoacidosis): Qualifiers: Diabetes mellitus type: type 2 (3) Diabetic peripheral neuropathy associated with type 2 diabetes mellitus: (4) Necrotizing fasciitis: (5) Gas gangrene: Plan 53-year-old uncontrolled diabetic male presents with unresponsiveness, DKA, sepsis and necrotizing fasciitis to the right foot. 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 Graft is intact, not incorporated. Strict nonweightbearing right foot and elevate while resting Continue antibiotics per hospitalist, polymicrobial infection see micro report. Right foot wound grew Proteus and strep G species, endotracheal culture significant for Staph aureus, Pseudomonas and Zuleika albicans Primary dressing to left leg wound with Santyl followed by saline moistened gauze, Kerlix and Bautista wrap. No further plans for podiatric surgical intervention during this hospitalization. Not likely able to continue wound VAC therapy outpatient due to financial constraint, patient is uninsured, application process is pending. Will be following up in podiatry clinic weekly after this hospitalization, down the road should he have a pair source would be applying for wound VAC at that time. Attestations 2 Medical Necessity Statement*: Requires continued antibiotic and wound care therapy. Coding Level of Care Code Acute Code for [facility] Fwd Diagnoses Severe sepsis A41.9; R65.20 DKA (diabetic ketoacidosis) E11.10 Diabetes mellitus type: type 2 Diabetic peripheral neuropathy associated with type 2 diabetes mellitus E11.42 Necrotizing fasciitis M72.6 Gas gangrene A48.0
[2024-05-20 12:37] LABS: Glucose Point of Care 179 mg/dL (70-110)
[2024-05-20] MEDS: insulin lispro 100 unit/1 mL SUBCUT (12:43)
[2024-05-20] MEDS: vancomycin 1,000 MG in sodium chloride 0.9% 250 ML 250 MG IV (12:43)
[2024-05-20 17:16] LABS: Glucose Point of Care 91 mg/dL (70-110)
--- NOTE | 2024-05-20 20:57 | P.PN_ITS ---
Subjective 2 Subjective: He reports he is doing well. Denies any new developments. Has been making arrangements for postdischarge wound care. Awaiting decision regarding need for any further hemodialysis. We went over his conditions again, including regarding need for follow-up for iron overload, assessment for possible hemochromatosis. Vitals/I&O/Wt Last Vital Signs Temp 98.1 F 05/20/24 15:28 Pulse 65 05/20/24 15:28 Resp 16 05/20/24 15:28 BP 104/67 05/20/24 15:28 Pulse Ox 92 05/20/24 15:28 O2 Del Method Room Air 05/20/24 15:28 O2 Flow Rate 3 05/20/24 07:18 FiO2 30 05/09/24 12:23 05/20/24 05/20/24 05/20/24 06:59 14:59 22:59 Intake Total 200 / 768 490 / 490 120 / 610 Output Total 800 / 800 Balance -600 / -32 490 / 490 120 / 610 Weight last 48 hrs Weight 85.304 kg Weight 94.71 kg Physical Exam 2 Narrative: Accompanied by his . Const: COMMON NORMALS: negative for alert GENERAL APPEARANCE: patient mechanically ventilated; not cooperative ORIENTATION/CONSCIOUSNESS: Yes awake OTHER: Awake, alert minimally slowed responses, does not answer every question, sometimes requiring confirmation, but answers sound appropriate. HENMT: COMMON NORMALS: normocephalic, EAC's normal, Normal external nose present and moist oral mucous membranes HEAD & SCALP: normocephalic NOSE: Normal external nose present EXTERNAL AUDITORY CANAL: EAC's normal Chest: CHEST: Yes Symmetrical chest wall rise Resp: COMMON NORMALS: clear to auscultation bilaterally AUSCULTATION: clear to auscultation bilaterally Cardio: COMMON NORMALS: regular rate, regular rhythm and No murmurs present (Cardio) RATE: regular rate RHYTHM: regular rhythm GI: COMMON NORMALS: Normal to inspection, nondistended, normoactive bowel sounds present, Soft to palpation and non-tender PALPATION: Yes Soft to palpation Extremity: COMMON NORMALS: no pedal edema NARRATIVE EXTREMITY EXAM: Right lower extremity dressing in place. Wound VAC in place. GENERAL: Yes edema (upper 2+ arms and legs) OTHER: Ulceration on medial L calf mid-LE with clean dressing, without strikethrough. Neuro: COMMON NORMALS: moves all extremities SENSORIUM/ORIENTATION: No alert Skin: COMMON NORMALS: no wounds RASHES: no rashes Urinary Catheter Management: Holbrook: Cath Placed During This Visit: yes Reason for Continuing Indwelling Catheter: Acute Urinary Retention or Obstruction Urinary Catheter Date of Insertion: 05/03/24 Urinary Catheter Time of Insertion: 21:50 Data 05/20/24 05:28 05/20/24 05:28 Micro: Microbiology 05/18/24 20:00 Blood Culture - Preliminary Blood SPECIMEN COLLECTED 05/18/24 20:11 Blood Culture - Preliminary Blood NEGATIVE TO DATE A&P Assessment and plan (1) JALYN (acute kidney injury): Reviewed vitals, potassium, bicarb, anion gap, BUN, creatinine, intake and output, nephrology note. Okay to discontinue dialysis catheter. Reviewed vitals, intake and output, chemistry, BUN, creatinine, potassium. Reviewed nephrology note. Replace hypokalemia. Nephrology reassessing kidney function without dialysis. Discussed with cyanide case hardener. Appreciate nephrology recommendations. SPEP normal. Given persistent metabolic acidosis, persistent creatinine over 4 had a long detailed discussion with patient, patient's son at bedside with drilling machine runner line. We discussed unfortunately even after maximum management with oral bicarb even though patient's urine output is appropriate he continues to remain metabolic acidotic which can cause him to have poor healing of his wounds, can cause worsening or multiorgan dysfunction. We discussed patient most likely requires dialysis going further but for now we cannot be sure of long-term versus short-term as he do not have patient's baseline creatinine but is possible that he has underlying nephropathy. After detailed discussion patient is agreeable for temporary dialysis for now. He would like to see if his renal functions stabilize after a few sessions of dialysis before going for permanent dialysis. Discussed in detail with nephrology team. Temporal dialysis catheter placed on 05/14. Underwent 2 sessions of dialysis overall with last session on . Plan to monitor renal functions worsening creatinine or worsening metabolic acidosis over the weekend and then decide about further dialysis. Dialysis as per nephrology team. Continue with oral sodium bicarbonate supplementation. Monitor renal functions daily. Potassium replaced by nephrology. Placating Lasix today. Repeat BMP later in the day today. (2) Uncontrolled type 2 diabetes mellitus: Discussed with him continued insulin, glucose monitoring at home. Follow-up with endocrinology. Reviewed POC glucose. Continue Lantus, sliding scale insulin. Blood sugars better controlled now. Continue with Lantus to 10 units daily, sliding scale moderate dose protocol. Patient would benefit with diabetes education in [place]. A1c found to be more than 18 on admission. Though patient has not required high doses of insulin since DKA resolved. Cannot rule out in setting of hemoglobinopathy with concerns for liver dysfunction and anemia as above. Repeat A1c of 17. (3) Fever: So far without recurrence. Reassess vitals. Stop Vanco, switch to linezolid. Discussed with him and his . Reviewed vitals. Fever last night, so far no additional fever today. He states that he is feeling well. Denies any respiratory or GI symptoms. No signs of cellulitis extending proximally from the wound. Left calf wound with mild sanguinous discharge being treated with Santyl without surrounding cellulitis. Continue with dressing changes. He does report having some diarrhea. 2 episodes today. Requesting C. difficile. Could be in setting of inflammatory response postoperatively. Cannot rule out in setting of atelectasis. Given critically in patient during hospitalization for now will rule out other infectious sources. Check respiratory viral panel, blood culture, urinalysis, chest x-ray. (4) Septic shock: Continues on midodrine 10 mg 3 times daily for now. Blood pressure soft. No longer hypotensive. Keep mean artery pressure 65. Most likely in setting of hypoalbuminemia currently. Midodrine 10 mg oral 3 times daily. Albumin discontinued. Sputum culture growing Pseudomonas, Staphylococcus and Zuleika. Wound culture growing Prevotella. Blood cultures so far negative. Leukocytosis has resolved. Patient is post TMA for possible necrotizing fasciitis of right foot. (5) Status post amputation: Given difficulties obtaining wound VAC per podiatry okay to continue with wet-to-dry dressings given difficulties obtaining wound vac and current condition. Post TMA on admission for necrotizing fasciitis. Further management plan including amputation below the knee versus graft discussed in detail with the patient with podiatry team. Discussed with cyanide case hardener, attempts underway to arrange for wound VAC which she will need. Patient underwent skin grafting with tendon balancing surgery on 05/16. Significant blood loss of 250 cc during OR. Required 2 unit of blood transfusion. Wound VAC and wound care as per surgical team. As per patient's family they are planning to have wound VAC arranged for outpatient for at least 1 month on discharge. There will be self-pay. Hold off on heparin for now. (6) High anion gap metabolic acidosis: Resolved post 2 session of hemodialysis. Continue to monitor daily for now. (7) Gas gangrene: S/p TMA. Appreciate podiatry recommendations. (8) Acute hypoxic respiratory failure: Resolved. Extubated on 05/10. Currently on room air. Aggressive pulmonary toilet with incentive spirometry and flutter valve. Keep oxygen saturation over 90%. (9) Anemia: Reviewed hemoglobin, 7.2. Platelets are normal. WBC normal. Reassess blood counts in the morning. Switch to p.o. Protonix. No obvious outward bleeding. Small amount of sanguinous discharge from the left calf wound, minimal. Reassess blood counts. Discussed with him following up with PCP to further reassess and discuss referral for endoscopy to rule out any concerning causes. Received 2 additional blood transfusion on 05/16. Overall 4 units of blood transfusion during admission. Current blood loss anemia in setting of postoperative status. Continue to hold off on heparin subcu for now. Hemoglobin down to 7.1 today. Bleeding from the OR site seem to have slowed down. Transfuse monitor PRBC. Repeat hemoglobin hematocrit later in the evening. Blood transfusion keeping goal hemoglobin level over 7 while patient remains hemodynamically stable. Appreciate iron panel. If continues to trend down will consult surgery for possible EGD. Patient did have positive stool for occult blood. Continue with Protonix twice daily and Carafate ACHS. (10) Atrial fibrillation with RVR: Atrial fibrillation with RVR earlier in hospitalization. Has been on amiodarone. Currently in sinus rhythm. Suspect A-fib was related to acute illness. Hold amiodarone for now. Monitor on telemetry. (11) Abnormal iron saturation: Elevated iron saturation, 78.2 raising concern for hemochromatosis, will need additional workup follow-up, genetic testing for HFE. Question of possible underlying liver disease. 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 (12) Dilated bowel: Tolerating oral intake. He is tolerating oral diet currently without issues. Bowel movements charted on 05/10. Reviewed CT abdomen pelvis, without evidence of obstruction found prior to extubation with difficulty initiating tube feeds. Some mild thickening of rectosigmoid colon. So far without any further vomiting. Trial of oral diet. (13) DKA (diabetic ketoacidosis): DKA resolved. Qualifiers: Diabetes mellitus type: type 2 (14) LBBB (left bundle branch block): Denies any chest pain. Does not have any EKG in the past to compare. Patient would benefit from further ACS workup as an outpatient once hemoglobin stable. Echocardiogram done during hospitalization showed EF of 50 to 55% with grade 1 diastolic dysfunction without regional wall motion abnormality. Appreciate A1c lipid panel results. Continue with baby aspirin for now. (15) Metabolic encephalopathy: Resolved. (16) Dysphagia: Postextubation. Most likely in setting of prolonged intubation. Resolved Apprecioate Speech evaluation and modified barium swallow. (17) Loss of sensation: Could be in setting of diabetic neuropathy. Appreciate lumbar CT, arterial and venous duplex of lower limbs. Appreciate vitamin B12 for the results. (18) Lactic acidosis: From DKA and sepsis (19) CKD (chronic kidney disease): (20) Goals of care, counseling/discussion: (21) Ulcer of foot with necrosis of muscle: Plan Hypomagnesemia: Better today. Recheck magnesium. DVT prophylaxis: SCD, on aspirin Full code Protonix for PUD prophylaxis Regular carb consistent diet. Discharge planning: Plan to discharge home with caregiver. Patient on discharge will need a new PCP, podiatry, endocrine follow-up. Patient will need extensive wound care on discharge given post graft status. As per the patient's family they are planning to have wound VAC arranged for at least 1 month postdischarge. Case management aware. Attestations 2 Medical Necessity Statement*: Continue admission for reassessment after acute renal failure, removal of dialysis catheter, discharge preparations, reassessment of anemia after sepsis and acute blood loss. Diagnoses JALYN (acute kidney injury) N17.9 Uncontrolled type 2 diabetes mellitus Fever R50.9 Septic shock A41.9; R65.21 Status post amputation Z89.9 High anion gap metabolic acidosis E87.29 Gas gangrene A48.0 Acute hypoxic respiratory failure J96.01 Anemia D64.9 Atrial fibrillation with RVR I48.91 Abnormal iron saturation R79.0 Dilated bowel DKA (diabetic ketoacidosis) E11.10 Diabetes mellitus type: type 2 LBBB (left bundle branch block) I44.7 Metabolic encephalopathy G93.41 Dysphagia R13.10 Loss of sensation R20.0 Lactic acidosis E87.20 CKD (chronic kidney disease) N18.9 Goals of care, counseling/discussion Z71.89 Ulcer of foot with necrosis of muscle L97.503
[2024-05-20 22:25] LABS: Glucose Point of Care 128 mg/dL (70-110)
[2024-05-21] VITALS (13 sets, daily range): BP systolic 109–123; BP diastolic 45–64; PULSE 73–83; RESP 17–18; TEMP 36.8–37.7; O2SAT 90–94
[2024-05-21 05:59] LABS: Alanine Aminotransferase < 5 U/L (0-41); Alkaline Phosphatase 66 U/L (40-130); Anion Gap 16.6 (5-19); Aspartate Amino Transferase 8 U/L (0-40); Blood Urea Nitrogen 37 mg/dL (6-20); Calcium 8.4 mg/dL (8.5-10.5); Carbon Dioxide 21 mmol/L (22-29); Chloride 106 mmol/L (98-107); Creatinine Clr Calc Pharmacy 26.0919; Globulin 2.5 g/dL (1.3-4.6); Glomerular Filtration Rate 19.6 mL/min (90-130); Glucose 113 mg/dL (65-115); Magnesium 1.7 mg/dL (1.7-2.3); Osmolality Calculated 299 mOsm/kg (285-295); Phosphorus 2.1 mg/dL (2.5-4.5); Potassium 3.6 mmol/L (3.5-5.1); Sodium 140 mmol/L (136-145); Total Bilirubin 0.5 mg/dL (0.15-1.2); Total Protein 5.5 g/dL (6.6-8.7)
[2024-05-21] MEDS: sucralfate 1 gm/10 mL Oral Liq UDC PO ×4 (06:20→20:09)
[2024-05-21 06:32] LABS: Glucose Point of Care 111 mg/dL (70-110)
[2024-05-21] MEDS: sodium bicarbonate 650 mg Tablet PO ×3 (07:52→20:09)
[2024-05-21] MEDS: midodrine 5 mg TABLET 10 MG PO ×3 (07:52→20:09)
[2024-05-21] MEDS: ergocalciferol (vitamin D2) 50,000 Unit Capsule 50000 UNIT PO (07:52)
[2024-05-21] MEDS: aspirin 81 mg EC Tablet PO (07:53)
[2024-05-21] MEDS: pantoprazole DR 40 mg Tablet PO ×2 (07:53→17:46)
[2024-05-21] MEDS: collagenase oint 30 gm 1 APPLIC TOPICAL (07:53)
[2024-05-21] MEDS: linezolid 600 mg Tablet PO ×2 (07:53→20:09)
[2024-05-21] MEDS: insulin glargine 100 units/1 mL 10 UNIT SUBCUT (07:54)
[2024-05-21 09:55] LABS: Basophils % 0.2 %; Eosinophils # 0.2 10^3/uL (0.0-0.8); Eosinophils % 2.7 %; Hematocrit 21.3 % (37-53); Lymphocytes # 0.6 10^3/uL (0.8-4.8); Lymphocytes % 8.7 %; Mean Corpuscular HGB Conc 32.4 g/dL (30-55); Mean Corpuscular Hemoglobin 28.9 pg (27-33); Mean Corpuscular Volume 89.1 fl (82-101); Mean Platelet Volume 10.8 fL (7.4-10.4); Monocytes # 0.5 10^3/uL (0.2-0.9); Monocytes % 7.2 %; Neutrophils # 5.39 10^3/uL (1.8-7.7); Neutrophils % 80.9 %; Nucleated Red Blood Cells % 0 %; Platelet Count 224 10^3/cmm (157-399); Red Blood Count 2.39 10^6/uL (3.85-5.65); Red Cell Distribution Width 15.6 % (12.1-15.1); White Blood Count 6.66 10^3/uL (3.29-11.43)
--- NOTE | 2024-05-21 11:27 | PC.NURSE ---
Dialysis cath right groin removed at this time per Dr. stinson. Cath intact. Pressure held x15 minutes. NO bleeding noted. Pressure dressing applied with 4x4 fluff/foam tape. Pt tolerated well.
--- NOTE | 2024-05-21 13:09 | PM.PN ---
Subjective Subjective: no new complaints Medications: Reviewed: Yes Vitals/I&O/Wt Last Vital Signs Temp 98.8 F 05/21/24 10:46 Pulse 78 05/21/24 10:46 Resp 18 05/21/24 10:46 BP 113/59 05/21/24 10:46 Pulse Ox 91 05/21/24 10:46 O2 Del Method Room Air 05/21/24 10:46 O2 Flow Rate 3 05/20/24 07:18 FiO2 30 05/09/24 12:23 05/20/24 05/21/24 05/21/24 22:59 06:59 14:59 Intake Total 220 / 710 150 / 860 300 / 300 Balance 220 / 710 150 / 860 300 / 300 Weight last 48 hrs Weight 86.636 kg Weight 85.304 kg Physical Exam Narrative: The patient was seen with the aid of an A/V device. Examined by nurse. This is a telehealth visit. He is comfortable in bed. Vital signs noted and stable. HEENT is normocephalic atraumatic neck is supple Lungs have good air movement bilaterally. Heart sinus rhythm, positive systolic murmur. Abdomen soft positive bowel sounds. Extremities poor pulses and status post right TMA. has a vac dressing + femoral dialysis catheter 1+ edema in his arms and legs -improved. Neuro = awake, alert oriented follows commands. moves all extremities Urinary Catheter Management: [place]bro[place]: Cath Placed During This Visit: yes Reason for Continuing Indwelling Catheter: Acute Urinary Retention or Obstruction Urinary Catheter Date of Insertion: 05/03/24 Urinary Catheter Time of Insertion: 21:50 Data 05/21/24 04:17 05/21/24 04:17 Micro: Microbiology 05/18/24 20:00 Blood Culture - Preliminary Blood SPECIMEN COLLECTED A&P Assessment and plan (1) JALYN (acute kidney injury): 53-year-old gentleman 1. DKA improved with fluids and insulin. 2. Septic foot status post TMA. Check vancomycin level keep trough under 20. Please dose Zosyn for GFR under 20. 3. Renal insufficiency: . Creatinine on admission was 2.8 likely has ckd stage 4 from dm -he is doing well w/o HD. he had 2 dialysis sessions last week as cr and k and bicarb stable 4. Anemia likely multifactorial from severe infection, CKD. He has a high iron saturation. neg serum protein electrophoresis - s/p transfusions and s/p Epo 6. Status post TMA of right foot. wound vac. appreciate podiatry -abx per medicine and podiatry 7. A-fib now in normal sinus rhythm. Patient has history of left bundle branch block. 8. PTH of 172 repeat in 3-4 weeks Patient was seen and examined with nurse using A/V equipment. Telehealth visit. Case discussed in detail with the patient and the nurse. Plan See above. Attestations Medical Necessity Statement*: per shara Coding Level of Care Code Acute Code for [facility] Fwd Diagnoses JALYN (acute kidney injury) N17.9
--- NOTE | 2024-05-21 14:22 | P.PN_ITS ---
Subjective 2 Subjective: Patient seen bedside this afternoon, his is present. He is in good spirits, denies any pain to the right foot or left leg. Patient denies any subjective nausea, vomiting, fever, chills, shortness of breath or chest pain. Vitals/I&O/Wt Last Vital Signs Temp 98.9 F 05/21/24 13:44 Pulse 76 05/21/24 13:44 Resp 18 05/21/24 13:44 BP 109/54 05/21/24 13:29 Pulse Ox 92 05/21/24 13:44 O2 Del Method Room Air 05/21/24 10:46 O2 Flow Rate 3 05/20/24 07:18 FiO2 30 05/09/24 12:23 05/20/24 05/21/24 05/21/24 22:59 06:59 14:59 Intake Total 220 / 710 150 / 860 300 / 300 Balance 220 / 710 150 / 860 300 / 300 Weight last 48 hrs Weight 191 lb Weight 188 lb 1 oz Physical Exam 2 Narrative: Patient is unresponsive. The following is a focused bilateral lower extremity exam. VASCULAR: Dorsalis pedis diminished bilaterally. Posterior tibial arteries diminished. Delayed capillary refill to right great toe, cap refill less than 5 seconds to the left great toe. Pedal hair growth is diminished, there is mild hair growth at the tuft of the great toe bilaterally. NEUROLOGICAL: Protective sensation absent to light touch bilaterally. DERMATOLOGICAL: Wound VAC intact with excellent seal no leaks less than 5 mL of serosanguineous drainage in canister right foot. Left leg wound is clinically stable without purulence or erythema. MUSCULOSKELETAL: Status post right modified Choparts amputation. Urinary Catheter Management: [place]brook: Cath Placed During This Visit: yes Reason for Continuing Indwelling Catheter: Acute Urinary Retention or Obstruction Urinary Catheter Date of Insertion: 05/03/24 Urinary Catheter Time of Insertion: 21:50 Data 05/22/24 04:52 05/22/24 04:52 Micro: Microbiology 05/18/24 20:00 Blood Culture - Preliminary Blood NEGATIVE TO DATE A&P Assessment and plan (1) Severe sepsis: (2) DKA (diabetic ketoacidosis): Qualifiers: Diabetes mellitus type: type 2 (3) Diabetic peripheral neuropathy associated with type 2 diabetes mellitus: (4) Necrotizing fasciitis: (5) Gas gangrene: Plan 53-year-old uncontrolled diabetic male presents with unresponsiveness, DKA, sepsis and necrotizing fasciitis to the right foot. 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 Graft is intact, not incorporated. Strict nonweightbearing right foot and elevate while resting Continue antibiotics per hospitalist, polymicrobial infection see micro report. Right foot wound grew Proteus and strep G species, endotracheal culture significant for Staph aureus, Pseudomonas and Zuleika albicans Primary dressing to left leg wound with Santyl followed by saline moistened gauze, Kerlix and Bautista wrap. No further plans for podiatric surgical intervention during this hospitalization. Not likely able to continue wound VAC therapy outpatient due to financial constraint, patient is uninsured, application process is pending. Will be following up in podiatry clinic weekly after this hospitalization, down the road should he have a pair source would be applying for wound VAC at that time. Attestations 2 Medical Necessity Statement*: Requires continued antibiotic and wound care therapy. Coding Level of Care Code Acute Code for [facility] Fwd Diagnoses Severe sepsis A41.9; R65.20 DKA (diabetic ketoacidosis) E11.10 Diabetes mellitus type: type 2 Diabetic peripheral neuropathy associated with type 2 diabetes mellitus E11.42 Necrotizing fasciitis M72.6 Gas gangrene A48.0
--- NOTE | 2024-05-21 15:36 | PC.OT ---
OT TREATMENT HELD TODAY DUE TO FEMORAL DIALYSIS CATHETER REMOVED AND PATIENT RECEIVING BLOOD. WILL ATTEMPT TOMORROW.
[2024-05-21 15:47] LABS: DNA AB (DS) CRITHIDIA,IFA NEGATIVE (NEGATIVE)
--- NOTE | 2024-05-21 17:15 | P.PN_ITS ---
Subjective 2 Subjective: He reports that he is doing well. They are working with case management on setting up equipment that he needs at home including wound VAC as well as walker, wheelchair. Vitals/I&O/Wt Last Vital Signs Temp 98.3 F 05/21/24 15:44 Pulse 73 05/21/24 15:44 Resp 18 05/21/24 15:44 BP 117/60 05/21/24 15:44 Pulse Ox 93 05/21/24 15:44 O2 Del Method Room Air 05/21/24 10:46 O2 Flow Rate 3 05/20/24 07:18 FiO2 30 05/09/24 12:23 05/21/24 05/21/24 05/21/24 06:59 14:59 22:59 Intake Total 150 / 860 300 / 300 50 / 350 Balance 150 / 860 300 / 300 50 / 350 Weight last 48 hrs Weight 86.636 kg Weight 85.304 kg Physical Exam 2 Narrative: Accompanied by his . Const: COMMON NORMALS: alert GENERAL APPEARANCE: cooperative O RIENTATION/CONSCIOUSNESS: Yes awake OTHER: Awake, alert, pleasant, conversant. In good spirits. HENMT: COMMON NORMALS: normocephalic, EAC's normal, Normal external nose present and moist oral mucous membranes HEAD & SCALP: normocephalic NOSE: Normal external nose present EXTERNAL AUDITORY CANAL: EAC's normal Chest: CHEST: Yes Symmetrical chest wall rise Resp: COMMON NORMALS: clear to auscultation bilaterally AUSCULTATION: clear to auscultation bilaterally Cardio: COMMON NORMALS: regular rate, regular rhythm and No murmurs present (Cardio) RATE: regular rate RHYTHM: regular rhythm GI: COMMON NORMALS: Normal to inspection, nondistended, normoactive bowel sounds present, Soft to palpation and non-tender PALPATION: Yes Soft to palpation Extremity: COMMON NORMALS: no pedal edema NARRATIVE EXTREMITY EXAM: Right lower extremity dressing in place. Wound VAC in place. OTHER: Ulceration on medial L calf mid-LE with clean dressing, without strikethrough. Neuro: COMMON NORMALS: moves all extremities SENSORIUM/ORIENTATION: Yes alert Skin: COMMON NORMALS: no wounds RASHES: no rashes Urinary Catheter Management: [place]: Cath Placed During This Visit: yes Reason for Continuing Indwelling Catheter: Acute Urinary Retention or Obstruction Urinary Catheter Date of Insertion: 05/03/24 Urinary Catheter Time of Insertion: 21:50 Data 05/21/24 04:17 05/21/24 04:17 Micro: Microbiology 05/18/24 20:00 Blood Culture - Preliminary Blood NEGATIVE TO DATE A&P Assessment and plan (1) Status post amputation: Discussed with patient and his , family service caseworker. Arrangements underway for wound VAC and other equipment that he may need at home wheelchair, walker. If all can be arranged, and received blood transfusion, otherwise doing well, will plan for discharge in the morning. Post TMA on admission for necrotizing fasciitis. Further management plan including amputation below the knee versus graft discussed in detail with the patient with podiatry team. Discussed with family service caseworker, attempts underway to arrange for wound VAC which she will need. Patient underwent skin grafting with tendon balancing surgery on 05/16. Significant blood loss of 250 cc during OR. Required 2 unit of blood transfusion. Wound VAC and wound care as per surgical team. As per patient's family they are planning to have wound VAC arranged for outpatient for at least 1 month on discharge. There will be self-pay. Hold off on heparin for now. (2) Anemia: Additional decrease in hemoglobin down to 6.9 today. No outward bleeding. Gradual losses. Discussed with him and his additional 1 unit RBC transfusion. Requested. Will recheck hemoglobin in the morning. Continue p.o. Protonix. If remains stable may be able to discharge tomorrow. Monitor for risk of TACO, TRALI, transfusion reaction. No obvious outward bleeding. Small amount of sanguinous discharge from the left calf wound, minimal. Reassess blood counts. Discussed with him following up with PCP to further reassess and discuss referral for endoscopy to rule out any concerning causes. Received 2 additional blood transfusion on 05/16. Overall 4 units of blood transfusion during admission. Current blood loss anemia in setting of postoperative status. Continue to hold off on heparin subcu for now. Hemoglobin down to 7.1 today. Bleeding from the OR site seem to have slowed down. Transfuse monitor PRBC. Repeat hemoglobin hematocrit later in the evening. Blood transfusion keeping goal hemoglobin level over 7 while patient remains hemodynamically stable. Appreciate iron panel. If continues to trend down will consult surgery for possible EGD. Patient did have positive stool for occult blood. Continue with Protonix twice daily and Carafate ACHS. JCL, TR (3) JALYN (acute kidney injury): Reviewed intake and output, calcium, bicarb, anion gap, BUN and creatinine, nephrology note. Remove dialysis catheter. Discussed with nursing. Discussed with family service caseworker. Appreciate nephrology recommendations. SPEP normal. Given persistent metabolic acidosis, persistent creatinine over 4 had a long detailed discussion with patient, patient's son at bedside with research librarian line. We discussed unfortunately even after maximum management with oral bicarb even though patient's urine output is appropriate he continues to remain metabolic acidotic which can cause him to have poor healing of his wounds, can cause worsening or multiorgan dysfunction. We discussed patient most likely requires dialysis going further but for now we cannot be sure of long-term versus short-term as he do not have patient's baseline creatinine but is possible that he has underlying nephropathy. After detailed discussion patient is agreeable for temporary dialysis for now. He would like to see if his renal functions stabilize after a few sessions of dialysis before going for permanent dialysis. Discussed in detail with nephrology team. Temporal dialysis catheter placed on 05/14. Underwent 2 sessions of dialysis overall with last session on . Plan to monitor renal functions worsening creatinine or worsening metabolic acidosis over the weekend and then decide about further dialysis. Dialysis as per nephrology team. Continue with oral sodium bicarbonate supplementation. Monitor renal functions daily. Potassium replaced by nephrology. Placating Lasix today. Repeat BMP later in the day today. (4) Uncontrolled type 2 diabetes mellitus: Revisited continued insulin, glucose monitoring at home. Follow-up with endocrinology. 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 Reviewed POC glucose. Continue Lantus, sliding scale insulin. Blood sugars better controlled now. Continue with Lantus to 10 units daily, sliding scale moderate dose protocol. Patient would benefit with diabetes education in [place]. A1c found to be more than 18 on admission. Though patient has not required high doses of insulin since DKA resolved. Cannot rule out in setting of hemoglobinopathy with concerns for liver dysfunction and anemia as above. Repeat A1c of 17. (5) Fever: So far without recurrence. Reassess vitals. WBC normal. No growth on review of repeat blood cultures. Switched to antibiotic to linezolid. Discussed with him and his . Reviewed vitals. Fever last night, so far no additional fever today. He states that he is feeling well. Denies any respiratory or GI symptoms. No signs of cellulitis extending proximally from the wound. Left calf wound with mild sanguinous discharge being treated with Santyl without surrounding cellulitis. Continue with dressing changes. He does report having some diarrhea. 2 episodes today. Requesting C. difficile. Could be in setting of inflammatory response postoperatively. Cannot rule out in setting of atelectasis. Given critically in patient during hospitalization for now will rule out other infectious sources. Check respiratory viral panel, blood culture, urinalysis, chest x-ray. (6) Septic shock: Continues on midodrine 10 mg 3 times daily for now. Blood pressure soft but maintaining. If improving, cut down midodrine. No longer hypotensive. Most likely in setting of hypoalbuminemia currently. Midodrine 10 mg oral 3 times daily. Albumin discontinued. Sputum culture growing Pseudomonas, Staphylococcus and Zuleika. Wound culture growing Prevotella. Blood cultures so far negative. Leukocytosis has resolved. Patient is post TMA for possible necrotizing fasciitis of right foot. (7) High anion gap metabolic acidosis: Resolved post 2 session of hemodialysis. Continue to monitor daily for now. (8) Gas gangrene: S/p TMA. Appreciate podiatry recommendations. (9) Acute hypoxic respiratory failure: Resolved. Extubated on 05/10. Currently on room air. Aggressive pulmonary toilet with incentive spirometry and flutter valve. Keep oxygen saturation over 90%. (10) Atrial fibrillation with RVR: Atrial fibrillation with RVR earlier in hospitalization. Has been on amiodarone. Currently in sinus rhythm. Suspect A-fib was related to acute illness. Hold amiodarone for now. Monitor on telemetry. Without recurrence. Has not been a candidate for anticoagulation or antiplatelet so far with anemia. Revisit with primary provider. (11) Abnormal iron saturation: Elevated iron saturation, 78.2 raising concern for hemochromatosis, will need additional workup follow-up, genetic testing for HFE. Question of possible underlying liver disease. 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 (12) Dilated bowel: Tolerating oral intake. He is tolerating oral diet currently without issues. Bowel movements charted on 05/10. Reviewed CT abdomen pelvis, without evidence of obstruction found prior to extubation with difficulty initiating tube feeds. Some mild thickening of rectosigmoid colon. So far without any further vomiting. Trial of oral diet. (13) DKA (diabetic ketoacidosis): DKA resolved. Qualifiers: Diabetes mellitus type: type 2 (14) LBBB (left bundle branch block): Denies any chest pain. Does not have any EKG in the past to compare. Patient would benefit from further ACS workup as an outpatient once hemoglobin stable. Echocardiogram done during hospitalization showed EF of 50 to 55% with grade 1 diastolic dysfunction without regional wall motion abnormality. Appreciate A1c lipid panel results. Continue with baby aspirin for now. (15) Metabolic encephalopathy: Resolved. (16) Dysphagia: Postextubation. Most likely in setting of prolonged intubation. Resolved Apprecioate Speech evaluation and modified barium swallow. (17) Loss of sensation: Could be in setting of diabetic neuropathy. Appreciate lumbar CT, arterial and venous duplex of lower limbs. Appreciate vitamin B12 for the results. (18) Lactic acidosis: From DKA and sepsis (19) CKD (chronic kidney disease): (20) Goals of care, counseling/discussion: (21) Ulcer of foot with necrosis of muscle: Plan Hypomagnesemia: Better today. Recheck magnesium. DVT prophylaxis: SCD, on aspirin Full code Protonix for PUD prophylaxis Regular carb consistent diet. Discharge planning: Arrangements underway to obtain all equipment he needs for discharge including wound VAC, wheelchair, walker. Plan to discharge home with caregiver. Patient on discharge will need a new PCP, podiatry, endocrine follow-up. Patient will need extensive wound care on discharge given post graft status. As per the patient's family they are planning to have wound VAC arranged for at least 1 month postdischarge. Attestations 2 Medical Necessity Statement*: Continue admission for reassessment after acute renal failure, removal of dialysis catheter, additional blood transfusion, reassessment of blood count, discharge preparations, reassessment of anemia after sepsis. and High MDM includes amount and/or complexity of data reviewed/ordered [ resulted lab(s)/test(s), ordered lab(s)/test(s) and other healthcare professional discussion] and described risk of complication, morbidity or mortality of management as documented Diagnoses Status post amputation Z89.9 Anemia D64.9 JALYN (acute kidney injury) N17.9 Uncontrolled type 2 diabetes mellitus Fever R50.9 Septic shock A41.9; R65.21 High anion gap metabolic acidosis E87.29 Gas gangrene A48.0 Acute hypoxic respiratory failure J96.01 Atrial fibrillation with RVR I48.91 Abnormal iron saturation R79.0 Dilated bowel DKA (diabetic ketoacidosis) E11.10 Diabetes mellitus type: type 2 LBBB (left bundle branch block) I44.7 Metabolic encephalopathy G93.41 Dysphagia R13.10 Loss of sensation R20.0 Lactic acidosis E87.20 CKD (chronic kidney disease) N18.9 Goals of care, counseling/discussion Z71.89 Ulcer of foot with necrosis of muscle L97.503
[2024-05-21 21:23] LABS: Glucose Point of Care 125 mg/dL (70-110)
[2024-05-21 21:23] LABS: Glucose Point of Care 100 mg/dL (70-110)
[2024-05-21 21:44] LABS: Glucose Point of Care 123 mg/dL (70-110)
[2024-05-22] VITALS (7 sets, daily range): BP systolic 116–122; BP diastolic 56–62; PULSE 73–77; RESP 16–17; TEMP 36.8–37.2; O2SAT 88–94
[2024-05-22 00:34] LABS: Fibrinogen Degradation Product 5 mcg/mL (LESS THAN 5)
[2024-05-22 05:32] LABS: Basophils % 0.1 %; Eosinophils # 0.3 10^3/uL (0.0-0.8); Eosinophils % 4.4 %; Lymphocytes # 0.8 10^3/uL (0.8-4.8); Lymphocytes % 10.3 %; Mean Corpuscular HGB Conc 32.4 g/dL (30-55); Mean Corpuscular Hemoglobin 28.4 pg (27-33); Mean Corpuscular Volume 87.7 fl (82-101); Mean Platelet Volume 9.9 fL (7.4-10.4); Monocytes # 0.5 10^3/uL (0.2-0.9); Monocytes % 6.7 %; Neutrophils # 5.82 10^3/uL (1.8-7.7); Nucleated Red Blood Cells % 0 %; Platelet Count 226 10^3/cmm (157-399); Red Blood Count 2.85 10^6/uL (3.85-5.65); White Blood Count 7.47 10^3/uL (3.29-11.43)
[2024-05-22 05:53] LABS: Alanine Aminotransferase < 5 U/L (0-41); Albumin Level 2.9 g/dL (3.5-5.2); Alkaline Phosphatase 67 U/L (40-130); Anion Gap 16.5 (5-19); Aspartate Amino Transferase 7 U/L (0-40); Blood Urea Nitrogen 36 mg/dL (6-20); Carbon Dioxide 21 mmol/L (22-29); Chloride 105 mmol/L (98-107); Creatinine Clr Calc Pharmacy 25.3993; Globulin 2.6 g/dL (1.3-4.6); Glomerular Filtration Rate 18.9 mL/min (90-130); Glucose 108 mg/dL (65-115); Magnesium 1.7 mg/dL (1.7-2.3); Osmolality Calculated 297 mOsm/kg (285-295); Phosphorus 2.1 mg/dL (2.5-4.5); Potassium 3.5 mmol/L (3.5-5.1); Sodium 139 mmol/L (136-145); Total Bilirubin 0.5 mg/dL (0.15-1.2); Total Protein 5.5 g/dL (6.6-8.7)
[2024-05-22] MEDS: sucralfate 1 gm/10 mL Oral Liq UDC PO ×2 (06:02→11:51)
[2024-05-22 06:23] LABS: Glucose Point of Care 116 mg/dL (70-110)
[2024-05-22] MEDS: sodium bicarbonate 650 mg Tablet PO ×2 (08:12→14:25)
[2024-05-22] MEDS: pantoprazole DR 40 mg Tablet PO (08:12)
[2024-05-22] MEDS: aspirin 81 mg EC Tablet PO (08:12)
[2024-05-22] MEDS: midodrine 5 mg TABLET 10 MG PO ×2 (08:12→14:25)
[2024-05-22] MEDS: linezolid 600 mg Tablet PO (08:15)
[2024-05-22] MEDS: insulin glargine 100 units/1 mL 10 UNIT SUBCUT (08:16)
[2024-05-22] MEDS: collagenase oint 30 gm 1 APPLIC TOPICAL (08:17)
[2024-05-22 11:51] LABS: Glucose Point of Care 139 mg/dL (70-110)
--- NOTE | 2024-05-22 12:18 | P.PN_ITS ---
Subjective 2 Subjective: Patient seen bedside this morning, his is present. He is in good spirits, denies any pain to the right foot or left leg. Patient denies any subjective nausea, vomiting, fever, chills, shortness of breath or chest pain. Vitals/I&O/Wt Last Vital Signs Temp 99.0 F 05/22/24 11:43 Pulse 77 05/22/24 11:43 Resp 16 05/22/24 11:43 BP 119/62 05/22/24 11:43 Pulse Ox 88 L 05/22/24 11:56 O2 Del Method Room Air 05/22/24 11:43 O2 Flow Rate 2 05/22/24 11:56 FiO2 30 05/09/24 12:23 05/21/24 05/22/24 05/22/24 22:59 06:59 14:59 Intake Total 110 / 410 240 / 240 Output Total 150 / 150 50 / 200 Balance -40 / 260 -50 / 210 240 / 240 Weight last 48 hrs Weight 192 lb 3 oz Weight 191 lb Physical Exam 2 Narrative: Patient is unresponsive. The following is a focused bilateral lower extremity exam. VASCULAR: Dorsalis pedis diminished bilaterally. Posterior tibial arteries diminished. Delayed capillary refill to right great toe, cap refill less than 5 seconds to the left great toe. Pedal hair growth is diminished, there is mild hair growth at the tuft of the great toe bilaterally. NEUROLOGICAL: Protective sensation absent to light touch bilaterally. DERMATOLOGICAL: Wound VAC intact with excellent seal no leaks less than 5 mL of serosanguineous drainage in canister right foot. Left leg wound is clinically stable without purulence or erythema has granular base and epithelialized margin. MUSCULOSKELETAL: Status post right modified [place]arts amputation. Urinary Catheter Management: [place]: Cath Placed During This Visit: yes Reason for Continuing Indwelling Catheter: Other Urinary Catheter Date of Insertion: 05/03/24 Urinary Catheter Time of Insertion: 21:50 Data 05/22/24 04:52 05/22/24 04:52 Micro: Microbiology 05/18/24 20:00 Blood Culture - Preliminary Blood NEGATIVE TO DATE A&P Assessment and plan (1) Severe sepsis: (2) DKA (diabetic ketoacidosis): Qualifiers: Diabetes mellitus type: type 2 (3) Diabetic peripheral neuropathy associated with type 2 diabetes mellitus: (4) Necrotizing fasciitis: (5) Gas gangrene: Plan 53-year-old uncontrolled diabetic male presents with unresponsiveness, DKA, sepsis and necrotizing fasciitis to the right foot. 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 Graft is intact Strict nonweightbearing right foot and elevate while resting, posterior splint Left leg wound is improved, discontinue Santyl. Primary dressing of Hydrofera Blue to be changed once daily No further plans for podiatric surgical intervention during this hospitalization. Not likely able to continue wound VAC therapy outpatient due to financial constraint, patient is uninsured, application process is pending. Will be following up in podiatry clinic weekly after this hospitalization, down the road should he have a pair source would be applying for wound VAC at that time. Follow-up outpatient in podiatry clinic with Dr. Huerta 05/26/2024 at 1:30 PM Attestations 2 Medical Necessity Statement*: Discharge planning Coding Level of Care Code Acute Code for Chg Fwd Diagnoses Severe sepsis A41.9; R65.20 DKA (diabetic ketoacidosis) E11.10 Diabetes mellitus type: type 2 Diabetic peripheral neuropathy associated with type 2 diabetes mellitus E11.42 Necrotizing fasciitis M72.6 Gas gangrene A48.0
--- NOTE | 2024-05-22 12:43 | PC.OT ---
PATIENT SCHEDULED FOR D/C TODAY. HEP FOR UE WITH [facility] GIVEN IN [place]. IPAD FOR CARDIO CLINICIAN NOT AVAILABLE. PIA [facility] IN ROOM WELL. IF PATIENT CONTINUES TO STAY IN HOSPITAL; HE IS D/C FROM [facility] HE DOES NOT WANT TO PERFORM ANY ADLS WITH THERAPY AT ANY TIME IT IS OFFERED. WOULD PREFER FAMILY TO PERFORM.
--- NOTE | 2024-05-22 13:20 | P.DS_ITS ---
Discharge Providers Date of Admission: 05/03/24 23:51 Date of Discharge: May 22, 2024 Attending Provider at Admission: Corazon Lopez MD Attending Provider at Discharge: Ravin Mercado Diagnoses at Discharge Discharge Diagnosis (1) Severe sepsis: Status: Acute (2) DKA (diabetic ketoacidosis): Status: Acute Qualifiers: Diabetes mellitus type: type 2 (3) Diabetic peripheral neuropathy associated with type 2 diabetes mellitus: Status: Acute (4) Necrotizing fasciitis: Status: Acute (5) Gas gangrene: Status: Acute Reason for Visit Reason for Visit: HIGH BLOOD SUGAR Hospital Course Hospital Course Pleasant 53-year-old gentleman who had moved down here from [place] several years ago, with medical history of diabetes, used to be on insulin lispro although does not have a provider in the area, previously had gotten prescript ion from his physician in [place], had sustained payne at workplace from boiler on his right foot and left calf, with progressively worsening condition of the wound, over the preceding 2 to 3 days was also having systemic symptoms, feeling unwell, generalized weakness, 30, with also shortness of breath, poor urine output, poor oral intake. And prior to presentation also developed alteration mental status with confusion, disorientation. On presentation found to be hypotensive, requiring pressor, with acute delirium, encephalopathy with sepsis, septic shock, as well as DKA, HHS, with finding of gas gangrene with suspected and later pathology confirmed necrotizing fasciitis of distal right foot underwent emergent TMA amputation, continued management in intensive care unit intubated, mechanically ventilated, with pressor support, IV fluids, insulin drip, on presentation also with finding of unknown chronicity LBBB, with troponin elevation, hypoxic respiratory failure with possible component of bacterial infection with cultures positive for for Staph aureus, Pseudomonas, Zuleika. Cultures status post amputation showed group B strep, Prevotella on anaerobic culture. He continued treatment on broad-spectrum IV antibiotics. Continue hemodynamic support, additionally with noted possible displacement of the liver, with hypoalbuminemia, transient elevation of INR, transient thromb ocytopenia, also with some worsening anemia. Renal function was found to be unimproved, with continued kidney injury, acute renal failure, required transient support with hemodialysis while in the hospital. With anemia, transient thrombocytopenia, initially was on anticoagulation following troponin elevation, as well as atrial fibrillation with RVR during hospitalization, however, anticoagulation had to be weaned off with worsening anemia secondary to sepsis, with thrombocytopenia, with operative blood losses, as well as found to have Hemoccult positive, continued on PPI. In total received 7 units RBC transfusions through the hospital stay, now with good response and with only very slow if any hemoglobin decline. He remained free of chest pain, echocardiogram showed normal ejection fraction, grade 1 diastolic dysfunction. He is continuing on low-dose aspirin 81 mg, he started on statin. Should follow-up with stress testing and consideration of anticoagulation for stroke risk reduction with atrial fibrillation once his anemia is found to be stable. Needs follow-up blood counts, and follow-up with nonemergent endoscopic evaluation to further exclude any other concerning causes. During workup of anemia he was also found to have very elevated iron saturation, up to 78.2, raising concern for possible iron overload, possibly hemochromatosis. This may be difficult to appellate court judge in the setting of acute illness, blood transfusion, however, needs to be followed up and if still elevated will need further testing in himself and his children for hemochromatosis. His blood pressures gradually improved, he weaned off pressors, respiratory status improved, he weaned down on ventilatory support, he was able to extubate. Mental status gradually improved thereafter with slowly resolved encephalopathy. He remains awake, alert, pleasant, attentive and appears to show good understanding of his condition on multiple discussions via director of financial reporting services with him and his . With IV hydration, insulin drip is blood glucose eventually improved, DKA, HHS eventually resolved. Transient hypoglycemia additionally raise concern for impaired synthetic function of the liver with possibly component of chronic underlying liver disease. He understands the importance of continued diabetes control, he is given prescription for glucometer, test strips and lancets, as well as prescription to continue Lantus 10 units daily, as well as medium dose short acting corrective insulin sliding scale as discussed with him and his , we also discussed precautions regarding hypoglycemia and how to deal with it. Diabetes education was provided and additional instructions for his conditions are being arranged by nursing staff to include Malaysian language pamphlets. His hemoglobin A1c was over 18, they do understand the importance of glucose control including for wound healing intent to prevent risk of infection as well as other complications from diabetes including peripheral neuropathy which it appears he has been having some experience with in his lower extremities. He and his know to seek medical attention in case of any worsening or new concerning symptoms. He is additionally given referral for follow-up with endocrinology. They may consider continuous glucose monitoring. His right foot after amputation otherwise has been gradually healing, further considerations included possible more proximal potation versus tissue preserving route with skin grafting, wound VAC, and on discussions patient and family chose to attempt to pursue the latter. Wound VAC is arranged for them. They will continue treatment and follow-up with podiatry weekly after discharge, they will also continue dressing changes to the well-healing left calf wound and follow-up with primary provider and podiatry for reassessment. He is antibiotics will complete after additional 5 days of linezolid, he otherwise remains in good condition, fevers have resolved, he has no leukocytosis, has been feeling much better. Further antibiotics that hopefully may be discontinued unless extension is found necessary based on findings on reassessment. During hospitalization the hospitalization his kidney function showed gradual improvement, he was able to discontinue hemodialysis and hemodialysis catheter was removed. As per follow-up with nephrology he has regained adequate renal function at current time to forego any further dialysis, but will need further follow-up as discussed with him and his , at least with primary provider, although referral is also given for follow-up with nephrology which would be beneficial if this is a possibility as discussed with them. His blood pressures have otherwise been doing better as well, possibly with some component of autonomic dysfunction secondary to diabetes, but he has been maintaining blood pressures well although with midodrine on board so far. As per discussion with him and his , in case blood pressures continue to improve he should hopefully be able to wean off and discontinue midodrine. He is asked to continue to monitor blood pressures at home. Please reassess for continued improvement. Physical Exam Narrative: Accompanied by his . Const: COMMON NORMALS: alert GENERAL APPEARANCE: cooperative ORIENTATION/CONSCIOUSNESS: Yes awake OTHER: Awake, alert, pleasant, conversant. In good spirits. HENMT: COMMON NORMALS: normocephalic, EAC's normal, Normal external nose present and moist oral mucous membranes HEAD & SCALP: normocephalic NOSE: Normal external nose present EXTERNAL AUDITORY CANAL: EAC's normal Chest: CHEST: Yes Symmetrical chest wall rise Resp: COMMON NORMALS: clear to auscultation bilaterally AUSCULTATION: clear to auscultation bilaterally Cardio: COMMON NORMALS: regular rate, regular rhythm and No murmurs present (Cardio) RATE: regular rate RHYTHM: regular rhythm GI: COMMON NORMALS: Normal to inspection, nondistended, normoactive bowel sounds present, Soft to palpation and non-tender PALPATION: Yes Soft to palpation Extremity: COMMON NORMALS: no pedal edema NARRATIVE EXTREMITY EXAM: Right lower extremity dressing in place. Wound VAC in place. OTHER: Ulceration on medial L calf mid-LE with clean dressing, without strikethrough. Neuro: COMMON NORMALS: moves all extremities SENSORIUM/ORIENTATION: Yes alert Skin: COMMON NORMALS: no wounds RASHES: no rashes Urinary Catheter Management: [place]: Cath Placed During This Visit: yes Reason for Continuing Indwelling Catheter: Acute Urinary Retention or Obstruction Urinary Catheter Date of Insertion: 05/03/24 Urinary Catheter Time of Insertion: 21:50 Discharge Data Studies Completed and Pending Completed Studies During Hospitalization Category Date Time Status CT abdomen pelvis wo con 06819 Routine Cat Scan 05/07/24 17:[address] head wo con* [id number] Routine Cat Scan 05/05/24 09:[address] lumbar spine wo con* [id number] Routine Cat Scan 05/11/24 13:03 Completed CXRP [XR chest 1V portable [id number]] Stat Exams 05/03/24 21:39 Completed Modified barium swallow [FL barium swallow modifd [id number] Exams 05/12/24 13:18 Completed ] Routine XR acute abdomen series [id number] Routine Exams 05/07/24 15:52 Completed XR chest 1V portable [id number] Routine Exams 05/03/24 23:40 Completed XR chest 1V portable [id number] Routine Exams 05/07/24 08:11 Completed XR chest 1V portable [id number] Routine Exams 05/07/24 10:13 Completed XR chest 1V portable 15913 Routine Exams 05/12/24 12:18 Completed XR chest 1V portable [id number] Routine Exams 05/18/24 12:19 Completed XR chest 1V portable [id number] Stat Exams 05/03/24 20:53 Completed XR chest 1V portable [id number] Stat Exams 05/04/24 02:43 Completed XR foot RT min 3V* [id number] Routine Exams 05/05/24 09:00 Completed XR foot RT min 3V* [id number] Routine Exams 05/14/24 06:50 Completed XR foot RT min 3V* [id number] Stat Exams 05/03/24 20:52 Completed XR soft tissue neck 80557 Stat Exams 05/10/24 14:00 Completed XR tibia fibula LT 2V [id number] Stat Exams 05/03/24 21:12 Completed Pathology: Surgical [PTH] Routine Pth 05/03/24 23:29 [place] [id number] Routine Ultrasound 05/04/24 06:00 [place] [id number] Routine Ultrasound 05/07/24 09:36 Completed CV. echo complete* 09011 Routine Ultrasound 05/06/24 06:00 Completed US kidney bilateral with bladder [US renal BI with PV Ultrasound 05/05/24 20:41 Completed bladder] Routine US venous duplex lower extremity bilat [CV venous Ultrasound 05/07/24 09:36 [place] [id number]] Routine Pending at discharge Category Date Time Status Blood Culture Stat Lab 05/18/24 20:00 Results C.Diff PCR (Lab) Routine Lab 05/19/24 21:15 Uncollected Complete Blood Count w/Auto AM LABS Lab 05/23/24 04:00 Ordered Complete Blood Count w/Auto AM LABS Lab 05/24/24 04:00 Ordered HFE [Hemochromatosis DNA] Routine Lab 05/12/24 20:31 Received Leukocyte Reduced RBC Routine Lab 05/21/24 11:32 Results Type and Screen Routine Lab 05/21/24 11:32 Results Wound Culture and Gram Stain Routine Lab 05/03/24 22:52 Results Radiology Impressions Tibia/Fibula X-Ray 05/03/24 21:12 IMPRESSION: 1. Superficial soft tissue irregularity along the medial calf, presumably corresponding to reported wound. 2. No acute osseous abnormality. Duplex Scan Lower Extremity Artery 05/04/24 06:00 IMPRESSION: No stenosis or occlusion. Head CT 05/05/24 09:30 IMPRESSION: 1. Questionable mild soft tissue contusion over the high parietal scalp. 2. Moderate mucosal thickening throughout the ethmoid sinuses. 3. No acute intracranial findings. Renal Ultrasound 05/05/24 20:41 IMPRESSION: No acute findings. Chest/Abdomen X-ray 05/07/24 15:52 IMPRESSION: Abnormal small bowel gas pattern as noted and discussed above. Possible ascites. Nasogastric position as above. Abdomen/Pelvis CT 05/07/24 17:17 IMPRESSION: 1. No bowel obstruction or ileus. Mild wall thickening in the rectosigmoid colon 2. Diffuse 3rd spacing of fluids including subcutaneous edema, pleural effusions and ascites. Soft Tissue Neck X-Ray 05/10/24 14:00 IMPRESSION: No acute findings. No radiopaque foreign body. Lumbar Spine CT 05/11/24 13:03 IMPRESSION: L5-S1 disc disease with posterior disc bulge causing mild thecal sac compression. Modified Barium Swallow 05/12/24 13:18 Impression: 1. Minimal premature spillage with difficult oral preparation. 2. Minimal penetration with thin liquids but no aspiration. 3. Minimal pharyngeal residue. 4. Movement of barium tablet in the stomach with water assist. Foot X-Ray 05/14/24 06:50 IMPRESSION: No acute findings. Chest X-Ray 05/18/24 12:19 IMPRESSION: Bilateral pleural effusions persist. Bilateral lung disease has worsened suggestive of worsening pulmonary edema. Laboratory Results WBC 7.47 10^3/uL (3.29-11.43) 05/22/24 04:52 RBC 2.85 10^6/uL (3.85-5.65) L 05/22/24 04:52 Hgb 8.10 g/dL (11.27-16.99) L 05/22/24 04:52 Hct 25.0 % (37-53) L 05/22/24 04:52 MCV 87.7 fl (82-101) 05/22/24 04:52 MCH 28.4 pg (27-33) 05/22/24 04:52 MCHC 32.4 g/dL (30-55) 05/22/24 04:52 RDW 15.0 % (12.1-15.1) 05/22/24 04:52 Plt Count 226 10^3/cmm (157-399) 05/22/24 04:52 MPV 9.9 fL (7.4-10.4) 05/22/24 04:52 Neut % (Auto) 78.0 % 05/22/24 04:52 Lymph % (Auto) 10.3 % 05/22/24 04:52 [place] % (Auto) 6.7 % 05/22/24 04:52 Eos % (Auto) 4.4 % 05/22/24 04:52 Baso % (Auto) 0.1 % 05/22/24 04:52 Reticulocyte % (Auto) 1.4 % (0.5-2.0) 05/06/24 21:11 Neut # (Auto) 5.82 10^3/uL (1.8-7.7) 05/22/24 04:52 Lymph # (Auto) 0.8 10^3/uL (0.8-4.8) 05/22/24 04:52 [place] # (Auto) 0.5 10^3/uL (0.2-0.9) 05/22/24 04:52 Eos # (Auto) 0.3 10^3/uL (0.0-0.8) 05/22/24 04:52 Baso # (Auto) 0.0 10^3/uL (0.0-0.1) 05/22/24 04:52 Nucleated RBC % (auto) 0 % 05/22/24 04:52 Total Counted 100 (0-100) 05/08/24 04:56 Atypical Lymphs % Not Reportable 05/08/24 04:56 Absolute Neutrophils 26.9 10^3/cmm (1.4-6.5) H 05/08/24 04:56 Segmented Neutrophils 79 % 05/08/24 04:56 Abs Segm Neuts (Man) 22.6 10/cmm (1.6-7.1) H 05/08/24 04:56 Band Neutrophils 15.0 % 05/08/24 04:56 Abs Band Neuts (Man) 4.3 10^3/cmm (0.0-1.2) H 05/08/24 04:56 Lymphocytes (Manual) 2 % 05/08/24 04:56 Monocytes (Manual) 2.0 % 05/08/24 04:56 Absolute Monocytes 0.6 10^3/cmm (0.1-0.6) 05/08/24 04:56 Eosinophils (Manual) 0 % 05/08/24 04:56 Absolute Eosinophils 0.0 10^3/cmm (0.0-0.7) 05/08/24 04:56 Basophils (Manual) 0.0 % 05/08/24 04:56 Absolute Basophils 0.0 10^3/cmm (0.0-0.2) 05/08/24 04:56 Nucleated RBCs # 0.0 /100WBC 05/22/24 04:52 Platelet Estimate Decreased (Normal) 05/08/24 04:56 Peripher Smr Path Cons Sent for review 05/06/24 21:11 Retic Production Index 0.74 05/06/24 21:11 Haptoglobin 193.0 mg/L (30-200) 05/06/24 21:11 PT 15.90 SECONDS (12.1-14.9) H 05/06/24 21:11 INR 1.23 (0.8-1.2) H 05/06/24 21:11 APTT 40.7 SECONDS (23.9-36.7) H 05/06/24 21:11 Fibrinogen 559 mg/dL (174-498) H 05/06/24 21:11 Fibrin Degrad Products 5 mcg/mL (LESS THAN 5) H 05/07/24 10:46 D-Dimer 6.26 ug/mLFEU (0-0.59) H 05/06/24 21:11 Specimen Type Arterial 05/14/24 07:01 Sample Site Radial, left 05/14/24 07:01 O2 Sat Pulse Oximetry Cancelled 05/03/24 21:14 ABG pH 7.27 (7.35-7.45) L 05/14/24 07:01 ABG pCO2 27.1 mmHg (35-45) L 05/14/24 07:01 ABG pO2 63.5 mmHg (80.0-100.0) L 05/14/24 07:01 ABG PO2/FiO2 Ratio 302 05/14/24 07:01 ABG HCO3 12.5 mmol/L (22-26) L 05/14/24 07:01 ABG O2 Saturation 91.7 05/14/24 07:01 ABG Base Excess -13.1 mmol/L (-2.0-2.0) L 05/14/24 07:01 Eric Test Pos 05/14/24 07:01 A-a O2 Gradient 6.7 mmHg (5-10) 05/14/24 07:01 Hematocrit 27.1 % (42-52) L 05/14/24 07:01 Hgb O2 Saturation 90.0 % (95-100) L 05/14/24 07:01 Carboxyhemoglobin 1.2 %THgb (0.4-20.1) 05/14/24 07:01 Methemoglobin 0.6 % (0.4-1.5) 05/14/24 07:01 Total Hemoglobin 8.8 g/dL (14-18) L 05/14/24 07:01 Sodium 138.0 mmol/L (131-143) 05/14/24 07:01 Potassium 3.4 mmol/L (3.5-5.0) L 05/14/24 07:01 Glucose 298.0 mg/dL (70-115) H 05/14/24 07:01 Ionized Calcium 1.2 mmol/L (1.1-1.4) 05/14/24 07:01 Respiration Rate Cancelled 05/03/24 21:14 O2 Delivery Device Room air 05/14/24 07:01 O2 Liters/Min Cancelled 05/03/24 21:14 SIMV Cancelled 05/03/24 21:14 Vent Mode Cancelled 05/03/24 21:14 Mechanical Rate Cancelled 05/03/24 21:14 Spontaneous Rate Cancelled 05/03/24 21:14 FiO2 21.0 % 05/14/24 07:01 Tidal Volume 0.45 05/06/24 10:30 PEEP 5.0 cmH20 05/06/24 10:30 Pressure Support Cancelled 05/03/24 21:14 Pressure Control Cancelled 05/03/24 21:14 CPAP Cancelled 05/03/24 21:14 Mode BiPAP Cancelled 05/03/24 21:14 Specimen Drawn By Cancelled 05/03/24 21:14 Distillery Supervisor ID [email or web address] 05/14/24 07:01 Crit Value Read Back Cancelled 05/03/24 21:14 Blood Gas Notified Time Cancelled 05/03/24 21:14 Sodium 139 mmol/L (136-145) 05/22/24 04:52 Potassium 3.5 mmol/L (3.5-5.1) 05/22/24 04:52 Chloride 105 mmol/L (98-107) 05/22/24 04:52 Carbon Dioxide 21 mmol/L (22-29) L 05/22/24 04:52 Anion Gap 16.5 (5-19) 05/22/24 04:52 BUN 36 mg/dL (6-20) H 05/22/24 04:52 Creatinine 3.4 mg/dL (0.7-1.2) H 05/22/24 04:52 GFR Calculation 18.9 mL/min (90-130) L 05/22/24 04:52 Glucose 108 mg/dL (65-115) 05/22/24 04:52 POC Glucose 139 mg/dL (70-110) H 05/22/24 11:44 Estimat Average Glucose 456 05/12/24 04:10 Hemoglobin A1c 17.5 % (4.0-6.0) H 05/12/24 04:10 Calculated Osmolality 297 mOsm/kg (285-295) H 05/22/24 04:52 Lactic Acid 3.6 mmol/L (0.5-2.2) H 05/03/24 21:14 Lactic Acid (Sepsis) 3.3 mmol/L (0.5-2.2) H 05/03/24 23:35 Lactate 1.7 mmol/L (0.5-2.2) 05/06/24 14:44 Calcium 8.0 mg/dL (8.5-10.5) L 05/22/24 04:52 Phosphorus 2.1 mg/dL (2.5-4.5) L 05/22/24 04:52 Magnesium 1.7 mg/dL (1.7-2.3) 05/22/24 04:52 Iron 46 ug/dL (59-158) L 05/12/24 04:10 TIBC 68 mcg/dl 05/12/24 04:10 % Saturation 67.6 % (20-50) H 05/12/24 04:10 Unsat Iron Binding 22 ug/dL (112-347) L 05/12/24 04:10 Ferritin 527 ng/mL (30-400) H 05/07/24 06:40 Total Bilirubin 0.5 mg/dL (0.15-1.2) 05/22/24 04:52 AST 7 U/L (0-40) 05/22/24 04:52 ALT < 5 U/L (0-41) 05/22/24 04:52 Alkaline Phosphatase 67 U/L (40-130) 05/22/24 04:52 Ammonia 20 umol/L (16-60) 05/08/24 15:11 Lactate Dehydrogenase 130 U/L (135-225) L 05/06/24 21:11 Creatine Kinase 29 U/L (39-308) L 05/06/24 18:09 Troponin T Baseline 27 ng/L (0-15) H 05/03/24 23:35 Troponin T 120 Minute 40.26 ng/L (0-15) H 05/04/24 01:08 Delta Troponin T 13.26 ABS# (0-10) H* 05/04/24 01:08 Troponin T Hi Sens 6Hr 59.99 ng/L (0-15) H 05/04/24 05:32 Troponin T Hi Sens 6Hr Delta 32.99 ng/L (0-12) H* 05/04/24 05:32 Total Protein 5.5 g/dL (6.6-8.7) L 05/22/24 04:52 Albumin 2.9 g/dL (3.5-5.2) L 05/22/24 04:52 Globulin 2.6 g/dL (1.3-4.6) 05/22/24 04:52 Wklat-2-Xnulbvrbu 0.4 g/dL (0.2-0.3) H 05/06/24 18:09 Kgtva-6-Yrkfgrdlo 0.5 g/dL (0.5-0.9) 05/06/24 18:09 Ypau-8-Jjpgygoc 0.2 g/dL (0.4-0.6) L 05/06/24 18:09 Bnkm-3-Wrvrcyhd 0.4 g/dL (0.2-0.5) 05/06/24 18:09 Gamma Globulins 0.6 g/dL (0.8-1.7) L 05/06/24 18:09 Abnorm Protein Band 1 Not Reportable 05/06/24 18:09 Triglycerides 109 mg/dL (0-150) 05/13/24 04:39 Cholesterol 85 mg/dL (0-200) 05/13/24 04:39 LDL Cholesterol, Calc 38 mg/dL (50-129) L 05/13/24 04:39 Total VLDL Cholesterol 22 mg/dL (0-30) 05/13/24 04:39 HDL Cholesterol 25 mg/dL (60-100) L 05/13/24 04:39 Cholesterol/HDL Ratio 3.40 mg/dL (1.0-5.00) 05/13/24 04:39 Vitamin B12 > 2000 pg/mL (232-1245) H 05/12/24 04:10 25-OH Vitamin D Total < 6 ng/mL (30-100) L 05/07/24 06:40 1,25 Dihydroxy Vit D2 <8 pg/mL 05/06/24 18:09 1,25 Dihydroxy Vit D3 <8 pg/mL 05/06/24 18:09 Folate 14.0 ng/mL (4.5-32.2) 05/13/24 04:39 Procalcitonin 2.86 ng/mL (0-0.5) H 05/12/24 04:10 TSH 4.27 uIU/mL (0.27-4.20) H 05/12/24 04:10 PTH Intact 172.1 pg/mL (15-65) H 05/07/24 06:40 Calcium (PTH Intact) 7.3 mg/dL (8.5-10.5) L 05/07/24 06:40 Urine Color Yellow (Yellow) 05/18/24 20:56 Urine Appearance Clear (CLEAR) 05/18/24 20:56 Urine pH 5 (5-7) 05/18/24 20:56 Ur Specific [place] 1.010 (1.005-1.030) 05/18/24 20:56 Urine Protein Trace (Negative) 05/18/24 20:56 Urine Glucose (UA) 1+ (Normal) H 05/18/24 20:56 Urine Ketones 1+ (Negative) H 05/18/24 20:56 Urine Blood 2+ (Negative) H 05/18/24 20:56 Urine Nitrate Negative (Negative) 05/18/24 20:56 Urine Bilirubin Neg (Negative) 05/18/24 20:56 Urine Urobilinogen Neg mg/dL (Negative) 05/18/24 20:56 Ur Leukocyte Esterase Negative (Negative) 05/18/24 20:56 Urine RBC 5-10 /hpf (0-2) H 05/18/24 20:56 Urine WBC 0-4 /hpf (0-5) H 05/18/24 20:56 Ur Eosinophil Smear Not Reportable 05/07/24 12:35 Ur Squamous Epith Cells 0-4 /hpf (0-5) H 05/18/24 20:56 Amorphous Sediment Trace /hpf 05/18/24 20:56 Urine Bacteria 1+ /hpf (NONE) H 05/18/24 20:56 Hyaline Casts 5-10 /lpf H 05/18/24 20:56 Fine Granular Casts 0-4 /lpf H 05/18/24 20:56 Coarse Granular Casts 5-10 /lpf H 05/18/24 20:56 Urine Mucus Trace /hpf 05/18/24 20:56 Urine Eosinophils No eosinophils seen 05/07/24 12:35 Ur Random Sodium 69 mmol/L 05/06/24 18:04 Ur Random Potassium 39 mmol/L 05/06/24 18:04 Ur Random Chloride 73 mmol/L 05/06/24 18:04 U Abnormal Prot Band 2 Not Reportable 05/06/24 18:09 U Abnormal Prot Band 3 Not Reportable 05/06/24 18:09 Vancomycin Trough 19.4 ug/mL (10-15) H 05/14/24 05:00 Random Vancomycin 10.4 ug/mL (20.0-40.0) L 05/20/24 05:28 Serum Ketones Positive (Negative) H 05/03/24 21:14 Pro Electrophoresis Int See note 05/06/24 18:09 Serum Immunofixation Normal pattern. 05/06/24 18:09 BETITO IFA Animal Tis Res Negative (NEGATIVE) 05/14/24 11:14 ANCA Screen Negative (NEGATIVE) 05/14/24 11:14 ANCA Titer Not Reportable 05/14/24 11:14 YAMILKA-1 Antibody <1.0 neg AI (<1.0 NEG) 05/14/24 11:14 SS-A Antibody <1.0 neg AI (<1.0 NEG) 05/14/24 11:14 SS-B Antibody <1.0 neg AI (<1.0 NEG) 05/14/24 11:14 Sm (Raines) Antibody <1.0 neg AI (<1.0 NEG) 05/14/24 11:14 DIRECTOR MARKETING [employer]NALYTICS Antibody <1.0 neg AI (<1.0 NEG) 05/14/24 11:14 Scl-70 Antibody <1.0 neg AI (<1.0 NEG) 05/14/24 11:14 Anti-ds DNA IgG (Crith) Negative (NEGATIVE) 05/14/24 11:14 Centromere B Antibody <1.0 neg AI (<1.0 NEG) 05/14/24 11:14 Thyroid Peroxidase Ab <1 IU/mL (<9) 05/14/24 11:14 Glomerular Base Mem IgG <1.0 AI 05/14/24 11:14 Complement C3 54 mg/dL (90-180) L 05/06/24 18:09 Complement C3c 86 mg/dL (82-185) 05/14/24 11:14 Complement C4 15 mg/dL (10-40) 05/06/24 18:09 Complement C4c 21 mg/dL (15-53) 05/14/24 11:14 CH50 Classical Pathway >60 U/mL (31-60) H 05/14/24 11:14 Free [place] Light Chains 105.0 mg/L (3.3-19.4) H 05/06/24 18:09 Free Lambda Light Chain 81.4 mg/L (5.7-26.3) H 05/06/24 18:09 Free [place]/Lambda Ratio 1.29 (0.26-1.65) 05/06/24 18:09 Adenovirus (PCR) Not detected (NOT DETECT) 05/18/24 20:56 C. pneumoniae DNA (PCR) Not detected (NOT DETECT) 05/18/24 20:56 C. difficile (PCR) Negative (Negative) 05/13/24 14:45 Coronavirus 229E (PCR) Not detected (NOT DETECT) 05/18/24 20:56 Hep Bs Antigen Non-reactive (Nonreactive) 05/14/24 05:08 Hep Bs Antibody < 3.5 (11.5-1000) L 05/14/24 05:08 Hepatitis C Antibody Non-reactive (Nonreactive) 05/14/24 05:08 HIV 1&2 Ab & HIV 1 Ag Non-reactive (Non-Reactiv) 05/12/24 04:10 HIV 1&2 Antibody Non-reactive (Non-Reactiv) 05/12/24 04:10 Human Metapneumovir PCR Not detected (NOT DETECT) 05/18/24 20:56 Influenza A (H1) PCR Not detected (NOT DETECT) 05/18/24 20:56 Influ A (H1/09) PCR Not detected (NOT DETECT) 05/18/24 20:56 Influenza A (H3) PCR Not detected (NOT DETECT) 05/18/24 20:56 Influenza Type A (PCR) Not detected (NOT DETECT) 05/18/24 20:56 Influenza Type B (PCR) Not detected (NOT DETECT) 05/18/24 20:56 M. pneumoniae (PCR) Not detected (NOT DETECT) 05/18/24 20:56 Parainfluenza 1 (PCR) Not detected (NOT DETECT) 05/18/24 20:56 Parainfluenza 2 (PCR) Not detected (NOT DETECT) 05/18/24 20:56 Parainfluenza 3 (PCR) Not detected (NOT DETECT) 05/18/24 20:56 Parainfluenza 4 (PCR) Not detected (NOT DETECT) 05/18/24 20:56 RSV Type A (PCR) Not detected (NOT DETECT) 05/18/24 20:56 RSV Type B (PCR) Not detected (NOT DETECT) 05/18/24 20:56 Entero/Rhino (PCR) Not detected (NOT DETECT) 05/18/24 20:56 SARS-CoV-2 (PCR) Not detected (NOT DETECT) 05/18/24 20:56 Blood Type O Positive 05/21/24 11:32 Rho(D) Type Rh positive 05/21/24 11:32 Antibody Screen Negative 05/21/24 11:32 Crossmatch See Detail 05/21/24 11:32 Vitals Last Vital Signs Temp 99.0 F 05/22/24 11:43 Pulse 77 05/22/24 11:43 Resp 16 05/22/24 11:43 BP 119/62 05/22/24 11:43 Pulse Ox 88 L 05/22/24 11:56 O2 Del Method Room Air 05/22/24 11:43 O2 Flow Rate 2 05/22/24 11:56 FiO2 30 05/09/24 12:23 Discharge Plan Discharge Patient Disposition: Home Condition: Stable Prescriptions: New insulin glargine 100 unit/mL (3 mL) insulin pen 10 unit SUBCUT DAILY Qty: 15 3RF Humalog U-100 Insulin 100 unit/mL Solution See Rx Instructions .ROUTE .COMPLEX Qty: 10 3RF Rx Instructions: With meals and bedtime: Glucose: 141-180 - 4 units 181-220 - 6 221-260 - 8 261-300 - 10 301-350 - 12 351-400 - 14 >400 - 16 units Santyl 250 unit/gram Ointment 1 applic topical DAILY Qty: 30 0RF midodrine 5 mg Tablet 10 mg PO TID Qty: 90 0RF aspirin 81 mg Tablet,Delayed Release (Dr/Ec) 81 mg PO DAILY Qty: 90 0RF linezolid 600 mg Tablet 600 mg PO Q12H 5 Days Qty: 10 0RF sodium bicarbonate 650 mg Tablet 650 mg PO TID Qty: 90 0RF pantoprazole 40 mg Tablet,Delayed Release (Dr/Ec) 40 mg PO BID Qty: 180 0RF sucralfate 1 gram tablet 1 g PO BID 28 Days Qty: 56 0RF atorvastatin 40 mg tablet 40 mg PO QPM Qty: 90 0RF Discontinued insulin lispro 100 unit/mL Insulin Pen 10 unit SUBCUT TID Discharge Orders: Discharge Order (Routine); Ordered 05/22/24 Ordered By: Ravin Mercado Other Ambulatory Orders: DME: Oxygen (Order) Location: None Selected Ordered By: Ravin Mercado DME: Wound Vac (Order) Location: None Selected Ordered By: Don Huerta Referrals: Selin Mchugh NP [Nurse Practitioner] - 05/30/24 1:15 pm Don Huerta DPM [Physician] - 05/26/24 1:30 pm () Dorothy Miguel MD [Referring] - 2 weeks (We have notified your physician's clinic of the need for a follow-up appointment to be scheduled. If you have not heard from them within the next 2 business days, please call them directly. ) Dillon Vásquez MD [Physician] - 2 weeks (We have notified your physician's clinic of the need for a follow-up appointment to be scheduled. If you have not heard from them within the next 2 business days, please call them directly. ) Discharge Diet: Diabetic Discharge Activity: Limit activity as instructed and As per PT/OT instructions Patient Instructions: Dialysis Diet (DC), Type 2 Diabetes in Adults: New Diagnosis (IP), Meal Planning with Diabetes Exchanges (GEN), Hemodialysis (DC), Type 2 Diabetes Management for Adults (GEN) Activity Restrictions/Additional Instructions: Additional information can be found about financial assistance with insulin at the [place] [employer] website. Https://diabetes.org and then go to tools and resources. Continue insulin regimen with long-acting insulin Lantus 10 units daily and short acting sliding scale insulin. Target blood glucose 100-150, work with your primary provider in case insulin needs to be adjusted to help maintain it in good range. Avoid high glucose levels to avoid risk of poor wound healing and infection. If your blood glucose gets low, below 100, hold Lantus dose that time. If her blood glucose gets very low below 70, in that case take sugary snacks, recheck in 15 minutes, if not improving seek medical attention. Follow-up with ion implant machine operator in office to help with good diabetes control. If it is possible consider continuous glucose monitoring. Follow-up with your primary provider regarding neuropathy, sensory losses in your lower extremities. Continue wound VAC for skin graft on the right foot. Follow-up with podiatry weekly for reassessment. Continue collagenase ointment, dressing changes over the wound on the mid lower left leg. Follow-up with your primary provider for reassessment. Follow-up with your primary provider and with kidney specialist regarding your kidney function, acute kidney injury reassessment for possible chronic kidney disease. Follow-up with your primary doctor for reassessment of liver function with concern for possible underlying liver dysfunction. Have your primary doctor reassess your iron studies to reassess iron overload and consider if you may have hemochromatosis which would need further evaluation in you and your family as discussed. Have your primary provider following up regarding anemia, reassess blood counts. Work with your primary provider to arrange endoscopic evaluation with EGD and colonoscopy to further assess for gastrointestinal source of slow blood loss contributing to anemia related to sepsis, kidney failure, surgical blood loss. Follow-up with your primary doctor also regarding hemoglobin and once hemoglobin is stable further follow-up regarding concerns of cardiac disease, troponin elevation, risk of coronary artery disease. Once your anemia is stable work with your primary provider regarding referral for stress testing to further assess your heart with regards to risk of heart attack. Follow-up regarding left bundle branch block, as well as atrial fibrillation. Once your anemia is under control discussed with your primary doctor consideration of anticoagulation for stroke risk protection from atrial fibrillation. Otherwise if not a candidate for anticoagulation discuss consideration of referral for right atrial appendage closure device. Check your blood pressures at least twice daily, safe values to bring to your appointment. If your blood pressures are improving and getting closer to 120/80 you may be able to come down off of midodrine. Seek medical attention in case of any worsening or new concerning symptoms. Instructions from Dr. Huerta/podiatry Follow-up in podiatry clinic with Dr. Huerta Sunday, May 26, 2024 at 1:30 PM Please keep wound VAC dressing clean, dry and intact, avoid getting wet when bathing Strict nonweightbearing to the right lower extremity, keep right foot elevated Once daily dressing change left leg wound with Hydrofera Blue, gauze, Kerlix and Bautista wrap Discharge Attestations Time Spent in Discharge Care*: greater than 30 min Quality Metrics Clinical Quality Measures [ No reported AMI, CVA or VTE this stay] Coding Level of Care Code 25821 Total time (in minutes) for Discharge: 65 Diagnoses Severe sepsis A41.9; R65.20 DKA (diabetic ketoacidosis) E11.10 Diabetes mellitus type: type 2 Diabetic peripheral neuropathy associated with type 2 diabetes mellitus E11.42 Necrotizing fasciitis M72.6 Gas gangrene A48.0
[2024-05-22] MEDS: FUROsemide 10 mg/mL SDV 2mL 20 MG IVP (14:25)
--- NOTE | 2024-05-22 18:26 | P.PN_ITS ---
Subjective 2 Subjective: no new c/o Medications: Reviewed: Yes Vitals/I&O/Wt Last Vital Signs Temp 99.0 F 05/22/24 17:27 Pulse 77 05/22/24 17:27 Resp 16 05/22/24 17:27 BP 119/62 05/22/24 17:27 Pulse Ox 90 05/22/24 17:27 O2 Del Method Room Air 05/22/24 11:43 O2 Flow Rate 2 05/22/24 11:56 FiO2 30 05/09/24 12:23 05/22/24 05/22/24 05/22/24 06:59 14:59 22:59 Intake Total 240 / 240 Output Total 50 / 200 Balance -50 / 210 240 / 240 Weight last 48 hrs Weight 87.175 kg Weight 86.636 kg Physical Exam 2 Narrative: The patient was seen with the aid of an A/V device. Examined by nurse. This is a telehealth visit. He is comfortable in bed. Vital signs noted and stable. HEENT is normocephalic atraumatic neck is supple Lungs have good air movement bilaterally. Heart sinus rhythm, positive systolic murmur. Abdomen soft positive bowel sounds. Extremities poor pulses and status post right TMA. has a vac dressing + femoral dialysis catheter 1+ edema in his arms and legs -improved. Neuro = awake, alert oriented follows commands. moves all extremities Urinary Catheter Management: [place]: Cath Placed During This Visit: yes, but has since been removed by the nurse Reason for Continuing Indwelling Catheter: Decision to DC Catheter Urinary Catheter Date of Insertion: 05/03/24 Urinary Catheter Time of Insertion: 21:50 Date Urinary Catheter Removed: 05/22/24 Time Urinary Catheter Discontinued: 14:39 Data 05/22/24 04:52 05/22/24 04:52 Micro: Microbiology 05/18/24 20:00 Blood Culture - Preliminary Blood NEGATIVE TO DATE A&P Assessment and plan (1) JALYN (acute kidney injury): 53-year-old gentleman 1. DKA improved with fluids and insulin. 2. Septic foot status post TMA. Check vancomycin level keep trough under 20. Please dose Zosyn for GFR under 20. 3. Renal insufficiency: . Creatinine on admission was 2.8 likely has ckd stage 4 from dm -he is doing well w/o HD. he had 2 dialysis sessions last week as cr and k and bicarb stable 4. Anemia likely multifactorial from severe infection, CKD. He has a high iron saturation. neg serum protein electrophoresis - s/p transfusions and s/p Epo 6. Status post TMA of right foot. wound vac. appreciate podiatry -abx per medicine and podiatry 7. A-fib now in normal sinus rhythm. Patient has history of left bundle branch block. 8. PTH of 172 repeat in 3-4 weeks Patient was seen and examined with nurse using A/V equipment. Telehealth visit. Case discussed in detail with the patient and the nurse. Plan See above. Attestations 2 Medical Necessity Statement*: per shara Coding Level of Care Code Acute Code for [facility] Fwd Diagnoses JALYN (acute kidney injury) N17.9
== END 2024-05-22 17:28 | disposition home or self-care (01) | DRG 853 ==
LOC: ER 22:04 → OR 22:21 → ICU 23:52 → MEDSURG 05-13 17:24
PROVIDERS: Internal Medicine; Internal Medicine Nephrology; Podiatrist Foot & Ankle Surgery; Student in an Organized Health Care Education/Training Program; Admitting Provider Student in an Organized Health Care Education/Training Program; Emergency Provider Emergency Medicine; Visit Provider Internal Medicine
PROC: 0Y6P0Z0 Detachment at Right 1st Toe, Complete, Open Approach (ICD-10-PCS; CPT 28805; principal; 2024-05-03 22:50)
PROC: 0Y6M0Z0 Detachment at Right Foot, Complete, Open Approach (ICD-10-PCS; principal; 2024-05-16 10:25)
PROC: 0Y6M0Z0 Detachment at Right Foot, Complete, Open Approach (ICD-10-PCS; 2024-05-16 10:25)
PROC: 0Y6M0Z0 Detachment at Right Foot, Complete, Open Approach (ICD-10-PCS; 2024-05-16 10:25)
DX: A41.9 Sepsis, unspecified organism (principal); A48.0 Gas gangrene; E11.10 Type 2 diabetes mellitus with ketoacidosis without coma; R65.21 Severe sepsis with septic shock; M72.6 Necrotizing fasciitis; J96.01 Acute respiratory failure with hypoxia; G93.41 Metabolic encephalopathy; I21.4 Non-ST elevation (NSTEMI) myocardial infarction; E11.52 Type 2 diabetes mellitus with diabetic peripheral angiopathy with gangrene; M86.171 Other acute osteomyelitis, right ankle and foot; N17.9 Acute kidney failure, unspecified; E87.20 Acidosis, unspecified; D68.9 Coagulation defect, unspecified; E11.42 Type 2 diabetes mellitus with diabetic polyneuropathy; E11.69 Type 2 diabetes mellitus with other specified complication; T25.331D Burn of third degree of right toe(s) (nail), subsequent encounter; X08.8XXD Exposure to other specified smoke, fire and flames, subsequent encounter; Z79.4 Long term (current) use of insulin; E86.0 Dehydration; E86.1 Hypovolemia; I48.91 Unspecified atrial fibrillation; D64.9 Anemia, unspecified; F10.91 Alcohol use, unspecified, in remission; Z87.891 Personal history of nicotine dependence; R13.10 Dysphagia, unspecified; B96.5 Pseudomonas (aeruginosa) (mallei) (pseudomallei) as the cause of diseases classified elsewhere; B95.8 Unspecified staphylococcus as the cause of diseases classified elsewhere; B37.9 Candidiasis, unspecified; I44.7 Left bundle-branch block, unspecified
CPT/HCPCS: 36415; 36416; 36430; 36592; 36600; 51702; 70360; 70450; 71045; 72131; 73590; 73630; 74022; 74176; 74230; 76770; 76857; 80048; 80051; 80053; 80061; 80202; 80503; 81001; 81256; 82009; 82140; 82274; 82306; 82310; 82330; 82436; 82550; 82607; 82652; 82728; 82746; 82803; 82805; 82947; 82962; 83010; 83036; 83520; 83540; 83550; 83605; 83615; 83735; 83883; 83970; 84100; 84133; 84145; 84155; 84165; 84300; 84443; 84484; 85007; 85014; 85018; 85025; 85045; 85049; 85362; 85378; 85384; 85610; 85730; 85999; 86036; 86160; 86162; 86235; 86255; 86334; 86376; 86706; 86803; 86850; 86900; 86920; 87040; 87070; 87075; 87077; 87106; 87186; 87205; 87340; 87486; 87493; 87581; 87633; 87806; 88305; 88311; 90935; 92526; 92610; 92611; 93005; 93306; 93926; 93970; 94002; 94003; 94664; 94760; 94799; 96365; 96366; 96367; 96368; 96372; 96374; 96375; 96376; 97110; 97116; 97161; 97165; 97530; 99291; 99292; A4222; A4570; C1713; C1751; C9113; J0283; J1644; J1815; J1940; J2371; J2405; J2543; J2598; J2704; J3010; J3370; J3475; J3480; J3490; J7030; J7042; J7050; J7070; J7120; J7121; J7799; P9016; P9046; Q3014; Q4081

== ENCOUNTER → 2024-05-30 14:03 | Outpatient (BNVA) | payer SELFPAY | DX: N18.9 Chronic kidney disease, unspecified (principal) | CPT/HCPCS: 80053; 85025 ==

== ENCOUNTER 2024-06-14 07:44 | Emergency (ER) | payer OTHER, SELFPAY ==
[2024-06-14 08:15] VITALS: BP 83/54; PULSE 82; RESP 18; TEMP 36.7; O2SAT 97
[2024-06-14 08:48] VITALS: BP 96/56
--- NOTE | 2024-06-14 08:51 | W.ED.GENADLT ---
HPI - General Adult General: Chief complaint: General Medical Stated complaint: needs machine for foot looked at Time Seen by Provider: 06/14/24 08:09 History of Present Illness: 54-year-old male presents emergency room with a wound VAC. He is concerned the wound vacs not functioning correctly. He had surgery For necrotizing fasciitis to his right foot and had a amputation of the right foot on 05/16. He has been wearing the wound VAC in place at the time of discharge on 05/22. He is concerned does not function correctly existence he has much fluid draining from it. Associated symptoms: Deny rash Related Data Home Medications Medication Instructions Recorded Confirmed linezolid 600 mg tablet 600 mg PO BID 05/30/24 06/11/24 Previous Rx's Medication Instructions Recorded aspirin 81 mg tablet,delayed 81 mg PO DAILY #90 tabs 05/22/24 release atorvastatin 40 mg tablet 40 mg PO QPM #90 tabs 05/22/24 collagenase clostridium histo. 250 1 applic topical DAILY #30 grams 05/22/24 unit/gram topical ointment (Santyl) insulin glargine 100 unit/mL (3 10 unit (0.1 mL) SUBCUT DAILY #15 05/22/24 mL) subcutaneous pen mL insulin lispro 100 unit/mL See Rx Instructions .Route 05/22/24 subcutaneous solution (Humalog .COMPLEX #10 mL U-100 Insulin) midodrine 5 mg tablet 10 mg (2 x 5 mg) PO TID #90 tabs 05/22/24 pantoprazole 40 mg tablet,delayed 40 mg PO BID #180 tabs 05/22/24 release sodium bicarbonate 650 mg tablet 650 mg PO TID #90 tabs 05/22/24 sucralfate 1 gram tablet 1 g PO BID 4 weeks #56 tabs 05/22/24 Allergies Allergy/AdvReac Type Severity Reaction Status Date / Time No Known Allergies Allergy Verified 06/11/24 08:13 Review of Systems Const: Denies: fever(s) or chills Skin/Breast: Denies: rash PFSH ED PFSH: Medical History CKD (chronic kidney disease) Uncontrolled type 2 diabetes mellitus Surgical History Status post amputation Social History Smoking and tobacco/nicotine status: never used tobacco/nicotine Alcohol intake: never Substance/Drug Use: never service: No Current occupational exposures/hazards: Yes Physical Exam Const: COMMON NORMALS: no acute distress GENERAL APPEARANCE: cooperative and comfortable ORIENTATION/CONSCIOUSNESS: Yes awake, Yes oriented to person, Yes oriented to place and Yes oriented to time HENMT: COMMON NORMALS: normocephalic, atraumatic and hearing grossly normal bilaterally HEAD & SCALP: normocephalic and atraumatic Extremity: COMMON NORMALS: normal to inspection, capillary refill normal, no clubbing, cyanosis or edema, no calf tenderness and no pedal edema Neuro: SENSORIUM/ORIENTATION: Yes oriented to person, Yes oriented to place and Yes oriented to time Skin: COMMON NORMALS: no rashes or lesions noted GENERAL SKIN EXAM: no rashes or lesions noted Course Vital Signs: Vital signs: Vital Signs Temperature 98.1 F 06/14/24 08:15 Pulse Rate 71 06/14/24 09:15 Respiratory Rate 18 06/14/24 08:15 Blood Pressure 93/63 06/14/24 09:15 Pulse Oximetry 98 06/14/24 09:15 Oxygen Delivery Me thod Room Air 06/14/24 08:15 MDM - General Adult Medical Decision Making Wound undressed some appeared as expected for a number of postop days. There is still little fluid in the wound VAC cath. No redness no erythema no fluid collection around the wound or swelling. Discussed with Dr. Huerta who usually sees the patient advised on the wound looks good I suspect that she is not putting out as much fluid. He concurs advised have the patient follow-up in 2 days in the office on 812 which is on Sunday. Patient vies to return sooner if he develops fever or other problems. All radiology interpretation(s) finalized by discharge Discharge Plan Discharge Patient Disposition: Home Clinical Impression: S/P amputation of foot Uncontrolled type 2 diabetes mellitus Qualifiers: Glycemic state: with hyperglycemia Qualified Code(s): E11.65 - Type 2 diabetes mellitus with hyperglycemia Condition: Stable Prescriptions: No Action linezolid 600 mg tablet 600 mg PO BID insulin glargine 100 unit/mL (3 mL) insulin pen 10 unit SUBCUT DAILY Qty: 15 3RF Humalog U-100 Insulin 100 unit/mL Solution See Rx Instructions .ROUTE .COMPLEX Qty: 10 3RF Rx Instructions: With meals and bedtime: Glucose: 141-180 - 4 units 181-220 - 6 221-260 - 8 261-300 - 10 301-350 - 12 351-400 - 14 >400 - 16 units Santyl 250 unit/gram Ointment 1 applic topical DAILY Qty: 30 0RF midodrine 5 mg Tablet 10 mg PO TID Qty: 90 0RF aspirin 81 mg Tablet,Delayed Release (Dr/Ec) 81 mg PO DAILY Qty: 90 0RF sodium bicarbonate 650 mg Tablet 650 mg PO TID Qty: 90 0RF pantoprazole 40 mg Tablet,Delayed Release (Dr/Ec) 40 mg PO BID Qty: 180 0RF sucralfate 1 gram tablet 1 g PO BID 28 Days Qty: 56 0RF atorvastatin 40 mg tablet 40 mg PO QPM Qty: 90 0RF Discharge Orders: Discharge ED (Routine); Ordered 06/14/24 Ordered By: Suman Narayanan Referrals: Selin Mchugh NP [Primary Care Provider] - Discharge Diet: Usual diet Discharge Activity: Resume usual activity Patient Instructions: Opioid Safety, Pain Management Activity Restrictions/Additional Instructions: Thank you for choosing [facility] for your healthcare needs today. It is very important that you follow up as instructed or that you return to the Emergency Department should you have concerns or if your condition changes or worsens in any way. You were seen in the emergency room with concern about the wound VAC pump. The pump does still appear to be pulling off fluid. On examination of your foot there is no evidence of infection or accumulation of fluid. I reviewed with your surgeon he recommends no changes at this time and follow-up with him in 2 days as scheduled Coding Level of Care Code ED Compressor Mechanic for Peng Ramsey
[2024-06-14 09:15] VITALS: BP 93/63; PULSE 71; O2SAT 98
== END 2024-06-14 09:16 | disposition home or self-care (01) ==
PROVIDERS: Emergency Provider Family Medicine
DX: Z48.03 Encounter for change or removal of drains (principal); E11.65 Type 2 diabetes mellitus with hyperglycemia; Z89.431 Acquired absence of right foot; Z79.82 Long term (current) use of aspirin; Z79.4 Long term (current) use of insulin; E11.22 Type 2 diabetes mellitus with diabetic chronic kidney disease; N18.9 Chronic kidney disease, unspecified
CPT/HCPCS: 99281

== ENCOUNTER → 2024-06-16 10:28 | Outpatient (BNVA) | payer OTHER, SELFPAY | PROVIDERS: PCP Family Medicine; Visit Provider Family Medicine | DX: D50.0 Iron deficiency anemia secondary to blood loss (chronic) (principal); E11.65 Type 2 diabetes mellitus with hyperglycemia | CPT/HCPCS: 80053; 82728; 83036; 83550; 85025 ==

== ENCOUNTER 2024-06-17 10:51 | Oncology outpatient (recurring) (ONCR) | payer OTHER, SELFPAY ==
[2024-06-17 11:43] LABS: Basophils # 0.1 10^3/uL (0.0-0.1); Basophils % 0.7 %; Eosinophils # 0.8 10^3/uL (0.0-0.8); Eosinophils % 9.5 %; Hematocrit 25.8 % (37-53); Lymphocytes # 4.1 10^3/uL (0.8-4.8); Lymphocytes % 49.7 %; Mean Corpuscular Hemoglobin 29.1 pg (27-33); Mean Corpuscular Volume 93.8 fl (82-101); Mean Platelet Volume 9.2 fL (7.4-10.4); Monocytes # 0.6 10^3/uL (0.2-0.9); Monocytes % 7.3 %; Neutrophils # 2.65 10^3/uL (1.8-7.7); Neutrophils % 32.4 %; Nucleated Red Blood Cells % 0 %; Platelet Count 358 10^3/cmm (157-399); Red Blood Count 2.75 10^6/uL (3.85-5.65); Red Cell Distribution Width 16.4 % (12.1-15.1); White Blood Count 8.19 10^3/uL (3.29-11.43)
[2024-06-17 13:20] VITALS: BP 119/70; PULSE 75; RESP 18; TEMP 36.7; O2SAT 97
[2024-06-17 13:35] VITALS: BP 128/78; PULSE 78; RESP 18; TEMP 36.7; O2SAT 97
[2024-06-17 13:50] VITALS: BP 115/84; PULSE 73; RESP 16; TEMP 36.7; O2SAT 97
[2024-06-17 14:20] VITALS: BP 145/87; PULSE 76; RESP 16; TEMP 36.7; O2SAT 98
[2024-06-17 15:06] VITALS: BP 146/84; PULSE 72; RESP 16; TEMP 36.8; O2SAT 99
[2024-06-17 15:10] VITALS: BP 146/84; PULSE 72; RESP 16; TEMP 36.8; O2SAT 99
== END 2024-07-05 23:55 | disposition home or self-care (01) ==
PROVIDERS: PCP Family Medicine; Visit Provider Family Medicine
DX: D64.9 Anemia, unspecified (principal); D50.0 Iron deficiency anemia secondary to blood loss (chronic)
CPT/HCPCS: 36430; 85025; 86850; 86900; 86920; P9016

== ENCOUNTER 2024-07-02 19:56 | Emergency (ER) | payer OTHER, SELFPAY ==
--- NOTE | 2024-07-02 20:02 | XRR_ITS ---
PROCEDURE INFORMATION: Exam: XR Chest Exam date and time: 07/02/2024 8:37 PM Age: 54 years old Clinical indication: Dyspnea; Additional info: SOB, abnormal lab findings TECHNIQUE: Imaging protocol: Radiologic exam of the chest. Views: 1 view. COMPARISON: CR (CHEST, ) 05/18/2024 1:57 PM FINDINGS: Lungs: Left lower lobe atelectasis suspected. Pleural spaces: Unremarkable. No pleural effusion. No pneumothorax. Heart/Mediastinum: Unremarkable. No cardiomegaly. Bones/joints: Unremarkable. XR/XR chest 1V portable [id number] IMPRESSION: Left lower lobe atelectasis suspected.
[2024-07-02 20:07] VITALS: BP 114/65; PULSE 81; RESP 16; O2SAT 97; BMI 26.6
[2024-07-02 20:40] LABS: Basophils % 0.4 %; Eosinophils # 0.4 10^3/uL (0.0-0.8); Eosinophils % 7.1 %; Hematocrit 25.3 % (37-53); Lymphocytes # 1.4 10^3/uL (0.8-4.8); Lymphocytes % 24.8 %; Mean Corpuscular HGB Conc 30.8 g/dL (30-55); Mean Corpuscular Hemoglobin 29.2 pg (27-33); Mean Corpuscular Volume 94.8 fl (82-101); Mean Platelet Volume 9.3 fL (7.4-10.4); Monocytes # 0.3 10^3/uL (0.2-0.9); Neutrophils # 3.37 10^3/uL (1.8-7.7); Neutrophils % 61.3 %; Nucleated Red Blood Cells % 0 %; Platelet Count 230 10^3/cmm (157-399); Red Blood Count 2.67 10^6/uL (3.85-5.65); Red Cell Distribution Width 16.7 % (12.1-15.1); White Blood Count 5.49 10^3/uL (3.29-11.43)
--- NOTE | 2024-07-02 20:41 | CTR_ITS ---
PROCEDURE INFORMATION: Exam: CT Abdomen And Pelvis Without Contrast Exam date and time: 07/02/2024 8:47 PM Age: 54 years old Clinical indication: Abnormal findings; Abnormal lab test; Abnormal kidney function lab tests; Additional info: Renal failure, R/O obstructive uropathy per hospitalist TECHNIQUE: Imaging protocol: Computed tomography of the abdomen and pelvis without contrast. Radiation optimization: All CT scans at this facility use at least one of these dose optimization techniques: automated exposure control; mA and/or kV adjustment per patient size (includes targeted exams where dose is matched to clinical indication); or iterative reconstruction. COMPARISON: CT abdomen pelvis con [id number] 05/07/2024 8:48 PM RADIATION DOSE METRICS: Total DLP (mGy-cm): 461 FINDINGS: Lungs: Left lower lobe atelectasis versus infiltrate. Emphysematous changes. Heart: Mild cardiomegaly. Liver: Normal. No mass. Gallbladder and biliary ducts: Normal. No calcified stones. No ductal dilation. Pancreas: Normal. No ductal dilation. Spleen: Normal. No splenomegaly. Adrenal glands: Normal. No mass. Kidneys and ureters: Perinephric edema bilaterally likely reflecting renal insufficiency, please correlate for pyelonephritis. Stomach and bowel: Unremarkable. No obstruction. No mucosal thickening. Appendix: No evidence of appendicitis. Intraperitoneal space: Unremarkable. No free air. No significant fluid collection. Vasculature: Unremarkable. No abdominal aortic aneurysm. Lymph nodes: Unremarkable. No enlarged lymph nodes. Urinary bladder: Unremarkable as visualized. Reproductive: Prostate gland is somewhat enlarged. Bones/joints: Unremarkable. No acute fracture. Soft tissues: Small bilateral fat containing inguinal hernias without bowel inflammation. CT/CT abdomen pelvis con [id number] IMPRESSION: 1. Perinephric edema bilaterally likely reflecting renal insufficiency, please correlate for pyelonephritis. 2. Small bilateral fat containing inguinal hernias without bowel inflammation. 3. Prostate gland is somewhat enlarged. 4. Left lower lobe atelectasis versus infiltrate. 5. Emphysematous changes. 6. Mild cardiomegaly.
[2024-07-02 20:57] LABS: Alanine Aminotransferase 29 U/L (0-41); Albumin Level 3.9 g/dL (3.5-5.2); Alkaline Phosphatase 96 U/L (40-130); Anion Gap 19.6 (5-19); Aspartate Amino Transferase 20 U/L (0-40); Blood Urea Nitrogen 64 mg/dL (6-20); Carbon Dioxide 11 mmol/L (22-29); Chloride 111 mmol/L (98-107); Creatinine Clr Calc Pharmacy 23.4079; Globulin 4.3 g/dL (1.3-4.6); Glomerular Filtration Rate 18.8 mL/min (90-130); Glucose 104 mg/dL (65-115); Magnesium 1.4 mg/dL (1.7-2.3); Osmolality Calculated 301 mOsm/kg (285-295); Potassium 5.6 mmol/L (3.5-5.1); Sodium 136 mmol/L (136-145); Total Bilirubin 0.3 mg/dL (0.15-1.2); Total Protein 8.2 g/dL (6.6-8.7)
--- NOTE | 2024-07-02 20:57 | ECG_ITS ---
[facility] Test Date: 2024-07-02 Pat Name: Arden Keenan Department: Room: Gender: Male Applications Trainer: : 1970 Requested By: Emerita Crandall Order Number: [id number] Reading MD: Sb Meneses M.D. Measurements Intervals [place] Rate: 74 P: 54 DC: 152 QRS: 21 QRSD: 77 T: 81 QT: 401 QTc: 446 Interpretive Statements SINUS RHYTHM NONSPECIFIC T-WAVE ABNORMALITY No previous ECG available for comparison Electronically Signed On 07-03-2024 9:03:16 CDT by Sb Meneses M.D. [email or web address]
--- NOTE | 2024-07-02 20:58 | W.ED.RECABL ---
HPI - Recheck/Abnormal Lab/Rx General: Chief Complaint: Recheck/Abnormal Lab/Rx Stated Complaint: sent by jayant to check lungs Time Seen by Provider: 07/02/24 20:33 Source: patient Mode of arrival: ambulatory Limitations: no limitations History of Present Illness: Patient is a 54-year-old male who presents to ED today after he was called by his primary care office for critical lab results. Patient has extensive past medical history including right foot amputation, type 2 diabetes, hemochromatosis, CKD, GERD, hypertension, anemia. 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 Huerta earlier today in regards to the right foot. He states primary care did blood work and he was called later with critical results although he is not sure what these were. He has family in the room with him providing translation as he is primarily Hungarian-speaking. Patient has no physical complaints at time of evaluation in the emergency department. MD complaint: abnormal lab Returns today for: called because of abnormal lab/test Symptoms since prior visit: no new symptoms Context: called for abnormal lab result Associated symptoms: none Related Data Previous Rx's Medication Instructions Recorded aspirin 81 mg tablet,delayed 81 mg PO DAILY #90 tabs 05/22/24 release collagenase clostridium histo. 250 1 applic topical DAILY #30 grams 05/22/24 unit/gram topical ointment (Santyl) insulin glargine 100 unit/mL (3 10 unit (0.1 mL) SUBCUT DAILY #15 05/22/24 mL) subcutaneous pen mL insulin lispro 100 unit/mL See Rx Instructions .Route 05/22/24 subcutaneous solution (Humalog .COMPLEX #10 mL U-100 Insulin) sodium bicarbonate 650 mg tablet 650 mg PO TID #90 tabs 05/22/24 atorvastatin 40 mg tablet 40 mg PO QPM #60 tabs 06/25/24 midodrine 5 mg tablet 10 mg (2 x 5 mg) PO ONCE #120 tabs 07/02/24 pantoprazole 40 mg tablet,delayed 40 mg PO ONCE acido #90 tabs 07/02/24 release Allergies Allergy/AdvReac Type Severity Reaction Status Date / Time No Known Allergies Allergy Verified 07/02/24 12:54 Review of Systems Const: Denies: fever(s) Card: Denies: chest pain Resp: Denies: dyspnea GI: Denies: abdominal pain, vomiting or diarrhea : Denies: flank pain or dysuria Skin/Breast: Denies: rash Neuro: Denies: headache(s) or dizziness PFSH ED PFSH: Medical History Hypotension Atrial fibrillation with RVR Abnormal iron saturation Gas gangrene Necrotizing fasciitis DKA (diabetic ketoacidosis) CKD (chronic kidney disease) Uncontrolled type 2 diabetes mellitus Surgical History S/P amputation of foot Status post amputation Social History Smoking and tobacco/nicotine status: never used tobacco/nicotine Alcohol intake: never Substance/Drug Use: never service: No Current occupational exposures/hazards: Yes Physical Exam Const: COMMON NORMALS: no acute distress, average body habitus, patient oriented x3, no limitations, healthy appearing, alert and well nourished GENERAL APPEARANCE: cooperative Resp: COMMON NORMALS: normal respiratory effort and clear to auscultation bilaterally AUSCULTATION: clear to auscultation bilaterally Cardio: COMMON NORMALS: regular rate and regular rhythm RATE: regular rate RHYTHM: regular rhythm Extremity: NARRATIVE EXTREMITY EXAM: R LE/foot is dressed with wound vac; this was just evaluated by his high school art teacher this morning so dressing was not undone Neuro: COMMON NORMALS: patient oriented x3, moves all extremities, no focal motor deficits and no sensory deficits noted SENSORIUM/ORIENTATION: Yes alert Course Vital Signs: Vital signs: Vital Signs Pulse Rate 71 07/02/24 21:10 Respiratory Rate 18 07/02/24 21:10 Blood Pressure 127/74 07/02/24 21:10 Pulse Oximetry 99 07/02/24 21:10 Oxygen Delivery Me thod Room Air 07/02/24 21:10 MDM - Recheck/Abnormal Lab/Rx Medical Decision Making Patient is completely asymptomatic upon arrival to the emergency department. He was contacted earlier today due to a reportedly critically high potassium of 6.5. Potassium today is 5.6. This is similar to earlier this month when his potassium was checked. Most likely some degree of hemolysis in his outpatient sample earlier. No EKG changes. Again he is asymptomatic. I do not feel he needs emergent lowering of this. Discussed with Dr. Nunez who agrees. His BUN/CR are at baseline. CT scan ordered by another provider while patient was in waiting room. Some incidental/chronic findings. They did comment on some perinephric edema bilaterally most likely reflecting renal insufficiency but wanted to correlate for pyelonephritis. His UA positive for nitrates but negative for leuks/WBCs. He has no flank pain or dysuria. Normal white count. I do not see any clinical indication of a pyelonephritis. Patient will be allowed discharge with recommendations to follow-up with his primary care provider. Medical Records I reviewed the patient's medical records. Lab Data I reviewed the patient's lab results. 07/02/24 20:31 07/02/24 20:31 Radiology Impressions Chest X-Ray 07/02/24 20:02 IMPRESSION: Left lower lobe atelectasis suspected. Abdomen/Pelvis CT 07/02/24 20:41 IMPRESSION: 1. Perinephric edema bilaterally likely reflecting renal insufficiency, please correlate for pyelonephritis. 2. Small bilateral fat containing inguinal hernias without bowel inflammation. 3. Prostate gland is somewhat enlarged. 4. Left lower lobe atelectasis versus infiltrate. 5. Emphysematous changes. 6. Mild cardiomegaly. Laboratory Results WBC 5.49 10^3/uL (3.29-11.43) 07/02/24 20:31 RBC 2.67 10^6/uL (3.85-5.65) L 07/02/24 20:31 Hgb 7.80 g/dL (11.27-16.99) L 07/02/24 20:31 Hct 25.3 % (37-53) L 07/02/24 20:31 MCV 94.8 fl (82-101) 07/02/24 20:31 MCH 29.2 pg (27-33) 07/02/24 20:31 MCHC 30.8 g/dL (30-55) 07/02/24 20:31 RDW 16.7 % (12.1-15.1) H 07/02/24 20:31 Plt Count 230 10^3/cmm (157-399) 07/02/24 20:31 MPV 9.3 fL (7.4-10.4) 07/02/24 20:31 Neut % (Auto) 61.3 % 07/02/24 20:31 Lymph % (Auto) 24.8 % 07/02/24 20:31 Dixon % (Auto) 6.0 % 07/02/24 20:31 Eos % (Auto) 7.1 % 07/02/24 20:31 Baso % (Auto) 0.4 % 07/02/24 20:31 Neut # (Auto) 3.37 10^3/uL (1.8-7.7) 07/02/24 20:31 Lymph # (Auto) 1.4 10^3/uL (0.8-4.8) 07/02/24 20:31 Dixon # (Auto) 0.3 10^3/uL (0.2-0.9) 07/02/24 20:31 Eos # (Auto) 0.4 10^3/uL (0.0-0.8) 07/02/24 20:31 Baso # (Auto) 0.0 10^3/uL (0.0-0.1) 07/02/24 20:31 Nucleated RBC % (auto) 0 % 07/02/24 20:31 Nucleated RBCs # 0.0 /100WBC 07/02/24 20:31 Sodium 136 mmol/L (136-145) 07/02/24 20:31 Potassium 5.6 mmol/L (3.5-5.1) H 07/02/24 20:31 Chloride 111 mmol/L (98-107) H 07/02/24 20:31 Carbon Dioxide 11 mmol/L (22-29) L 07/02/24 20:31 Anion Gap 19.6 (5-19) H 07/02/24 20:31 BUN 64 mg/dL (6-20) H 07/02/24 20:31 Creatinine 3.4 mg/dL (0.7-1.2) H 07/02/24 20:31 GFR Calculation 18.8 mL/min (90-130) L 07/02/24 20:31 Glucose 104 mg/dL (65-115) 07/02/24 20:31 Calculated Osmolality 301 mOsm/kg (285-295) H 07/02/24 20:31 Calcium 9.0 mg/dL (8.5-10.5) 07/02/24 20:31 Magnesium 1.4 mg/dL (1.7-2.3) L 07/02/24 20:31 Total Bilirubin 0.3 mg/dL (0.15-1.2) 07/02/24 20:31 AST 20 U/L (0-40) 07/02/24 20:31 ALT 29 U/L (0-41) 07/02/24 20:31 Alkaline Phosphatase 96 U/L (40-130) 07/02/24 20:31 Total Protein 8.2 g/dL (6.6-8.7) 07/02/24 20:31 Albumin 3.9 g/dL (3.5-5.2) 07/02/24 20:31 Globulin 4.3 g/dL (1.3-4.6) 07/02/24 20:31 Urine Color Yellow (Yellow) 07/02/24 21:50 Urine Appearance Clear (CLEAR) 07/02/24 21:50 Urine pH 5.0 (5-7) 07/02/24 21:50 Ur Specific [place] 1.014 (1.005-1.030) 07/02/24 21:50 Urine Protein 1+ (Negative) A 07/02/24 21:50 Urine Glucose (UA) Negative (Normal) 07/02/24 21:50 Urine Ketones Negative (Negative) 07/02/24 21:50 Urine Blood Negative (Negative) 07/02/24 21:50 Urine Nitrate Positive (Negative) A 07/02/24 21:50 Urine Bilirubin Negative (Negative) 07/02/24 21:50 Urine Urobilinogen 0.2 mg/dL (Negative) 07/02/24 21:50 Ur Leukocyte Esterase Negative (Negative) 07/02/24 21:50 Urine RBC 0-2 /hpf (0-2) 07/02/24 21:50 Urine WBC 0-5 /hpf (0-5) 07/02/24 21:50 Ur Squamous Epith Cells 0-5 /hpf (0-5) 07/02/24 21:50 Amorphous Sediment Not Reportable 07/02/24 21:50 Urine Bacteria 2+ /hpf (NONE) H 07/02/24 21:50 Hyaline Casts 4.11 /lpf 07/02/24 21:50 All radiology interpretation(s) finalized by discharge EKG Data EKG 1: EKG interpretation date: 07/02/24 EKG interpretation time: 20:57 Interpretation: Sinus rhythm Rate [address] elevation or depression changes noted Discharge Plan Discharge Patient Disposition: Home Clinical Impression: Hyperkalemia CKD (chronic kidney disease) Qualifiers: Chronic kidney disease stage: stage 4 (severe) Qualified Code(s): N18.4 - Chronic kidney disease, stage 4 (severe) Condition: Stable Prescriptions: No Action midodrine 5 mg tablet 10 mg PO ONCE Qty: 120 2RF Rx Instructions: por dose semanas, comprobar pressor cada olegario pantoprazole 40 mg tablet,delayed release (DR/EC) 40 mg PO ONCE Qty: 90 0RF atorvastatin 40 mg tablet 40 mg PO QPM Qty: 60 0RF insulin glargine 100 unit/mL (3 mL) insulin pen 10 unit SUBCUT DAILY Qty: 15 3RF Humalog U-100 Insulin 100 unit/mL Solution See Rx Instructions .ROUTE .COMPLEX Qty: 10 3RF Rx Instructions: With meals and bedtime: Glucose: 141-180 - 4 units 181-220 - 6 221-260 - 8 261-300 - 10 301-350 - 12 351-400 - 14 >400 - 16 units Santyl 250 unit/gram Ointment 1 applic topical DAILY Qty: 30 0RF aspirin 81 mg Tablet,Delayed Release (Dr/Ec) 81 mg PO DAILY Qty: 90 0RF sodium bicarbonate 650 mg Tablet 650 mg PO TID Qty: 90 0RF Discharge Orders: Discharge ED (Routine); Ordered 07/02/24 Ordered By: Tova Cui Referrals: Luther Nelson MD [Primary Care Provider] - Activity Restrictions/Additional Instructions: As we discussed, I suspect a degree of hemolysis responsible for his elevated potassium earlier today. It is still slightly elevated today. He is asymptomatic. No changes on his EKG. He does not require emergent lowering of this. I would like him to contact his primary care provider tomorrow to schedule an ER follow-up. They can repeat labs in a week or so Coding Level of Care Code ED Annual Giving Director for Peng Ramsey
[2024-07-02 21:10] VITALS: BP 127/74; PULSE 71; RESP 18; O2SAT 99
[2024-07-02 21:54] LABS: Charge for UA Resulting for Rev
[2024-07-02 21:56] LABS: Bilirubin Urine Negative (Negative); Blood Urine Negative (Negative); Glucose Urine UA Negative (Normal); Ketones Urine Negative (Negative); Leukocyte Esterase Urine Negative (Negative); Nitrate Urine Positive (Negative); Protein Urine 1+ (Negative); Specific Gravity, Urine 1.014 (1.005-1.030); Urine Appearance Clear (CLEAR); Urine Color Yellow (Yellow); Urobilinogen Urine 0.2 mg/dL (Negative)
[2024-07-02 22:06] LABS: Bacteria Urine 2+ /hpf; Hyaline Casts Urine 4.11 /lpf; RBC Urine 0-2 /hpf (0-2); Squamous Epithelial Cell Urine 0-5 /hpf (0-5); WBC Urine 0-5 /hpf (0-5)
[2024-07-02 22:17] VITALS: BP 117/70; PULSE 76; RESP 16; O2SAT 100
[2024-07-02 22:18] LABS: Add Urine Culture? Yes
== END 2024-07-02 22:18 | disposition home or self-care (01) ==
PROVIDERS: Emergency Medicine; Emergency Provider Physician Assistant; PCP Family Medicine
DX: E87.5 Hyperkalemia (principal); E11.22 Type 2 diabetes mellitus with diabetic chronic kidney disease; I12.9 Hypertensive chronic kidney disease with stage 1 through stage 4 chronic kidney disease, or unspecified chronic kidney disease; N18.4 Chronic kidney disease, stage 4 (severe); Z79.82 Long term (current) use of aspirin; Z79.4 Long term (current) use of insulin
CPT/HCPCS: 36415; 71045; 74176; 80053; 81003; 81015; 83735; 85025; 87077; 87086; 87186; 93005; 99285

== ENCOUNTER → 2024-09-01 15:29 | Outpatient (BNVA) | payer OTHER, SELFPAY | PROVIDERS: PCP Family Medicine; Visit Provider Podiatrist Foot & Ankle Surgery | DX: N18.4 Chronic kidney disease, stage 4 (severe) (principal); D50.0 Iron deficiency anemia secondary to blood loss (chronic); E11.42 Type 2 diabetes mellitus with diabetic polyneuropathy; I95.9 Hypotension, unspecified; I48.91 Unspecified atrial fibrillation; Z98.890 Other specified postprocedural states; E11.10 Type 2 diabetes mellitus with ketoacidosis without coma; E11.65 Type 2 diabetes mellitus with hyperglycemia | CPT/HCPCS: 80069; 82044; 82306; 82542; 82728; 83036; 83540; 83550; 85025 ==

== ENCOUNTER → 2024-10-13 10:09 | Outpatient (BNVA) | payer OTHER, SELFPAY | PROVIDERS: PCP Family Medicine; Visit Provider Family Medicine | DX: N18.4 Chronic kidney disease, stage 4 (severe) (principal); D50.0 Iron deficiency anemia secondary to blood loss (chronic); E11.65 Type 2 diabetes mellitus with hyperglycemia; I48.91 Unspecified atrial fibrillation | CPT/HCPCS: 80069; 82043; 82306; 82310; 83970; 85025 ==

== ENCOUNTER 2024-10-31 08:00 | Oncology outpatient (recurring) (ONCR) | payer OTHER, SELFPAY ==
[2024-10-30 15:49] LABS: Basophils % 0.6 %; Eosinophils # 0.3 10^3/uL (0.0-0.8); Eosinophils % 8.8 %; Hematocrit 21.7 % (37-53); Lymphocytes # 1.1 10^3/uL (0.8-4.8); Lymphocytes % 33.3 %; Mean Platelet Volume 10.2 fL (7.4-10.4); Monocytes # 0.4 10^3/uL (0.2-0.9); Monocytes % 10.2 %; Neutrophils % 46.8 %; Nucleated Red Blood Cells % 0 %; Platelet Count 193 10^3/cmm (157-399); Red Blood Count 2.17 10^6/uL (3.85-5.65); Red Cell Distribution Width 14.1 % (12.1-15.1); White Blood Count 3.42 10^3/uL (3.29-11.43)
[2024-10-31] VITALS (11 sets, daily range): BP systolic 121–153; BP diastolic 60–81; PULSE 64–73; RESP 15–17; TEMP 36.5–37.2; O2SAT 96–99
[2024-10-31] MEDS: acetaminophen 325 mg Tablet 650 MG PO (08:00)
[2024-10-31] MEDS: diphenhydrAMINE 25 mg Capsule PO (08:00)
[2024-10-31] MEDS: sodium chloride 0.9% 250 mL Bag IV (08:00)
== END 2024-11-04 23:59 | disposition home or self-care (01) ==
PROVIDERS: PCP Family Medicine; Visit Provider Family Medicine
DX: Z53.9 Procedure and treatment not carried out, unspecified reason; D64.9 Anemia, unspecified; Z79.899 Other long term (current) drug therapy
CPT/HCPCS: 36430; 85025; 86850; 86900; 86920; J7050; P9016

== ENCOUNTER 2024-11-07 07:20 | Day surgery (SDC) | payer OTHER, SELFPAY ==
[2024-11-07] VITALS (7 sets, daily range): BP systolic 108–132; BP diastolic 68–75; PULSE 61–68; RESP 14–18; TEMP 35.9–36.2; O2SAT 97–98; BMI 26.6
[2024-11-07 08:01] LABS: Glucose Point of Care 90 mg/dL (70-110)
[2024-11-07] MEDS: sodium chloride 0.9% 1,000 ML 30 ML IV (08:05)
--- NOTE | 2024-11-07 08:47 | P.HPUD_ITS ---
Surgery/Procedure H&P Update DATE OF PROCEDURE: November 07, 2024 DATE H&P PERFORMED: 10/27/24 H&P UPDATE INFORMATION: I have reviewed H&P completed within last 30 days, I have examined patient prior to procedure, No changes to prior documentation and [place] is [place] [facility] [place] date indicated PREOP DIAGNOSIS: Right ankle equinus PLANNED PROCEDURE: Operation Date: 11/07/24 09:15 Proposed Procedures p TendoAchilles Lengthening(Right) - Don Huerta DPM
--- NOTE | 2024-11-07 08:54 | ANES.PREANE2 ---
Pre-Anesthetic Assessment Height/Weight: Height 1.68 m Weight 74.843 kg Temp Pulse Resp BP Pulse Ox O2 Del Method 96.7 F L 68 18 108/68 98 Room Air 11/07/24 07:56 11/07/24 07:56 11/07/24 07:56 11/07/24 07:56 11/07/24 07:56 11/07/24 07:56 Preop Diagnosis: Right ankle equinus Operation Date: 11/07/24 09:15 Proposed Procedures p TendoAchilles Lengthening(Right) - Don Huerta DPM Familial anesthetic complications: None Was Beta Renetta taken within 24 hours: N/A Was Clonidine taken within 24 hours: N/A Last intake: Intake Last Liquid Date 11/06/24 Last Liquid Time 20:30 Last Solid Date 11/06/24 Last Solid Time 19:00 Social No alcohol Exam alert, oriented x 3, clear to auscultation bilaterally and regular rate & rhythm Airway Mallampati: Class I Dentition: full CV/HEM Arrythmia and Hypertension Chronic Renal Insufficiency Metabolic Diabetes Mellitus Anesthetic Plan ASA status: 3 Anesthesia: MAC Risk of > 500 ml blood loss (7ml/kg in children): No Medications/Allergies Home Medications Medication Instructions Recorded Confirmed Last Taken Type insulin glargine 100 unit/mL (3 10 unit (0.1 mL) SUBCUT DAILY #15 05/22/24 11/06/24 11/06/24 Rx mL) subcutaneous pen mL insulin lispro 100 unit/mL See Rx Instructions .Route 05/22/24 11/06/24 11/06/24 Rx subcutaneous solution (Humalog .COMPLEX #10 mL U-100 Insulin) wheel chair with leg rest to the #1 ea 08/11/24 10/27/24 Unknown Rx right aspirin 81 mg tablet,delayed 81 mg PO DAILY #90 tabs 09/01/24 11/06/24 11/06/24 Rx release midodrine 5 mg tablet 10 mg (2 x 5 mg) PO ONCE #120 tabs 10/01/24 11/06/24 11/06/24 Rx KAFO #1 ea 10/27/24 10/27/24 Unknown Rx Allergies Allergy/AdvReac Type Severity Reaction Status Date / Time No Known Allergies Allergy Verified 10/27/24 07:16 [facility] Anesthesia Medical History Hypotension Atrial fibrillation with RVR Abnormal iron saturation Gas gangrene Necrotizing fasciitis DKA (diabetic ketoacidosis) CKD (chronic kidney disease) Uncontrolled type 2 diabetes mellitus Surgical History S/P amputation of foot Status post amputation Social History Smoking and tobacco/nicotine status: never used tobacco/nicotine Alcohol intake: never Substance/Drug Use: never service: No Current occupational exposures/hazards: Yes Data Anesthesia Cardiac Studies: Echocardiogram 05/06/24
[2024-11-07] MEDS: ceFAZolin 2,000 mg SDV 2000 MG IVP (09:08)
[2024-11-07] MEDS: BUPivacaine 0.5% INJ 30 mL INJECTION (09:24)
--- NOTE | 2024-11-07 09:35 | W.PM.BPON ---
Date of Procedure: 01/18/24 Surgeon: Don Huerta DPM Electrical And Instrument Mechanic(s): Cici Procedure(s) performed: Right Achilles tendon lengthening. Findings of the procedure(s): Improved dorsiflexion right ankle postoperatively. Estimated blood loss: 1 mL Specimen(s) removed: None Post-operative diagnosis: Right ankle equinus
--- NOTE | 2024-11-07 09:36 | P.OP_ITS ---
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 CPT code 11326 Implants: 4-0 nylon Surgeon: Don Huerta DPM Tube Drawing Supervisor: aleksey Estimated blood loss: 1 none Brief History: Status post Choparts amputation to the right lower extremity secondary to gas gangrene healed secondarily he has a Achilles contracture will require lengthening to be appropriately fitted with a KAFO and increase chances of ambulating without new wounds. Procedure: Under mild sedation the patient was brought to the operating room and remained on the gurney in supine position. A timeout was performed. Anesthesia was then administered by the anesthesia service. Local anesthesia injected by myself one-to-one mixture 1% lidocaine and 0.5% Marcaine plain in a V-block fashion to the posterior leg proximal to the Achilles tendon. No tourniquet utilized. Right lower extremity was scrubbed, prepped and draped utilizing normal aseptic technique. Right foot was elevated and attention directed to the Achilles tendon 1.5 cm proximal to insertion of percutaneous hemisection was performed in the medial aspect of the Achilles tendon with #15 blade, 1.5 cm proximal to this a lateral hemisection was performed of the Achilles tendon with #15 blade and 1.5 cm proximal to this and like fashion of a third hemisection was performed and this was the medial section and a elongation of the Achilles tendon was successful and it was still palpable and intact this was a Trimble style Achilles tendon lengthening. The incisions were irrigated and closed with 4-0 nylon. Well-padded multilayer lite compression posterior splint was applied. Patient tolerated the procedure and anesthesia well and was transferred to the PACU with vital signs stable and vascular status intact. Following a period of postoperative monitoring he will be discharged home without home care instructions and scheduled follow-up.
--- NOTE | 2024-11-07 10:20 | ANE.PACU2 ---
Inpatient post-anesthesia follow up: Airway intact: Yes Vital signs: Temperature 96.8 F Pulse Rate 62 Respiratory Rate 18 Blood Pressure 125/72 Pulse Oximetry 97 Oxygen Delivery Me thod Room Air Oxygen Flow Rate Fraction of Inspir ed Oxygen Hydration adequate: Yes Nausea and vomiting: No Pain level: 1 Mental status: Baseline
== END 2024-11-07 10:23 | disposition home or self-care (01) ==
PROVIDERS: PCP Family Medicine; Visit Provider Podiatrist Foot & Ankle Surgery
PROC: (CPT 28261; principal; 2024-11-07 09:05)
DX: M24.571 Contracture, right ankle (principal); E11.42 Type 2 diabetes mellitus with diabetic polyneuropathy; I12.9 Hypertensive chronic kidney disease with stage 1 through stage 4 chronic kidney disease, or unspecified chronic kidney disease; E11.22 Type 2 diabetes mellitus with diabetic chronic kidney disease; N18.4 Chronic kidney disease, stage 4 (severe); Z79.4 Long term (current) use of insulin; L97.513 Non-pressure chronic ulcer of other part of right foot with necrosis of muscle; Z89.431 Acquired absence of right foot; Z79.82 Long term (current) use of aspirin
CPT/HCPCS: 27685; 36416; 82962; J0690; J2704; J3010; J3490; J7030

== ENCOUNTER 2024-11-20 12:29 | Outpatient (CLI) | payer OTHER, SELFPAY ==
[2024-11-20 13:06] LABS: Basophils % 0.7 %; Eosinophils # 0.3 10^3/uL (0.0-0.8); Eosinophils % 7.1 %; Hematocrit 25.7 % (37-53); Lymphocytes # 1.2 10^3/uL (0.8-4.8); Lymphocytes % 28.3 %; Mean Corpuscular HGB Conc 32.3 g/dL (30-55); Mean Corpuscular Volume 92.8 fl (82-101); Mean Platelet Volume 10.7 fL (7.4-10.4); Monocytes # 0.4 10^3/uL (0.2-0.9); Monocytes % 9.1 %; Neutrophils # 2.21 10^3/uL (1.8-7.7); Neutrophils % 54.3 %; Nucleated Red Blood Cells % 0 %; Platelet Count 152 10^3/cmm (157-399); Red Blood Count 2.77 10^6/uL (3.85-5.65); Red Cell Distribution Width 13.7 % (12.1-15.1); White Blood Count 4.07 10^3/uL (3.29-11.43)
[2024-11-20 13:24] LABS: Albumin Level 3.8 g/dL (3.5-5.2); Anion Gap 17.4 (5-19); Blood Urea Nitrogen 72 mg/dL (6-20); Calcium 8.4 mg/dL (8.5-10.5); Carbon Dioxide 14 mmol/L (22-29); Chloride 112 mmol/L (98-107); Ferritin 577 ng/mL (30-400); Glucose 81 mg/dL (65-115); Iron 190 ug/dL (59-158); Phosphorus 5.7 mg/dL (2.5-4.5); Potassium 5.4 mmol/L (3.5-5.1); Sodium 138 mmol/L (136-145)
[2024-11-20 13:35] LABS: Calcium 8.4 mg/dL (8.5-10.5); Parathyroid Hormone 138.6 pg/mL (15-65)
[2024-11-20 13:40] LABS: 25 Hydroxy Vitamin D 20 ng/mL (30-100)
[2024-11-20 13:44] LABS: Percent Saturation 91.7 % (20-50); Total Iron Binding Capacity 207 mcg/dl; Unsaturated Iron Binding < 17 ug/dL (112-347)
== END 2024-11-20 12:30 | disposition home or self-care (01) ==
LOC: LAB 12:33
PROVIDERS: PCP Family Medicine; Visit Provider Registered Nurse
DX: N18.4 Chronic kidney disease, stage 4 (severe) (principal); D63.1 Anemia in chronic kidney disease; N25.81 Secondary hyperparathyroidism of renal origin
CPT/HCPCS: 36415; 80069; 82306; 82310; 82728; 83540; 83550; 83970; 85025

== ENCOUNTER 2024-12-10 10:16 | Outpatient (CLI) | payer OTHER, SELFPAY ==
[2024-12-10 10:42] LABS: Basophils % 0.3 %; Eosinophils # 0.3 10^3/uL (0.0-0.8); Eosinophils % 10.8 %; Lymphocytes # 0.9 10^3/uL (0.8-4.8); Lymphocytes % 31.6 %; Mean Corpuscular HGB Conc 31.8 g/dL (30-55); Mean Corpuscular Hemoglobin 30.4 pg (27-33); Mean Corpuscular Volume 95.7 fl (82-101); Mean Platelet Volume 10.5 fL (7.4-10.4); Monocytes # 0.3 10^3/uL (0.2-0.9); Monocytes % 8.8 %; Neutrophils # 1.44 10^3/uL (1.8-7.7); Neutrophils % 48.5 %; Nucleated Red Blood Cells % 0 %; Platelet Count 131 10^3/cmm (157-399); Red Cell Distribution Width 13.9 % (12.1-15.1); White Blood Count 2.97 10^3/uL (3.29-11.43)
[2024-12-10 11:08] LABS: Albumin Level 3.9 g/dL (3.5-5.2); Anion Gap 18.8 (5-19); Calcium 9.1 mg/dL (8.5-10.5); Carbon Dioxide 14 mmol/L (22-29); Chloride 113 mmol/L (98-107); Glomerular Filtration Rate 10.8 mL/min (90-130); Glucose 107 mg/dL (65-115); Osmolality Calculated 315 mOsm/kg (285-295); Phosphorus 5.8 mg/dL (2.5-4.5); Potassium 5.8 mmol/L (3.5-5.1); Sodium 140 mmol/L (136-145)
[2024-12-10 11:11] LABS: Urine Creatinine 71 mg/dL (39-259)
[2024-12-10 11:14] LABS: Urine Protein Random 21 mg/dL
[2024-12-10 11:19] LABS: Parathyroid Hormone 111.7 pg/mL (15-65)
[2024-12-10 11:22] LABS: 25 Hydroxy Vitamin D 23 ng/mL (30-100)
[2024-12-10 11:23] LABS: Blood Urea Nitrogen 81 mg/dL (6-20)
== END 2024-12-10 10:17 | disposition home or self-care (01) ==
LOC: LAB 10:20
PROVIDERS: PCP Family Medicine; Visit Provider Registered Nurse
DX: E87.22 Chronic metabolic acidosis (principal); N18.5 Chronic kidney disease, stage 5
CPT/HCPCS: 36415; 80048; 80069; 82306; 82310; 82570; 83970; 84156; 85025

== ENCOUNTER 2025-02-03 14:53 | Outpatient (CLI) | payer OTHER, SELFPAY ==
[2025-02-03 15:36] LABS: Basophils % 0.4 %; Eosinophils # 0.2 10^3/uL (0.0-0.8); Eosinophils % 8.6 %; Lymphocytes # 0.8 10^3/uL (0.8-4.8); Mean Corpuscular HGB Conc 30.7 g/dL (30-55); Mean Corpuscular Hemoglobin 30.5 pg (27-33); Mean Corpuscular Volume 99.3 fl (82-101); Monocytes # 0.3 10^3/uL (0.2-0.9); Monocytes % 11.8 %; Neutrophils # 1.36 10^3/uL (1.8-7.7); Neutrophils % 48.5 %; Nucleated Red Blood Cells % 0 %; Platelet Count 151 10^3/cmm (157-399); Red Blood Count 1.51 10^6/uL (3.85-5.65); Red Cell Distribution Width 15.1 % (12.1-15.1)
[2025-02-03 15:57] LABS: Creatinine Urine, Random 104 mg/dL (39-259); Microalbumin Random Urine 6 ug/dL (0-20)
[2025-02-03 15:58] LABS: Albumin Level 3.9 g/dL (3.5-5.2); Anion Gap 23.2 (5-19); Calcium 8.7 mg/dL (8.5-10.5); Chloride 108 mmol/L (98-107); Glomerular Filtration Rate 5.8 mL/min (90-130); Glucose 85 mg/dL (65-115); Phosphorus 7.5 mg/dL (2.5-4.5); Potassium 5.2 mmol/L (3.5-5.1); Sodium 135 mmol/L (136-145)
[2025-02-03 16:03] LABS: Microalbum Creatinine Ratio Ur 58 mg/dL (0-20)
[2025-02-03 16:05] LABS: Parathyroid Hormone 123.1 pg/mL (15-65)
[2025-02-03 16:07] LABS: Hepatitis C Virus Antibody Non-Reactive (Nonreactive)
[2025-02-03 16:08] LABS: Hepatitis B Surface AB < 3.5 (11.5-1000)
[2025-02-03 16:14] LABS: 25 Hydroxy Vitamin D 23 ng/mL (30-100)
[2025-02-03 16:36] LABS: Blood Urea Nitrogen 99 mg/dL (6-20); Carbon Dioxide 9 mmol/L (22-29)
[2025-02-03 17:27] LABS: Hepatitis B Surface Antigen Non-Reactive (Nonreactive)
== END 2025-02-03 14:54 | disposition home or self-care (01) ==
LOC: LAB 14:55
PROVIDERS: PCP Family Medicine; Visit Provider Registered Nurse
DX: N18.5 Chronic kidney disease, stage 5 (principal)
CPT/HCPCS: 36415; 80069; 82044; 82306; 82310; 83970; 85025; 86706; 86803; 87340

== ENCOUNTER 2025-02-03 17:52 | Inpatient (IN) | payer OTHER, SELFPAY ==
[2025-02-03] VITALS (12 sets, daily range): BP systolic 123–157; BP diastolic 65–80; PULSE 62–72; RESP 12–18; TEMP 36.3–36.9; O2SAT 98–100; BMI 27.1
--- NOTE | 2025-02-03 18:16 | W.ED.RECABL ---
HPI - Recheck/Abnormal Lab/Rx General: Chief Complaint: Recheck/Abnormal Lab/Rx Stated Complaint: abnormal labs Time Seen by Provider: 02/03/25 18:09 Source: patient Mode of arrival: ambulatory Limitations: no limitations History of Present Illness: 54-year-old male history of chronic kidney disease along with anemia he had his blood drawn today by oncology was called and informed with a hemoglobin of 4 and was informed to come to the ER states has had some general fatigue and weakness he denies any blood in his stool or vomit. Related Data Home Medications ?Medication ?Instructions ?Recorded ?Confirmed atorvastatin 40 mg tablet 40 mg PO DAILY 11/13/24 12/25/24 Previous Rx's ?Medication ?Instructions ?Recorded insulin glargine 100 unit/mL (3 10 unit (0.1 mL) SUBCUT DAILY #15 05/22/24 mL) subcutaneous pen mL insulin lispro 100 unit/mL See Rx Instructions .Route 05/22/24 subcutaneous solution (Humalog .COMPLEX #10 mL U-100 Insulin) wheel chair with leg rest to the #1 ea 08/11/24 right aspirin 81 mg tablet,delayed 81 mg PO DAILY #90 tabs 09/01/24 release midodrine 5 mg tablet 10 mg (2 x 5 mg) PO ONCE #120 tabs 10/01/24 KAFO #1 ea 11/27/24 Tibial tubercal height foot #1 ea 12/25/24 prosthesis Allergies Allergy/AdvReac Type Severity Reaction Status Date / Time No Known Allergies Allergy Verified 12/25/24 14:59 Review of Systems Const: Reports: fatigue and malaise; Denies: fever(s), chills, body aches or change in appetite Eyes: Denies: blurry vision or eye discomfort ENMT: Denies: throat pain or dental pain Card: Denies: chest pain Resp: Denies: dyspnea GI: Denies: abdominal pain, nausea, vomiting or diarrhea Musc: Denies: neck pain or back pain Skin/Breast: Denies: rash Neuro: Denies: headache(s) PFSH ED PFSH: Medical History Hypotension Atrial fibrillation with RVR Abnormal iron saturation Gas gangrene Necrotizing fasciitis DKA (diabetic ketoacidosis) CKD (chronic kidney disease) Uncontrolled type 2 diabetes mellitus Surgical History S/P amputation of foot Status post amputation Social History Smoking and tobacco/nicotine status: never used tobacco/nicotine Alcohol intake: never Substance/Drug Use: never service: No Current occupational exposures/hazards: Yes Physical Exam Const: COMMON NORMALS: patient oriented x3 HENMT: COMMON NORMALS: normocephalic and atraumatic HEAD & SCALP: normocephalic and atraumatic Eye: COMMON NORMALS: Equal, round and reactive pupils present and EOMs intact bilaterally PUPIL: Yes Equal, round and reactive pupils present Neck/C-Spine: COMMON NORMALS: full ROM and supple Chest: COMMONS NORMALS: normal inspection of the chest and normal palpation of entire chest wall Resp: COMMON NORMALS: normal respiratory effort, No retractions, No use of accessory muscles and clear to auscultation bilaterally AUSCULTATION: clear to auscultation bilaterally Cardio: COMMON NORMALS: regular rate, regular rhythm and No murmurs present (Cardio) RATE: regular rate RHYTHM: regular rhythm GI: COMMON NORMALS: Normal to inspection, nondistended, normoactive bowel sounds present, Soft to palpation, non-tender and no masses PALPATION: Yes Soft to palpation Extremity: COMMON NORMALS: normal to inspection and full ROM Neuro: COMMON NORMALS: patient oriented x3, moves all extremities and no focal motor deficits Psych: COMMON NORMALS: mental status grossly normal, Normal thought process present and cooperative THOUGHT PROCESS: Normal thought process present Skin: COMMON NORMALS: no rashes or lesions noted and no wounds GENERAL SKIN EXAM: no rashes or lesions noted Course Vital Signs: Vital signs: Vital Signs Temperature 97.4 F L 02/03/25 17:59 Pulse Rate 62 02/03/25 17:59 Respiratory Rate 16 02/03/25 17:59 Blood Pressure 123/69 02/03/25 17:59 Pulse Oximetry 100 02/03/25 17:59 Oxygen Delivery Me thod Room Air 02/03/25 17:59 MDM - Recheck/Abnormal Lab/Rx Medical Decision Making Patient presents here with anemia does have a hemoglobin of 4.3. He is also acute renal failure on top of chronic kidney disease did give him bicarb we will give him insulin for his hyperkalemia did transfuse him spoke to hospitalist will admit Medical Records I reviewed the patient's medical records. Lab Data I reviewed the patient's lab results. 02/03/25 18:26 02/03/25 18:26 Laboratory Results WBC 2.34 10^3/uL (3.29-11.43) L 02/03/25 18:26 RBC 1.44 10^6/uL (3.85-5.65) L 02/03/25 18:26 Hgb 4.30 g/dL (11.27-16.99) L* 02/03/25 18:26 Hct 14.2 % (37-53) L* 02/03/25 18: MCV 98.6 fl (82-101) 02/03/25 18: MCH 29.9 pg (27-33) 02/03/25 18: MCHC 30.3 g/dL (30-55) 02/03/25 18: RDW 14.8 % (12.1-15.1) 02/03/25 18: Plt Count 138 10^3/cmm (157-399) L 02/03/25 18: MPV 9.7 fL (7.4-10.4) 02/03/25 18: Neut % (Auto) 47.9 % 02/03/25 18:26 Lymph % (Auto) 28.6 % 02/03/25 18:26 Traill % (Auto) 12.8 % 02/03/25 18:26 Eos % (Auto) 10.3 % 02/03/25 18:26 Baso % (Auto) 0.4 % 02/03/25 18:26 Neut # (Auto) 1.12 10^3/uL (1.8-7.7) L 02/03/25 18:26 Lymph # (Auto) 0.7 10^3/uL (0.8-4.8) L 02/03/25 18:26 Traill # (Auto) 0.3 10^3/uL (0.2-0.9) 02/03/25 18:26 Eos # (Auto) 0.2 10^3/uL (0.0-0.8) 02/03/25 18:26 Baso # (Auto) 0.0 10^3/uL (0.0-0.1) 02/03/25 18:26 Nucleated RBC % (auto) 0 % 02/03/25 18:26 Nucleated RBCs # 0.0 /100WBC 02/03/25 18:26 PT 15.20 SECONDS (12.1-14.9) H 02/03/25 18:26 INR 1.12 (0.8-1.2) 02/03/25 18:26 Specimen Type Arterial 02/03/25 19:21 Sample Site Brachial, right 02/03/25 19:21 ABG pH 7.16 (7.35-7.45) L* 02/03/25 19:21 ABG pCO2 24.9 mmHg (35-45) L 02/03/25 19:21 ABG pO2 115.0 mmHg (80.0-100.0) H 02/03/25 19:21 ABG HCO3 8.9 mmol/L (22-26) L 02/03/25 19:21 ABG Base Excess -18.1 mmol/L (-2.0-2.0) L 02/03/25 19:21 Eric Test N/a 02/03/25 19:21 Hematocrit 13.4 % (42-52) L 02/03/25 19:21 O2 Delivery Device Room air 02/03/25 19:21 Raking Machine Operator ID [id number] 02/03/25 19:21 Sodium 138 mmol/L (136-145) 02/03/25 18:26 Potassium 5.5 mmol/L (3.5-5.1) H 02/03/25 18:26 Chloride 110 mmol/L (98-107) H 02/03/25 18:26 Carbon Dioxide 8 mmol/L (22-29) L* 02/03/25 18:26 Anion Gap 25.5 (5-19) H 02/03/25 18:26 BUN 100 mg/dL (6-20) H* 02/03/25 18:26 Creatinine 9.3 mg/dL (0.7-1.2) H* 02/03/25 18:26 GFR Calculation 5.9 mL/min (90-130) L 02/03/25 18:26 Glucose 76 mg/dL (65-115) 02/03/25 18:26 Calculated Osmolality 316 mOsm/kg (285-295) H 02/03/25 18:26 Calcium 8.9 mg/dL (8.5-10.5) 02/03/25 18:26 Total Bilirubin 0.2 mg/dL (0.15-1.2) 02/03/25 18:26 AST 5 U/L (0-40) 02/03/25 18:26 ALT 19 U/L (0-41) 02/03/25 18:26 Alkaline Phosphatase 71 U/L (40-130) 02/03/25 18:26 Total Protein 7.0 g/dL (6.6-8.7) 02/03/25 18:26 Albumin 3.7 g/dL (3.5-5.2) 02/03/25 18:26 Globulin 3.3 g/dL (1.3-4.6) 02/03/25 18:26 Blood Type O Positive 02/03/25 18:26 Rho(D) Type Rh positive 02/03/25 18:26 Antibody Screen Negative 02/03/25 18:26 Crossmatch See Detail 02/03/25 18:26 All radiology interpretation(s) finalized by discharge EKG Data EKG 1: I personally reviewed and interpreted this EKG as follows: EKG interpretation date: 02/03/25 EKG interpretation time: 19:34 Interpretation: nsr hr [address] elevation qrs 90 qtc 431 Critical Care Time Critical Care Time: Critical Care Time: Yes Total Critical Care Time: 45 Attestation: The high probability of a clinically significant, sudden or life threatening deterioration of the patient's renal system(s) required my full and direct attention, intervention and personal management. The critical care time is as shown. This time is in addition to time spent performing any reported procedures but includes the following: [x] Data and vital sign review and interpretation [x] Patient assessment, examination and intervention [x] Documentation [x] Medication orders and management Discharge Plan Discharge Patient Disposition: Admitted As Inpatient Clinical Impression: Anemia, Acute on chronic kidney failure Condition: Stable Prescriptions: No Action aspirin 81 mg tablet,delayed release (DR/EC) 81 mg PO DAILY Qty: 90 1RF atorvastatin 40 mg tablet 40 mg PO DAILY (DME) KAFO See Rx Instructions .Route .MEDSUPPLY Qty: 1 0RF Rx Instructions: As directed by Rosalio Luis (DME) wheel chair with leg rest to the right See Rx Instructions .Route .MEDSUPPLY Qty: 1 0RF Rx Instructions: As directed midodrine 5 mg tablet 10 mg PO ONCE Qty: 120 2RF Rx Instructions: por dose semanas, comprobar pressor cada olegario (DME) Tibial tubercal height foot prosthesis See Rx Instructions .Route .MEDSUPPLY Qty: 1 0RF Rx Instructions: As directed insulin glargine 100 unit/mL (3 mL) insulin pen 10 unit SUBCUT DAILY Qty: 15 3RF insulin lispro [Humalog U-100 Insulin] 100 unit/mL Solution See Rx Instructions .ROUTE .COMPLEX Qty: 10 3RF Rx Instructions: With meals and bedtime: Glucose: 141-180 - 4 units 181-220 - 6 221-260 - 8 261-300 - 10 301-350 - 12 351-400 - 14 >400 - 16 units Referrals: Luther Nelson MD [Primary Care Provider] - Print Language: [place] Islander Coding Level of Care Code ED Intelligence Consultant for Chg Braulio
[2025-02-03 18:39] LABS: Basophils % 0.4 %; Eosinophils # 0.2 10^3/uL (0.0-0.8); Eosinophils % 10.3 %; Lymphocytes # 0.7 10^3/uL (0.8-4.8); Lymphocytes % 28.6 %; Mean Corpuscular HGB Conc 30.3 g/dL (30-55); Mean Corpuscular Hemoglobin 29.9 pg (27-33); Mean Corpuscular Volume 98.6 fl (82-101); Mean Platelet Volume 9.7 fL (7.4-10.4); Monocytes # 0.3 10^3/uL (0.2-0.9); Monocytes % 12.8 %; Neutrophils # 1.12 10^3/uL (1.8-7.7); Neutrophils % 47.9 %; Nucleated Red Blood Cells % 0 %; Platelet Count 138 10^3/cmm (157-399); Red Blood Count 1.44 10^6/uL (3.85-5.65); Red Cell Distribution Width 14.8 % (12.1-15.1); White Blood Count 2.34 10^3/uL (3.29-11.43)
[2025-02-03 18:47] LABS: Hematocrit 14.2 % (37-53)
[2025-02-03 18:54] LABS: Alanine Aminotransferase 19 U/L (0-41); Albumin Level 3.7 g/dL (3.5-5.2); Alkaline Phosphatase 71 U/L (40-130); Anion Gap 25.5 (5-19); Aspartate Amino Transferase 5 U/L (0-40); Calcium 8.9 mg/dL (8.5-10.5); Chloride 110 mmol/L (98-107); Globulin 3.3 g/dL (1.3-4.6); Glomerular Filtration Rate 5.9 mL/min (90-130); Glucose 76 mg/dL (65-115); Osmolality Calculated 316 mOsm/kg (285-295); Potassium 5.5 mmol/L (3.5-5.1); Sodium 138 mmol/L (136-145); Total Bilirubin 0.2 mg/dL (0.15-1.2)
[2025-02-03 19:00] LABS: Blood Urea Nitrogen 100 mg/dL (6-20); Carbon Dioxide 8 mmol/L (22-29)
[2025-02-03 19:09] LABS: INR 1.12 (0.8-1.2)
[2025-02-03] MEDS: dextrose 10% 250 ML 1000 ML IV (19:17)
[2025-02-03 19:33] LABS: ABG PCO2 24.9 mmHg (35-45); ABG PH Result 7.16 (7.35-7.45); Arterial Blood Gas Hematocrit 13.4 % (42-52); Base Excess ABG -18.1 mmol/L (-2.0-2.0); Blood Gas Sample Site Brachial, right; Blood Gas Sample Type Arterial; HCO3 ABG 8.9 mmol/L (22-26); Oxygen Device ROOM AIR
--- NOTE | 2025-02-03 19:34 | ECG_ITS ---
[facility] Date: 2025-02-03 Pat Name: Arden Keenan Department: Room: Gender: Male Thread Puller: : 1970 Requested By: Emerita Crandall Order Number: [id number] Reading MD: Brandyn Forbes M.D. Measurements Intervals [place] Rate: 68 P: 26 VA: 131 QRS: 43 QRSD: 90 T: 70 QT: 414 QTc: 442 Interpretive Statements SINUS RHYTHM Compared to ECG 07/02/2024 20:57:16 T-wave abnormality no longer present Electronically Signed On 02-07-2025 18:26:22 CDT by Brandyn Forbes M.D. [email or web address]
--- NOTE | 2025-02-03 19:35 | PM.HP ---
Providers/Chief Complaint Admitting Physician: Berna Cramer MD Primary Care Provider: Luther Nelson MD Chief Complaint: abnormal labs History of Present Illness Ms. Yoly Pierce- : Multimedia Author: Dr. Saulo Her Tereza Keenan is a 54 year old male Hypotension, IDDM2, CKDV, R. foot amputation in 11/2024, seen by Oncology for transfusions who was referred to the ED on 02/03/2025 after she noted that labs that was done around 3pm, showed worsened renal function and anemia. He went for the lab test as a routine to evaluate his renal function. The patient endorses that aside from mild weakness, he has not felt malaise, fever, chills, dizziness, changes in vision, abdominal pain, n/v, CP, palpitations, SOB, symptoms. In the ED, his vital signs were wnl. His labs were severely derranged. Pancytopenia w/ a Hgb of 4, Bicarb of 5.5, Cr of 9.3 (baseline Cr of 5.5 in 12/2024). He was acutely managed for K of 5.5 w/ Insulin, D50 and calcium gluconate. Two units of prbcs were also ordered to be transfused. Review of Systems Narrative: Constitutional: (-) fever(s), (-) chills, (-) body aches, (-) change in appetite, (-) change in weight, (-) fatigue, (-) malaise, (-) night sweats, (-) diaphoresis Eyes: (-) change in vision, (-) blurry vision, (-) diplopia, (-) floaters, ENT: (-) ear pain, (-) ear discharge, (-) aural fullness, (-) tinnitus, (-)nasal discharge, (-)nasal congestion, (-) post nasal drip, (-)dysphagia, (-)odynophagia, (-)hoarseness, Card: (-) Chest pain, (-) palpitations, (-) pedal edema, (-) orthopnea, (-) lightheadedness, (-) syncope, (-) pre-syncope, (-) leg pain with exertion Resp: (-)dyspnea, (-)dyspnea on exertion, (-) cough, (-) wheezing, (-) hemoptysis GI: (-) abdominal pain, (-) nausea, (-) vomiting, (-) hematemesis, (-) diarrhea, (-) constipation, (-) hematochezia, (-) melena : (-) flank pain, (-) dysuria, (-) hematuria, (-) urinary urgency, (-) urinary frequency, (-)oliguria, (-) difficulty voiding MSK: (-) myalgias, (-) arthralgias Skin/Breast: (-) rash, (-) sores, (-) new lesions Neuro: (-) headaches, (-) dizziness, (+) generalized weakness, (-) weakness in the extremities, (-) numbness in extremities, (-) tingling, (-) frequent falls, (-) Slurred speech present, (-) seizure-like activity Psych: (-) anxiety, (-) depression, (-)paranoia, (-) visual hallucinations, (-) auditory hallucinations, (-)tactile hallucinations, (-) suicidal ideation, (-) homicidal ideation Endo: (-) polyuria, (-) polydipsia, (-) polyphagia, (-)cold intolerance, (-) heat intolerance Heme/Lymph: (-) easy bruising, (-) easy bleeding, (-) enlarged lymph nodes, (-) tender lymph nodes Allergy/Immunlogy: (-) food intolerance, (-) hives/urticaria, (-) itchy/watery eyes, (-) tongue/throat swelling, (-) facial swelling, Medications/Allergies Home Medications ?Medication ?Instructions ?Recorded ?Confirmed ?Last Taken ?Type insulin glargine 100 unit/mL (3 10 unit (0.1 mL) SUBCUT DAILY #15 05/22/24 12/25/24 11/06/24 Rx mL) subcutaneous pen mL insulin lispro 100 unit/mL See Rx Instructions .Route 05/22/24 12/25/24 11/06/24 Rx subcutaneous solution (Humalog .COMPLEX #10 mL U-100 Insulin) wheel chair with leg rest to the #1 ea 08/11/24 12/25/24 Unknown Rx right aspirin 81 mg tablet,delayed 81 mg PO DAILY #90 tabs 09/01/24 12/25/24 11/06/24 Rx release midodrine 5 mg tablet 10 mg (2 x 5 mg) PO ONCE #120 tabs 10/01/24 12/25/24 11/06/24 Rx atorvastatin 40 mg tablet 40 mg PO DAILY 11/13/24 12/25/24 Unknown History KAFO #1 ea 11/27/24 12/25/24 Unknown Rx Tibial tubercal height foot #1 ea 12/25/24 12/25/24 Unknown Rx prosthesis Allergies Allergy/AdvReac Type Severity Reaction Status Date / Time No Known Allergies Allergy Verified 12/25/24 14:59 PFSH Acute PFSH: Medical History Hypotension Atrial fibrillation with RVR Abnormal iron saturation Gas gangrene Necrotizing fasciitis DKA (diabetic ketoacidosis) CKD (chronic kidney disease) Uncontrolled type 2 diabetes mellitus Surgical History S/P amputation of foot Status post amputation Family History (Updated 02/03/25 @ 22:48 by Berna Cramer MD) Sister Chronic kidney disease (CKD) . She was on dialysis and a month after renal transplant. Social History Smoking and tobacco/nicotine status: never used tobacco/nicotine Alcohol intake: never Substance/Drug Use: never service: No Current occupational exposures/hazards: Yes Vitals/I&O/Wt Last Vital Signs Temp 97.4 F L 02/03/25 17:59 Pulse 62 02/03/25 17:59 Resp 16 02/03/25 17:59 BP 123/69 02/03/25 17:59 Pulse Ox 100 02/03/25 17:59 O2 Del Method Room Air 02/03/25 17:59 Weight last 48 hrs Weight 76.204 kg Physical Exam Narrative: Constitutional: GENERAL APPEARANCE: cooperative, comfortable and appears older than stated age; not combative, not disheveled, not ill appearing and not frail appearing HENT: HEAD & SCALP: normocephalic and atraumatic; NOSE: external nose not normal EXTERNAL EAR: no external ears normal MOUTH: pale oral and palatal mucosa THROAT: pale posterior oropharynx normal Eye: PERRL, EOMI, pale conjunctiva b/l Neck: normal visual inspection, trachea midline, No anterior neck swelling, No tracheal deviation, No tracheostomy present, no submandibular swelling, Thyroid normal , cervical ROM normal Lymph: no cervical, supraclavicular LAD Resp: no use of accessory muscles, CTAB, no w/r/r Cardio: RRR, no m/r/g, or clicks. 2+ L. DP pulse, 2 R. groin pulse appreciated GI: normoactive bowel sounds, non-tender, non-distended, no guarding, no rigidity, no rebound tenderness, no hepatosplenomegaly. : (-) [place] in place draining urine Back/Pelvis: Deferred Extremity: No clubbing, No cyanosis and No edema, R. foot amputated w/ prosthesis in place. Neuro: AO to person, place and time. CN normal except as noted. Normal gait present. 5/5 motor strength present throughout. Normal motor muscle tone present throughout. No tremor noted. No motor abnormalities present. No motor fasciculations present Psych: APPEARANCE: Yes grossly normal ATTITUDE: Yes calm and Yes engaged ACTIVITY/MOTOR BEHAVIOR: Yes appropriate eye contact SPEECH: Yes normal speech MOOD & AFFECT: Yes euthymic mood THOUGHT PROCESS: THOUGHT CONTENT: ATTENTION/CONCENTRATION: Yes attention grossly intact MEMORY/COGNITION: Yes memory grossly intact Data 02/03/25 18:26 02/03/25 18:26 A&P Assessment and plan (1) IDDM (insulin dependent diabetes mellitus): Plan Arden Keenan is a 54 year old male Hypotension, IDDM2, CKDV, R. foot amputation in 11/2024, seen by Oncology for transfusions who was referred to the ED on 02/03/2025 after she noted that labs that was done around 3pm, showed worsened renal function and anemia. He went for the lab test as a routine to evaluate his renal function. #Acute Blood loss anemia: - Iron studies negative for Iron deficiency. F/u peripheral smear and fecal occult stool - F/u Hgb/Hct after transfusion of 2units prbc. Transfuse if Hgb<7. #Pancytopenia: Likely due to his renal derrangements. #Acute on chronic CKDV #AGAP Metabolic acidosis - likely due to his renal failure. - Ordered another 3 amps of bicarb total on admission + started oral bicarb + a bicarb drip w/ 3 amps of bicarb. #Hyperkalemia - Kayexalate ordered. #Secondary Hyperparathyroidism - Defer to day hospitalist vs outpatient to initiate calcitriol. #IDDM2: - low dose sliding scale insulin ordered qAC and medium dose SSI qHS. - Resume Aspirin #Hypotension: hold midodrine at this time. DVT ppx: SCD ordered. PDMP PDMP Reviewed: Not Reviewed Attestations Medical Necessity Statement*: The patient needs to be admitted for >2 midnights for his JALYN on CKD5, AGAP metabolic acidosis, severe acute anemia w/ pancytopenia. Premature discharge can lead to acute deterioration resulting in . Diagnoses IDDM (insulin dependent diabetes mellitus)
[2025-02-03] MEDS: sodium bicarbonate 8.4% 1 mEq/mL 50mL Syr 50 MEQ IVP ×2 (19:43→23:18)
[2025-02-03] MEDS: insulin regular-human 100 units/1 mL 10 UNIT IVP (19:53)
[2025-02-03 19:59] LABS: Reticulocyte % 2.9 % (0.5-2.0)
[2025-02-03 20:27] LABS: Glucose Point of Care 259 mg/dL (70-110)
[2025-02-03 20:42] LABS: Ferritin 779 ng/mL (30-400); Iron 167 ug/dL (59-158); Lactate Dehydrogenase 154 U/L (135-225); Percent Saturation 90.2 % (20-50); Total Iron Binding Capacity 185 mcg/dl; Unsaturated Iron Binding 18 ug/dL (112-347); Vitamin B12 442 pg/mL (232-1245)
--- NOTE | 2025-02-03 21:22 | PC.NURSE ---
received patient on the floor, blood transfusion started, admission is done with assistance with daughter over the phone translating.
[2025-02-03] MEDS: sodium bicarbonate 650 mg Tablet PO (21:44)
[2025-02-03] MEDS: sodium bicarbonate 8.4% 1 mEq/mL 50mL Syr 100 MEQ IVP (21:44)
[2025-02-03 21:54] LABS: Glucose Point of Care 148 mg/dL (70-110)
--- NOTE | 2025-02-03 22:51 | XRR_ITS ---
PROCEDURE INFORMATION: Exam: XR Chest Exam date and time: 02/04/2025 2:40 AM Age: 54 years old Clinical indication: Other: Weakness TECHNIQUE: Imaging protocol: Radiologic exam of the chest. Views: 1 view. COMPARISON: CR XR chest 1V portable [id number] 02/07/2024 20:37 FINDINGS: Lungs: Low lung volumes. No consolidation. Pleural spaces: Unremarkable. No pleural effusion. No pneumothorax. Heart/Mediastinum: Stable cardiomediastinal silhouette. Bones/joints: Unremarkable. XR/XR chest 1V portable [id number] IMPRESSION: No acute findings.
[2025-02-04] VITALS (20 sets, daily range): BP systolic 139–168; BP diastolic 71–89; PULSE 65–74; RESP 10–20; TEMP 36.6–37.2; O2SAT 97–100
[2025-02-04] MEDS: sodium bicarbonate 150 MEQ in dextrose 5% 1,000 ML IV ×2 (00:11→07:48)
[2025-02-04 00:30] LABS: Glucose Point of Care 66 mg/dL (70-110)
[2025-02-04] MEDS: sodium chloride 0.9% 100 mL Bag 50 ML IV ×2 (00:31→09:15)
[2025-02-04] MEDS: sodium polystyrene sulfonate 15 gm/60 mL Btl PO ×2 (00:31→05:38)
[2025-02-04 01:00] LABS: LAB Peripheral Smear Sent for Review
[2025-02-04 01:52] LABS: Glucose Point of Care 78 mg/dL (70-110)
[2025-02-04 05:21] LABS: Basophils % 0.7 %; Eosinophils # 0.2 10^3/uL (0.0-0.8); Lymphocytes # 0.8 10^3/uL (0.8-4.8); Lymphocytes % 29.3 %; Mean Corpuscular HGB Conc 33.5 g/dL (30-55); Mean Corpuscular Volume 92.5 fl (82-101); Mean Platelet Volume 9.5 fL (7.4-10.4); Monocytes # 0.3 10^3/uL (0.2-0.9); Monocytes % 12.3 %; Neutrophils # 1.36 10^3/uL (1.8-7.7); Neutrophils % 49.3 %; Nucleated Red Blood Cells % 0 %; Platelet Count 117 10^3/cmm (157-399); Red Cell Distribution Width 14.4 % (12.1-15.1); White Blood Count 2.76 10^3/uL (3.29-11.43)
[2025-02-04 05:40] LABS: Hematocrit 18.5 % (37-53)
[2025-02-04 05:54] LABS: Alanine Aminotransferase 15 U/L (0-41); Albumin Level 3.4 g/dL (3.5-5.2); Alkaline Phosphatase 65 U/L (40-130); Aspartate Amino Transferase 5 U/L (0-40); Calcium 8.1 mg/dL (8.5-10.5); Carbon Dioxide 14 mmol/L (22-29); Chloride 105 mmol/L (98-107); Globulin 3.2 g/dL (1.3-4.6); Glomerular Filtration Rate 6.2 mL/min (90-130); Glucose 85 mg/dL (65-115); Magnesium 1.5 mg/dL (1.7-2.3); Osmolality Calculated 314 mOsm/kg (285-295); Phosphorus 6.4 mg/dL (2.5-4.5); Sodium 137 mmol/L (136-145); Thyroid Stimulating Hormone 1.09 uIU/mL (0.27-4.20); Total Bilirubin 0.5 mg/dL (0.15-1.2); Total Protein 6.6 g/dL (6.6-8.7)
[2025-02-04 06:04] LABS: Blood Urea Nitrogen 98 mg/dL (6-20)
[2025-02-04 06:12] LABS: Glucose Point of Care 99 mg/dL (70-110)
[2025-02-04] MEDS: sennosides 8.6 mg Tablet 17.2 MG PO (07:48)
[2025-02-04] MEDS: sodium bicarbonate 650 mg Tablet PO (07:48)
[2025-02-04 11:38] LABS: Glucose Point of Care 107 mg/dL (70-110)
--- NOTE | 2025-02-04 14:18 | PM.CONSULT ---
Providers/Reason For Consult Consulting Physician/Specialty*: nephrology Reason for Consult*: Chronic kidney disease stage V Attending Physician: Corazon Lopez MD Primary Care Provider: Luther Nleson MD History of Present Illness History of Present Illness Arden Keenan is a 54 year old male Patient is a 54-year-old male with past medical history of diabetes, hypertension, CKD stage IV/V, recent right foot amputation in November 2024 was sent from oncology office after noted to have abnormal labs. Patient gets transfusions at hematology office regularly. Patient was noted to have pancytopenia with a hemoglobin of 4 creatinine was 9.3 BUN was 100, bicarbonate level of 8, potassium was 5.5. Patient was admitted to the hospital, currently getting blood transfusions.. He was started on bicarbonate drip. Repeat labs this morning showed bicarbonate level of 14, creatinine of 8.9 and a BUN of 98. Patient followed by Dr. Miguel from nephrology as outpatient. Review of Systems Narrative: other ROS negative Medications/Allergies Home Medications ?Medication ?Instructions ?Recorded ?Confirmed ?Last Taken ?Type insulin glargine 100 unit/mL (3 10 unit (0.1 mL) SUBCUT DAILY #15 05/22/24 02/04/25 02/03/25 Rx mL) subcutaneous pen mL insulin lispro 100 unit/mL See Rx Instructions .Route 05/22/24 02/04/25 02/03/25 Rx subcutaneous solution (Humalog .COMPLEX #10 mL U-100 Insulin) wheel chair with leg rest to the #1 ea 08/11/24 02/04/25 Unknown Rx right aspirin 81 mg tablet,delayed 81 mg PO DAILY #90 tabs 09/01/24 02/04/25 02/03/25 Rx release midodrine 5 mg tablet 10 mg (2 x 5 mg) PO ONCE #120 tabs 10/01/24 02/04/25 02/03/25 Rx atorvastatin 40 mg tablet 40 mg PO DAILY 11/13/24 02/04/25 02/03/25 History KAFO #1 ea 11/27/24 02/04/25 Unknown Rx Tibial tubercal height foot #1 ea 12/25/24 02/04/25 Unknown Rx prosthesis Allergies Allergy/AdvReac Type Severity Reaction Status Date / Time No Known Allergies Allergy Verified 12/25/24 14:59 Current Medications Generic Name Dose Route Start Last Admin Trade Name Freq PRN Reason Stop Dose Admin Sodium Bicarbonate 150 meq/ 1,150 mls @ 150 mls/hr 02/03/25 23:45 02/04/25 07:48 Dextrose IV 150 mls/hr .[id number] LAITH Administration Insulin Human Lispro 0 unit 02/04/25 08:00 02/04/25 12:02 Insulin Lispro 100 Unit/1 Ml SUBCUT Not Given TIDWM LAITH Protocol Insulin Human Lispro 0 unit 02/04/25 00:00 02/04/25 00:17 Insulin Lispro 100 Unit/1 Ml SUBCUT Not Given BEDTIME LAITH Protocol Senna 17.2 mg 02/04/25 09:00 02/04/25 07:48 Sennosides 8.6 Mg Tablet PO 17.2 mg DAILY LAITH Administration Sodium Bicarbonate 650 mg 02/03/25 21:00 02/04/25 07:48 Sodium Bicarbonate 650 Mg Tablet PO 650 mg TID LAITH Administration Sodium Chloride 50 ml 02/04/25 05:49 02/04/25 09:15 Sodium Chloride 0.9% 100 Ml Bag IV 02/05/25 05:50 50 ml PRN PRN Administration Blood transfusion prime and flush Sodium Polystyrene Sulfonate 15 gm 02/04/25 00:15 02/04/25 09:16 Sodium Polystyrene Sulfonate 15 Gm/60 Ml Btl PO Not Given Q6H LAITH PFSH Acute PFSH: Medical History Hypotension Atrial fibrillation with RVR Abnormal iron saturation Gas gangrene Necrotizing fasciitis DKA (diabetic ketoacidosis) CKD (chronic kidney disease) Uncontrolled type 2 diabetes mellitus Surgical History S/P amputation of foot Status post amputation Family History (Updated 02/03/25 @ 22:48 by Berna Cramer MD) Sister Chronic kidney disease (CKD) . She was on dialysis and a month after renal transplant. Social History Smoking and tobacco/nicotine status: never used tobacco/nicotine Alcohol intake: never Substance/Drug Use: never service: No Current occupational exposures/hazards: Yes Vitals/I&O/Wt Last Vital Signs Temp 98.9 F 02/04/25 11:42 Pulse 73 02/04/25 13:57 Resp 16 02/04/25 11:42 BP 168/89 02/04/25 11:42 Pulse Ox 98 02/04/25 11:42 O2 Del Method Room Air 02/04/25 11:34 02/03/25 02/04/25 02/04/25 22:59 06:59 14:59 Intake Total 250 / 250 900 / 1150 1550 / 1550 Output Total 0 / 0 500 / 500 Balance 250 / 250 900 / 1150 1050 / 1050 Weight last 48 hrs Weight 70.488 kg Weight 69.626 kg Weight 69.672 kg Weight 76.204 kg Physical Exam Narrative: Patient is awake alert no distress Interviewed patient using unit manager rn S1-S2 regular rate and rhythm per report Lungs clear per report Has pedal edema Data 02/04/25 05:07 02/04/25 05:07 A&P Assessment and plan (1) CKD (chronic kidney disease): Chronic kidney disease stage V: Patient's creatinine was in the 5 range about a month ago and now has creatinine up to 9 on presentation. There may be some JALYN component in the setting of severe anemia but given that patient has underlying advanced CKD associated with metabolic acidosis, uremia-we recommended initiation of hemodialysis during this hospital stay. Patient reports that he wants to discuss with his power plant assistant Dr. Miguel and make a decision. -Placed on 2 g sodium restriction and 1500 mL fluid restriction, avoid IV contrast studies Severe anemia: Getting transfusions, patient followed by hematology as outpatient, will initiate NORMA Hyperkalemia: Low K diet, improved now Severe metabolic acidosis: Currently on bicarbonate drip, monitor MBD: Noted high phosphorus, will check PTH and vitamin D levels Patient evaluated using audiovisual cart. Time spent 40 minutes. Qualifiers: Chronic kidney disease stage: stage 4 (severe) Qualified Code(s): N18.4 - Chronic kidney disease, stage 4 (severe) PDMP PDMP Reviewed: Not Reviewed Consult Attestations Medical Necessity Statement: Per medicine team Coding Level of Care Code Acute Code for Chg Fwd Diagnoses Stage 4 chronic kidney disease N18.4 Chronic kidney disease stage: stage 4 (severe)
--- NOTE | 2025-02-04 16:34 | P.DS_ITS ---
Discharge Providers Date of Admission: 02/03/25 20:12 Date of Discharge: February 04, 2025 Attending Provider at Admission: Berna Cramer MD Attending Provider at Discharge: Corazon Lopez MD Primary Care Provider: Luther Nelson MD Diagnoses at Discharge Discharge Diagnosis (1) CKD (chronic kidney disease): Status: Chronic Qualifiers: Chronic kidney disease stage: stage 4 (severe) Qualified Code(s): N18.4 - Chronic kidney disease, stage 4 (severe) (2) Anemia: Status: Acute Qualifiers: Anemia type: iron deficiency Iron deficiency anemia type: chronic blood loss Qualified Code(s): D50.0 - Iron deficiency anemia secondary to blood loss (chronic) Reason for Visit Reason for Visit: abnormal labs Hospital Course Hospital Course Patient is a 54-year-old male with end-stage renal disease, follows with Dr. Miguel as an outpatient, who is scheduled to start dialysis in the upcoming 2 weeks. He presented to the emergency room today after his physician alerted him that his hemoglobin was down and he should get blood transfusion. Patient reports a past history of blood transfusion additionally. This has previously been attributed to his CKD. His hemoglobin was 4 upon presentation. Patient was hemodynamically stable. He additionally had hyperkalemia which was managed with insulin. 2 units of packed red blood cells were ordered following which patient's hemoglobin came up to 6.2. An additional unit was transfused and patient's last hemoglobin is at 7.5. Extensive discussion was had with the patient to initiate hemodialysis while he is in the hospital. Patient's nurse had called Dr. Miguel office this morning and it was opined that if patient is agreeable to obtaining an HD access to place a tunneled cath and start dialysis while in the hospital. We discussed this recommendation and our own recommendation here at [facility] that patient should initiate dialysis given his creatinine today is at 8.9 and he is showing signs of metabolic acidosis. All conversation was via the copy center associate language line on the Liqueo tablet. Patient had several questions with regards to PD versus fistula versus tunneled catheter. We recommended that he start dialysis via a tunneled catheter and then follow-up with his training director to make arrangements for AV fistula placement should long- term dialysis be continued. He had questions with regards to peritoneal dialysis which were also answered. Patient was not satisfied at the end of our discussion and stated that he would like to hold off on starting dialysis at this time. He wants to follow with his current training director Dr. Miguel and would let the outpatient training director decide with regards to dialysis. He just wishes for us to complete blood transfusion today and discharge him home if hemoglobin is appropriate. Most recent hemoglobin is at 7.5. There is no gross melena or hematemesis. no signs of active bleeding. He has remained hemodynamically stable. Patient is discharged today in stable condition to follow-up with his training director for further recommendations.. Physical Exam Narrative: General: No acute distress, AO x3 HEENT: PERRLA, pupils bilaterally equal and reactive, pallors not present Chest: Normal vesicular breath sounds, no added sounds, equal good air entry bilaterally CVS: S1-S2 regular, no murmurs, no tachycardia, no gallops, no rubs Abdomen: Soft, nontender, no organomegaly, bowel sounds present Neuro: No focal deficits, no facial deformity, AO x3, power 5/5 in all limbs Discharge Data Studies Completed and Pending Completed Studies During Hospitalization Category Date Time Status CXRP [XR chest 1V portable [id number]] Routine Exams 02/03/25 22:51 Completed Pending at discharge Category Date Time Status Basic Metabolic Panel AM LABS Lab 02/05/25 04:00 Ordered Basic Metabolic Panel AM LABS Lab 02/06/25 04:00 Ordered Complete Blood Count w/Auto AM LABS Lab 02/05/25 04:00 Ordered Complete Blood Count w/Auto AM LABS Lab 02/06/25 04:00 Ordered Fecal Occult Blood [Immunochemical Fecal OCB] Routine Lab 02/04/25 00:00 Uncollected Magnesium AM LABS Lab 02/05/25 04:00 Ordered Magnesium AM LABS Lab 02/06/25 04:00 Ordered Phosphorus AM LABS Lab 02/05/25 04:00 Ordered Phosphorus AM LABS Lab 02/06/25 04:00 Ordered Radiology Impressions Chest X-Ray 02/03/25 22:51 IMPRESSION: No acute findings. Laboratory Results WBC 2.76 10^3/uL (3.29-11.43) L 02/04/25 05:07 RBC 2.00 10^6/uL (3.85-5.65) L 02/04/25 05:07 Hgb 7.50 g/dL (11.27-16.99) L 02/04/25 15:22 Hct 18.5 % (37-53) L* D 02/04/25 05:07 MCV 92.5 fl (82-101) D 02/04/25 05:07 MCH 31.0 pg (27-33) 02/04/25 05:07 MCHC 33.5 g/dL (30-55) D 02/04/25 05:07 RDW 14.4 % (12.1-15.1) 02/04/25 05:07 Plt Count 117 10^3/cmm (157-399) L 02/04/25 05:07 MPV 9.5 fL (7.4-10.4) 02/04/25 05:07 Neut % (Auto) 49.3 % 02/04/25 05:07 Lymph % (Auto) 29.3 % 02/04/25 05:07 Garza % (Auto) 12.3 % 02/04/25 05:07 Eos % (Auto) 8.0 % 02/04/25 05:07 Baso % (Auto) 0.7 % 02/04/25 05:07 Reticulocyte % (Auto) 2.9 % (0.5-2.0) H 02/03/25 18:26 Neut # (Auto) 1.36 10^3/uL (1.8-7.7) L 02/04/25 05:07 Lymph # (Auto) 0.8 10^3/uL (0.8-4.8) 02/04/25 05:07 Garza # (Auto) 0.3 10^3/uL (0.2-0.9) 02/04/25 05:07 Eos # (Auto) 0.2 10^3/uL (0.0-0.8) 02/04/25 05:07 Baso # (Auto) 0.0 10^3/uL (0.0-0.1) 02/04/25 05:07 Nucleated RBC % (auto) 0 % 02/04/25 05:07 Nucleated RBCs # 0.0 /100WBC 02/04/25 05:07 Peripher Smr Path Cons Sent for review 02/03/25 18:26 Haptoglobin 171.0 mg/L (30-200) 02/03/25 18:26 PT 15.20 SECONDS (12.1-14.9) H 02/03/25 18:26 INR 1.12 (0.8-1.2) 02/03/25 18:26 Specimen Type Arterial 02/03/25 19:21 Sample Site Brachial, right 02/03/25 19:21 ABG pH 7.16 (7.35-7.45) L* 02/03/25 19:21 ABG pCO2 24.9 mmHg (35-45) L 02/03/25 19:21 ABG pO2 115.0 mmHg (80.0-100.0) H 02/03/25 19:21 ABG HCO3 8.9 mmol/L (22-26) L 02/03/25 19:21 ABG Base Excess -18.1 mmol/L (-2.0-2.0) L 02/03/25 19:21 Eric Test N/a 02/03/25 19:21 Hematocrit 13.4 % (42-52) L 02/03/25 19:21 O2 Delivery Device Room air 02/03/25 19:21 Sales Engineering Manager ID [email or web address] 02/03/25 19:21 Sodium 137 mmol/L (136-145) 02/04/25 05:07 Potassium 4.0 mmol/L (3.5-5.1) 02/04/25 05:07 Chloride 105 mmol/L (98-107) 02/04/25 05:07 Carbon Dioxide 14 mmol/L (22-29) L 02/04/25 05:07 Anion Gap 22.0 (5-19) H 02/04/25 05:07 BUN 98 mg/dL (6-20) H* 02/04/25 05:07 Creatinine 8.9 mg/dL (0.7-1.2) H* 02/04/25 05:07 GFR Calculation 6.2 mL/min (90-130) L 02/04/25 05:07 Glucose 85 mg/dL (65-115) 02/04/25 05:07 POC Glucose 107 mg/dL (70-110) 02/04/25 11:33 Calculated Osmolality 314 mOsm/kg (285-295) H 02/04/25 05:07 Calcium 8.1 mg/dL (8.5-10.5) L 02/04/25 05:07 Phosphorus 6.4 mg/dL (2.5-4.5) H 02/04/25 05:07 Magnesium 1.5 mg/dL (1.7-2.3) L 02/04/25 05:07 Iron 167 ug/dL (59-158) H 02/03/25 18:26 TIBC 185 mcg/dl 02/03/25 18:26 % Saturation 90.2 % (20-50) H 02/03/25 18:26 Unsat Iron Binding 18 ug/dL (112-347) L 02/03/25 18:26 Ferritin 779 ng/mL (30-400) H 02/03/25 18:26 Total Bilirubin 0.5 mg/dL (0.15-1.2) 02/04/25 05:07 AST 5 U/L (0-40) 02/04/25 05:07 ALT 15 U/L (0-41) 02/04/25 05:07 Alkaline Phosphatase 65 U/L (40-130) 02/04/25 05:07 Lactate Dehydrogenase 154 U/L (135-225) 02/03/25 18:26 Total Protein 6.6 g/dL (6.6-8.7) 02/04/25 05:07 Albumin 3.4 g/dL (3.5-5.2) L 02/04/25 05:07 Globulin 3.2 g/dL (1.3-4.6) 02/04/25 05:07 Vitamin B12 442 pg/mL (232-1245) 02/03/25 18:26 Folate 6.0 ng/mL (4.5-32.2) 02/03/25 18:26 TSH 1.09 uIU/mL (0.27-4.20) 02/04/25 05:07 Blood Type O Positive 02/03/25 18:26 Rho(D) Type Rh positive 02/03/25 18:26 Antibody Screen Negative 02/03/25 18:26 Crossmatch See Detail 02/03/25 18: Vitals Last Vital Signs Temp 97.9 F 02/04/25 16:00 Pulse 65 02/04/25 16:00 Resp 20 H 02/04/25 16:00 BP 139/75 02/04/25 16:00 Pulse Ox 97 02/04/25 16:00 O2 Del Method Room Air 02/04/25 16:00 Discharge Plan Discharge Patient Disposition: Home Condition: Stable Prescriptions: Continued atorvastatin 40 mg tablet 40 mg PO DAILY midodrine 5 mg tablet 10 mg PO ONCE Qty: 120 2RF Rx Instructions: por dose semanas, comprobar pressor cada olegario insulin glargine 100 unit/mL (3 mL) insulin pen 10 unit SUBCUT DAILY Qty: 15 3RF insulin lispro [Humalog U-100 Insulin] 100 unit/mL Solution See Rx Instructions .ROUTE .COMPLEX Qty: 10 3RF Rx Instructions: With meals and bedtime: Glucose: 141-180 - 4 units 181-220 - 6 221-260 - 8 261-300 - 10 301-350 - 12 351-400 - 14 >400 - 16 units Held aspirin 81 mg tablet,delayed release (DR/EC) 81 mg PO DAILY Qty: 90 1RF Hold Instructions: Resume on 02/11/25. hold until PCP follow up No Action (DME) KAFO See Rx Instructions .Route .MEDSUPPLY Qty: 1 0RF Rx Instructions: As directed by Rosalio Luis (DME) wheel chair with leg rest to the right See Rx Instructions .Route .MEDSUPPLY Qty: 1 0RF Rx Instructions: As directed (DME) Tibial tubercal height foot prosthesis See Rx Instructions .Route .MEDSUPPLY Qty: 1 0RF Rx Instructions: As directed Discharge Orders: Discharge Order (Routine); Ordered 02/04/25 Ordered By: Corazon Lopez Referrals: Luther Nelson MD [Primary Care Provider] - 4-7 days (We have notified your physician's clinic of the need for a follow-up appointment to be scheduled. If you have not heard from them within the next 2 business days, please call them directly. ) Dorothy Miguel MD [Referring] - 4-7 days (hospital discharhe follow up, patient needs to start HD ) Discharge Diet: Usual diet Discharge Activity: Resume usual activity Patient Instructions: Chronic Kidney Disease (DC), Anemia (DC), Hemodialysis (GEN), Opioid Safety Discharge Attestations Time Spent in Discharge Care*: greater than 30 min Quality Metrics Clinical Quality Measures [ No reported AMI, CVA or VTE this stay] Coding Level of Care Code Acute Code for Chg Fwd Diagnoses Stage 4 chronic kidney disease N18.4 Chronic kidney disease stage: stage 4 (severe) Iron deficiency anemia due to chronic blood loss D50.0 Anemia type: iron deficiency Iron deficiency anemia type: chronic blood loss
--- NOTE | 2025-02-04 17:51 | PC.NURSE ---
Patient discharged to home. Information provided in sinhala regarding follow up needs, need for hemodialysis and medication change. Patient and spouse indicated understanding. Patient denies pain or needs. No distress observed. Patient taken by wheelchair to private vehicle.
--- NOTE | 2025-02-04 18:23 | PC.NURSE ---
Referral paperwork faxed to [facility].
== END 2025-02-04 17:54 | disposition home or self-care (01) | DRG 811 ==
LOC: ER 20:17 → CSU 20:25
PROVIDERS: Admitting Provider Internal Medicine; Emergency Provider Emergency Medicine; PCP Family Medicine; Visit Provider Student in an Organized Health Care Education/Training Program
DX: D50.0 Iron deficiency anemia secondary to blood loss (chronic) (principal); N18.6 End stage renal disease; N17.9 Acute kidney failure, unspecified; N25.81 Secondary hyperparathyroidism of renal origin; D61.818 Other pancytopenia; E87.20 Acidosis, unspecified; I48.91 Unspecified atrial fibrillation; E11.22 Type 2 diabetes mellitus with diabetic chronic kidney disease; E87.5 Hyperkalemia; I95.9 Hypotension, unspecified; Z89.431 Acquired absence of right foot; Z79.899 Other long term (current) drug therapy; Z79.82 Long term (current) use of aspirin; Z79.4 Long term (current) use of insulin; Z60.3 Acculturation difficulty
CPT/HCPCS: 36415; 36416; 36430; 36600; 71045; 80053; 80503; 82607; 82728; 82746; 82803; 82962; 83010; 83540; 83550; 83615; 83735; 84100; 84443; 85018; 85025; 85045; 85610; 86850; 86900; 86920; 93005; 94664; 96361; 96374; 96375; 96376; 99285; J1815; J7070; J7799; J9999; P9016

== ENCOUNTER → 2025-02-11 16:30 | Outpatient (BNVA) | payer OTHER, SELFPAY | PROVIDERS: PCP Family Medicine; Visit Provider Family Medicine | DX: D64.9 Anemia, unspecified (principal) | CPT/HCPCS: 80048; 85025 ==

== ENCOUNTER 2025-03-12 15:52 | Observation (INO) | payer OTHER, SELFPAY ==
[2025-03-12] VITALS (7 sets, daily range): BP systolic 125–162; BP diastolic 65–89; PULSE 66–81; RESP 12–21; TEMP 36.4–36.6; O2SAT 98–100; BMI 25.0
[2025-03-12 16:30] LABS: Glucose Point of Care 94 mg/dL (70-110)
[2025-03-12 19:35] LABS: Basophils % 0.4 %; Eosinophils # 0.1 10^3/uL (0.0-0.8); Eosinophils % 3.1 %; Lymphocytes # 0.8 10^3/uL (0.8-4.8); Lymphocytes % 34.5 %; Mean Corpuscular HGB Conc 33.7 g/dL (30-55); Mean Corpuscular Hemoglobin 31.7 pg (27-33); Mean Corpuscular Volume 93.9 fl (82-101); Mean Platelet Volume 11.1 fL (7.4-10.4); Monocytes # 0.2 10^3/uL (0.2-0.9); Monocytes % 8.4 %; Neutrophils # 1.21 10^3/uL (1.8-7.7); Neutrophils % 53.6 %; Nucleated Red Blood Cells % 0 %; Platelet Count 101 10^3/cmm (157-399); Red Cell Distribution Width 13.3 % (12.1-15.1); White Blood Count 2.26 10^3/uL (3.29-11.43)
[2025-03-12 19:53] LABS: Alanine Aminotransferase 8 U/L (0-41); Albumin Level 4.2 g/dL (3.5-5.2); Alkaline Phosphatase 85 U/L (40-130); Anion Gap 32.1 (5-19); Aspartate Amino Transferase 5 U/L (0-40); Calcium 8.9 mg/dL (8.5-10.5); Chloride 100 mmol/L (98-107); Creatinine Clr Calc Pharmacy 4.6113; Globulin 3.4 g/dL (1.3-4.6); Glucose 105 mg/dL (65-115); Potassium 5.1 mmol/L (3.5-5.1); Sodium 136 mmol/L (136-145); Total Bilirubin 0.4 mg/dL (0.15-1.2); Total Protein 7.6 g/dL (6.6-8.7)
[2025-03-12 20:07] LABS: Hematocrit 16.9 % (37-53)
--- NOTE | 2025-03-12 20:07 | CTR_ITS ---
PROCEDURE INFORMATION: Exam: CT Abdomen And Pelvis Without Contrast Exam date and time: 03/12/2025 8:09 PM Age: 54 years old Clinical indication: Nausea and vomiting TECHNIQUE: Imaging protocol: Computed tomography of the abdomen and pelvis without contrast. Radiation optimization: All CT scans at this facility use at least one of these dose optimization techniques: automated exposure control; mA and/or kV adjustment per patient size (includes targeted exams where dose is matched to clinical indication); or iterative reconstruction. COMPARISON: CT abdomen pelvis wo con [id number] 07/02/2024 8:47 PM RADIATION DOSE METRICS: Total DLP (mGy-cm): 404.94 FINDINGS: Lungs: Linear density identified within bilateral lower lungs. Coronary arteries: Coronary arterial calcifications are demonstrated. Diaphragm: Elevation of the left hemidiaphragm is demonstrated. Liver: Unremarkable. No mass. Gallbladder and biliary ducts: Unremarkable. No calcified stones. No ductal dilation. Pancreas: Unremarkable. Spleen: Unremarkable. No splenomegaly. Adrenal glands: Normal. No mass. Kidneys and ureters: Right nephrolithiasis is demonstrated with multiple calculi. Calculi measurement and location: Right renal calculi measure up to 4 mm. No visualized renal hydronephrosis. No visualized obstructing ureteral calculus. Stomach and bowel: Slightly prominent fluid identified within the bowel, proximal colon, suggesting potential early developing diarrheal state. Possible nonspecific infectious or inflammatory gastroenteritis. No visualized evidence for bowel obstruction or ileus. Appendix: The visualized appendix appears unremarkable. Intraperitoneal space: No free air. No significant fluid collection. Vasculature: Calcifications in the pelvis, most compatible with phleboliths. Moderate to severe diffuse atherosclerotic arterial vascular wall calcifications are demonstrated. Lymph nodes: No enlarged lymph nodes. Urinary bladder: Unremarkable as visualized. Reproductive: Unremarkable as visualized. Bones/joints: Mild to moderate generalized bony degenerative changes. Bony structures appear otherwise unremarkable. Soft tissues: Mild soft tissue edema. Other findings: Limited study with motion artifact. CT/CT abdomen pelvis wo con [id number] IMPRESSION: 1. Questionable early developing diarrheal state, possible nonspecific infectious or inflammatory gastroenteritis. See above details. 2. Linear bilateral lower chest pulmonary atelectasis, or scarring. Left lung volume loss. 3. Right nonobstructing nephrolithiasis. 4. Chronic findings.
[2025-03-12 20:20] LABS: Osmolality Calculated 334 mOsm/kg (285-295)
[2025-03-12 20:21] LABS: Blood Urea Nitrogen 158 mg/dL (6-20); Carbon Dioxide 9 mmol/L (22-29)
[2025-03-12 20:31] LABS: Iron 185 ug/dL (59-158)
[2025-03-12 20:46] LABS: Vitamin B12 656 pg/mL (232-1245)
[2025-03-12 20:49] LABS: Ferritin 1307 ng/mL (30-400)
[2025-03-12 21:02] LABS: Total Iron Binding Capacity 185.99999 mcg/dl; Unsaturated Iron Binding < 1 ug/dL (112-347)
--- NOTE | 2025-03-12 21:09 | ED_ITS ---
HPI - Abdominal Pain 2 General: Chief Complaint: Nausea/Vomiting/Diarrhea Stated Complaint: vomitting for several days Time Seen by Provider: 03/12/25 20:06 History of Present Illness: Patient is a 54-year-old male presenting with a one-week history of persistent nausea and vomiting. He reports inability to retain food with emesis after eating. Patient has known chronic kidney disease and is being evaluated for potential dialysis by his director drug safety, Dr. Vrenon, in [place]. He denies any associated abdominal pain, fever, or chills. No reported black or bloody stools, with last bowel movement reported as normal in color. Related Data Home Medications ?Medication ?Instructions ?Recorded ?Confirmed atorvastatin 40 mg tablet 40 mg PO DAILY 11/13/2407/30 Previous Rx's ?Medication ?Instructions ?Recorded insulin glargine 100 unit/mL (3 10 unit (0.1 mL) SUBCU T DAILY #15 05/22/24 mL) subcutaneous pen mL insulin lispro 100 unit/mL See Rx Instructions .Route 05/22/24 subcutaneous solution (Humalog .COMPLEX #10 mL U-100 Insulin) wheel chair with leg rest to the #1 ea 08/11/24 right midodrine 5 mg tablet 10 mg (2 x 5 mg) PO ONCE #12 0 tabs 10/01/24 KAFO #1 ea 11/27/24 Tibial tubercal height foot #1 ea 12/25/24 prosthesis sodium bicarbonate 650 mg tablet 1,300 mg (2 x 650 mg) PO BID #240 02/11/25 tabs Allergies Allergy/AdvReac Type Severity Reaction Status Date / Time No Known Allergies Allergy Verified 02/11/25 15:46 PFS ED 2 PFSH: Medical History Hypotension Atrial fibrillation with RVR Abnormal iron saturation Gas gangrene Necrotizing fasciitis DKA (diabetic ketoacidosis) CKD (chronic kidney disease) Uncontrolled type 2 diabetes mellitus Surgical History S/P amputation of foot Status post amputation Family History Sister Chronic kidney disease (CKD) . She was on dialysis and a month after renal transplant. Social History Smoking and tobacco/nicotine status: never used tobacco/nicotine Alcohol intake: never Substance/Drug Use: never service: No Current occupational exposures/hazards: Yes Physical Exam 2 Const: COMMON NORMALS: no acute distress, average body habitus, alert and well nourished GENERAL APPEARANCE: cooperative ORIENTATION/CONSCIOUSNESS: Yes awake OTHER: Thin chronically ill-appearing 54-year-old male HENMT: COMMON NORMALS: normocephalic and atraumatic HEAD & SCALP: n ormocephalic and atraumatic Eye: COMMON NORMALS: conjunctivae normal CONJUNCTIVA: Yes conjunctivae normal Neck/C-Spine: GENERAL: Yes normal visual inspection Resp: COMMON NORMALS: normal respiratory effort, No retractions and No use of accessory muscles Cardio: COMMON NORMALS: regular rhythm and Peripheral pulses 2+ throughout RHYTHM: regular rhythm PERIPHERAL PULSES: Peripheral pulses 2+ throughout GI: COMMON NORMALS: Soft to palpation and non-tender PALPATION: Yes Soft to palpation Extremity: COMMON NORMALS: full ROM and no pedal edema Neuro: COMMON NORMALS: no focal motor deficits SENSORIUM/ORIENTATION: Yes alert Skin: COMMON NORMALS: no rashes or lesions noted GENERAL SKIN EXAM: no rashes or lesions noted Course 2 Vital Signs: Vital signs: Vital Signs Temperature 97.6 F 03/12/25 16:24 Pulse Rate 73 03/12/25 20:58 Respiratory Rate 17 03/12/25 16:24 Blood Pressure 162/80 03/12/25 20:58 Pulse Oximetry 100 03/12/25 20:58 Oxygen Delivery Me thod Room Air 03/12/25 20:58 MDM - Abdominal Pain Medical Decision Making Review of Systems: Constitutional: Denies fever or chills Gastrointestinal: Positive for nausea and vomiting. Denies abdominal pain, melena, or hematochezia All other systems reviewed and negative Medications: No blood thinners reported Past Medical History: Chronic Kidney Disease - pre-dialysis Anemia Lab Results: Significant anemia noted, requiring blood transfusion Specific hemoglobin/hematocrit values not provided in licensed embalmer Renal function studies pending Imaging and Other Relevant Results: No prior EGD documented Medical Decision Making: Summary Statement: 54-year-old male with CKD presents with one week of nausea/vomiting and significant anemia requiring transfusion and admission. Problem List: 1. Acute nausea and vomiting 2. Severe anemia requiring transfusion 3. Chronic kidney disease Differential Diagnosis: 1. Uremic gastritis 2. Upper GI bleeding 3. Medication- induced gastritis 4. Viral gastroenteritis ED Course: Patient evaluated for nausea/vomiting and found to have significant anemia. Decision made to admit for blood transfusion and further workup of GI symptoms. Assessment and Plan: 1. Nausea and Vomiting: - Likely related to uremia vs. possible GI bleed - Antiemetics as needed 2. Severe Anemia: - Requires blood transfusion - Further workup of etiology as inpatient 3. Chronic Kidney Disease: - Will require nephrology consultation - Assess need for urgent dialysis initiation Disposition: Admit to Medicine service Patient is typed and crossed for 2 units of blood. Occult blood test is negative at bedside. He has worsening chronic renal insufficiency and is now at end-stage renal disease. He will need dialysis. I spoke with the director drug safety who request patient be made n.p.o. at midnight and will place tunneled catheter tomorrow for dialysis. I spoke with Dr. Hensley who will admit. Lab Data I reviewed the patient's lab results. 03/12/25 19:29 03/12/25 19:29 Labs/Radiology: Radiology Impressions Abdomen/Pelvis CT 03/12/25 20:07 IMPRESSION: 1. Questionable early developing diarrheal state, possible nonspecific infectious or inflammatory gastroenteritis. See above details. 2. Linear bilateral lower chest pulmonary atelectasis, or scarring. Left lung volume loss. 3. Right nonobstructing nephrolithiasis. 4. Chronic findings. Laboratory Results WBC 2.26 10^3/uL (3.29-11.43) L 03/12/25 19: RBC 1.80 10^6/uL (3.85-5.65) L 03/12/25 19: Hgb 5.70 g/dL (11.27-16.99) L* 03/12/25 19: Hct 16.9 % (37-53) L* 03/12/25 19: MCV 93.9 fl (82-101) 03/12/25 19: MCH 31.7 pg (27-33) 03/12/25 19: MCHC 33.7 g/dL (30-55) 03/12/25 19: RDW 13.3 % (12.1-15.1) 03/12/25 19: Plt Count 101 10^3/cmm (157-399) L 03/12/25 19: MPV 11.1 fL (7.4-10.4) H 03/12/25 19: Neut % (Auto) 53.6 % 03/12/25 19: Lymph % (Auto) 34.5 % 03/12/25 19: [place] % (Auto) 8.4 % 03/12/25: Eos % (Auto) 3.1 % 03/12/25: Baso % (Auto) 0.4 % 03/12/25: Neut # (Auto) 1.21 10^3/uL (1.8-7.7) L 03/12/25: Lymph # (Auto) 0.8 10^3/uL (0.8-4.8) 03/12/25: [place] # (Auto) 0.2 10^3/uL (0.2-0.9) 03/12/25: Eos # (Auto) 0.1 10^3/uL (0.0-0.8) 03/12/25: Baso # (Auto) 0.0 10^3/uL (0.0-0.1) 03/12/25: Nucleated RBC % (auto) 0 % 03/12/25: Nucleated RBCs # 0.0 /100WBC 03/12/25: Sodium 136 mmol/L (136-145) 03/12/25: Potassium 5.1 mmol/L (3.5-5.1) 03/12/25: Chloride 100 mmol/L (98-107) 03/12/25: Carbon Dioxide 9 mmol/L (22-29) L 03/12/25: Anion Gap 32.1 (5-19) H 03/12/25 19: BUN 158 mg/dL (6-20) H* D 03/12/25: Creatinine 16.8 mg/dL (0.7-1.2) H* 03/12/25 19: GFR Calculation 3.0 mL/min (90-130) L 03/12/25: Glucose 105 mg/dL (65-115) 03/12/25 19:29 POC Glucose 94 mg/dL (70-110) 03/12/25 16:27 Calculated Osmolality 334 mOsm/kg (285-295) H 03/12/25 19:29 Calcium 8.9 mg/dL (8.5-10.5) 03/12/25 19:29 Iron 185 ug/dL (59-158) H 03/12/25 19:29 TIBC 185.27963 mcg/dl 03/12/25 19:29 % Saturation 99.0 % (20-50) H 03/12/25 19:29 Unsat Iron Binding < 1 ug/dL (112-347) L 03/12/25 19:29 Ferritin 1307 ng/mL (30-400) H 03/12/25 19:29 Total Bilirubin 0.4 mg/dL (0.15-1.2) 03/12/25 19:29 AST 5 U/L (0-40) 03/12/25 19:29 ALT 8 U/L (0-41) 03/12/25 19:29 Alkaline Phosphatase 85 U/L (40-130) 03/12/25 19:29 Total Protein 7.6 g/dL (6.6-8.7) 03/12/25 19:29 Albumin 4.2 g/dL (3.5-5.2) 03/12/25 19:29 Globulin 3.4 g/dL (1.3-4.6) 03/12/25 19:29 Vitamin B12 656 pg/mL (232-1245) 03/12/25 19:29 Blood Type O Positive 03/12/25 20:21 Rho(D) Type Rh positive 03/12/25 20:21 Antibody Screen Negative 03/12/25 20:21 Crossmatch See Detail 03/12/25 20:21 All radiology interpretation(s) finalized by discharge Discharge Plan Discharge Patient Disposition: Placed in Observation Clinical Impression: Anemia, End-stage renal disease (ESRD), Nausea & vomiting Coding Level of Care Code ED Director Of Spa And Guest Experience for Peng Ramsey
--- NOTE | 2025-03-12 21:45 | P.HP_ITS ---
Providers/Chief Complaint 2 Primary Care Provider: Luther Nelson MD Chief Complaint: vomitting for several days History of Present Illness Arden Keenan is a 54 year old male with a past medical history significant for chronic kidney disease stage V, insulin dependent diabetes mellitus, anemia of chronic kidney disease, paroxysmal atrial fibrillation, right foot surgery, GERD, hypotension on midodrine, and multiple other comorbidities who presents to the emergency department with nausea and vomiting x 1 week. Endorses associated malaise and weakness. Denies fevers or chills. Exertion has worsened his symptoms. Denies alleviating factors. In the emergency department, patient was found to have worsening renal function. He is also found to have worsening anemia in the setting of CKD stage V. Family is bedside and supportive. He has been following with Dr. Miguel in [place] for outpatient nephrology care. Dialysis has been discussed. He is ready to proceed with dialysis if that is what is recommended. Review of Systems 2 Narrative: A complete review of systems was obtained and is negative except as stated in HPI. Medications/Allergies Home Medications ?Medication ?Instructions ?Recorded ?Confirmed ?Last Taken ?Type insulin glargine 100 unit/mL (3 10 unit (0.1 mL) SUBCU T DAILY #15 05/22/24 02/11/25 02/03/25 Rx mL) subcutaneous pen mL insulin lispro 100 unit/mL See Rx Instructions .Route 05/22/24 02/11/25 02/03/25 Rx subcutaneous solution (Humalog .COMPLEX #10 mL U-100 Insulin) wheel chair with leg rest to the #1 ea 08/11/24 Unknown Rx right midodrine 5 mg tablet 10 mg (2 x 5 mg) PO ONCE #12 0 tabs 10/01/24 02/11/25 02/03/25 Rx atorvastatin 40 mg tablet 40 mg PO DAILY 11/13/24 04/07/3002/03/25 History KAFO #1 ea 11/27/24 02/11/25 Unkn own Rx Tibial tubercal height foot #1 ea 12/25/24 02/11/25 Un known Rx prosthesis sodium bicarbonate 650 mg tablet 1,300 mg (2 x 650 mg) PO BID #240 02/11/25 02/11/25 Unknown Rx tabs Allergies Allergy/AdvReac Type Severity Reaction Status Date / Time No Known Allergies Allergy Verified 02/11/25 15:46 PFSH Acute 2 PFSH: Medical History Hypotension Atrial fibrillation with RVR Abnormal iron saturation Gas gangrene Necrotizing fasciitis DKA (diabetic ketoacidosis) CKD (chronic kidney disease) Uncontrolled type 2 diabetes mellitus Surgical History S/P amputation of foot Status post amputation Family History Sister Chronic kidney disease (CKD) . She was on dialysis and a month after renal transplant. Social History Smoking and tobacco/nicotine status: never used tobacco/nicotine Alcohol intake: never Substance/Drug Use: never service: No Current occupational exposures/hazards: Yes Vitals/I&O/Wt Last Vital Signs Temp 97.6 F 03/12/25 16:24 Pulse 73 03/12/25 20:58 Resp 17 03/12/25 16:24 BP 162/80 03/12/25 20:58 Pulse Ox 100 03/12/25 20:58 O2 Del Method Room Air 03/12/25 20:58 Weight last 48 hrs Weight 70.307 kg Physical Exam 2 Narrative: General: Patient is awake. In bed. Head: Normocephalic. Pale mucous membranes. Neck: No JVD. Cardiovascular: RRR. No gallops. No murmurs. Lungs: Clear to auscultation, no use of accessory muscles, no crackles or wheezes. Skin: No jaundice. No rashes. Abdomen: Normal bowel sounds, abdomen soft and nontender. Extremities: No cyanosis or clubbing. Musculoskeletal: No swollen or erythematous joints. Partial prosthetic lower extremity device on right. Neurological: Moves all 4 extremities. No myoclonus. Data 03/12/25 19:29 03/12/25 19:29 A&P Assessment and plan (1) Nausea & vomiting: (2) CKD (chronic kidney disease): (3) Hypotension: (4) Hyperlipidemia: (5) IDDM (insulin dependent diabetes mellitus): (6) Anemia: (7) Metabolic acidosis: (8) Pancytopenia: Plan Acute kidney injury on CKD stage V High anion gap metabolic acidosis - Suspect progression to end-stage renal disease - Nephrology consulted, discussed with art model - N.p.o. after midnight for tunneled line placement tomorrow - General Surgery, Dr. Maldonado consulted - Will plan on dialysis after line placement - Bicarb drip tonight as recommended by nephrology - Strict I's and O's - Daily weights Acute on chronic anemia of CKD stage V Pancytopenia - Iron levels are pending - Transfusing packed red blood cells tonight - Monitor for fluid overload, may need IV diuresis - Repeat labs in a.m. Nausea/vomiting - May be related to uremia versus gastroenteritis - CT abdomen/pelvis showed signs of possible early gastroenteritis - Antiemetics as needed - Check inflammatory markers - Monitor bowel movement consistency - Supportive care History of hypotension - On midodrine as outpatient - Monitor hemodynamics closely - Admit to ICU for close hemodynamic monitoring Insulin-dependent type 2 diabetes mellitus - Hold Lantus due to worsening renal function and nausea vomiting - Low-dose sliding scale insulin correction Hyperlipidemia - Continue statin DVT ppx: SCD PDMP PDMP Reviewed: Not Reviewed Attestations 2 Medical Necessity Statement*: Patient presents with nausea and vomiting, found to have worsening renal function and worsening anemia with expected hospitalization not to cross 2 midnights for bicarb drip, transfusion, and initiation of dialysis. Coding Level of Care Code Acute Code for [facility] Fwd Diagnoses Nausea & vomiting R11.2 Stage 4 chronic kidney disease N18.4 Chronic kidney disease stage: stage 4 (severe) Hypotension I95.9 Hyperlipidemia E78.5 IDDM (insulin dependent diabetes mellitus) Iron deficiency anemia due to chronic blood loss D50.0 Anemia type: iron deficiency Iron deficiency anemia type: chronic blood loss Metabolic acidosis E87.20 Pancytopenia D61.818
[2025-03-12 22:08] LABS: Ketone (Acetest) Serum Negative (Negative)
[2025-03-12] MEDS: sodium chloride 0.9% 1,000 ML 999 ML IV (22:16)
--- NOTE | 2025-03-12 22:24 | PM.CONSULT ---
Providers/Reason For Consult Consulting Physician/Specialty*: kommana/Nephrology Reason for Consult*: CKD 5 Primary Care Provider: Luther Nelson MD History of Present Illness History of Present Illness Arden Keenan is a 54 year old male Patient is a 54-year-old male with past medical history significant for advanced CKD's, followed by nephrology as outpatient, diabetes type 2, acute on chronic kidney disease, paroxysmal A-fib, GERD, presented to the emergency department due to nausea and vomiting x 1 week also generalized weakness and fatigue. He was found to have worsening renal function with creatinine of 16 and BUN of 158. He also has a hemoglobin of 5.7. Patient followed by Dr. Miguel from [place] nephrology and dialysis initiation has this been discussed with patient. . Review of Systems Narrative: negative Medications/Allergies Home Medications ?Medication ?Instructions ?Recorded ?Confirmed ?Last Taken ?Type insulin glargine 100 unit/mL (3 10 unit (0.1 mL) SUBCUT DAILY #15 05/22/24 03/13/25 03/12/25 Rx mL) subcutaneous pen mL insulin lispro 100 unit/mL See Rx Instructions .Route 05/22/24 03/13/25 03/12/25 Rx subcutaneous solution (Humalog .COMPLEX #10 mL U-100 Insulin) wheel chair with leg rest to the #1 ea 08/11/24 03/13/25 Unknown Rx right midodrine 5 mg tablet 10 mg (2 x 5 mg) PO ONCE #120 tabs 10/01/24 03/13/25 03/12/25 Rx atorvastatin 40 mg tablet 40 mg PO DAILY 11/13/24 03/13/25 03/12/25 History KAFO #1 ea 11/27/24 03/13/25 Unknown Rx Tibial tubercal height foot #1 ea 12/25/24 03/13/25 Unknown Rx prosthesis sodium bicarbonate 650 mg tablet 1,300 mg (2 x 650 mg) PO BID #240 02/11/25 03/13/25 03/12/25 Rx tabs cholecalciferol (vitamin D3) 125 125 mcg PO DAILY 03/13/25 03/13/25 03/12/25 History mcg (5,000 unit) tablet (Vitamin D3) [id number] 300 mcg-K 60 1 tab PO DAILY 03/13/25 03/13/2525 History mcg-lycop 600 mcg-lutein 300 mcg tablet (Men 50 Plus Multivitamin) Allergies Allergy/AdvReac Type Severity Reaction Status Date / Time No Known Allergies Allergy Verified 02/11/25 15:46 Current Medications Generic Name Dose Route Start Last Admin Trade Name Lyleq PRN Reason Stop Dose Admin Sodium Chloride 1,000 mls @ 999 mls/hr 03/12/25 21:32 03/12/25 22:16 Sodium Chloride 0.9% IV 03/12/25 22:32 999 mls/hr .Q1H1M ONE Administration PFSH Acute PFSH: Medical History Hypotension Atrial fibrillation with RVR Abnormal iron saturation Gas gangrene Necrotizing fasciitis DKA (diabetic ketoacidosis) CKD (chronic kidney disease) Uncontrolled type 2 diabetes mellitus Surgical History S/P amputation of foot Status post amputation Family History Sister Chronic kidney disease (CKD) . She was on dialysis and a month after renal transplant. Social History Smoking and tobacco/nicotine status: never used tobacco/nicotine Alcohol intake: never Substance/Drug Use: never service: No Current occupational exposures/hazards: Yes Vitals/I&O/Wt Last Vital Signs Temp 97.8 F 03/12/25 22:10 Pulse 81 03/12/25 22:00 Resp 15 03/12/25 22:10 BP 151/83 03/12/25 22:10 Pulse Ox 98 03/12/25 22:10 O2 Del Method Room Air 03/12/25 20:58 03/12/25 03/12/25 03/12/25 06:59 14:59 22:59 Intake Total 0 / 0 Balance 0 / 0 Weight last 48 hrs Weight 70.307 kg Physical Exam Narrative: Is awake alert, no distress, on room air PERRLA S1-S2 regular rate and rhythm per report Lungs clear per report Abdomen soft nontender per report + edema Data 03/14/25 04:48 03/14/25 04:48 A&P Assessment and plan (1) CKD (chronic kidney disease) stage V requiring chronic dialysis: Plan 1. CKD stage V: Progressed to end-stage renal disease, patient has uremic symptoms-need to initiate hemodialysis, requested tunneled catheter placement. - Once catheter placed, will plan on dialysis today - office manager executive assistant to set up outpatient hemodialysis 2. Severe anemia, will initiate NORMA, cannot give a daily iron due to high ferritin levels., Status post transfusions. 3. Hypotension, on midodrine 4. MBD: Will check vitamin D, phosphorus, will add Phos binders Patient evaluated using audiovisual cart. Time spent 40 minutes PDMP PDMP Reviewed: Not Reviewed Coding Level of Care Code Acute Code for Chg Fwd Diagnoses CKD (chronic kidney disease) stage V requiring chronic dialysis N18.6; Z99.2
[2025-03-12 23:09] LABS: Procalcitonin 0.38 ng/mL (0-0.5)
[2025-03-13] VITALS (58 sets, daily range): BP systolic 98–174; BP diastolic 66–98; PULSE 67–98; RESP 7–24; TEMP 36.4–37.1; O2SAT 96–100
[2025-03-13] MEDS: sodium bicarbonate 150 MEQ in dextrose 5% 1,000 ML 75 MEQ IV (01:28)
[2025-03-13] MEDS: citric acid-sodium citrate 30 mL UDC 60 ML PO (02:12)
[2025-03-13 03:49] LABS: Glucose Point of Care 119 mg/dL (70-110)
[2025-03-13 04:04] LABS: Basophils % 0.6 %; Eosinophils # 0.2 10^3/uL (0.0-0.8); Eosinophils % 6.5 %; Lymphocytes # 0.8 10^3/uL (0.8-4.8); Lymphocytes % 25.3 %; Mean Corpuscular HGB Conc 33.1 g/dL (30-55); Mean Corpuscular Volume 90.5 fl (82-101); Mean Platelet Volume 10.2 fL (7.4-10.4); Monocytes # 0.3 10^3/uL (0.2-0.9); Monocytes % 10.5 %; Neutrophils # 1.84 10^3/uL (1.8-7.7); Neutrophils % 56.8 %; Nucleated Red Blood Cells % 0 %; Platelet Count 66 10^3/cmm (157-399); Red Cell Distribution Width 13.3 % (12.1-15.1); White Blood Count 3.24 10^3/uL (3.29-11.43)
[2025-03-13 04:09] LABS: Hematocrit 18.1 % (37-53)
[2025-03-13 04:09] LABS: Alanine Aminotransferase 6 U/L (0-41); Albumin Level 3.7 g/dL (3.5-5.2); Alkaline Phosphatase 85 U/L (40-130); Anion Gap 28.6 (5-19); Aspartate Amino Transferase 5 U/L (0-40); Calcium 8.5 mg/dL (8.5-10.5); Carbon Dioxide 10 mmol/L (22-29); Chloride 103 mmol/L (98-107); Creatinine Clr Calc Pharmacy 4.4017; Globulin 3.4 g/dL (1.3-4.6); Glomerular Filtration Rate 2.8 mL/min (90-130); Glucose 109 mg/dL (65-115); Potassium 4.6 mmol/L (3.5-5.1); Sodium 137 mmol/L (136-145); Total Bilirubin 0.6 mg/dL (0.15-1.2); Total Protein 7.1 g/dL (6.6-8.7)
--- NOTE | 2025-03-13 04:13 | PC.NURSE ---
rn communicated critical results to dr. aguilar. dr. aguilar ordered additional 1 unit of packed rbcs to be infused.
[2025-03-13 04:15] LABS: Blood Urea Nitrogen 151 mg/dL (6-20); Osmolality Calculated 334 mOsm/kg (285-295); Phosphorus 10.7 mg/dL (2.5-4.5)
--- NOTE | 2025-03-13 04:39 | PC.NURSE ---
Pts family member translated for this nurse. Pt was informed he needed a blood transfusion and risk. Pt signed blood consent. Consent placed in chart.
--- NOTE | 2025-03-13 05:08 | PC.NURSE ---
Addendum entered by Sheila Huizar RN 03/13/25 05:13: This nurse used security patrol officer sofia. Original Note: This nurse and Summer HWANG explained that MD wanted a mcintosh catheter placed to measure how much urine the patient is making. Pt refused mcintosh.
[2025-03-13] MEDS: ondansetron 2 mg/ML SDV 2 mL 4 MG IVP (05:15)
--- NOTE | 2025-03-13 06:44 | P.CONIM_ITS ---
Providers/Reason For Consult 2 Consulting Physician/Specialty*: General Surgery Reason for Consult*: Need for dialysis Attending Physician: Levi Hensley MD Primary Care Provider: Luther Nelson MD History of Present Illness History of Present Illness Arden Keenan is a 54 year old male With end-stage renal disease, has been hesitant to start hemodialysis has been evaluated by outside provider in [place]. Now presents with nausea vomit acute anemia and severe elevation of the creatinine and BUN. I was consulted for tunneled dialysis catheter. Review of Systems 2 General: Reports: 10 or more systems reviewed and unremarkable except in HPI and below Medications/Allergies Home Medications ?Medication ?Instructions ?Recorded ?Confirmed ?Last Taken ?Type insulin glargine 100 unit/mL (3 10 unit (0.1 mL) SUBCU T DAILY #15 05/22/24 02/11/25 02/03/25 Rx mL) subcutaneous pen mL insulin lispro 100 unit/mL See Rx Instructions .Route 05/22/24 02/11/25 02/03/25 Rx subcutaneous solution (Humalog .COMPLEX #10 mL U-100 Insulin) wheel chair with leg rest to the #1 ea 08/11/24 Unknown Rx right midodrine 5 mg tablet 10 mg (2 x 5 mg) PO ONCE #12 0 tabs 10/01/24 02/11/25 02/03/25 Rx atorvastatin 40 mg tablet 40 mg PO DAILY 11/13/24 04/0 07/3002/03/25 History KAFO #1 ea 11/27/24 02/11/25 Unkn own Rx Tibial tubercal height foot #1 ea 12/25/24 02/11/25 Un known Rx prosthesis sodium bicarbonate 650 mg tablet 1,300 mg (2 x 650 mg) PO BID #240 02/11/25 02/11/25 Unknown Rx tabs Allergies Allergy/AdvReac Type Severity Reaction Status Date / Time No Known Allergies Allergy Verified 02/11/25 15:46 Current Medications Generic Name Dose Route Start Last Admin Trade Name Freq PRN Reason Stop Dose Admin Sodium Bicarbonate 150 meq/ 1,150 mls @ 75 mls/hr 03/12/25 23:56 03/13/25 01:28 Dextrose IV 75 mls/hr .[id number] LAITH Administration Ondansetron HCl 4 mg 03/12/25 21:47 03/13/25 05:15 Ondansetron 2 Mg/Ml Sdv 2 Ml IVP 4 mg Q6H PRN Administration NAUSEA AND VOMITING PFSH Acute 2 PFSH: Medical History Hypotension Atrial fibrillation with RVR Abnormal iron saturation Gas gangrene Necrotizing fasciitis DKA (diabetic ketoacidosis) CKD (chronic kidney disease) Uncontrolled type 2 diabetes mellitus Surgical History S/P amputation of foot Status post amputation Family History Sister Chronic kidney disease (CKD) . She was on dialysis and a month after renal transplant. Social History Smoking and tobacco/nicotine status: never used tobacco/nicotine Alcohol intake: never Substance/Drug Use: never service: No Current occupational exposures/hazards: Yes Vitals/I&O/Wt Last Vital Signs Temp 98.7 F 03/13/25 05:30 Pulse 79 03/13/25 05:30 Resp 11 L 03/13/25 05:30 BP 165/96 03/13/25 05:30 Pulse Ox 98 03/13/25 05:30 O2 Del Method Room Air 03/13/25 05:00 03/12/25 03/12/25 03/13/25 14:59 22:59 06:59 Intake Total 0 / 0 1700 / 1700 Balance 0 / 0 1700 / 1700 Weight last 48 hrs Weight 155 lb Physical Exam 2 Narrative: Patient is alert and oriented, normal exam of the neck and upper chest. Abdomen soft nontender nondistended. Data 03/13/25 03:52 03/13/25 03:47 A&P Assessment and plan (1) End-stage renal disease (ESRD): (2) Metabolic acidosis: (3) Anemia: Plan After complete history, physical examination and review of all available clinical data the following is my assessment.Patient will benefit from tunneled dialysis catheter for initiation of hemodialysis. All risk benefits were explained including the risk of bleeding, infection, catheter malfunction, pneumothorax requiring tube thoracostomy, need for additional surgical interventions, injury to the right vessels of the chest, cannulation of the carotid artery, need for transfer to higher level of care. I have also Splane to the patient that he has a increased risk of bleeding due to uremia, patient shows understanding and is agreeable to proceed. Procedure will be booked for noon today. PDMP PDMP Reviewed: Not Reviewed Coding Level of Care Code Acute Code for Chg Fwd Diagnoses End-stage renal disease (ESRD) N18.6 Metabolic acidosis E87.20 Anemia D64.9
--- NOTE | 2025-03-13 07:08 | P.PN_ITS ---
Subjective 2 Subjective: getting HD Medications: Reviewed: Yes Vitals/I&O/Wt Last Vital Signs Temp 99.9 F H 03/14/25 04:25 Pulse 69 03/14/25 06:00 Resp 20 H 03/14/25 00:00 BP 161/88 03/14/25 00:00 Pulse Ox 96 03/14/25 00:00 O2 Del Method Room Air 03/13/25 17:00 03/13/25 03/14/25 03/14/25 22:59 06:59 14:59 Intake Total 1999 Output Total 1780 / 1780 450 / 2230 Balance 220 / 220 -450 / -230 Weight last 48 hrs Weight 70.352 kg Weight 70.5 kg Weight 62.5 kg Weight 70.307 kg Physical Exam 2 Narrative: Is awake alert, no distress, on room air PERRLA S1-S2 regular rate and rhythm per report Lungs clear per report Abdomen soft nontender per report + edema Data 03/14/25 04:48 03/14/25 04:48 A&P Assessment and plan (1) CKD (chronic kidney disease) stage V requiring chronic dialysis: Plan 1. CKD stage V: Progressed to end-stage renal disease, patient has uremic symptoms-need to initiate hemodialysis, requested tunneled catheter placement. - Once catheter placed, will plan on dialysis today - visual presentation manager to set up outpatient hemodialysis 2. Severe anemia, will initiate NORMA, cannot give a daily iron due to high ferritin levels., Status post transfusions. 3. Hypotension, on midodrine 4. MBD: Will check vitamin D, phosphorus, will add Phos binders Patient evaluated using audiovisual cart. Time spent 40 minutes PDMP PDMP Reviewed: Not Reviewed Attestations 2 Medical Necessity Statement*: per [facility] Coding Level of Care Code Acute Code for Chg Fwd Diagnoses CKD (chronic kidney disease) stage V requiring chronic dialysis N18.6; Z99.2
[2025-03-13 08:55] LABS: Hepatitis B Surface Antigen Non-Reactive (Nonreactive)
[2025-03-13] MEDS: atorvastatin 40 mg Tablet PO (08:56)
--- NOTE | 2025-03-13 10:21 | ANES.PREANE2 ---
Pre-Anesthetic Assessment Height/Weight: Height 1.68 m Weight 62.5 kg Temp Pulse Resp BP Pulse Ox O2 Del Method 98.1 F 77 17 166/86 98 Room Air 03/13/25 08:26 03/13/25 08:30 03/13/25 08:30 03/13/25 08:30 03/13/25 08:35 03/13/25 08:37 Operation Date: 03/13/25 13:00 Proposed Procedures p Dialysis Catheter Insertion-Tunneled(Not Applicable) - Sebastien Maldonado MD Social No alcohol and No tobacco Exam alert, oriented x 3, clear to auscultation bilaterally and regular rate & rhythm Airway Submandibular: within normal limits Cervical ROM: within normal limits Mallampati: Class II Comments: Comments: receeding mandible CV/HEM Hypertension Chronic Renal Failure Metabolic Diabetes Mellitus and Hyperlipidemia Anesthetic Plan ASA status: 3 Anesthesia: MAC Medications/Allergies Home Medications ?Medication ?Instructions ?Recorded ?Confirmed ?Last Taken ?Type insulin glargine 100 unit/mL (3 10 unit (0.1 mL) SUBCUT DAILY #15 05/22/24 03/13/25 03/12/25 Rx mL) subcutaneous pen mL insulin lispro 100 unit/mL See Rx Instructions .Route 05/22/24 03/13/25 03/12/25 Rx subcutaneous solution (Humalog .COMPLEX #10 mL U-100 Insulin) wheel chair with leg rest to the #1 ea 08/11/24 03/13/25 Unknown Rx right midodrine 5 mg tablet 10 mg (2 x 5 mg) PO ONCE #120 tabs 10/01/24 03/13/25 03/12/25 Rx atorvastatin 40 mg tablet 40 mg PO DAILY 11/13/24 03/13/25 03/12/25 History KAFO #1 ea 11/27/24 03/13/25 Unknown Rx Tibial tubercal height foot #1 ea 12/25/24 03/13/25 Unknown Rx prosthesis sodium bicarbonate 650 mg tablet 1,300 mg (2 x 650 mg) PO BID #240 02/11/25 03/13/25 03/12/25 Rx tabs cholecalciferol (vitamin D3) 125 125 mcg PO DAILY 03/13/25 03/13/25 03/12/25 History mcg (5,000 unit) tablet (Vitamin D3) [id number] 300 mcg-K 60 1 tab PO DAILY 03/13/25 03/13/25 03/12/25 History mcg-lycop 600 mcg-lutein 300 mcg tablet (Men 50 Plus Multivitamin) Allergies Allergy/AdvReac Type Severity Reaction Status Date / Time No Known Allergies Allergy Verified 02/11/25 15:46 Current Medications Generic Name Dose Route Start Last Admin Trade Name Freq PRN Reason Stop Dose Admin Atorvastatin Calcium 40 mg 03/13/25 09:00 03/13/25 08:56 Atorvastatin 40 Mg Tablet PO 40 mg DAILY LAITH Administration Sodium Bicarbonate 150 meq/ 1,150 mls @ 75 mls/hr 03/12/25 23:56 03/13/25 01:28 Dextrose IV 75 mls/hr .[id number] LAITH Administration Insulin Human Lispro 0 unit 03/13/25 08:00 03/13/25 08:52 Insulin Lispro 100 Unit/1 Ml SUBCUT Not Given WM&BEDTIME LAITH Protocol Ondansetron HCl 4 mg 03/12/25 21:47 03/13/25 05:15 Ondansetron 2 Mg/Ml Sdv 2 Ml IVP 4 mg Q6H PRN Administration NAUSEA AND VOMITING PFSH Anesthesia Medical History Hypotension Atrial fibrillation with RVR Abnormal iron saturation Gas gangrene Necrotizing fasciitis DKA (diabetic ketoacidosis) CKD (chronic kidney disease) Uncontrolled type 2 diabetes mellitus Surgical History S/P amputation of foot Status post amputation Family History Sister Chronic kidney disease (CKD) . She was on dialysis and a month after renal transplant. Social History Smoking and tobacco/nicotine status: never used tobacco/nicotine Alcohol intake: never Substance/Drug Use: never service: No Current occupational exposures/hazards: Yes Data Anesthesia 03/13/25 03:52 03/13/25 03:47 Short CBC 03/12/25 03/13/25 Range/Units 19:29 03:52 WBC 2.26 L 3.24 L (3.29-11.43) 10^3/uL Hgb 5.70 L* 6.00 L* (11.27-16.99) g/dL Hct 16.9 L* 18.1 L* (37-53) % MCV 93.9 90.5 (82-101) fl Plt Count 101 L 66 L D (157-399) 10^3/cmm Neut % (Auto) 53.6 56.8 % Neut # (Auto) 1.21 L 1.84 (1.8-7.7) 10^3/uL BMP 03/12/25 03/13/25 19:29 03:47 Sodium 136 137 Potassium 5.1 4.6 Chloride 100 103 Carbon Dioxide 9 L 10 L BUN 158 H* D 151 H* Creatinine 16.8 H* 17.6 H* Glucose 105 109 Calcium 8.9 8.5 Liver Function 03/12/25 03/13/25 Range/Units 19:29 03:47 Total Bilirubin 0.4 0.6 (0.15-1.2) mg/dL AST 5 5 (0-40) U/L ALT 8 6 (0-41) U/L Alkaline Phosphatase 85 85 (40-130) U/L Albumin 4.2 3.7 (3.5-5.2) g/dL Blood Bank 03/12/25 20:21 Blood Type O Positive Rho(D) Type Rh positive Antibody Screen Negative Coa 03/12/25 19:29 C-Reactive Protein 3.0 Cardiac Studies: Echocardiogram 05/06/24
[2025-03-13 10:22] LABS: Hepatitis B Surface AB < 3.5 (11.5-1000)
[2025-03-13 10:26] LABS: Basophils % 0.8 %; Eosinophils # 0.2 10^3/uL (0.0-0.8); Eosinophils % 6.5 %; Hematocrit 24.8 % (37-53); Lymphocytes # 0.8 10^3/uL (0.8-4.8); Lymphocytes % 22.3 %; Mean Corpuscular HGB Conc 34.3 g/dL (30-55); Mean Corpuscular Hemoglobin 30.5 pg (27-33); Mean Corpuscular Volume 88.9 fl (82-101); Mean Platelet Volume 10.5 fL (7.4-10.4); Monocytes # 0.3 10^3/uL (0.2-0.9); Monocytes % 9.2 %; Neutrophils # 2.25 10^3/uL (1.8-7.7); Neutrophils % 61.2 %; Nucleated Red Blood Cells % 0 %; Platelet Count 81 10^3/cmm (157-399); Red Blood Count 2.79 10^6/uL (3.85-5.65); Red Cell Distribution Width 13.6 % (12.1-15.1); White Blood Count 3.68 10^3/uL (3.29-11.43)
[2025-03-13] MEDS: ceFAZolin 1,000 mg SDV 1000 MG IVP (10:41)
[2025-03-13] MEDS: lidocaine-epi 1% PF 1:200,000 30 mL SDV INJECTION (10:51)
--- NOTE | 2025-03-13 10:53 | XR_ITS ---
WS: [id number] XR chest 1V portable [id number] REASON FOR EXAM: DIALYSIS CATHETER PLACEMENT FINDINGS: Right IJ dialysis catheter with the distal catheter in the mid to distal IVC. Mild tortuosity of the thoracic aorta with normal heart size. No acute pulmonary parenchymal or pleural abnormality. XR/XR chest 1V portable [id number] IMPRESSION: Right IJ dialysis catheter in proper position.
[2025-03-13] MEDS: heparin, porcine 1,000 unit/mL INJ 10 mL 6000 UNIT INTRACATH (10:56)
--- NOTE | 2025-03-13 11:23 | P.OP_ITS ---
Operative Report Date of procedure: March 13, 2025 Pre-op diagnosis: End-stage renal disease Post-op diagnosis: Same Post-op findings: Normal vascular anatomy of the right neck Procedure done: Insertion of tunneled dialysis catheter of the right IJ vein Implants: 23 cm cuff to tip catheter dual-lumen Surgeon: Sebastien Maldonado MD Strawhat Blocking Operator: TAJ OR Staff Estimated blood loss: 10 Brief History: 54-year-old male who requires long-term hemodialysis I have been asked to place a tunneled dialysis catheter. After discussion we will resume benefits documented in my preop note with side to proceed. Procedure: Patient was brought into the OR, he was placed in a supine position, monitored anesthesia sedation was given. Timeout was conducted after the skin was prepped and draped in the usual sterile fashion. I then proceeded to identify the right IJ vein with ultrasound, I infiltrated local anesthesia on top of the vein. I then proceeded to cannulate the vein under direct ultrasound guidance using an 18-gauge needle, the needle tip was seen entering the vein and immediate return of blood was noted. A wire was advanced through the needle and the needle was removed. The position of the wire was verified with ultrasound and fluoroscopy. The wire was then fixed to the drapes. I then placed my attention to the chest, local anesthesia was infiltrated in the previously marked area on the chest and then a tract connecting the chest to the wire insertion site in the neck. I then proceeded to make a 0.5cm incision on the chest and a 0.5cm incision on the neck at the level of the wire insertion site. I then tunneled the catheter from the chest wound to the neck using the provider tunneler. the vein was then dilatated with serial sizes of dilatators under direct fluoro guidance. I then proceeded to insert an introducer with a peel-off sheath over the wire under direct fluoroscopic guidance. I then remove the wire and the introducer leaving the peel-off sheath in place. The catheter was then advanced through the peel-off sheath and the peel-off sheath was removed leaving the catheter in place. Fluoroscopy showed evidence of good catheter position. The catheter was tested and was working fine with good flow in both lumens. I then proceeded to fix the catheter with #2-0 nylon to the skin. I then closed the neck wound with #3-0 Vicryl. The catheter was tested once again and was working fine I then Locked the catheter. Dermabond was applied over the wound and a sterile dressing was applied on top. At the end of the procedure all counts were correct, the patient tolerated well the procedure was transferred to the PACU in stable condition.
--- NOTE | 2025-03-13 12:37 | SC_ITS ---
WS: [id number] C-arm FL for CVA [id number] REASON FOR EXAM: DIALYSIS CATH FINDINGS: Right IJ dialysis catheter placement. Distal extent of the catheter is at the level of the distal SVC. SC/C-arm FL for CVA [id number] IMPRESSION: Right IJ catheter in proper position.
--- NOTE | 2025-03-13 12:41 | ANE.PACU2 ---
Inpatient post-anesthesia follow up: Airway intact: Yes Vital signs: Temperature 98.1 F Pulse Rate 89 Respiratory Rate 13 Blood Pressure 141/68 Pulse Oximetry 97 Oxygen Delivery Me thod Room Air Oxygen Flow Rate Fraction of Inspir ed Oxygen Hydration adequate: Yes Nausea and vomiting: No Pain level: controlled Mental status: Baseline
[2025-03-13 12:43] LABS: Glucose Point of Care 108 mg/dL (70-110)
[2025-03-13 12:43] LABS: Glucose Point of Care 82 mg/dL (70-110)
--- NOTE | 2025-03-13 15:02 | P.PN_ITS ---
Subjective 2 Subjective: seen today denies cp, sob, nausea says is tolerating water ok plan for dialysis catheter today Vitals/I&O/Wt Last Vital Signs Temp 98.1 F 03/13/25 08:26 Pulse 77 03/13/25 13:15 Resp 10 L 03/13/25 13:15 BP 138/79 03/13/25 13:15 Pulse Ox 98 03/13/25 13:15 O2 Del Method Room Air 03/13/25 13:15 03/13/25 03/13/25 03/13/25 06:59 14:59 22:59 Intake Total 1935 Balance 1935 Weight last 48 hrs Weight 62.5 kg Weight 70.307 kg Physical Exam 2 Narrative: General: Patient is awake. In bed. Head: Normocephalic. Pale mucous membranes. Cardiovascular: RRR. No gallops. No murmurs. Lungs: Clear to auscultation, no use of accessory muscles, no crackles or wheezes. Abdomen: Normal bowel sounds, abdomen soft and nontender. Extremities: No cyanosis or clubbing. Musculoskeletal: No swollen or erythematous joints. Partial prosthetic lower extremity device on right. Neurological: Moves all 4 extremities. No myoclonus. Data 03/13/25 10:16 03/13/25 03:47 A&P Assessment and plan (1) Nausea & vomiting: (2) CKD (chronic kidney disease): (3) Hypotension: (4) Hyperlipidemia: (5) IDDM (insulin dependent diabetes mellitus): (6) Anemia: (7) Metabolic acidosis: (8) Pancytopenia: (9) Acute renal failure: (10) Iron deficiency anemia: Plan Acute kidney injury on CKD stage V High anion gap metabolic acidosis - Suspect progression to end-stage renal disease - Nephrology consulted, discussed with lead injection mold technician - N.p.o. after midnight for tunneled line placement tomorrow - General Surgery, Dr. Maldonado consulted - Will plan on dialysis after line placement - Bicarb drip tonight as recommended by nephrology - Strict I's and O's - Daily weights Acute on chronic anemia of CKD stage V Pancytopenia - Iron levels are pending - Transfusing packed red blood cells tonight - Monitor for fluid overload, may need IV diuresis - Repeat labs in a.m. Nausea/vomiting - May be related to uremia versus gastroenteritis - CT abdomen/pelvis showed signs of possible early gastroenteritis - Antiemetics as needed - Check inflammatory markers - Monitor bowel movement consistency - Supportive care History of hypotension - On midodrine as outpatient - Monitor hemodynamics closely - Admit to ICU for close hemodynamic monitoring Insulin-dependent type 2 diabetes mellitus - Hold Lantus due to worsening renal function and nausea vomiting - Low-dose sliding scale insulin correction Hyperlipidemia - Continue statin DVT ppx: SCD 03/13/2025 continue mgmt as per Hnp dialysis catheter placement today, plan for dialysis pt s/p 3 units prbc recheck cbc q12h nausea has improved continue clear liquid diet thrombocytopenia: platelets 81, epo given x1 continue IV iron 200 daily x 5 days PDMP PDMP Reviewed: Not Reviewed Attestations 2 Medical Necessity Statement*: Patient presents with nausea and vomiting, found to have worsening renal function and worsening anemia with expected hospitalization not to cross 2 midnights for bicarb drip, transfusion, and initiation of dialysis. Diagnoses Nausea & vomiting R11.2 Stage 4 chronic kidney disease N18.4 Chronic kidney disease stage: stage 4 (severe) Hypotension I95.9 Hyperlipidemia E78.5 IDDM (insulin dependent diabetes mellitus) Iron deficiency anemia due to chronic blood loss D50.0 Anemia type: iron deficiency Iron deficiency anemia type: chronic blood loss Metabolic acidosis E87.20 Pancytopenia D61.818 Acute renal failure N17.9 Iron deficiency anemia D50.9
[2025-03-13] MEDS: heparin porcine 10,000 unit/mL SDV 4 mL 1000 UNIT IV (15:10)
[2025-03-13 15:58] LABS: Anion Gap 25.2 (5-19); Calcium 7.8 mg/dL (8.5-10.5); Carbon Dioxide 15 mmol/L (22-29); Chloride 105 mmol/L (98-107); Creatinine Clr Calc Pharmacy 4.6726; Glomerular Filtration Rate 3.2 mL/min (90-130); Glucose 110 mg/dL (65-115); Potassium 4.2 mmol/L (3.5-5.1); Sodium 141 mmol/L (136-145)
[2025-03-13 16:19] LABS: Osmolality Calculated 342 mOsm/kg (285-295)
[2025-03-13 16:22] LABS: Blood Urea Nitrogen 151 mg/dL (6-20)
[2025-03-13] MEDS: heparin, porcine 1,000 unit/mL INJ 10 mL 10000 UNIT INTRACATH (16:24)
[2025-03-13] MEDS: epoetin alfa 20,000 unit/mL MDV (ESRD) 20000 UNIT SUBCUT (16:39)
[2025-03-13] MEDS: iron sucrose 200 MG in sodium chloride 0.9% (100 ml) 100 ML 220 MG IV (16:39)
[2025-03-13 18:21] LABS: Glucose Point of Care 97 mg/dL (70-110)
[2025-03-13 19:22] LABS: Basophils % 0.8 %; Eosinophils # 0.1 10^3/uL (0.0-0.8); Eosinophils % 5.5 %; Hematocrit 25.6 % (37-53); Lymphocytes # 0.4 10^3/uL (0.8-4.8); Lymphocytes % 16.5 %; Mean Corpuscular HGB Conc 35.9 g/dL (30-55); Mean Corpuscular Hemoglobin 30.4 pg (27-33); Mean Corpuscular Volume 84.5 fl (82-101); Monocytes # 0.3 10^3/uL (0.2-0.9); Monocytes % 9.8 %; Neutrophils # 1.71 10^3/uL (1.8-7.7); Nucleated Red Blood Cells % 0 %; Platelet Count 87 10^3/cmm (157-399); Red Blood Count 3.03 10^6/uL (3.85-5.65); Red Cell Distribution Width 13.5 % (12.1-15.1); White Blood Count 2.55 10^3/uL (3.29-11.43)
[2025-03-13 19:52] LABS: Glucose Point of Care 108 mg/dL (70-110)
[2025-03-14] VITALS (28 sets, daily range): BP systolic 123–164; BP diastolic 72–95; PULSE 68–80; RESP 7–20; TEMP 36.7–37.7; O2SAT 95–97
[2025-03-14 05:05] LABS: Basophils % 0.6 %; Eosinophils # 0.2 10^3/uL (0.0-0.8); Eosinophils % 4.2 %; Hematocrit 25.8 % (37-53); Lymphocytes # 0.7 10^3/uL (0.8-4.8); Lymphocytes % 19.2 %; Mean Corpuscular HGB Conc 34.9 g/dL (30-55); Mean Corpuscular Hemoglobin 30.3 pg (27-33); Mean Corpuscular Volume 86.9 fl (82-101); Mean Platelet Volume 11.6 fL (7.4-10.4); Monocytes # 0.3 10^3/uL (0.2-0.9); Monocytes % 9.6 %; Neutrophils # 2.35 10^3/uL (1.8-7.7); Neutrophils % 66.1 %; Nucleated Red Blood Cells % 0 %; Platelet Count 96 10^3/cmm (157-399); Red Blood Count 2.97 10^6/uL (3.85-5.65); Red Cell Distribution Width 13.8 % (12.1-15.1); White Blood Count 3.55 10^3/uL (3.29-11.43)
[2025-03-14 05:27] LABS: Alanine Aminotransferase 6 U/L (0-41); Albumin Level 3.7 g/dL (3.5-5.2); Alkaline Phosphatase 85 U/L (40-130); Anion Gap 21.8 (5-19); Aspartate Amino Transferase 6 U/L (0-40); Calcium 8.1 mg/dL (8.5-10.5); Carbon Dioxide 19 mmol/L (22-29); Chloride 104 mmol/L (98-107); Creatinine Clr Calc Pharmacy 6.4576; Globulin 3.2 g/dL (1.3-4.6); Glomerular Filtration Rate 4.4 mL/min (90-130); Glucose 77 mg/dL (65-115); Magnesium 1.7 mg/dL (1.7-2.3); Osmolality Calculated 320 mOsm/kg (285-295); Potassium 3.8 mmol/L (3.5-5.1); Sodium 141 mmol/L (136-145); Total Bilirubin 0.7 mg/dL (0.15-1.2); Total Protein 6.9 g/dL (6.6-8.7)
[2025-03-14 05:38] LABS: Blood Urea Nitrogen 94 mg/dL (6-20)
--- NOTE | 2025-03-14 07:10 | P.PN_ITS ---
Subjective 2 Subjective: no new complaints Medications: Reviewed: Yes Vitals/I&O/Wt Last Vital Signs Temp 99.9 F H 03/14/25 04:25 Pulse 69 03/14/25 06:00 Resp 20 H 03/14/25 00:00 BP 161/88 03/14/25 00:00 Pulse Ox 96 03/14/25 00:00 O2 Del Method Room Air 03/13/25 17:00 03/13/25 03/14/25 03/14/25 22:59 06:59 14:59 Intake Total 1999 Output Total 1780 / 1780 450 / 2230 Balance 220 / 220 -450 / -230 Weight last 48 hrs Weight 70.352 kg Weight 70.5 kg Weight 62.5 kg Weight 70.307 kg Physical Exam 2 Narrative: Is awake alert, no distress, on room air PERRLA S1-S2 regular rate and rhythm per report Lungs clear per report Abdomen soft nontender per report + edema Data 03/14/25 04:48 03/14/25 04:48 A&P Assessment and plan (1) CKD (chronic kidney disease) stage V requiring chronic dialysis: Plan 1. CKD stage V: Progressed to end-stage renal disease, patient has uremic symptoms-need to initiate hemodialysis, requested tunneled catheter placement. - HD intitated via tunnelled catheter , HD # 2 today - senior insight manager international to set up outpatient hemodialysis 2. Severe anemia, will initiate NORMA, cannot give a daily iron due to high ferritin levels., Status post transfusions. 3. Hypotension, on midodrine 4. MBD: Will check vitamin D, phosphorus, will add Phos binders Patient evaluated using audiovisual cart. Time spent 40 minutes PDMP PDMP Reviewed: Not Reviewed Attestations 2 Medical Necessity Statement*: per shara Coding Level of Care Code Acute Code for [facility] Fwd Diagnoses CKD (chronic kidney disease) stage V requiring chronic dialysis N18.6; Z99.2
[2025-03-14] MEDS: atorvastatin 40 mg Tablet PO (08:58)
--- NOTE | 2025-03-14 09:17 | P.PN_ITS ---
Subjective 2 Subjective: Postoperative day 1 status post placement of tunneled dialysis catheter. Patient doing well has received dialysis without complications Vitals/I&O/Wt Last Vital Signs Temp 99.9 F H 03/14/25 04:25 Pulse 69 03/14/25 06:00 Resp 20 H 03/14/25 00:00 BP 161/88 03/14/25 00:00 Pulse Ox 96 03/14/25 00:00 O2 Del Method Room Air 03/13/25 17:00 03/13/25 03/14/25 03/14/25 22:59 06:59 14:59 Intake Total 1999 Output Total 1780 / 1780 450 / 2230 Balance 220 / 220 -450 / -230 Weight last 48 hrs Weight 155 lb 1.6 oz Weight 155 lb 6.814 oz Weight 137 lb 12.623 oz Weight 155 lb Physical Exam 2 Chest: OTHER: Catheter in place, no significant bleeding around the site, good wound healing. Data 03/14/25 04:48 03/14/25 04:48 A&P Assessment and plan (1) Acute renal failure: (2) Iron deficiency anemia: (3) End-stage renal disease (ESRD): Plan Excellent progression after tunneled dialysis catheter placement. Patient can follow-up in my clinic in 2 weeks for a postop check. Otherwise he will need follow-up in the [place] with vascular surgery at some point to do fistula. PDMP PDMP Reviewed: Not Reviewed Attestations 2 Medical Necessity Statement*: Per medical team Coding Level of Care Code Acute Code for [facility] Fwd Diagnoses Acute renal failure N17.9 Iron deficiency anemia D50.9 End-stage renal disease (ESRD) N18.6
[2025-03-14 11:30] LABS: Glucose Point of Care 80 mg/dL (70-110)
[2025-03-14 11:30] LABS: Glucose Point of Care 129 mg/dL (70-110)
--- NOTE | 2025-03-14 12:15 | PM.PN ---
Subjective Subjective: seen this morning asymptomatic Vitals/I&O/Wt Last Vital Signs Temp 99.9 F H 03/14/25 04:25 Pulse 74 03/14/25 12:00 Resp 16 03/14/25 12:00 BP 158/89 03/14/25 12:00 Pulse Ox 97 03/14/25 12:00 O2 Del Method Room Air 03/13/25 17:00 03/13/25 03/14/25 03/14/25 22:59 06:59 14:59 Intake Total 1999 / 1999 200 / 200 Output Total 1780 / 1780 450 / 2230 450 / 450 Balance 220 / 220 -450 / -230 -250 / -250 Weight last 48 hrs Weight 70.352 kg Weight 70.5 kg Weight 62.5 kg Weight 70.307 kg Physical Exam Narrative: General: Patient is awake. In bed. Head: Normocephalic. Pale mucous membranes. Cardiovascular: RRR. No gallops. No murmurs. Lungs: Clear to auscultation, Abdomen: Normal bowel sounds, abdomen soft and nontender. Extremities: No cyanosis or clubbing. Musculoskeletal: No swollen or erythematous joints. Partial prosthetic lower extremity device on right. Neurological: Moves all 4 extremities. No myoclonus. Data 03/14/25 04:48 03/14/25 04:48 A&P Assessment and plan (1) Nausea & vomiting: (2) CKD (chronic kidney disease): (3) Hypotension: resolved (4) Hyperlipidemia: (5) IDDM (insulin dependent diabetes mellitus): (6) Anemia: (7) Metabolic acidosis: (8) Pancytopenia: (9) Acute renal failure: (10) Iron deficiency anemia: Plan Acute kidney injury on CKD stage V High anion gap metabolic acidosis - Suspect progression to end-stage renal disease - Nephrology consulted, discussed with hosiery mender - N.p.o. after midnight for tunneled line placement tomorrow - General Surgery, Dr. Maldonado consulted - Will plan on dialysis after line placement - Bicarb drip tonight as recommended by nephrology - Strict I's and O's - Daily weights Acute on chronic anemia of CKD stage V Pancytopenia - Iron levels are pending - Transfusing packed red blood cells tonight - Monitor for fluid overload, may need IV diuresis - Repeat labs in a.m. Nausea/vomiting - May be related to uremia versus gastroenteritis - CT abdomen/pelvis showed signs of possible early gastroenteritis - Antiemetics as needed - Check inflammatory markers - Monitor bowel movement consistency - Supportive care History of hypotension - On midodrine as outpatient - Monitor hemodynamics closely - Admit to ICU for close hemodynamic monitoring Insulin-dependent type 2 diabetes mellitus - Hold Lantus due to worsening renal function and nausea vomiting - Low-dose sliding scale insulin correction Hyperlipidemia - Continue statin DVT ppx: SCD 03/13/2025 continue mgmt as per Hnp dialysis catheter placement today, plan for dialysis pt s/p 3 units prbc recheck cbc q12h nausea has improved continue clear liquid diet thrombocytopenia: platelets 81, epo given x1 continue IV iron 200 daily x 5 days 03/14/2025 platelets better 91K today pt s/p 3 units rbc asymptomatic epo given 03/13/2025 continue IV iron 200 daily x 5 days total will need intermediate frame tender dialysis transfer to floor today PDMP PDMP Reviewed: Not Reviewed Attestations Medical Necessity Statement*: acute renal failure, needs intermediate frame tender dialysis Coding Level of Care Code Acute Code for [facility] Fwd Diagnoses Nausea & vomiting R11.2 Stage 4 chronic kidney disease N18.4 Chronic kidney disease stage: stage 4 (severe) Hypotension I95.9 Hyperlipidemia E78.5 IDDM (insulin dependent diabetes mellitus) Iron deficiency anemia due to chronic blood loss D50.0 Anemia type: iron deficiency Iron deficiency anemia type: chronic blood loss Metabolic acidosis E87.20 Pancytopenia D61.818 Acute renal failure N17.9 Iron deficiency anemia D50.9
[2025-03-14] MEDS: heparin, porcine 1,000 unit/mL INJ 10 mL 1000 UNIT IV (15:20)
[2025-03-14] MEDS: iron sucrose 200 MG in sodium chloride 0.9% (100 ml) 100 ML 220 MG IV (15:42)
[2025-03-14] MEDS: heparin, porcine 1,000 unit/mL INJ 10 mL 10000 UNIT INTRACATH (16:07)
[2025-03-14 17:20] LABS: Glucose Point of Care 93 mg/dL (70-110)
[2025-03-14 20:39] LABS: Glucose Point of Care 116 mg/dL (70-110)
[2025-03-15] VITALS (21 sets, daily range): BP systolic 118–163; BP diastolic 63–90; PULSE 62–82; RESP 10–28; TEMP 36.8–37.6; O2SAT 93–97
[2025-03-15 05:18] LABS: Basophils % 0.7 %; Eosinophils # 0.3 10^3/uL (0.0-0.8); Eosinophils % 6.1 %; Hematocrit 27.5 % (37-53); Lymphocytes # 0.9 10^3/uL (0.8-4.8); Mean Corpuscular HGB Conc 34.2 g/dL (30-55); Mean Corpuscular Hemoglobin 29.9 pg (27-33); Mean Corpuscular Volume 87.6 fl (82-101); Mean Platelet Volume 11.4 fL (7.4-10.4); Monocytes # 0.5 10^3/uL (0.2-0.9); Monocytes % 12.8 %; Neutrophils # 2.48 10^3/uL (1.8-7.7); Neutrophils % 58.7 %; Nucleated Red Blood Cells % 0 %; Platelet Count 94 10^3/cmm (157-399); Red Blood Count 3.14 10^6/uL (3.85-5.65); Red Cell Distribution Width 13.7 % (12.1-15.1); White Blood Count 4.23 10^3/uL (3.29-11.43)
[2025-03-15 05:41] LABS: Anion Gap 20.8 (5-19); Blood Urea Nitrogen 47 mg/dL (6-20); Calcium 8.4 mg/dL (8.5-10.5); Carbon Dioxide 22 mmol/L (22-29); Chloride 102 mmol/L (98-107); Creatinine Clr Calc Pharmacy 8.8558; Glomerular Filtration Rate 6.5 mL/min (90-130); Glucose 89 mg/dL (65-115); Magnesium 1.6 mg/dL (1.7-2.3); Osmolality Calculated 304 mOsm/kg (285-295); Phosphorus 4.8 mg/dL (2.5-4.5); Potassium 3.8 mmol/L (3.5-5.1); Sodium 141 mmol/L (136-145)
[2025-03-15 07:21] LABS: Glucose Point of Care 89 mg/dL (70-110)
--- NOTE | 2025-03-15 08:04 | P.PN_ITS ---
Subjective 2 Subjective: The patient was seen and examined. He states he is feeling better no nausea vomiting shortness of breath chest pain headaches itching or pains. He tolerated dialysis well yesterday. Medications: Reviewed: Yes Medication Review Details: Current Medications Acetaminophen (Acetaminophen 325 Mg Tablet) 650 mg PO Q6H PRN PRN Reason: Mild/Mod Pain Or Temp >/= 101 Atorvastatin Calcium (Atorvastatin 40 Mg Tablet) 40 mg PO DAILY [facility] Last Admin: 03/14/25 08:58 Dose: 40 mg Glucagon (Glucagon 1 Mg/Ml Kit 1 Ml) 1 mg IM ONCE PRN; Protocol PRN Reason: Adult Acute Hypoglycemia Nursing Prot. Dextrose (D5w) 500 mls @ 0 mls/hr IV ONCE PRN; Protocol PRN Reason: Adult Acute Hypoglycemia Prot Dextrose (D10w) 125 mls @ 750 mls/hr IV PRN PRN; Protocol PRN Reason: Adult Acute Hypoglycemia Nursing Protocol Dextrose (D10w) 250 mls @ 1,000 mls/hr IV PRN PRN; Protocol PRN Reason: Adult Acute Hypoglycemia Nursing Protocol Sodium Chloride (Sodium Chloride 0.9%) 1,000 mls @ 0 mls/hr IV .Q0M PRN PRN Reason: hypotension or symptomatic Albumin Human (Albumin) 12.5 gm in 50 mls @ 60 mls/hr IV PRN PRN PRN Reason: Hypotension and/or symptomatic Iron Sucrose 200 mg/ Sodium (Chloride) 110 mls @ 220 mls/hr IV Q24H [facility] Stop: 03/17/25 15:59 Last Infusion: 03/14/25 16:26 Dose: Infused Sodium Chloride (Sodium Chloride 0.9%) 1,000 mls @ 0 mls/hr IV .Q0M PRN PRN Reason: hypotension or symptomatic Albumin Human (Albumin) 12.5 gm in 50 mls @ 60 mls/hr IV PRN PRN PRN Reason: Hypotension and/or symptomatic Insulin Human Lispro (Insulin Lispro 100 Unit/1 Ml) 0 unit SUBCUT WM&BEDTIME [facility]; Protocol Last Admin: 03/15/25 07:20 Dose: Not Given Ondansetron HCl (Ondansetron 2 Mg/Ml Sdv 2 Ml) 4 mg IVP Q6H PRN PRN Reason: NAUSEA AND VOMITING Last Admin: 03/13/25 05:15 Dose: 4 mg Vitals/I&O/Wt Last Vital Signs Temp 99.3 F 03/15/25 02:00 Pulse 77 03/15/25 05:48 Resp 10 L 03/15/25 05:00 BP 123/63 03/15/25 05:00 Pulse Ox 95 03/15/25 05:00 O2 Del Method Room Air 03/15/25 01:00 03/14/25 03/15/25 03/15/25 22:59 06:59 14:59 Intake Total 810 / 1010 Output Total 1942 / 2392 Balance -1132 / -1382 Weight last 48 hrs Weight 63.5 kg Weight 67.5 kg Weight 70.352 kg Weight 70.5 kg Weight 62.5 kg Physical Exam 2 Narrative: Vital signs stable. Patient is comfortable in bed in no apparent distress. HEENT normocephalic atraumatic. Neck is supple no JVP no carotid bruits. Lungs have dull bases otherwise clear. Heart regular positive S1-S2. Abdomen is soft positive bowel sounds. Extremities decreasing edema. Neuro no asterixis. Dialysis access right IJ permacath. Data 03/15/25 05:02 03/15/25 05:02 A&P Assessment and plan (1) CKD (chronic kidney disease) stage V requiring chronic dialysis: 54-year-old gentleman diabetic nephropathy progressed to ESRD is doing well on dialysis. Last dialysis was yesterday. 1. ESRD status post hemodialysis x 2 plan for repeat dialysis tomorrow 2. Anemia patient receiving IV iron and Epogen. 3. Blood pressure well-controlled. 4. Renal bone mineral metabolism. Patient has a normal phosphorus. Replace magnesium. Check vitamin D and PTH levels. 5. Awaiting outpatient dialysis slot. Patient seen and examined using A/V equipment with the aid of a nurse. Plan See above. PDMP PDMP Reviewed: Not Reviewed Attestations 2 Medical Necessity Statement*: Chronic kidney disease progressed to ESRD. Started dialysis needs outpatient slot. Time Spent in Patient Care: 16 - 35 minutes (>than 50% of time sp ent in counselling and/or direct pt care on unit) . Coding Level of Care Code Acute Code for [facility] Fwd Diagnoses CKD (chronic kidney disease) stage V requiring chronic dialysis N18.6; Z99.2
[2025-03-15] MEDS: atorvastatin 40 mg Tablet PO (08:32)
[2025-03-15 08:53] LABS: 25 Hydroxy Vitamin D 33 ng/mL (30-100)
[2025-03-15] MEDS: magnesium sulfate premix 1 GM/100 ML PIGGYBACK IV (09:24)
[2025-03-15 11:48] LABS: Glucose Point of Care 155 mg/dL (70-110)
[2025-03-15] MEDS: insulin lispro 100 unit/1 mL SUBCUT (12:13)
--- NOTE | 2025-03-15 14:24 | P.PN_ITS ---
Subjective 2 Subjective: seen this morning asymptomatic Vitals/I&O/Wt Last Vital Signs Temp 99.3 F 03/15/25 02:00 Pulse 71 03/15/25 14:00 Resp 22 H 03/15/25 12:00 BP 130/75 03/15/25 12:00 Pulse Ox 95 03/15/25 10:00 O2 Del Method Room Air 03/15/25 01:00 03/14/25 03/15/25 03/15/25 22:59 06:59 14:59 Intake Total 810 / 1010 600 / 600 Output Total 1942 / 2392 Balance -1132 / -1382 600 / 600 Weight last 48 hrs Weight 63.5 kg Weight 67.5 kg Weight 70.352 kg Weight 70.5 kg Physical Exam 2 Narrative: Vital signs stable. Patient is comfortable in bed in no apparent distress. HEENT normocephalic atraumatic. Lungs clear to auscultaion Heart regular positive S1-S2. Abdomen is soft positive bowel sounds. Extremities no edema Neuro no asterixis. Dialysis access right IJ permacath. Data 03/15/25 05:02 03/15/25 05:02 A&P Assessment and plan (1) Nausea & vomiting: (2) CKD (chronic kidney disease): (3) Hypotension: resolved (4) Hyperlipidemia: (5) IDDM (insulin dependent diabetes mellitus): (6) Anemia: (7) Metabolic acidosis: (8) Pancytopenia: (9) Acute renal failure: (10) Iron deficiency anemia: Plan Acute kidney injury on CKD stage V High anion gap metabolic acidosis - Suspect progression to end-stage renal disease - Nephrology consulted, discussed with adjunct instructor of women's studies - N.p.o. after midnight for tunneled line placement tomorrow - General Surgery, Dr. Maldonado consulted - Will plan on dialysis after line placement - Bicarb drip tonight as recommended by nephrology - Strict I's and O's - Daily weights Acute on chronic anemia of CKD stage V Pancytopenia - Iron levels are pending - Transfusing packed red blood cells tonight - Monitor for fluid overload, may need IV diuresis - Repeat labs in a.m. Nausea/vomiting - May be related to uremia versus gastroenteritis - CT abdomen/pelvis showed signs of possible early gastroenteritis - Antiemetics as needed - Check inflammatory markers - Monitor bowel movement consistency - Supportive care History of hypotension - On midodrine as outpatient - Monitor hemodynamics closely - Admit to ICU for close hemodynamic monitoring Insulin-dependent type 2 diabetes mellitus - Hold Lantus due to worsening renal function and nausea vomiting - Low-dose sliding scale insulin correction Hyperlipidemia - Continue statin DVT ppx: SCD 03/13/2025 continue mgmt as per Hnp dialysis catheter placement today, plan for dialysis pt s/p 3 units prbc recheck cbc q12h nausea has improved continue clear liquid diet thrombocytopenia: platelets 81, epo given x1 continue IV iron 200 daily x 5 days 03/14/2025 platelets better 91K today pt s/p 3 units rbc asymptomatic epo given 03/13/2025 continue IV iron 200 daily x 5 days total will need car salesman dialysis transfer to floor today 03/15/2025 hb stable 9.4 continue IV iron awaiting dialysis chair time outpt s/p epo plan for dialysis in AM labs are improving once chair time setup, pt may be dc home continue IV iron PDMP PDMP Reviewed: Not Reviewed Attestations 2 Medical Necessity Statement*: dialysis in am safe dc planning Diagnoses Nausea & vomiting R11.2 Stage 4 chronic kidney disease N18.4 Chronic kidney disease stage: stage 4 (severe) Hypotension I95.9 Hyperlipidemia E78.5 IDDM (insulin dependent diabetes mellitus) Iron deficiency anemia due to chronic blood loss D50.0 Anemia type: iron deficiency Iron deficiency anemia type: chronic blood loss Metabolic acidosis E87.20 Pancytopenia D61.818 Acute renal failure N17.9 Iron deficiency anemia D50.9
[2025-03-15] MEDS: iron sucrose 200 MG in sodium chloride 0.9% (100 ml) 100 ML 220 MG IV (15:02)
[2025-03-15 17:26] LABS: Glucose Point of Care 211 mg/dL (70-110)
[2025-03-15 19:19] LABS: Glucose Point of Care 105 mg/dL (70-110)
[2025-03-15 21:06] LABS: Glucose Point of Care 82 mg/dL (70-110)
--- NOTE | 2025-03-15 21:43 | PC.NURSE ---
Transfer Transferred patient to [facility] room 264. All belongings taken with patient, no complaints. [facility] nurse Ariane to bedside.
[2025-03-16 04:00] VITALS: BP 135/73; PULSE 68; RESP 15; TEMP 36.9; O2SAT 95
[2025-03-16 06:30] LABS: Glucose Point of Care 84 mg/dL (70-110)
--- NOTE | 2025-03-16 07:42 | PM.PN ---
Subjective Subjective: The patient was seen and examined feels well no nausea, vomiting, fevers, chills, headaches, diarrhea, shortness of breath. Medications: Reviewed: Yes Medication Review Details: Current Medications Acetaminophen (Acetaminophen 325 Mg Tablet) 650 mg PO Q6H PRN PRN Reason: Mild/Mod Pain Or Temp >/= 101 Atorvastatin Calcium (Atorvastatin 40 Mg Tablet) 40 mg PO DAILY [facility] Last Admin: 03/15/25 08:32 Dose: 40 mg Glucagon (Glucagon 1 Mg/Ml Kit 1 Ml) 1 mg IM ONCE PRN; Protocol PRN Reason: Adult Acute Hypoglycemia Nursing Prot. Dextrose (D5w) 500 mls @ 0 mls/hr IV ONCE PRN; Protocol PRN Reason: Adult Acute Hypoglycemia Prot Dextrose (D10w) 125 mls @ 750 mls/hr IV PRN PRN; Protocol PRN Reason: Adult Acute Hypoglycemia Nursing Protocol Dextrose (D10w) 250 mls @ 1,000 mls/hr IV PRN PRN; Protocol PRN Reason: Adult Acute Hypoglycemia Nursing Protocol Sodium Chloride (Sodium Chloride 0.9%) 1,000 mls @ 0 mls/hr IV .Q0M PRN PRN Reason: hypotension or symptomatic Albumin Human (Albumin) 12.5 gm in 50 mls @ 60 mls/hr IV PRN PRN PRN Reason: Hypotension and/or symptomatic Iron Sucrose 200 mg/ Sodium (Chloride) 110 mls @ 220 mls/hr IV Q24H [facility] Stop: 03/17/25 15:59 Last Infusion: 03/15/25 16:10 Dose: Infused Sodium Chloride (Sodium Chloride 0.9%) 1,000 mls @ 0 mls/hr IV .Q0M PRN PRN Reason: hypotension or symptomatic Albumin Human (Albumin) 12.5 gm in 50 mls @ 60 mls/hr IV PRN PRN PRN Reason: Hypotension and/or symptomatic Insulin Human Lispro (Insulin Lispro 100 Unit/1 Ml) 0 unit SUBCUT WM&BEDTIME [facility]; Protocol Last Admin: 03/16/25 07:09 Dose: Not Given Ondansetron HCl (Ondansetron 2 Mg/Ml Sdv 2 Ml) 4 mg IVP Q6H PRN PRN Reason: NAUSEA AND VOMITING Last Admin: 03/13/25 05:15 Dose: 4 mg Vitals/I&O/Wt Last Vital Signs Temp 98.4 F 03/16/25 04:00 Pulse 68 03/16/25 04:00 Resp 15 03/16/25 04:00 BP 135/73 03/16/25 04:00 Pulse Ox 95 03/16/25 04:00 O2 Del Method Room Air 03/16/25 04:00 03/15/25 03/16/25 03/16/25 22:59 06:59 14:59 Intake Total 350 / 950 0 / 950 Balance 350 / 950 0 / 950 Weight last 48 hrs Weight 63.095 kg Weight 63.5 kg Weight 67.5 kg Physical Exam Narrative: Vital signs stable. Patient is comfortable in bed in no apparent distress. HEENT normocephalic atraumatic. Neck is supple no JVP no carotid bruits. Lungs have dull bases otherwise clear. Heart regular positive S1-S2. Abdomen is soft positive bowel sounds. Extremities decreasing edema. Neuro no asterixis. Awake alert oriented x 3 full range of motion x 4. Dialysis access right IJ permacath. Data 03/15/25 05:02 03/15/25 05:02 A&P Assessment and plan (1) CKD (chronic kidney disease) stage V requiring chronic dialysis: 54-year-old gentleman diabetic nephropathy progressed to ESRD is doing well on dialysis. Last dialysis was yesterday. 1. ESRD status post hemodialysis x 2 plan for repeat dialysis today or tomorrow 2. Anemia patient receiving IV iron and Epogen. 3. Blood pressure well-controlled. 4. Renal bone mineral metabolism. Patient has a normal phosphorus. Replace magnesium. Check vitamin D and PTH levels. 5. Awaiting outpatient dialysis slot. Patient seen and examined using A/V equipment with the aid of a nurse. The patient consents to having telehealth to dialysis Plan See above. PDMP PDMP Reviewed: Not Reviewed Attestations Medical Necessity Statement*: Awaiting outpatient dialysis slot Time Spent in Patient Care: 16 - 35 minutes (>than 50% of time spent in counselling and/or direct pt care on unit). Coding Level of Care Code Acute Code for Chg Fwd Diagnoses CKD (chronic kidney disease) stage V requiring chronic dialysis N18.6; Z99.2
[2025-03-16 07:56] LABS: Basophils % 0.8 %; Eosinophils # 0.3 10^3/uL (0.0-0.8); Eosinophils % 6.1 %; Hematocrit 29.3 % (37-53); Lymphocytes # 1.1 10^3/uL (0.8-4.8); Lymphocytes % 23.1 %; Mean Corpuscular HGB Conc 33.4 g/dL (30-55); Mean Corpuscular Hemoglobin 29.8 pg (27-33); Mean Corpuscular Volume 89.1 fl (82-101); Mean Platelet Volume 11.3 fL (7.4-10.4); Monocytes # 0.5 10^3/uL (0.2-0.9); Monocytes % 10.8 %; Neutrophils # 2.76 10^3/uL (1.8-7.7); Neutrophils % 58.6 %; Nucleated Red Blood Cells % 0 %; Platelet Count 108 10^3/cmm (157-399); Red Blood Count 3.29 10^6/uL (3.85-5.65); Red Cell Distribution Width 13.5 % (12.1-15.1); White Blood Count 4.72 10^3/uL (3.29-11.43)
[2025-03-16 07:57] VITALS: BP 128/71; PULSE 69; RESP 17; TEMP 36.5; O2SAT 97
[2025-03-16 08:18] LABS: Alanine Aminotransferase < 5 U/L (0-41); Albumin Level 3.8 g/dL (3.5-5.2); Alkaline Phosphatase 90 U/L (40-130); Anion Gap 22.2 (5-19); Aspartate Amino Transferase 7 U/L (0-40); Blood Urea Nitrogen 53 mg/dL (6-20); Carbon Dioxide 19 mmol/L (22-29); Chloride 101 mmol/L (98-107); Creatinine Clr Calc Pharmacy 7.8834; Globulin 3.9 g/dL (1.3-4.6); Glomerular Filtration Rate 5.8 mL/min (90-130); Glucose 86 mg/dL (65-115); Osmolality Calculated 300 mOsm/kg (285-295); Phosphorus 5.3 mg/dL (2.5-4.5); Potassium 4.2 mmol/L (3.5-5.1); Sodium 138 mmol/L (136-145); Total Bilirubin 0.5 mg/dL (0.15-1.2); Total Protein 7.7 g/dL (6.6-8.7)
[2025-03-16 08:19] LABS: Calcium 8.8 mg/dL (8.5-10.5)
[2025-03-16 08:25] LABS: Parathyroid Hormone 250.9 pg/mL (15-65)
[2025-03-16] MEDS: atorvastatin 40 mg Tablet PO (08:56)
[2025-03-16] MEDS: albumin 12.5 GM/50 ML VIAL IV (10:12)
--- NOTE | 2025-03-16 11:47 | P.DS_ITS ---
Discharge Providers Date of Admission: 03/13/25 00:43 Date of Discharge: March 16, 2025 Attending Provider at Admission: Levi Hensley MD Attending Provider at Discharge: Khloe Harkins MD Primary Care Provider: Luther Nelson MD Diagnoses at Discharge Discharge Diagnosis (1) CKD (chronic kidney disease) stage V requiring chronic dialysis: Status: Acute Reason for Visit Reason for Visit: vomitting for several days Hospital Course Hospital Course Patient presented to the hospital with nausea vomiting x 1 week. In the ED he was found to have worsening renal function. He has been having worsening anemia in setting of CKD stage V. He follows with Dr. Miguel in [place] for outpatient nephrology care. He was admitted nephrology was consulted and dialysis recommended. Right IJ dialysis catheter placed. Patient started on di alysis. Once chair time was set up he was discharged home in stable condition on sevelamer. His home insulin was discontinued as he no longer requires it. Midodrine was also discontinued. Blood pressure and blood sugar have been stable without medication. He remained asymptomatic throughout hospitalization. Patient's hemoglobin upon arrival was also low. He got 3 units of packed RBCs. He received IV iron and erythropoietin. Hemoglobin has been stable since then. Discharge follow-up outpatient at this point. Patient and family agreeable. Physical Exam Narrative: Vital signs stable. Patient is comfortable in bed in no apparent distress. HEENT normocephalic atraumatic. Lungs clear to auscultaion Heart regular positive S1-S2. Abdomen is soft positive bowel sounds. Extremities no edema Neuro no asterixis. Dialysis access right IJ permacath. Discharge Data Studies Completed and Pending Completed Studies During Hospitalization Category Date Time Status CT abdomen pelvis wo con [id number] Stat Cat Scan 03/12/25 20:07 Completed XR chest 1V portable [id number] Routine Exams 03/13/25 10:53 Completed Pending at discharge Category Date Time Status Complete Blood Count w/Auto AM LABS Lab 03/17/25 04:00 Ordered Complete Blood Count w/Auto AM LABS Lab 03/18/25 04:00 Ordered Comprehensive Metabolic Panel AM LABS Lab 03/17/25 04:00 Ordered Comprehensive Metabolic Panel AM LABS Lab 03/18/25 04:00 Ordered Magnesium AM LABS Lab 03/17/25 04:00 Ordered Magnesium AM LABS Lab 03/18/25 04:00 Ordered Phosphorus AM LABS Lab 03/17/25 04:00 Ordered Phosphorus AM LABS Lab 03/18/25 04:00 Ordered VBG [Venous Blood Gas] Stat Lab 03/12/25 22:05 Received Radiology Impressions Abdomen/Pelvis CT 03/12/25 20:07 IMPRESSION: 1. Questionable early developing diarrheal state, possible nonspecific infectious or inflammatory gastroenteritis. See above details. 2. Linear bilateral lower chest pulmonary atelectasis, or scarring. Left lung volume loss. 3. Right nonobstructing nephrolithiasis. 4. Chronic findings. Chest X-Ray 03/13/25 10:53 IMPRESSION: Right IJ dialysis catheter in proper position. C-Arm Fluoroscopy 03/13/25 12:37 IMPRESSION: Right IJ catheter in proper position. Laboratory Results WBC 4.72 10^3/uL (3.29-11.43) 03/16/25 07:40 RBC 3.29 10^6/uL (3.85-5.65) L 03/16/25 07:40 Hgb 9.80 g/dL (11.27-16.99) L 03/16/25 07:40 Hct 29.3 % (37-53) L 03/16/25 07:40 MCV 89.1 fl (82-101) 03/16/25 07:40 MCH 29.8 pg (27-33) 03/16/25 07:40 MCHC 33.4 g/dL (30-55) 03/16/25 07:40 RDW 13.5 % (12.1-15.1) 03/16/25 07:40 Plt Count 108 10^3/cmm (157-399) L 03/16/25 07:40 MPV 11.3 fL (7.4-10.4) H 03/16/25 07:40 Neut % (Auto) 58.6 % 03/16/25 07:40 Lymph % (Auto) 23.1 % 03/16/25 07:40 Dupage % (Auto) 10.8 % 03/16/25 07:40 Eos % (Auto) 6.1 % 03/16/25 07:40 Baso % (Auto) 0.8 % 03/16/25 07:40 Neut # (Auto) 2.76 10^3/uL (1.8-7.7) 03/16/25 07:40 Lymph # (Auto) 1.1 10^3/uL (0.8-4.8) 03/16/25 07:40 Dupage # (Auto) 0.5 10^3/uL (0.2-0.9) 03/16/25 07:40 Eos # (Auto) 0.3 10^3/uL (0.0-0.8) 03/16/25 07:40 Baso # (Auto) 0.0 10^3/uL (0.0-0.1) 03/16/25 07:40 Nucleated RBC % (auto) 0 % 03/16/25 07:40 Nucleated RBCs # 0.0 /100WBC 03/16/25 07:40 Sodium 138 mmol/L (136-145) 03/16/25 07:40 Potassium 4.2 mmol/L (3.5-5.1) 03/16/25 07:40 Chloride 101 mmol/L (98-107) 03/16/25 07:40 Carbon Dioxide 19 mmol/L (22-29) L 03/16/25 07:40 Anion Gap 22.2 (5-19) H 03/16/25 07:40 BUN 53 mg/dL (6-20) H 03/16/25 07:40 Creatinine 9.4 mg/dL (0.7-1.2) H* 03/16/25 07:40 GFR Calculation 5.8 mL/min (90-130) L 03/16/25 07:40 Glucose 86 mg/dL (65-115) 03/16/25 07:40 POC Glucose 84 mg/dL (70-110) 03/16/25 06:21 Calculated Osmolality 300 mOsm/kg (285-295) H 03/16/25 07:40 Calcium 9.0 mg/dL (8.5-10.5) 03/16/25 07:40 Phosphorus 5.3 mg/dL (2.5-4.5) H 03/16/25 07:40 Magnesium 2.0 mg/dL (1.7-2.3) 03/16/25 07:40 Iron 185 ug/dL (59-158) H 03/12/25 19:29 TIBC 185.01486 mcg/dl 03/12/25 19:29 % Saturation 99.0 % (20-50) H 03/12/25 19:29 Unsat Iron Binding < 1 ug/dL (112-347) L 03/12/25 19:29 Ferritin 1307 ng/mL (30-400) H 03/12/25 19:29 Total Bilirubin 0.5 mg/dL (0.15-1.2) 03/16/25 07:40 AST 7 U/L (0-40) 03/16/25 07:40 ALT < 5 U/L (0-41) 03/16/25 07:40 Alkaline Phosphatase 90 U/L (40-130) 03/16/25 07:40 C-Reactive Protein 3.0 mg/L (0.0-4.9) 03/12/25 19:29 Total Protein 7.7 g/dL (6.6-8.7) 03/16/25 07:40 Albumin 3.8 g/dL (3.5-5.2) 03/16/25 07:40 Globulin 3.9 g/dL (1.3-4.6) 03/16/25 07:40 Vitamin B12 656 pg/mL (232-1245) 03/12/25 19:29 25-OH Vitamin D Total 33 ng/mL (30-100) 03/15/25 05:02 Procalcitonin 0.38 ng/mL (0-0.5) 03/12/25 19:29 PTH Intact 250.9 pg/mL (15-65) H 03/16/25 07:40 Calcium (PTH Intact) 8.8 mg/dL (8.5-10.5) 03/16/25 07:40 Serum Ketones Negative (Negative) 03/12/25 19:29 Hep Bs Antigen Non-reactive (Nonreactive) 03/13/25 03:47 Hep Bs Antibody < 3.5 (11.5-1000) L 03/13/25 03:47 Blood Type O Positive 03/12/25 20:21 Rho(D) Type Rh positive 03/12/25 20:21 Antibody Screen Negative 03/12/25 20:21 Crossmatch See Detail 03/12/25 20:21 Vitals Last Vital Signs Temp 97.7 F 03/16/25 07:57 Pulse 69 03/16/25 07:57 Resp 17 03/16/25 07:57 BP 128/71 03/16/25 07:57 Pulse Ox 97 03/16/25 07:57 O2 Del Method Room Air 03/16/25 07:57 Discharge Plan Discharge Patient Disposition: Home Condition: Stable Prescriptions: New sevelamer carbonate [Renvela] 800 mg tablet 800 mg PO TID Qty: 90 0RF Rx Instructions: must administer with a meal/food Continued atorvastatin 40 mg tablet 40 mg PO DAILY (DME) KAFO See Rx Instructions .Route .MEDSUPPLY Qty: 1 0RF Rx Instructions: As directed by Rosalio Luis (DME) wheel chair with leg rest to the right See Rx Instructions .Route .MEDSUPPLY Qty: 1 0RF Rx Instructions: As directed (DME) Tibial tubercal height foot prosthesis See Rx Instructions .Route .MEDSUPPLY Qty: 1 0RF Rx Instructions: As directed cholecalciferol (vitamin D3) [Vitamin D3] 125 mcg (5,000 unit) Tablet 125 mcg PO DAILY Discontinued sodium bicarbonate 650 mg tablet 1,300 mg PO BID Qty: 240 1RF midodrine 5 mg tablet 10 mg PO ONCE Qty: 120 2RF Rx Instructions: por dose semanas, comprobar pressor cada olegario insulin glargine 100 unit/mL (3 mL) insulin pen 10 unit SUBCUT DAILY Qty: 15 3RF insulin lispro [Humalog U-100 Insulin] 100 unit/mL Solution See Rx Instructions .ROUTE .COMPLEX Qty: 10 3RF Rx Instructions: With meals and bedtime: Glucose: 141-180 - 4 units 181-220 - 6 221-260 - 8 261-300 - 10 301-350 - 12 351-400 - 14 >400 - 16 units Men 50 Plus Multivitamin 426-11-006-300 mcg Tablet 1 tab PO DAILY Discharge Orders: Discharge Order (Routine); Ordered 03/16/25 Ordered By: Khloe Harkins Referrals: [facility] - [Outside] - 03/19/25 9:45 am Referral Note: You are scheduled for @ 09. You can discuss chair baljinder estrada/ [place] @ this time to see if you may be able to get a later chair time. You are currently scheduled for Sunday, , Sunday @ 0945 with your first appointment being March 19 @ 0945. Luther Nelson MD [Primary Care Provider, Family Practice] - 04/02/25 9:30 am Discharge Diet: As Directed Discharge Activity: Resume usual activity Patient Instructions: Sevelamer (By mouth), Acute Wound Care (DC), End Stage Kidney Disease (DC), Perma-cath Placement (DC), Opioid Safety, Post Anesthesia Care Discharge Attestations Time Spent in Discharge Care*: greater than 30 min Quality Metrics Clinical Quality Measures [ No reported AMI, CVA or VTE this stay] Coding Level of Care Code 78269 Total time (in minutes) for Discharge: 40 Diagnoses CKD (chronic kidney disease) stage V requiring chronic dialysis N18.6; Z99.2
[2025-03-16 11:59] VITALS: BP 107/69; PULSE 67; RESP 16; TEMP 36.6; O2SAT 98
[2025-03-16 12:30] LABS: Glucose Point of Care 88 mg/dL (70-110)
[2025-03-16 14:51] VITALS: BP 107/69; PULSE 67; O2SAT 98
[2025-03-16 17:19] VITALS: BP 100/71; BP 114/68; PULSE 68; PULSE 70; RESP 16; TEMP 36.9
== END 2025-03-16 14:51 | disposition home or self-care (01) ==
LOC: ER 21:52 → ER IP 03-13 02:47 → ICU 03-13 09:06 → ER IP 03-13 11:50 → MEDSURG 03-15 21:39
PROVIDERS: Hospitalist; Internal Medicine Nephrology; Surgery; Admitting Provider Internal Medicine; Emergency Provider Student in an Organized Health Care Education/Training Program; PCP Family Medicine; Visit Provider Internal Medicine
DX: I12.0 Hypertensive chronic kidney disease with stage 5 chronic kidney disease or end stage renal disease (principal); N18.6 End stage renal disease; E11.22 Type 2 diabetes mellitus with diabetic chronic kidney disease; Z99.2 Dependence on renal dialysis; Z79.4 Long term (current) use of insulin; I95.9 Hypotension, unspecified; E78.5 Hyperlipidemia, unspecified; D64.9 Anemia, unspecified; I48.20 Chronic atrial fibrillation, unspecified; E11.10 Type 2 diabetes mellitus with ketoacidosis without coma; K21.9 Gastro-esophageal reflux disease without esophagitis
CPT/HCPCS: 36561; 36415; 36416; 36430; 71045; 74176; 77001; 80048; 80053; 82009; 82306; 82310; 82607; 82728; 82803; 82962; 83540; 83550; 83735; 83970; 84100; 84145; 85025; 86140; 86706; 86850; 86900; 86920; 87340; 90935; 96365; 96367; 96372; 96374; 96375; 96376; 99291; 99292; C1750; G0378; J0690; J1644; J1756; J1815; J2405; J2704; J3010; J3475; J7030; J7070; J9999; P9016; P9047; Q3014; Q4081

== ENCOUNTER 2025-06-28 23:52 | Emergency (ER) | payer OTHER, SELFPAY ==
--- OUTSIDE RECORDS SUMMARY | 2025-06-22 19:00 | XMS_ITS ---
Author Name Dorothy Miguel Address [address] [place] [address] Phone [phone] Organization [facility], NA DOCUMENT DISCLAIMER Multiple document versions may exist, please be sure you review the latest version. The information in the [facility] Progress Note Document represents a providers documented clinical note containing certain health and medical information. It may not contain the complete medical history for the patient and should be independently verified. The represented time in the document is Eastern Time PROVIDER ROUNDING NOTE COMPREHENSIVE Patient:?Arden?Tereza?Shlomo,?1970,?55y,?M Dialysis?Location:?[facility] Attending?Supervisor Brine:?Rao Service?Date:?06/23/2025 Service?Provider:?Dorothy?Lamont,? I?met?face?to?face?with?the?patient?today. OVERVIEW The?patient?presented?with?ESRD?on?dialysis Primary?cause?of?renal?failure:?Type?2?diabetes?mellitus&#16 0;with?diabetic?chronic?kidney?disease Comments:??Vss,?seen?on?hd?machine Denies?questions?or?concerns?for?me?today Discussed?referral?for?transplant.?He?is?interested. Discussed?about?home?therapies?but?he?is?not?interested&#160 ;in?this?at?this?time. Refer?to?transplant. He?is?now?on?the?[facility]. Medications?and?labs?reviewed. DIALYSIS?PRESCRIPTION ??IHD?3x?Week?Start?date:?06/11/25 ??Dialyzer:?180NRe?Optiflux ??BFR:?400 ??DFR:?Autoflow?1.5 ??Potassium:?2.0 ??Sodium:?137 ??EDW:?72.5 ??Duration:?4:00 ??Calcium:?2.5 ??Bicarb:?39 ??Rx?updated?on:?06/11/2025 TREATMENT?ASSESSMENT Comments:?Stable BP?Stand?Pre ??06/18/2025:?98/69 ??06/16/2025:?102/62 BP?Sit?Pre ??06/20/2025:?131/81 ??06/18/2025:?116/67 ??06/16/2025:?123/74 BP?Stand?Post ??06/20/2025:?126/71 ??06/18/2025:?112/63 ??06/16/2025:?106/66 BP?Sit?Post ??06/20/2025:?130/75 ??06/18/2025:?139/74 ??06/16/2025:?128/63 Tx?Duration ??06/20/2025:?4:01 ??06/18/2025:?3:58 ??06/16/2025:?4:18 Missed?Treatments 0?-?last?30?days 0?-?last?60?days FLUID?ASSESSMENT Comments:?Minimal?fluid?gains. Monitor?EDW EDW?(kg) ??06/20/2025:?72.5 ??06/18/2025:?72.5 ??06/16/2025:?72.5 Weight?Pre?(kg) ??06/20/2025:?73.0 ??06/18/2025:?72.8 ??06/16/2025:?72.9 Weight?Post?(kg) ??06/20/2025:?72.2 ??06/18/2025:?72.5 ??06/16/2025:?72.2 PWV?(kg) ??06/20/2025:?-0.3 ??06/18/2025:?0.0 ??06/16/2025:?-0.3 UF?Rate?(mL/kg/hr) ??06/20/2025:?2.8 ??06/18/2025:?1 ??06/16/2025:?2.3 ADEQUACY?ASSESSMENT Comments:?Stable?at?goal spKt/V,?URR ??06/11/2025:?1.74,?79.0 ??05/07/2025:?1.99,?83.0 ??04/09/2025:?1.41,?73.0 ACCESS?ASSESSMENT ??Access?Type:?CVCatheter ??Access?SubType:?Tunneled ??Access?Status:?Active?(In?Use)?-?03/13/2025 ??Access?Location:?Chest ??Placed:?03/13/2025 Comments:?He?has?a?LUE?radial?AVF,?+?thrill. Vascular?access?reviewed.?Current?access?is?permanent?and?functioning?well. ANEMIA?ASSESSMENT Comments:?On?IV?iron?and?NORMA?protocol. HGB,?TSAT ??06/18/2025:?11.2,?- ??06/11/2025:?11.1,?86.0 ??06/04/2025:?11.1,?- ?? Ferritin ??05/28/2025:?896.0 ??04/09/2025:?837.0 ??04/02/2025:?1202.0 Mircera,?IVP?(mcg) ??06/16/2025:?30 ??05/19/2025:?75 ??04/28/2025:?50 Iron?Sucrose?(Venofer)?(mg) ??06/11/2025:?100 ??06/09/2025:?100 ??06/06/2025:?100 BMM?ASSESSMENT Comments:?He?is?on?calcitriol. Added?phos?binders. PTH,?Intact ??04/09/2025:?663.0 ?? Calcium,?Phosphorus ??06/11/2025:?8.4,?7.5 ??05/07/2025:?9.1,?6.0 ??04/09/2025:?9.1,?5.1 NUTRITION?ASSESSMENT Comments:?Potassium?better. Now?on?potassium?binder. Potassium,?Albumin ??06/18/2025:?5.2,?- ??06/11/2025:?6.0,?4.3 ??06/04/2025:?5.4,?- ?? eNPCR ??06/11/2025:?0.98 ??05/07/2025:?0.97 ??04/09/2025:?0.67 PHYSICAL?EXAM Exam?Performed.?Vital?Signs?Reviewed.?CV?-?Blood?pressure&#1 60;noted.?EXT?-?No?edema.?EXT?-?No?ulcers.?AVF/AVG Positive?thrill/bruit. DIAGNOSIS Chief?Complaint:?N18.6?End?stage?renal?disease Patient?is?stable. Patient?data?updated?06/23/2025?at?3:17?PM Signed?By:?Lamont,?Dorothy,???on?06/23/2025?3:21:32?PM END OF DOCUMENT
[2025-06-28 23:58] VITALS: BP 125/76; PULSE 73; RESP 18; TEMP 35.8; O2SAT 96; BMI 26.4
--- OUTSIDE RECORDS SUMMARY | 2025-06-29 00:04 | XMS_ITS | Encounter Summary ---
Author Organization [facility], [facility] Address [address] [place] [address] Phone Care Team Providers Care Live In Housekeeper Name Role Phone Luther Nelson Primary Care Provider [phone] Encounter Details Date Type Department Care Team (Late st Contact Info) Description 06/23/2025 [facility], [facility] [address] [place] [address] Dorothy Miguel MD [address] [place] [address] End stage renal disease; Dependence on renal dialysis Social History Tobacco Use Types Packs/Day Years Used Date Smoking Tobacco: Never Smokeless Tobacco: Never Alcohol Use Standard Drinks/Week Comments Never 0 (1 standard drink = 0.6 oz pur e alcohol) Sex and Gender Information Value Date Recorded Sex Assigned at Not on file Legal Sex Male 10:14 AM EDT Gender Identity Not on file Sexual Orientation Not on file documented as of this encounter Miscellaneous Notes * Dialysis Note - Dorothy Miguel MD - 06/23/2025 12:00 AM CDT Patient: Arden Keenan, 1970, 55y, M Dialysis Location: [facility] Attending Ordnance Artificer: Dorothy Miguel Service Date: 06/23/2025 Service Provider: Dorothy Miguel MD I met face to face with the patient today. OVERVIEW The patient presented with ESRD on dialysis Primary cause of renal failure: Type 2 diabetes mellitus with diabetic chronic kidney disease Comments: Vss, seen on hd machine Denies questions or concerns for me today Discussed referral for transplant. He is interested. Discussed about home therapies but he is not interested in this at this time. Refer to transplant. He is now on the [facility]. Medications and labs reviewed. DIALYSIS PRESCRIPTION IHD 3x Week Start date: 06/11/25 Dialyzer: 180NRe Optiflux BFR: 400 DFR: Autoflow 1.5 Potassium: 2.0 Sodium: 137 EDW: 72.5 Duration: 4:00 Calcium: 2.5 Bicarb: 39 Rx updated on: 06/11/2025 TREATMENT ASSESSMENT Comments: Stable BP Stand Pre 06/18/2025: 98/69 06/16/2025: 102/62 BP Sit Pre 06/20/2025: 131/81 06/18/2025: 116/67 06/16/2025: 123/74 BP Stand Post 06/20/2025: 126/71 06/18/2025: 112/63 06/16/2025: 106/66 BP Sit Post 06/20/2025: 130/75 06/18/2025: 139/74 06/16/2025: 128/63 Tx Duration 06/20/2025: 4:01 06/18/2025: 3:58 06/16/2025: 4:18 Missed Treatments 0 - last 30 days 0 - last 60 days FLUID ASSESSMENT Comments: Minimal fluid gains. Monitor EDW EDW (kg) 06/20/2025: 72.5 06/18/2025: 72.5 06/16/2025: 72.5 Weight Pre (kg) 06/20/2025: 73.0 06/18/2025: 72.8 06/16/2025: 72.9 Weight Post (kg) 06/20/2025: 72.2 06/18/2025: 72.5 06/16/2025: 72.2 PWV (kg) 06/20/2025: -0.3 06/18/2025: 0.0 06/16/2025: -0.3 UF Rate (mL/kg/hr) 06/20/2025: 2.8 06/18/2025: 1 06/16/2025: 2.3 ADEQUACY ASSESSMENT Comments: Stable at goal spKt/V, URR 06/11/2025: 1.74, 79.0 05/07/2025: 1.99, 83.0 04/09/2025: 1.41, 73.0 ACCESS ASSESSMENT Access Type: CVCatheter Access SubType: Tunneled Access Status: Active (In Use) - 03/13/2025 Access Location: Chest Placed: 03/13/2025 Comments: He has a LUE radial AVF, + thrill. Vascular access reviewed. Current access is permanent and functioning well. ANEMIA ASSESSMENT Comments: On IV iron and NORMA protocol. HGB, TSAT 06/18/2025: 11.2, - 06/11/2025: 11.1, 86.0 06/04/2025: 11.1, - Ferritin 05/28/2025: 896.0 04/09/2025: 837.0 04/02/2025: 1202.0 Mircera, IVP (mcg) 06/16/2025: 30 05/19/2025: 75 04/28/2025: 50 Iron Sucrose (Venofer) (mg) 06/11/2025: 100 06/09/2025: 100 06/06/2025: 100 BMM ASSESSMENT Comments: He is on calcitriol. Added phos binders. PTH, Intact 04/09/2025: 663.0 Calcium, Phosphorus 06/11/2025: 8.4, 7.5 05/07/2025: 9.1, 6.0 04/09/2025: 9.1, 5.1 NUTRITION ASSESSMENT Comments: Potassium better. Now on potassium binder. Potassium, Albumin 06/18/2025: 5.2, - 06/11/2025: 6.0, 4.3 06/04/2025: 5.4, - eNPCR 06/11/2025: 0.98 05/07/2025: 0.97 04/09/2025: 0.67 PHYSICAL EXAM Exam Performed. Vital Signs Reviewed. CV - Blood pressure noted. EXT - No edema. EXT - No ulcers. AVF/AVG Positive thrill/bruit. DIAGNOSIS Chief Complaint: N18.6 End stage renal disease Patient is stable. Patient data updated 06/23/2025 at 3:17 PM Signed By: Dorothy Miguel MD on 06/23/2025 3:21:32 PM documented in this encounter Plan of Treatment Not on file documented as of this encounter Visit Diagnoses Diagnosis End stage renal disease Dependence on renal dialysis documented in this encounter Care Teams Live In Housekeeper Relationship Specialty Start Date End Date Luther Nelson [address] [place] [address] PCP - General Family Medicine 10/01/24 documented as of this encounter
--- OUTSIDE RECORDS SUMMARY | 2025-06-29 00:04 | XMS_ITS ---
Author Name [facility] Address [address] [place] [address] Phone [phone] Organization [facility], NA DOCUMENT DISCLAIMER Multiple document versions may exist, please be sure you review the latest version. The information in the [facility] Continuity of Care Document represents a summary of certain health and medical information. It may not contain the complete medical history for the patient and should be independently verified. The represented time in the document is Eastern Time. 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.22 Active March 16, 2025 Anemia in chronic kidney disease D63.1 Active March 16, 2025 Iron deficiency anemia secon olga to blood loss (chronic) D50.0 Active March 16, 2025 ALLERGIES AND ADVERSE REACTIONS No Known Allergies SOCIAL HISTORY Tobacco Use Status Tobacco Type Unknown if ever consumed tobacco - Caregiver Characteristics No Information Available Characteristics of Home environment No Information Available Gender and Sex Information Gender Identity Sexual Orientation Male Decline to answer MEDICATIONS Prescribed Medications for Dialysis Treatments Medication Instructions Dosage Route Start Date End Date Status Heparin Sodium (Porcine) 1,000 Units/mL Catheter Lock Arterial Post Dialysis, Every Treatment 2000 units Arterial Red Port March 21, 2025 March 20, 2026 Active Heparin Sodium (Porcine) 1,000 Units/mL Catheter Lock Venous Post Dialysis, Every Treatment 2100 units Venous Blue Port March 21, 2025 March 20, 2026 Active Heparin Sodium (Porcine) 1,000 Units/mL Systemic Bolus, Every Treatment, Total treatment minutes 240 5000 units Intravenous - push March 19, 2025 March 18, 2026 Active Midodrine HCl (Proamatine) During Dialysis, PRN-march repeat x1 Systolic <100 5 mg Oral June 09, 2025 June 08, 2026 Active Mircera During Dialysis, Every 2 weeks 30 mcg Intravenous - push June 16, 2025 June 15, 2026 Active Iron Sucrose (Venofer) During Dialysis, 3X Week 100 mg Intravenous - push 2025 June 11, 2025 Discontinued Home Medications Medication Instructions Dosage Route Start Date End Date Stat us atorvastatin 40 mg Take by mouth once a day 1 tablet ORAL March 26, 2025 Active Lokelma 10 gram Take by mouth once a day as needed 1 packet ORAL May 28, 2025 Active midodrine 5 mg Take by mouth as directed 2 tablet ORAL March 26, 2025 Active sodium bicarbonate 650 mg Take by mouth twice a day 2 tablet ORAL March 26, 2025 Active VITAL SIGNS Post-Treatment Vital Signs Vital Sign Value Date / Time Blood Pressure-sitting 120/78 mmHg June 10:10 AM Blood Pressure-standing 130/67 mmHg June 062024 10:10 AM Heart Rate 74 beats per minute June 27 10:10 AM Respiratory Rate 18 breaths per minute June 10:10 AM Temperature 97.5 deg. F June 27, 2025 10:10 AM Weight Vital Sign Value Date / Time Estimated Dry Weight 72.8 kg June 25, 2025 11:59 PM Pre-Dialysis 72.40 kg June 27, 2025 10:10 AM Post-Dialysis 72.40 kg June 27, 2025 10:10 AM Other Other Value Date / Time Height 177.8 cm March 23, 2025 12: 00 AM Body Mass Index 22.88 kg/m2 June 23, 2025 04:32 PM HEALTH CONCERNS Tuberculosis Testing TST Date Administered TST Date Read TST Result 03/19/2025 03/21/2025 Negative (<5) mm LAB RESULTS Hematology Result Type Result Value Relevant Referen ce Range Interpretation Date Ferritin 1202 ng/mL 22 - 322 ng/mL High April 02 TIBC (Calc) 213 mcg/dL 185 - 515 mcg/dL - April 02, 2025 UIBC/TIBC 105 mcg/dL 155 - 355 mcg/dL Low April 02, 2025 Hemoglobin x 3 26.4 % 42.0 - 54.0 % Low April 02, 2025 Transferrin Sat. (Calc) 51 % 20 - 55 % - April 02, 2025 Iron 108 mcg/dL 45 - 160 mcg/dL - April 02, Neutrophils 63.5 % 40.0 - 75.0 % - April 09, 025 Lymphocytes 23.3 % 19.0 - 48.0 % - April 09, 025 Monocytes 5.6 % 3.0 - 10.0 % - April 09 Eosinophil 3.1 % 0.0 - 7.0 % - April 09, 2025 Basophils 1.3 % 0.0 - 1.5 % - April 09, 2025 Ferritin 837 ng/mL 22 - 322 ng/mL High April 09, TRENT 3.2 % 0.0 - 4.0 % - April 09, 2025 WBC (No Diff) 3.67 1000/mcL 4.80 - 10.80 1000/mcL Low April 09, 2025 MCH 30.6 pg 27.0 - 31.0 pg - April 09, MCHC 31.9 g/dL 30.0 - 36.0 g/dL - April 09, 2025 RDW 14.8 % 11.5 - 14.5 % High April 09 Hemoglobin x 3 26.4 % 42.0 - 54.0 % Low April Platelets 267 1000/mcL 130 - 400 1000/mcL - April 09, 2025 Iron 112 mcg/dL 45 - 160 mcg/dL - April 09, 2025 TIBC (Calc) 245 mcg/dL 185 - 515 mcg/dL - April UIBC/TIBC 133 mcg/dL 155 - 355 mcg/dL Low April 09, 2025 Transferrin Sat. (Calc) 46 % 20 - 55 % - April 09, 2025 Retic HGB 34.3 pg 25.4 - 31.8 pg High April 16, Hemoglobin x 3 28.2 % 42.0 - 54.0 % Low April Hemoglobin x 3 27.3 % 42.0 - 54.0 % Low April Hemoglobin x 3 28.8 % 42.0 - 54.0 % Low April UIBC/TIBC 217 mcg/dL 155 - 355 mcg/dL - May 07, 2025 TIBC (Calc) 295 mcg/dL 185 - 515 mcg/dL - May Iron 78 mcg/dL 45 - 160 mcg/dL - May 07, 2025 Transferrin Sat. (Calc) 26 % 20 - 55 % - May 07, 2025 Lymphocytes 36.3 % 19.0 - 48.0 % - May 07, Monocytes 6.9 % 3.0 - 10.0 % - May 07 Eosinophil 4.8 % 0.0 - 7.0 % - May 07, 2025 Basophils 1.2 % 0.0 - 1.5 % - May 07, 2025 Neutrophils 45.0 % 40.0 - 75.0 % - May 07 TRENT 5.8 % 0.0 - 4.0 % High May 07, 2025 RDW 15.9 % 11.5 - 14.5 % High May 07 Hemoglobin x 3 31.2 % 42.0 - 54.0 % Low May Platelets 245 1000/mcL 130 - 400 1000/mcL - May 07, 2025 MCH 31.5 pg 27.0 - 31.0 pg High May 07 MCHC 30.8 g/dL 30.0 - 36.0 g/dL - May 07, 2025 WBC (No Diff) 6.04 1000/mcL 4.80 - 10.80 1000/mcL - May 07, 2025 Hemoglobin x 3 29.7 % 42.0 - 54.0 % Low May Hemoglobin x 3 31.8 % 42.0 - 54.0 % Low May Ferritin 896 ng/mL 22 - 322 ng/mL High May 28 Hemoglobin x 3 31.8 % 42.0 - 54.0 % Low May Hemoglobin x 3 33.3 % 42.0 - 54.0 % Low May HGB 11.1 g/dL 14.0 - 18.0 g/dL Low June 04, 2025 Lymphocytes 26.7 % 19.0 - 48.0 % - June 11, 2025 Monocytes 7.0 % 3.0 - 10.0 % - June 11 Eosinophil 6.1 % 0.0 - 7.0 % - June 11 Neutrophils 53.3 % 40.0 - 75.0 % - June 11, 2025 RDW 14.5 % 11.5 - 14.5 % - June 11, 2025 HGB 11.1 g/dL 14.0 - 18.0 g/dL Low June Basophils 1.5 % 0.0 - 1.5 % - June 11 25 TRENT 5.4 % 0.0 - 4.0 % High June 11 WBC (No Diff) 3.88 1000/mcL 4.80 - 10.80 1000/mcL Low June 11, 2025 RBC 3.53 mill/mcL 4.70 - 6.10 mill/mcL Low June 11, 2025 HCT 35.0 % 42.0 - 52.0 % Low June 11, 2025 MCH 31.5 pg 27.0 - 31.0 pg High June 11, 2025 MCHC 31.8 g/dL 30.0 - 36.0 g/dL - June Hemoglobin x 3 33.3 % 42.0 - 54.0 % Low June 11, 2025 Platelets 186 1000/mcL 130 - 400 1000/mcL - 2024 TIBC (Calc) 258 mcg/dL 185 - 515 mcg/dL - June 11, 2025 Transferrin Sat. (Calc) 86 % 20 - 55 % High June 11, 2025 UIBC/TIBC 36 mcg/dL 155 - 355 mcg/dL Low June Iron 222 mcg/dL 45 - 160 mcg/dL High June HGB 11.2 g/dL 14.0 - 18.0 g/dL Low June 052024 Hemoglobin x 3 33.6 % 42.0 - 54.0 % Low June 18, 2025 Hemoglobin x 3 35.4 % 42.0 - 54.0 % Low June 25, 2025 HGB 11.8 g/dL 14.0 - 18.0 g/dL Low June 062024 Metabolic/Renal Result Type Result Value Relevant Referen ce Range Interpretation Date BUN/Creat Ratio 5.3 10.0 - 20.0 Low April 09, 2025 Creatinine, Serum 7.74 mg/dL 0.60 - 1.30 mg/dL High April 09, 2025 Potassium 6.5 mEq/L 3.5 - 5.1 mEq/L High April 09, 2025 Sodium 138 mEq/L 136 - 145 mEq/L - April 09, 2025 Bicarbonate 23 mEq/L 22 - 29 mEq/L - April 09, Chloride 106 mEq/L 96 - 108 mEq/L - April 09, BUN 41 mg/dL 6 - 19 mg/dL High April 09 URR, Calc 73 % 65 - 80 % - April 09, 2025 BUN, Post 11 mg/dL 6 - 19 mg/dL - April 09 Hemoglobin A1c 5.8 % 4.8 - 5.9 % - April 09, 2025 Potassium 6.5 mEq/L 3.5 - 5.1 mEq/L High April 30, 2025 Chloride 106 mEq/L 96 - 108 mEq/L - May 07, Bicarbonate 18 mEq/L 22 - 29 mEq/L Low May 07 Sodium 136 mEq/L 136 - 145 mEq/L - May 07, 2025 Potassium 5.8 mEq/L 3.5 - 5.1 mEq/L High May 07, 2025 URR, Calc 83 % 65 - 80 % High May 07, 2025 BUN, Post 9 mg/dL 6 - 19 mg/dL - May 07 BUN 54 mg/dL 6 - 19 mg/dL High May 07 Creatinine, Serum 8.46 mg/dL 0.60 - 1.30 mg/dL High May 07, 2025 BUN/Creat Ratio 6.4 10.0 - 20.0 Low May 07, 2025 Potassium 6.6 mEq/L 3.5 - 5.1 mEq/L High May 14, 2025 Potassium 6.2 mEq/L 3.5 - 5.1 mEq/L High May 28, 2025 Potassium 5.4 mEq/L 3.5 - 5.1 mEq/L High June 04, 2025 URR, Calc 79 % 65 - 80 % - June 11 BUN, Post 12 mg/dL 6 - 19 mg/dL - June 11, BUN 58 mg/dL 6 - 19 mg/dL High June 11 Creatinine, Serum 8.63 mg/dL 0.60 - 1.30 mg/dL High June 11, 2025 Bicarbonate 25 mEq/L 22 - 29 mEq/L - June 11, 2025 BUN/Creat Ratio 6.7 10.0 - 20.0 Low June Sodium 137 mEq/L 136 - 145 mEq/L - June Potassium 6.0 mEq/L 3.5 - 5.1 mEq/L High June Chloride 97 mEq/L 96 - 108 mEq/L - June 11, 2025 Potassium 5.2 mEq/L 3.5 - 5.1 mEq/L High June Potassium 7.4 mEq/L 3.5 - 5.1 mEq/L Critically high Augu st 2024 HD Adequacy Result Type Result Value Relevant Referen ce Range Interpretation Date wstdKt/V, residual 0.0 No Reference Range Provided - April 09, 2025 spKt/V (Daugirdas II) 1.41 No Reference Range Provided - April 09, 2025 eKt/V ([place]) 1.24 No Reference Range Provided - April 09, 2025 wstdKt/V 2.4 No Reference Ran ge Provided - April 09, 2025 Krt/V 0.00 No Reference Ran ge Provided - April 09, 2025 wstdKt/V without residual 2.4 No Reference Range Provided - April 09, 2025 spKt/V Gotch 1.41 No Reference Ran ge Provided - April 09, 2025 wstdKt/V without residual 2.7 No Reference Range Provided - May 07, 2025 Krt/V 0.00 No Reference Ran ge Provided - May 07, 2025 eKt/V ([place]) 1.74 No Reference Range Provided - May 07, 2025 spKt/V Gotch 1.97 No Reference Ran ge Provided - May 07, 2025 wstdKt/V, residual 0.0 No Reference Range Provided - May 07, 2025 spKt/V (Daugirdas II) 1.99 No Reference Range Provided - May 07, 2025 wstdKt/V 2.7 No Reference Ran ge Provided - May 07, 2025 Krt/V 0.00 No Reference Ran ge Provided - June 11, 2025 wstdKt/V 2.6 No Reference Ran ge Provided - June 11, 2025 eKt/V ([place]) 1.51 No Reference Range Provided - June 11, 2025 wstdKt/V, residual 0.0 No Reference Range Provided - June 11, 2025 wstdKt/V without residual 2.6 No Reference Range Provided - June 11, 2025 spKt/V (Daugirdas II) 1.74 No Reference Range Provided - June 11, 2025 spKt/V Gotch 1.73 No Reference Ran ge Provided - June 11, 2025 Bone/Mineral Result Type Result Value Relevant Referen ce Range Interpretation Date Magnesium 2.2 mg/dL 1.6 - 2.6 mg/dL - April 09, 2025 PTH-Intact, Plasma 663 pg/mL 16 - 80 pg/mL High Apr Corrected Ca x P Product 47 0 - 54 - April 09, 2025 Calcium, Total 9.1 mg/dL 8.4 - 10.2 mg/dL - April 09, 2025 Ca x P Product 46 0 - 54 - April 09, 2 025 Phosphorus 5.1 mg/dL 2.6 - 4.5 mg/dL High April 09, 2025 Alkaline Phosphatase 98 U/L 40 - 129 U/L - 2024 Corrected Ca x P Product 53 0 - 54 - May 07, 2025 Ca x P Product 55 0 - 54 High May 07, 025 Calcium, Total 9.1 mg/dL 8.4 - 10.2 mg/dL - May 07, 2025 Phosphorus 6.0 mg/dL 2.6 - 4.5 mg/dL High May 07, 2025 Ca x P Product 63 0 - 54 High June 11, 2025 Phosphorus 7.5 mg/dL 2.6 - 4.5 mg/dL High June Corrected Ca x P Product 62 0 - 54 High June 11, 2025 Calcium, Total 8.4 mg/dL 8.4 - 10.2 mg/dL - 2024 Liver/Nutrition Result Type Result Value Relevant Reference Range Interpre tation Date eNPCR 0.67 No Reference Ran ge Provided - April 09, 2025 Glucose 114 mg/dL 70 - 100 mg/dL High April 09, Albumin (BCG) 3.8 g/dL 3.5 - 5.2 g/dL - April Globulin (Calc) 3.7 g/dL 2.0 - 4.0 g/dL - April 09, 2025 A/G Ratio 1.0 1.0 - 2.0 - April 09, 2025 Total Protein 7.5 g/dL 6.0 - 8.5 g/dL - April Globulin (Calc) 3.9 g/dL 2.0 - 4.0 g/dL - May 07, 2025 A/G Ratio 1.1 1.0 - 2.0 - May 07, 2025 Albumin (BCG) 4.3 g/dL 3.5 - 5.2 g/dL - May Total Protein 8.2 g/dL 6.0 - 8.5 g/dL - May eNPCR 0.97 No Reference Ran ge Provided - May 07, 2025 Glucose 24 mg/dL 70 - 100 mg/dL Critically low May Glucose 136 mg/dL 70 - 100 mg/dL High May 28, eNPCR 0.98 No Reference Ran ge Provided - June 11, 2025 Glucose 128 mg/dL 70 - 100 mg/dL High June 11, 2025 Total Protein 7.5 g/dL 6.0 - 8.5 g/dL - June 11, 2025 Albumin (BCG) 4.3 g/dL 3.5 - 5.2 g/dL - June 11, 2025 Globulin (Calc) 3.2 g/dL 2.0 - 4.0 g/dL - 2024 A/G Ratio 1.3 1.0 - 2.0 - June 11 Infectious Diseases Result Type Result Value Relevant Referen ce Range Interpretation Date Hep B core Ab Total (anti-HBc) Negative No Reference Range Provided - April 23, 2025 Hep B Surface Ab (anti-HBs) < 10 mIU/mL No Reference Range Provided - April 23, 2025 Hep B Surface Ag (HBsAg) Negative No Reference Range Provided - June 11, 2025 DIALYSIS PRESCRIPTION Conventional Hemodialysis Data Element Value Order Date/Time June 25, 2025 Frequency 3X Week Treatment Days TueThuSat Dialyzer 180NRe Optiflux Treatment Time (Total Minutes) 240 min Blood Flow Rate (mL/min) 400 mL/min Dialysate Flow Rate Autoflow 1.5 Estimated Dry Weight 72.8 kg Dialysate Concentrate 2.0 K, 2.5 Ca, 1.0 Mg, 100 Dextrose (G2251) Sodium (mEq/L) 137 mEq/L Bicarb Machine Setting (mEq/L) 39 mEq/L Dialysis Access Hemodialysis-CV Cath eter-Tunneled, Chest, Right Jugular Access Placed on March 13, 2025 TRANSPLANT WAITLIST STATUS No Information on Transplant Waitlist Status ADVANCE DIRECTIVES Directive Description Ordered By Effective Date Resuscitation status Full Code Dorothy Miguel March DIALYSIS TREATMENTS Conventional Hemodialysis Date Pre-Treatment Vitals Post-Treatment Ana ls Duration (hr) BFR (mL/min) Dialysate Dialyzer Dialysis Access Meds Admin Augus t 2024 Weight 74.40 kg Weight 72.70 kg 04:00:00 450 2.0 K, 2.5 Ca, 1.0 Mg, 100 Dextrose (G2251) 180nre Optifl ux Blood Pressure-sitting 143/76 mmHg Blood Pressure-sit ting 120/73 mmHg Blood Pressure-standing 133/73 mmHg Blood Pressure-st anding 114/66 mmHg Heart Rate 68 beats per minute Heart Rate 70 beats per minute Respiratory Rate 18 breaths per minute Respiratory Rate 18 breaths per minute Temperature 97.5 deg. F Temperature 98.3 deg. F June 25, 2025 Weight 74.30 kg Weight 72.80 kg 04:06:00 410 2.0 K, 2.5 Ca, 1.0 Mg, 100 Dextrose (G2251) 180nre Optiflux Hemodialysis-CV Catheter-Tunneled, Chest, Right Jugular Access Placed on March 13, 2025 Heparin Sodium (Porcine) 1,000 Units/mL Catheter Lock Arterial; 2000units,Arterial Red Port Heparin Sodium (Porcine) 1,000 Units/mL Catheter Lock Venous; 2100units,Venous Blue Port Heparin Sodium (Porcine) 1,000 Units/mL Systemic; 5000units,Intravenous - push Blood Pressure-sitting 148/88 mmHg Blood Pressure-sit ting 123/67 mmHg Heart Rate 71 beats per minute Blood Pressure-standi ng 123/67 mmHg Respiratory Rate 18 breaths per minute Heart Rate 79 beats per minute Temperature 97.4 deg. F Respiratory Rate 18 breaths per minute - - Temperature 97.3 deg. F June 27, 2025 Weight 72.40 kg Weight 72.40 kg 03:04:00 400 2.0 K, 2.5 Ca, 1.0 Mg, 100 Dextrose (G2251) 180nre Optiflux Hemodialysis-CV Catheter-Tunneled, Chest, Right Jugular Access Placed on March 13, 2025 Heparin Sodium (Porcine) 1,000 Units/mL Catheter Lock Arterial; 2000units,Arterial Red Port Heparin Sodium (Porcine) 1,000 Units/mL Catheter Lock Venous; 2100units,Venous Blue Port Heparin Sodium (Porcine) 1,000 Units/mL Systemic; 5000units,Intravenous - push Blood Pressure-sitting 110/64 mmHg Blood Pressure-sit ting 120/78 mmHg Blood Pressure-standing 85/49 mmHg Blood Pressure-st anding 130/67 mmHg Heart Rate 90 beats per minute Heart Rate 74 beats per minute Respiratory Rate 16 breaths per minute Respiratory Rate 18 breaths per minute Temperature 97.0 deg. F Temperature 97.5 deg. F
--- OUTSIDE RECORDS SUMMARY | 2025-06-29 00:04 | XMS_ITS | Encounter Summary ---
Author Organization [facility] Address [address] [place] [address] Phone Care Team Providers Care Jacquard Lace Weaver Name Role Phone Luther Nelson Primary Care Provider [phone] Encounter Details Date Type Department Care Team (Late st Contact Info) Description 06/25/2025 Orders Only [facility] [address] [place] [address] Dorothy Miguel MD [address] [place] [address] Social History Tobacco Use Types Packs/Day Years [...] on file documented as of this encounter Plan of Treatment Not on file documented as of this encounter Procedures Procedure Name Priority Date/Time Associated Diagnosis Comments HEMATOLOGY Routine 06/25/2025 CHEMISTRY Routine 06/25/2025 documented in this encounter Results * (ABNORMAL) [facility] (06/25/2025) Potassium 7.4(H) 3.5 - 5.1 mEq/L [facility] Comment: Verified by repeat analysis. 06/25/2025 06/26/2025 11: 41 AM CDT Narrative [facility] - 06/26/2025 Unless otherwise specified, test(s) performed at: [facility], [address] [place] [id number] [employer] CURER: Shimon Nazario M.D. For any questions, please call customer service at FREQUENCY:OTHER Resulting Agency Comment Specimen source: Serum Dorothy Miguel MD LAB BLOOD ORDERABLES Final Re sult Performing Organization Address [facility]/ZIP Co de Phone Number [facility] See order comments or contact performing lab Unknown, [place] * (ABNORMAL) HEMATOLOGY (06/25/2025) Hemoglobin 11.8(L) 14.0 - 18.0 g/dL [facility] Hemoglobin x 3 35.4(L) 42.0 - 54.0 % [facility] 06/25/2025 06/26/2025 10: 34 AM CDT Narrative [facility] - 06/26/2025 Unless otherwise specified, test(s) performed at: [facility], [address] [place] [id number] [employer] CURER: Shimon Nazario M.D. For any questions, please call customer service at FREQUENCY:OTHER Resulting Agency Comment Specimen source: Blood us Dorothy Miguel MD LAB BLOOD ORDERABLES Final Re sult Performing Organization Address [facility] Co de Phone Number [facility] See order comments or contact performing lab Unknown, [place] documented in this encounter Visit Diagnoses Not on filedocumented in this encounter Care Teams Jacquard Lace Weaver Relationship Specialty Start Date End Date Luther Nelson [address] [facility] [address] [place] [address] PCP - General Family Medicine 10/01/24 documented as of this encounter
--- OUTSIDE RECORDS SUMMARY | 2025-06-29 00:04 | XMS_ITS | Clinical Summary ---
Author Organization [facility] Address [address] [place] [address] Phone Care Team Providers Care Photo Lab Specialist Name Role Phone Unavailable Primary Care Provider Unavailabl e Allergies No known active allergies Medications atorvastatin (LIPITOR) 40 mg tablet Take 40 mg by mouth daily. Active midodrine (PROAMATINE) 10 mg Tablet Take 10 mg by mouth 2 times daily. Active multivitamin (DAILY-XAVIER) tablet Take 1 Tablet by mouth daily. Active cholecalciferol , vitamin D3, 5,000 unit Take 5,000 Units by mouth daily. Active oxyCODONE-aceta minophen (PERCOCET) 5-325 mg tabletIndicatio ns:ESRD (end stage renal disease) ([facility]/HCC) Take 1 Tablet by mouth every 4 hours as needed for Pain, Moderate. Max Daily Amount: 6 Tablets 15 Tablet 05/20/2025 Active Active Problems No known active problems Encounters Date Type Department Care Team Description 06/12/2025 Telephone [facility] Vascular Surgery [address] [phone] Anna Gifford MD Appointment Verification 06/05/2025 3:30 PM CDT Office Visit [facility] Vascular Surgery [address] [phone] Anna Gifford MD ESRD (end stage renal disease) ([facility]/HCC) (Primary Dx) 05/20/2025 7:30 AM CDT - 05/20/2025 8:54 AM CDT Surgery [facility] Cardiac Alterations Manager [address] [place] [address] Anna Gifford MD Fistula 05/20/2025 5:32 AM CDT - 05/20/2025 10:49 AM CDT Hospital Encounter [facility] Prep Recovery [address] [place] [address] Anna Gifford MD End stage renal disease ([facility]) Discharge Disposition: Home or Self Care 05/20/2025 Travel 05/19/2025 Prep for Surgery [facility] Vascular [address] [phone] Anna Gifford MD ESRD (end stage renal disease) ([facility]) (Primary Dx) 05/15/2025 11:00 AM CDT Office Visit [facility] Vascular [address] [phone] Anna Gifford MD ESRD (end stage renal disease) ([facility]) (Primary Dx); Type 2 diabetes mellitus with chronic kidney disease on chronic dialysis, unspecified whether [facility] insulin use ([facility]) 05/15/2025 10:30 AM CDT Ancillary Procedure [facility]- [address] [phone] Anna Gifford MD CKD (chronic kidney disease) stage 4, GFR 15-29 ml/min ([facility]) 05/15/2025 Telephone [facility] Vascular Surgery [address] [phone] Anna Gifford MD Surgery Talk 04/28/2025 External Device Data ST[facility] ABSTRACTION Provider, Abstract 04/08/2025 Telephone [facility] Vascular [address] [phone] Anna Gifford MD Referral 04/06/2025 Orders Only [facility] Vascular Surgery [address] [phone] Anna Gifford MD CKD (chronic kidney disease) stage 4, GFR 15-29 ml/min ([facility]) (Primary Dx) 04/06/2025 Abstract [facility] Vascular Surgery [address] [phone] Anna Gifford MD from Last 3 Months Social History Tobacco Use Types Packs/Day Years Used Date Smoking Tobacco: Former Cigarettes Tobacco Cessation:Counseling Given: Not Answered Sex and Gender Information Value Date Recorded Sex Assigned at Not on file Legal Sex Male 4:16 PM CDT Gender Identity Not on file Sexual Orientation Not on file Last Filed Vital Signs Vital Sign Reading Time Taken Comments Blood Pressure 114/68 06/05/2025 2:58 PM CDT Pulse 72 06/05/2025 2:58 PM CDT Temperature 36.4 C (97.5 F) 05/20/2025 6:42 AM CDT Respiratory Rate - - Oxygen Saturation 95% 06/05/2025 2:58 PM CDT Inhaled Oxygen Concentration - - Weight 71.7 kg (158 lb) 06/05/2025 2:58 PM CDT Height 172.7 cm (5' 8 ) 05/20/2025 6:42 AM CDT Body Mass Index 24.02 05/20/2025 6:42 AM CDT Plan of Treatment Upcoming Encounters Date Type Department Care Team (Late st Contact Info) Description 07/03/2025 12:00 PM CDT Ancillary Procedure [facility]- [address] [phone] Anna Gifford MD [address] [phone] 07/03/2025 1:30 PM CDT Office Visit [facility] Vascular Surgery [address] [phone] Anna Gifford MD [address] [phone] Health Maintenance Due Date Last Done Comments DIABETES ANNUAL FOOT EXAM 1986 DIABETES ANNUAL RETINAL EXAM 1986 DIABETES MICROALBUMIN ANNUAL SCREEN 1986 LDL CHOLESTEROL ANNUAL 1986 DTAP/TDAP/TD VACCINES (1 - Tdap) 1987 HEPATITIS B VACCINES (1 of 3 - Risk Dialysis 4-dose series) 1988 COLORECTAL SCREENING 2013 Colorectal Cancer Screening 2013 FIT-DNA Q 3 years 2013 FIT/FOBT Q 1 year 2013 Flex Sig/CT Colonography Q 5 years 2013 ZOSTER VACCINE (1 of 2) 2018 INFLUENZA VACCINE (#1) 2025 DIABETES HBA1C Q 6 MONTHS 10/09/2025 04/09/2025 Procedures Procedure Name Priority Date/Time Associated Diagnosis Comments CL FISTULA Routine 05/20/2025 8:53 AM CDT End stage renal disease ([facility]) US DUPLEX PREOP VESS ASSESS BILAT Routine 05/15/2025 11:11 AM CDT CKD (chronic kidney disease) stage 4, GFR 15-29 ml/min ([facility]) from Last 3 Months Results * CL FISTULA (05/20/2025 8:53 AM CDT) 05/20/2025 7:45 AM CDT Narrative Silvio Vincent RN - 05/20/2025 8:56 AM CDT Procedure was not performed by a Optometry Assistant, please see Chart Review - Notes tab for operative report. us Anna Gifford MD CUP CATH ORDERABLES Final Resu lt * US DUPLEX PREOP VESS ASSESS BILAT (05/15/2025 11:11 AM CDT) Anatomical Region Laterality Modality Lower Extremity, Upper Extremity Ultrasound 05/15/2025 10:2 9 AM CDT Narrative 05/16/2025 7:16 PM CDT [facility] Center [address] [address] Noninvasive Vascular Lab Upper Extremity Evaluation for Hemodialysis Access Patient: Arden Keenan Study ID: US DUPLEX PREOP Gender: M : 1970 Age: 54 Room: Height: Weight: BSA: Pt status: Outpatient Study Date: 05/15/2025 Study Time: 10:29:03 AM BSA: Ordering: Anna Gifford MD Interpreting:Chepe Tucker Coating Mixer: Akanksha Bennett Indications: CKD. Summary Impression: 1. Normal arterial inflow, involving the left upper extremity. 2. Normal venous outflow involving the veins of the left upper extremity. 3. See scanned worksheet for measurements. Study data: Upper extremity evaluation for hemodialysis access. Duplex scan and vessel mapping. Location: Vascular laboratory. Patient status: Outpatient. Study status: Routine. Objective: Pre-procedural evaluation for dialysis access surgery. Procedure: A vascular evaluation was performed. Image quality was good. [facility] Lab and Vein Center is accredited with the Intersocietal Commission for the Accreditation of Vascular Laboratories (ICAVL) Prepared and Electronically Authenticated Chepe Tucker Confirmed 05/16/2025 19:16 Procedure Note Chepe Tucker MD - 05/16/2025 [facility] Lab [facility] Ve[facility] [address] Noninvasive Vascular Lab Upper Extremity Evaluation for Hemodialysis Access Patient: Arden Keenan Study ID: US DUPLEX PREOP Gender: M : 1970 Age: 54 Room: Height: Weight: BSA: Pt status: Outpatient Study Date: 05/15/2025 Study Time: 10:29:03 AM BSA: Ordering: Anna Gifford MD Interpreting:Chepe Tucker Coating Mixer: Bennett, Hope Indications: CKD. Summary Impression: 1. Normal arterial inflow, involving the left upper extremity. 2. Normal venous outflow involving the veins of the left upperextremity. 3. See scanned worksheet for measurements. Study data: Upper extremity evaluation for hemodialysis access.Duplex scan and vessel mapping. Location: Vascular laboratory. Patientstatus: Outpatient. Study status: Routine. Objective: Pre-procedural evaluation for dialysis access surgery. Procedure: A vascular evaluationwas performed. Image quality was good. [facility] is accredited withthe [facility] Commission for the Accreditation of Vascular Laboratories (ICAVL) Prepared and Electronically Authenticated Garrett Chepe Confirmed 05/16/2025 19:16 us Anna Gifford MD ORDERABLES Final Result from Last 3 Months Insurance [employer] [facility] [id number]
--- OUTSIDE RECORDS SUMMARY | 2025-06-29 00:04 | XMS_ITS | Encounter Summary ---
Author Organization [facility], [facility] Address [address] [place] [address] Phone Care Team Providers Care Cardiology Coordinator Name Role Phone Luther Nelson Primary Care Provider [phone] Encounter Details Date Type Department Care Team (Late st Contact Info) Description 06/05/2024 Orders Only [facility] [employer] [address] [facility] [address] [place] [address] Chronic kidney disease, not otherwise specified Social History Tobacco Use Types Packs/Day Years Used Date Smoking Tobacco: Never Assessed Sex and Gender Information Value Date Recorded Sex Assigned at Not on file Legal Sex Male 10:14 AM EDT Gender Identity Not on file Sexual Orientation Not on file documented as of this encounter Plan of Treatment Not on file documented as of this encounter Visit Diagnoses Diagnosis Chronic kidney disease, not otherwise specified documented in this encounter Care Teams Cardiology Coordinator Relationship Specialty Start Date End Date Luther Nelson [address] [place], [place] [phone] PCP - General Family Medicine 10/01/24 documented as of this encounter
--- OUTSIDE RECORDS SUMMARY | 2025-06-29 00:04 | XMS_ITS | Encounter Summary ---
Author Organization [facility], [facility] Address [address] [facility] [address] [place] [address] Phone Care Team Providers Care Cuff Stitcher Name Role Phone Luther Nelson Primary Care Provider [phone] Reason for Visit * Reason Comments Med Refill Encounter Details Date Type Department Care Team (Late st Contact Info) Description 06/12/2025 Refill [facility], [facility] [address] [place] [address] Joslyn Griffiths, SENIOR CONTROLS TECHNICIAN [address] [facility] [address] [place] [address] Social History Tobacco Use Types [...] documented as of this encounter Visit Diagnoses Not on filedocumented in this encounter Care Teams Cuff Stitcher Relationship Specialty Start Date End Date Luther Nelosn [address] [place] [address] PCP - General Family Medicine 10/01/24 documented as of this encounter
--- OUTSIDE RECORDS SUMMARY | 2025-06-29 00:04 | XMS_ITS | Clinical Summary ---
Author Organization [facility], [facility] Address [address] [place] [address] Phone Care Team Providers Care Highwall Drill Operator Name Role Phone Luther Nelson Primary Care Provider [phone] Allergies No known active allergies Medications ASPIRIN 81 PO Take 81 mg by mouth 1 (one) time each day 05/22/20 24 Active atorvastatin (LIPITOR) 40 MG tablet Take 40 mg by mouth 1 (one) time each day 05/22/20 24 Active Insulin Lispro (HUMALOG KWIKPEN SC) Per sliding scale at bedtime 05/22/20 24 Active midodrine (PROAMATINE) 10 MG tablet Take 10 mg by mouth in the morning and 10 mg in the evening and 10 mg before bedtime. 05/22/20 24 Active insulin glargine (LANTUS) 100 UNIT/ML injection Inject under the skin every night Active Cholecalciferol (D3 5000 PO) Take by mouth Active sodium bicarbonate 650 MG tabletIndications:Chron ic kidney disease stage 4 (HCC) Take 2 tablets (1,300 mg total) by mouth in the morning and 2 tablets (1,300 mg total) in the evening and 2 tablets (1,300 mg total) before bedtime. 540 tablet 3 01/15/20 25 026 Active Patiromer Sorbitex Calcium 8.4 g packIndications:Stage 5 chronic kidney disease (HCC),Secondary hyperparathyroidism of renal origin (HCC) Take 1 packet by mouth 2 (two) times a week 12 each 01/16/20 25 Active Active Problems Problem Noted Date Diagnosed Date Anemia in chronic kidney disease 11/27/2024 Hypertensive chronic kidney disease with stage 1 through stage 4 chronic kidney disease, or unspecified chronic kidney disease 11/25/2024 Stage 5 chronic kidney disease 11/25/2024 Type 2 diabetes mellitus wit h diabetic chronic kidney disease 11/24/2024 Chronic metabolic acidosis 11/24/2024 Secondary hyperparathyroidism of renal origin Resolved Problems Problem Noted Date Diagnosed Date Resolved Date Chronic kidney disease stage 4 11/24/2024 11/25/2024 Encounters Date Type Department Care Team Description 06/25/2025 [facility], [facility] [address] [place] [phone] Dorothy Miguel MD 06/23/[address] [place] [address] [facility], [facility] [address] [place] [address] Dorothy Miguel MD End stage renal disease; Dependence on renal dialysis 06/18/2025 Orders Only [facility], [facility] [address] [place] [address] Dorothy Miguel MD 06/16/2025 Treatment [facility], [facility] [address] [place] [address] Joslyn Griffiths NP End stage renal disease; Dependence on renal dialysis; Type 2 diabetes mellitus with diabetic chronic kidney disease 06/12/2025 [facility]ill [facility], [address] [phone] Joslyn Griffiths NP 06/11/[address] [place] [address] [facility], [facility] [address] [place] [address] Gabrielle Kaminski NP End stage renal disease; Dependence on renal dialysis; Type 2 diabetes mellitus with diabetic chronic kidney disease 06/11/2025 Orders Only [place] [facility], [facility] [address] [place] [address] Dorothy Miguel MD 06/04/2025 Orders [facility], [facility] [address] [place] [phone] Dorothy Miguel MD 05/28/2025 Orders Only [facility], [facility] [address] [place] [address] Dorothy Miguel MD 05/26/[address] [place], [place] [address]rology [facility], [facility] [address] [place] [address] Dorothy Miguel MD End stage renal disease; Dependence on renal dialysis 05/21/2025 Orders [facility], [facility] [address] [place] [address] Dorothy Miguel MD 05/19/[address] [place] [address], [facility] [address] [place] [address] Joslyn Griffiths, TONYA End stage renal disease; Dependence on renal dialysis; Type 2 diabetes mellitus with diabetic chronic kidney disease 05/14/2025 Orders [facility], [facility] [address] [place] [address] Dorothy Miguel MD 05/12/[address] [place] [address], [facility] [address] [place] [address] Gabrielle Kaminski NP End stage renal disease; Dependence on renal dialysis 05/07/2025 Orders [facility], [facility] [address] [place] [address] Dorothy Miguel MD 05/05/[address] [place], [place] [address]rology [facility], [facility] [address] [place] [address] Gabrielle Kaminski NP End stage renal disease; Dependence on renal dialysis 04/30/2025 Orders [facility], [facility] [address] [place] [address] Dorothy Miguel MD 04/28/[address] [place], [place] [address]rology [facility], [facility] [address] [place] [phone] Joslyn Griffiths NP End stage renal disease; Dependence on renal dialysis 04/23/2025 Orders [facility], [facility] [address] [place] [address] Dorothy Miguel MD 04/23/[address] [place] [address] [facility] [address] [place] [address] Dorothy Miguel MD End stage renal disease; Dependence on renal dialysis; Type 2 diabetes mellitus with diabetic chronic kidney disease 04/16/2025 Orders [facility], [facility] [address] [place] [address] Dorothy Miguel MD 04/14/[address] [place] [address] [facility] [address] [place] [address] Joslyn Griffiths NP End stage renal disease; Dependence on renal dialysis 04/09/2025 Orders [facility], [facility] [address] [place] [address] Dorothy Miguel MD 04/07/[address] [place] [address] [facility], [facility] [address] [place] [address] Joslyn Griffiths NP End stage renal disease; Dependence on renal dialysis 04/02/2025 Orders Only [place] [facility], [facility] [address] [place] [address] Dorothy Miguel MD 04/02/[address] [place] [address] [facility], [facility] [address] [place] [address] Dorothy Miguel MD End stage renal disease; Dependence on renal dialysis from Last 3 Months Family History Medical History Relation Comments Diabetes Father Relation Status Comments Father Social History Tobacco Use Types Packs/Day Years Used Date Smoking Tobacco: Never Smokeless Tobacco: Never Tobacco Cessation:Counseling Given: Not Answered Alcohol Use Standard Drinks/Week Comments Never 0 (1 standard drink = 0.6 oz pur e alcohol) Sex and Gender Information Value Date Recorded Sex Assigned at Not on file Legal Sex Male 10:14 AM EDT Gender Identity Not on file Sexual Orientation Not on file Last Filed Vital Signs Vital Sign Reading Time Taken Comments Blood Pressure 144/70 01/14/2025 3:02 PM CDT Pulse 64 01/14/2025 3:02 PM CDT Temperature - - Respiratory Rate - - Oxygen Saturation 98% 10/01/2024 9:13 AM CORPORATE HEALTH CONSULTANT Inhaled Oxygen Concentration - - Weight 74.8 kg (165 lb) 01/14/2025 3:02 PM CDT Height 167.6 cm (5' 6 ) 01/14/2025 3:02 PM CDT Body Mass Index 26.63 01/14/2025 3:02 PM CDT Plan of Treatment Health Maintenance Due Date Last Done Comments Pneumococcal Vaccine: 50+ Years (1 of 2 - PCV) 987 Hepatitis B Vaccine (1 of 5 - Risk Dialysis 4-dose series) 1988 Colorectal Cancer Screening: Annual FOBT 2017 Colorectal Cancer Screening: Colonoscopy 2017 Colorectal Cancer Screening: Sigmoidoscopy 2017 Diabetes: Ophthalmology Exam 06/16/2024 Diabetes: Pedal Pulse Checked 06/16/2024 Diabetes: Sensory Foot Exam 06/16/2024 Diabetes: Visual Foot Exam 06/16/2024 Influenza Vaccine (#1) 2025 Diabetes: Hemoglobin A1C 07/10/2025 04/09/2025 Procedures Procedure Name Priority Date/Time Associated Diagnosis Comments CHEMISTRY Routine 06/25/2025 HEMATOLOGY Routine 06/25/2025 CHEMISTRY Routine 06/18/2025 HEMATOLOGY Routine 06/18/2025 [facility] RESULTS Routine 06/11/2025 IMMUNO CHEMISTRY Routine 06/11/2025 HD KINETICS Routine 06/11/2025 CHEMISTRY Routine 06/11/2025 POST CHEMISTRY Routine 06/11/2025 HEMATOLOGY Routine 06/11/2025 HEMATOLOGY Routine 06/04/2025 CHEMISTRY Routine 06/04/2025 CHEMISTRY Routine 05/28/2025 HEMATOLOGY Routine 05/28/2025 HEMATOLOGY Routine 05/21/2025 CHEMISTRY Routine 05/14/2025 HEMATOLOGY Routine 05/14/2025 [facility] LAB RESULTS Routine 05/07/2025 HD KINETICS Routine 05/07/2025 POST CHEMISTRY Routine 05/07/2025 IMMUNO CHEMISTRY Routine 05/07/2025 CHEMISTRY Routine 05/07/2025 HEMATOLOGY Routine 05/07/2025 CHEMISTRY Routine 04/30/2025 HEMATOLOGY Routine 04/30/2025 HEMATOLOGY Routine 04/23/2025 IMMUNO CHEMISTRY Routine 04/23/2025 HEMATOLOGY Routine 04/16/2025 [facility] LAB RESULTS Routine 04/09/2025 HD KINETICS Routine 04/09/2025 POST CHEMISTRY Routine 04/09/2025 IMMUNO CHEMISTRY Routine 04/09/2025 CHEMISTRY Routine 04/09/2025 SPECIAL CHEMISTRY Routine 04/09/2025 HEMATOLOGY Routine 04/09/2025 CHEMISTRY Routine 04/09/2025 HEMATOLOGY Routine 04/02/2025 CHEMISTRY Routine 04/02/2025 from Last 3 Months Results * (ABNORMAL) HEMATOLOGY (06/25/2025) Only the most recent of13 resultswithin the time period is included. Hemoglobin 11.8(L) 14.0 - 18.0 g/dL [facility] Hemoglobin x 3 35.4(L) 42.0 - 54.0 % [facility] 06/25/2025 06/26/2025 10: 34 AM CDT Narrative [facility] - 06/26/2025 Unless otherwise specified, test(s) performed at: [facility], [address] [place] [address] BOOSTER PLANT OPERATOR: Shimon Nazario M.D. For any questions, please call customer service at FREQUENCY:OTHER Resulting Agency Comment Specimen source: Blood Dorothy Miguel MD LAB BLOOD ORDERABLES Final Re sult [facility] See order comments or contact performing lab Unknown, [place] * (ABNORMAL) [facility] (06/25/2025) Only the most recent of11 resultswithin the time period is included. Potassium 7.4(H) 3.5 - 5.1 mEq/L [facility] Comment: Verified by repeat analysis. 06/25/2025 06/26/2025 11: 41 AM CDT Narrative [facility] - 06/26/2025 Unless otherwise specified, test(s) performed at: [facility], [address] [place], [place] [id number] BOOSTER PLANT OPERATOR: Shimon Nazario M.D. For any questions, please call customer service at FREQUENCY:OTHER Resulting Agency Comment Specimen source: Serum us Dorothy Miguel MD LAB BLOOD ORDERABLES Final Re sult Performing Organization Address City/[facility]/ZIP Co de Phone Number [facility] See order comments or contact performing lab Unknown, [place] * HD KINETICS (06/11/2025) Only the most recent of3 resultswithin the time period is included. % Urea Reduction 79 65 - 80 % [facility] 06/11/2025 06/12/2025 1:5 7 PM CDT Narrative [facility] - 06/12/2025 Unless otherwise specified, test(s) performed at: [place] [id number] [employer]ER PLANT OPERATOR: Shimon Nazario M.D. For any questions, please call customer service at FREQUENCY:MONTHLY Resulting Agency Comment Specimen source: Plasma us Dorothy Miguel MD LAB BLOOD ORDERABLES Final Re sult Performing Organization Address [facility] de Phone Number [facility] See order comments or contact performing lab Unknown, [place] * POST CHEMISTRY (06/11/2025) Only the most recent of3 resultswithin the time period is included. BUN Post Dialysis 12 6 - 19 mg/dL [facility] 06/11/2025 06/12/2025 1:5 7 PM CDT Narrative [facility] - 06/12/2025 Unless otherwise specified, test(s) performed at: [facility], [address] [place] [id number] [employer]ER PLANT OPERATOR: Shimon Nazario M.D. For any questions, please call customer service at FREQUENCY:MONTHLY Resulting Agency Comment Specimen source: Plasma us Dorothy Miguel MD LAB BLOOD ORDERABLES Final Re sult Performing Organization Address City/[facility] Co de Phone Number [facility] See order comments or contact performing lab Unknown, [place] * IMMUNO CHEMISTRY (06/11/2025) Only the most recent of4 resultswithin the time period is included. Pathologist [facility] Hep B Surface Ag Negative Negative [facility] 06/11/2025 06/12/2025 2:1 6 PM CDT Narrative [facility] - 06/13/2025 Unless otherwise specified, test(s) performed at: [facility], [address] [place] [address] BOOSTER PLANT OPERATOR: Shimon Nazario M.D. For any questions, please call customer service at FREQUENCY:MONTHLY Resulting Agency Comment Specimen source: Serum Dorothy Miguel MD LAB BLOOD ORDERABLES Final Re sult Performing Organization Address [facility] de Phone Number [facility] See order comments or contact performing lab Unknown, [place] * [facility] Results (06/11/2025) Only the most recent of3 resultswithin the time period is included. Pathologist [facility] eNPCR 0.98 [facility] eKt/V Gotch 1.50 [facility] e [place] WSTDKT/V 2.6 [facility] eKdrt/V 1.50 [facility] eKt/V ([place]) 1.51 [facility] spKt/V Gotch 1.73 [facility] ge [place] spKt/V (Daugirdas II) 1.74 [facility] PCR 61.40 [facility] nPCR_HD 1.04 [facility] 06/11/2025 06/11/2025 [facility] Ordering Provider LAB BLOOD ORDERABLES Final Result Performing Organization Address City/[facility]/ZIP Co de Phone Number [facility] Contact Performing lab Unknown, [place] * SPECIAL CHEMISTRY (04/09/2025) Pathologist [facility] Hemoglobin A1C 5.8 4.8 - 5.9 % [facility] 04/09/2025 04/10/2025 11: 55 AM CDT Narrative [facility] - 04/10/2025 Unless otherwise specified, test(s) performed at: [facility], [address] [place] [address] BOOSTER PLANT OPERATOR: Shimon Nazario M.D. For any questions, please call customer service at FREQUENCY:MONTHLY Resulting Agency Comment Specimen source: Blood Dorothy Miguel MD LAB BLOOD BANK TEST ORDERABLE S Final Result [facility] See order comments or contact performing lab Unknown, [place] from Last 3 Months Insurance [facility] Care Teams Highwall Drill Operator Relationship Specialty Start Date End Date Luthre Nelson [address] [place] [address] [address] [place] [address] PCP - General Family Medicine 10/01/24
[2025-06-29 00:29] VITALS: BP 123/80; PULSE 87; RESP 14; O2SAT 96
--- NOTE | 2025-06-29 00:52 | ED_ITS ---
HPI - Recheck/Abnormal Lab/Rx 2 General: Chief Complaint: Recheck/Abnormal Lab/Rx Stated Complaint: Low Blood sugar, disoriented, Weak Time Seen by Provider: 06/29/25 00:03 History of Present Illness: Patient is a 55-year-old male with history of diabetes mellitus and end-stage renal disease (ESRD) on hemodialysis who presents after experiencing a severe hypoglycemic episode with blood glucose reading of 22 mg/dL. Patient reports administering insulin and eating 'a little bit' afterward, which likely precipitated the hypoglycemic event. He denies any recent illness, fever, vomiting, diarrhea, or urinary symptoms. Patient reports feeling better after eating to correct the hypoglycemia. He denies any recent changes to his insulin regimen. Patient is on a regular hemodialysis schedule with his most recent session yesterday (Sunday), and regular sessions on Tuesdays and . He reports starting dialysis in March of this year. Patient denies any changes or complications during his most recent dialysis session. Related Data Previous Rx's ?Medication ?Instructions ?Recorded wheel chair with leg rest to the #1 ea 08/11/24 right KAFO #1 ea 11/27/24 Tibial tubercal height foot #1 ea 12/25/24 prosthesis sevelamer carbonate 800 mg tablet 800 mg PO TID #90 ta bs 03/16/25 (Renvela) atorvastatin 40 mg tablet 40 mg PO DAILY #90 tabs 03/07 cholecalciferol (vitamin D3) 125 125 mcg PO DAILY #90 tabs 04/03/25 mcg (5,000 unit) tablet (Vitamin D3) loperamide 2 mg tablet (Imodium 2 mg PO BID PRN loose stool #60 04/03/25 A-D) tabs midodrine 10 mg tablet 10 mg PO BID #120 tabs 05/01 Allergies Allergy/AdvReac Type Severity Reaction Status Date / Time No Known Allergies Allergy Verified 06/15/25 12:57 PFSH ED 2 PFSH: Medical History (Updated 06/29/25 @ 00:54 by Yanick Fitzgerald DO) CKD (chronic kidney disease) stage V requiring chronic dialysis IDDM (insulin dependent diabetes mellitus) Hypotension Atrial fibrillation with RVR Abnormal iron saturation Gas gangrene Necrotizing fasciitis DKA (diabetic ketoacidosis) CKD (chronic kidney disease) Uncontrolled type 2 diabetes mellitus Surgical History S/P amputation of foot Status post amputation Family History Sister Chronic kidney disease (CKD) . She was on dialysis and a month after renal transplant. Social History Smoking and tobacco/nicotine status: never used tobacco/nicotine Alcohol intake: never Substance/Drug Use: never service: No Current occupational exposures/hazards: Yes Physical Exam 2 Const: COMMON NORMALS: no acute distress GENERAL APPEARANCE: cooperative; not ill appearing and not frail appearing HENMT: COMMON NORMALS: normocephalic, atraumatic and Normal external nose present HEAD & SCALP: normocephalic and atraumatic FACE & SINUS: normal facial exam and face symmetric NOSE: Normal external nose present Eye: COMMON NORMALS: Equal, round and reactive pupils present and EOMs intact bilaterally PUPIL: Yes Equal, round and reactive pupils present Neck/C-Spine: GENERAL: Yes trachea midline Chest: CHEST: Yes Symmetrical chest wall rise Resp: COMMON NORMALS: normal respiratory effort, No retractions, No use of accessory muscles and clear to auscultation bilaterally AUSCULTATION: clear to auscultation bilaterally Cardio: COMMON NORMALS: regular rate and regular rhythm RATE: regular rate RHYTHM: regular rhythm GI: COMMON NORMALS: Normal to inspection, nondistended, normoactive bowel sounds present Extremity: COMMON NORMALS: no pedal edema Neuro: MICHELE COMA SCALE: document GCS findings [place] coma scale eye opening: Spontaneous [place] coma scale verbal response: Orientated Michele coma scale motor response: Obey commands [place] coma scale total score: 15 S ENSORY EXAM: Yes extremities (intact) Psych: COMMON NORMALS: speech normal SPEECH: Yes normal speech Skin: COMMON NORMALS: no rashes or lesions noted GENERAL SKIN EXAM: no rashes or lesions noted Course 2 Vital Signs: Vital signs: Vital Signs Temperature 96.4 F L 06/28/25 23:58 Pulse Rate 62 06/29/25 01:34 Respiratory Rate 14 06/29/25 01:34 Blood Pressure 114/70 06/29/25 01:34 Pulse Oximetry 95 06/29/25 01:34 Oxygen Delivery Me thod Room Air 06/29/25 01:34 MDM - Recheck/Abnormal Lab/Rx Medical Decision Making 55-year-old male with low blood sugar. Sugars have remained up after the patient treated himself at home. He is a dialysis patient. His creatinine is 8, however BUN is only 41 potassium is normal magnesium and phosphorus are nonactionable. He will be discharged home. No other cause found for his hypoglycemic episode. He will check his sugar often for the next 24 hours. To return for any problems Lab Data 06/29/25 00:15 06/29/25 00:15 Laboratory Results WBC 5.80 10^3/uL (3.29-11.43) 06/29/25 00:15 RBC 3.84 10^6/uL (3.85-5.65) L 06/29/25 00:15 Hgb 12.00 g/dL (11.27-16.99) 06/29/25 00:15 Hct 38.0 % (37-53) 06/29/25 00:15 MCV 99.0 fl (82-101) 06/29/25 00:15 MCH 31.3 pg (27-33) 06/29/25 00:15 MCHC 31.6 g/dL (30-55) 06/29/25 00:15 RDW 14.5 % (12.1-15.1) 06/29/25 00:15 Plt Count 197 10^3/cmm (157-399) 06/29/25 00:15 MPV 9.6 fL (7.4-10.4) 06/29/25 00:15 Neut % (Auto) 78.0 % 06/29/25 00:15 Lymph % (Auto) 11.2 % 06/29/25 00:15 Lanier % (Auto) 6.9 % 06/29/25 00:15 Eos % (Auto) 3.1 % 06/29/25 00:15 Baso % (Auto) 0.3 % 06/29/25 00:15 Neut # (Auto) 4.52 10^3/uL (1.8-7.7) 06/29/25 00:15 Lymph # (Auto) 0.7 10^3/uL (0.8-4.8) L 06/29/25 00:15 Lanier # (Auto) 0.4 10^3/uL (0.2-0.9) 06/29/25 00:15 Eos # (Auto) 0.2 10^3/uL (0.0-0.8) 06/29/25 00:15 Baso # (Auto) 0.0 10^3/uL (0.0-0.1) 06/29/25 00:15 Nucleated RBC % (auto) 0 % 06/29/25 00:15 Nucleated RBCs # 0.0 /100WBC 06/29/25 00:15 Sodium 141 mmol/L (136-145) 06/29/25 00:15 Potassium 4.6 mmol/L (3.5-5.1) 06/29/25 00:15 Chloride 98 mmol/L (98-107) 06/29/25 00:15 Carbon Dioxide 26 mmol/L (22-29) 06/29/25 00:15 Anion Gap 21.6 (5-19) H 06/29/25 00:15 BUN 41 mg/dL (6-20) H 06/29/25 00:15 Creatinine 8.0 mg/dL (0.7-1.2) H* 06/29/25 00:15 GFR Calculation 7.0 mL/min (90-130) L 06/29/25 00:15 Glucose 110 mg/dL (65-115) 06/29/25 00:15 Calculated Osmolality 303 mOsm/kg (285-295) H 06/29/25 00:15 Calcium 9.0 mg/dL (8.5-10.5) 06/29/25 00:15 Phosphorus 5.8 mg/dL (2.5-4.5) H 06/29/25 00:15 Magnesium 2.5 mg/dL (1.7-2.3) H 06/29/25 00:15 Total Bilirubin 0.3 mg/dL (0.15-1.2) 06/29/25 00:15 AST 16 U/L (0-40) 06/29/25 00:15 ALT 26 U/L (0-41) 06/29/25 00:15 Alkaline Phosphatase 175 U/L (40-130) H 06/29/25 00:15 Total Protein 8.3 g/dL (6.6-8.7) 06/29/25 00:15 Albumin 4.5 g/dL (3.5-5.2) 06/29/25 00:15 Globulin 3.8 g/dL (1.3-4.6) 06/29/25 00:15 No radiology studies performed this visit Discharge Plan Discharge Patient Disposition: Home Clinical Impression: Hypoglycemia Condition: Stable Prescriptions: No Action (DME) KAFO See Rx Instructions .Route .MEDSUPPLY Qty: 1 0RF Rx Instructions: As directed by Rosalio Luis midodrine 10 mg tablet 10 mg PO BID Qty: 120 1RF (DME) wheel chair with leg rest to the right See Rx Instructions .Route .MEDSUPPLY Qty: 1 0RF Rx Instructions: As directed loperamide [Imodium A-D] 2 mg tablet 2 mg PO BID PRN (Reason: loose stool) Qty: 60 1RF cholecalciferol (vitamin D3) [Vitamin D3] 125 mcg (5,000 unit) tablet 125 mcg PO DAILY Qty: 90 1RF (DME) Tibial tubercal height foot prosthesis See Rx Instructions .Route .MEDSUPPLY Qty: 1 0RF Rx Instructions: As directed atorvastatin 40 mg tablet 40 mg PO DAILY Qty: 90 1RF sevelamer carbonate [Renvela] 800 mg tablet 800 mg PO TID Qty: 90 0RF Rx Instructions: must administer with a meal/food Discharge Orders: Discharge ED (Routine); Ordered 06/29/25 Ordered By: Yanick Fitzgerald Referrals: Luther Nelson MD [Primary Care Provider, Family Practice] - 1-3 days Patient Instructions: Hypoglycemia, Opioid Safety, Pain Management, Patient Portal & Es Instructions Activity Restrictions/Additional Instructions: Set your alarm to wake up in 2 to 3 hours to check your sugar. Treat accordingly if low. Return for any problems. Keep a close eye on your blood sugar especially for the next 24 hours. Print Language: French Coding Level of Care Code ED Director Of Leadership Development for Peng Ramsey
[2025-06-29 01:16] LABS: Hematocrit 38.0 % (37-53); Hemoglobin 12.00 g/dL (11.27-16.99); Mean Corpuscular HGB Conc 31.6 g/dL (30-55); Mean Corpuscular Hemoglobin 31.3 pg (27-33); Mean Corpuscular Volume 99.0 fl (82-101); Nucleated Red Blood Cells % 0 %; Platelet Count 197 10^3/cmm (157-399); Red Blood Count 3.84 10^6/uL (3.85-5.65); White Blood Count 5.80 10^3/uL (3.29-11.43)
[2025-06-29 01:34] VITALS: BP 114/70; PULSE 62; RESP 14; O2SAT 95
[2025-06-29 01:35] LABS: Alanine Aminotransferase 26 U/L (0-41); Albumin Level 4.5 g/dL (3.5-5.2); Alkaline Phosphatase 175 U/L (40-130); Anion Gap 21.6 (5-19); Aspartate Amino Transferase 16 U/L (0-40); Blood Urea Nitrogen 41 mg/dL (6-20); Calcium 9.0 mg/dL (8.5-10.5); Carbon Dioxide 26 mmol/L (22-29); Chloride 98 mmol/L (98-107); Globulin 3.8 g/dL (1.3-4.6); Glucose 110 mg/dL (65-115); Magnesium 2.5 mg/dL (1.7-2.3); Osmolality Calculated 303 mOsm/kg (285-295); Potassium 4.6 mmol/L (3.5-5.1); Sodium 141 mmol/L (136-145); Total Protein 8.3 g/dL (6.6-8.7)
[2025-06-29 01:39] LABS: Creatinine Clr Calc Pharmacy 9.8037
[2025-06-29 01:50] VITALS: BP 114/79; PULSE 64; RESP 14; O2SAT 96
== END 2025-06-29 01:51 | disposition home or self-care (01) ==
PROVIDERS: Emergency Provider Emergency Medicine; PCP Family Medicine
DX: E11.22 Type 2 diabetes mellitus with diabetic chronic kidney disease (principal); E11.649 Type 2 diabetes mellitus with hypoglycemia without coma; N18.6 End stage renal disease; Z99.2 Dependence on renal dialysis
CPT/HCPCS: 36415; 36416; 80053; 82962; 83735; 84100; 85025; 99283

== ENCOUNTER → 2025-07-27 14:20 | Outpatient (BNVA) | payer OTHER, SELFPAY | PROVIDERS: PCP Family Medicine; Visit Provider Family Medicine | DX: E11.65 Type 2 diabetes mellitus with hyperglycemia (principal) | CPT/HCPCS: 80053; 83036; 85025 ==

== ENCOUNTER 2025-08-17 13:59 | Outpatient (CLI) | payer OTHER, SELFPAY ==
--- NOTE | 2025-08-17 14:06 | XR_ITS ---
WS: [id number] XR foot RT min 3V* [id number] REASON FOR EXAM: E11.621 - Type 2 diabetes mellitus with foot ulcer FINDINGS: Since the previous examination of 05/14/2024 there is been amputation of the remainder of the midfoot with only the hindfoot remaining. The anterior superior calcaneus and anterior inferior talus demonstrate ill-defined sclerosis and loss of defined cortex. There is also an area of lucency within the anterior inferior talus. XR/XR foot RT min 3V* [id number] IMPRESSION: Interval amputation of remaining midfoot tarsal bones. Bony changes seen in the talus and calcaneus as above. Possibly an indication o f early osteomyelitis.
== END 2025-08-17 14:00 | disposition home or self-care (01) ==
LOC: RAD 14:01
PROVIDERS: PCP Family Medicine; Visit Provider Pediatrics
DX: E11.621 Type 2 diabetes mellitus with foot ulcer (principal); L97.509 Non-pressure chronic ulcer of other part of unspecified foot with unspecified severity; Z89.431 Acquired absence of right foot; M89.271 Other disorders of bone development and growth, right ankle and foot
CPT/HCPCS: 73630

== ENCOUNTER 2025-08-26 07:47 | Outpatient (CLI) | payer OTHER, SELFPAY ==
--- NOTE | 2025-08-26 08:00 | NMR_ITS ---
PROCEDURE INFORMATION: Exam: [place] Bone and/or Joint, 3 Phase Exam date and time: 08/26/2025 7:53 AM Age: 55 years old Clinical indication: Condition or disease; Osteomyelitis; Type not specified; Prior surgery; Surgery date: 6+ months; Surgery type: Amputation right foot; Additional info: S/sx of osteo on XR, TECHNIQUE: Imaging protocol: Nuclear 3 phase bone scan was obtained. Views: Frontal and posterior Total images: 1 Radiopharmaceutical: 25.9 mCi Tc-99m HDP (Oxidronate), IV. Time of imaging post radiopharmaceutical administration: 2 hours COMPARISON: No relevant prior studies available. FINDINGS: Skeleton: Status post right foot amputation. Increased flow and soft tissue activity seen to the stump. Finding can be seen with cellulitis. Delayed imaging demonstrating increased activity to the distal aspect of the stump. This is seen in the distal talus and calcaneus area but is also seen in the distal tibia. This increased activity is seen primarily on images centered over the feet and ankles. On whole-body imaging, this shows only mild increased activity. Findings can be seen with osteomyelitis but the multi focality of the activity in the stump could also be related to stress related changes. Soft tissues: See Skeleton finding. WA/WA bone 3 phase [id number] IMPRESSION: 1. Status post right foot amputation. Increased flow and soft tissue activity seen to the stump. Finding can be seen with cellulitis. 2. Delayed imaging demonstrating increased activity to the distal aspect of the stump. This is seen in the distal talus and calcaneus area but is also seen in the distal tibia. This increased activity is seen primarily on images centered over the feet and ankles. On whole-body imaging, this shows only mild increased activity. Findings can be seen with osteomyelitis but the multi focality of the activity in the stump could also be related to stress related changes.
== END 2025-08-26 07:48 | disposition home or self-care (01) ==
LOC: RAD 07:48
PROVIDERS: PCP Family Medicine; Visit Provider Thoracic Surgery (Cardiothoracic Vascular Surgery)
DX: E11.621 Type 2 diabetes mellitus with foot ulcer (principal); L97.509 Non-pressure chronic ulcer of other part of unspecified foot with unspecified severity; T81.31XA Disruption of external operation (surgical) wound, not elsewhere classified, initial encounter; Y83.8 Other surgical procedures as the cause of abnormal reaction of the patient, or of later complication, without mention of misadventure at the time of the procedure
CPT/HCPCS: 78315; A9561